=== PATIENT | female | born 1935 | race Caucasian/White ===

== ENCOUNTER 2018-08-28 11:11 | Inpatient (IN) | payer MEDICARE, OTHER | END 2018-09-02 18:50 | LOC: ER 11:11 → TELE-WESTW 11:12 | DX: I13.2 Hypertensive heart and chronic kidney disease with heart failure and with stage 5 chronic kidney disease, or end stage renal disease (principal); I50.23 Acute on chronic systolic (congestive) heart failure; N18.6 End stage renal disease; J96.00 Acute respiratory failure, unspecified whether with hypoxia or hypercapnia; E44.0 Moderate protein-calorie malnutrition; Z99.2 Dependence on renal dialysis; E11.22 Type 2 diabetes mellitus with diabetic chronic kidney disease; Z79.4 Long term (current) use of insulin; D63.8 Anemia in other chronic diseases classified elsewhere; I48.91 Unspecified atrial fibrillation; K21.9 Gastro-esophageal reflux disease without esophagitis; I48.2 Chronic atrial fibrillation; I27.20 Pulmonary hypertension, unspecified; E87.6 Hypokalemia ==

== ENCOUNTER 2018-12-04 14:37 | Inpatient (IN) | payer MEDICARE, OTHER ==
[~2018-12-04] VITALS: Ht 157.5 cm; Wt 71.3 kg
[~2018-12-04 14:37] MED LIST: ALB5IS NEB; ALBUAER3 IN; ALL300T PO; ASPI-404 PO; CALC667C PO; CIPR-187 PO; DOCU100C8 PO; FER325T PO; FURO1TAB33 PO; GABA300C10 PO; GLIP-204 PO; INSLANTI SC; LEVO112T4 PO; LEVO25TA6 PO; LIS10T PO; MET25T PO; METF-372 PO; NOR10T PO; PANT40TA2 PO; SIMV-13 PO; SITA50TA PO; TIOTCAP IN
[2018-12-04 15:23] LABS: Basophils # (auto) 0.1 uL; Basophils % (auto) 1.3 % (0.0-2.0); Eosinophils # (auto) 0.5 uL; Eosinophils % (auto) 6.5 % (0.0-7.0); Hematocrit 34.5 % (36.0-46.0); Hemoglobin 11.4 g/dL (12.2-16.2); Lymphocytes # (auto) 1.4 uL; Lymphocytes % (auto) 17.3 % (10.0-50.0); Monocytes # (auto) 0.5 uL; Neutrophils # (auto) 5.6 uL; Neutrophils % (auto) 68.9 % (37.0-80.0); Red Blood Cells 3.79 10^6/uL (4.0-5.20); White Blood Cell 8.2 10^3/uL (4.4-10.8)
[2018-12-04 15:24] LABS: Mean Corpuscular Hemoglobin 30.2 pg (28.0-32.0); Mean Corpuscular Hgb Conc. 33.1 g/dL (32.0-36.0); Mean Corpuscular Volume 91.2 fL (80.0-100.0); Platelet Count (auto) 214 10^3/uL (140-450); Red Cell Distribution Width 18.2 % (11.8-14.3)
[2018-12-04] MEDS ORDERED: PIPERACILLIN-TAZOB 3.375GM 100 ML IV ONE (15:30)
[2018-12-04 15:38] LABS: Albumin 3.4 g/dL (3.4-5.0); Calcium 8.8 mg/dL (8.5-10.1); Potassium 4.2 mmol/L (3.5-5.1)
[2018-12-04 15:41] LABS: BUN/Creatinine Ratio 12.6
[2018-12-04 15:44] LABS: Bilirubin, Total 0.4 mg/dL (0.2-1.0); Total Protein 7.1 g/dL (6.4-8.2)
[2018-12-04 18:17] LABS: Urine Bacteria FEW /hpf (None Seen); Urine Blood Negative /uL (Negative); Urine Hyaline Cast FEW /lpf (0 - 2); Urine WBC 1 /hpf (0 - 5)
[2018-12-04] MEDS ORDERED: DEXTROSE (50%) 50ML SYRG IV PRN (18:30)
[2018-12-04] MEDS ORDERED: MORPHINE SULF INJ 2 MG/ML SYRINGE 1ML IV PRN (18:30)
[2018-12-04] MEDS ORDERED: VANCOMYCIN PER PHARMACY 0 MG IV SCH (18:30)
[2018-12-04] MEDS ORDERED: NITROGLYCERIN 0.4 MG SL TAB SL PRN (18:30)
[2018-12-04] MEDS ORDERED: diphenhdrAMINE HCL 50 MG/1 ML VL IV PRN (18:30)
[2018-12-04] MEDS ORDERED: VANCOMYCIN 1GM/250ML 250 ML IV ONE (19:00)
--- NOTE | 2018-12-04 19:55 | NUR ---
PATIENT ARRIVED TO ROOM VIA STRETCHER. SHE IS ALERT AND ORIENTED X4. SHE IS NOT AMBULATORY BUT ABLE TO TURN FROM SIDE TO SIDE IN THE BED. SHE HAS EDEMA AT 3+ TO BOTH FEET. REDNESS AND PAIN TO BOTH LOWER EXTREMITIES WELL. SHE IS ON ROOM AIR. BED IS LOCKED IN THE LOWEST POSITION WITH SIDE RAILS UP X2. CALL LIGHT IS WITHIN REACH. WILL CONTINUE TO MONITOR.
[2018-12-04 20:31] VITALS: BP 128/65
[2018-12-04 22:00] VITALS: BP 128/65
[2018-12-04] MEDS ORDERED: INFLUENZA QUAD 2019-2020 0.5ml SYRG IM SCH (22:00)
[2018-12-04] MEDS: METOPROLOL TARTRATE 25 MG TAB PO SCH (22:00)
[2018-12-04] MEDS ORDERED: GABAPENTIN 300 MG CAP PO PRN (22:00)
[2018-12-04] MEDS: GABAPENTIN 300 MG CAP PO SCH (22:08)
[2018-12-04] MEDS: InsuLIN REG 1unit/0.01ml Soln (100units/ml) SC SCH (22:09)
[2018-12-04] MEDS: ACCU-CHEK COMFORT CURVE STRIP VI SCH (22:09)
[2018-12-05] VITALS (7 sets, daily range): BP systolic 123–150; BP diastolic 55–89
[2018-12-05 06:31] LABS: Basophils # (auto) 0.1 uL; Basophils % (auto) 0.8 % (0.0-2.0); Eosinophils # (auto) 0.5 uL; Eosinophils % (auto) 6.5 % (0.0-7.0); Hematocrit 32.3 % (36.0-46.0); Hemoglobin 10.6 g/dL (12.2-16.2); Lymphocytes % (auto) 13.2 % (10.0-50.0); Mean Corpuscular Hemoglobin 29.8 pg (28.0-32.0); Mean Corpuscular Hgb Conc. 32.8 g/dL (32.0-36.0); Mean Corpuscular Volume 90.8 fL (80.0-100.0); Monocytes # (auto) 0.5 uL; Monocytes % (auto) 6.8 % (0.0-12.0); Neutrophils # (auto) 5.6 uL; Neutrophils % (auto) 72.7 % (37.0-80.0); Platelet Count (auto) 189 10^3/uL (140-450); Red Blood Cells 3.56 10^6/uL (4.0-5.20); Red Cell Distribution Width 17.8 % (11.8-14.3); White Blood Cell 7.7 10^3/uL (4.4-10.8)
[2018-12-05 06:38] LABS: Calcium 8.9 mg/dL (8.5-10.1); Potassium 4.1 mmol/L (3.5-5.1)
[2018-12-05 06:42] LABS: Bilirubin, Total 0.5 mg/dL (0.2-1.0); Phosphorus 3.4 mg/dL (2.5-4.90); Total Protein 6.5 g/dL (6.4-8.2)
[2018-12-05] MEDS: ACCU-CHEK COMFORT CURVE STRIP VI SCH ×4 (07:00→22:09)
[2018-12-05] MEDS: InsuLIN REG 1unit/0.01ml Soln (100units/ml) SC SCH ×4 (07:00→22:14)
[2018-12-05] MEDS: PANTOPRAZOLE 40 MG TAB PO SCH (09:28)
[2018-12-05] MEDS: LISINOPRIL 10 MG TAB PO SCH (09:28)
[2018-12-05] MEDS: CALCIUM ACETATE 667 MG CAP PO SCH ×3 (09:28→17:23)
[2018-12-05] MEDS: GABAPENTIN 300 MG CAP PO SCH (09:29)
[2018-12-05] MEDS: METOPROLOL TARTRATE 25 MG TAB PO SCH ×2 (09:29→22:09)
[2018-12-05] MEDS ORDERED: LEVOTHYROXINE SODIUM 100 MCG/5 ML INJ IV ONE (09:30)
[2018-12-05] MEDS: cefTRIAXone 1GM/50ML D5W 50 ML IV SCH (09:30)
[2018-12-05] MEDS: FERROUS SULFATE 325 MG TAB PO SCH ×3 (09:30→17:22)
[2018-12-05] MEDS: ASPirin-EC 81 mg tab PO SCH (09:31)
--- NOTE | 2018-12-05 15:00 | NUR ---
Assessment Pt is an 83 yr old female alert and oriented. Pt lives alone but her grandson, Gilberto, comes over daily to assist with cooking cleaning, showering, toileting and any other needs. Grandcristian, Gilberto, is pt's emergency contact at [phone]. Pt uses a w/c, shower chair and commode in the home. Pt receives dialysis services through [facility] in [place]. Pt receives income and states that she does not have an advanced directive on file. Pt's grandson will transport home upon d/c. Pt plans to d/c home upon medical clearance. No needs or concerns at this time. Addendum: 12/05/18 at 1610 by CARYN ELLIS Amended: Links added.
--- NOTE | 2018-12-05 20:00 | NUR ---
RECEIVE IN BED WATCHING TV WITH BILATERAL LOWER EXTREMITIES 2+ EDEMA AND REDNESS NO VOICED COMPLAINTS IS FOR DIALYSIS TOMORROW
[2018-12-06] VITALS (7 sets, daily range): BP systolic 130–151; BP diastolic 49–79
--- NOTE | 2018-12-06 06:00 | NUR ---
ISOLATION FOR MRSA MAINTAINED RT CHEST DIALTSIS CATHETER REMAINS INTACT
[2018-12-06] MEDS: ACCU-CHEK COMFORT CURVE STRIP VI SCH ×4 (06:23→23:04)
[2018-12-06] MEDS: InsuLIN REG 1unit/0.01ml Soln (100units/ml) SC SCH ×4 (06:31→23:12)
[2018-12-06] MEDS: LEVOTHYROXINE SODIUM 100 MCG/5 ML INJ IV SCH (06:31)
[2018-12-06] MEDS: cefTRIAXone 1GM/50ML D5W 50 ML IV SCH (10:15)
[2018-12-06] MEDS: FERROUS SULFATE 325 MG TAB PO SCH ×3 (10:16→18:01)
[2018-12-06] MEDS: ASPirin-EC 81 mg tab PO SCH (10:16)
[2018-12-06] MEDS: PANTOPRAZOLE 40 MG TAB PO SCH (10:16)
[2018-12-06] MEDS: LISINOPRIL 10 MG TAB PO SCH (10:17)
[2018-12-06] MEDS: METOPROLOL TARTRATE 25 MG TAB PO SCH ×2 (10:18→23:03)
[2018-12-06] MEDS: ENOXAPARIN SOD 30 MG/0.3 ML SYRINGE SC SCH (10:19)
[2018-12-06] MEDS: GABAPENTIN 300 MG CAP PO SCH (10:19)
[2018-12-06] MEDS: CALCIUM ACETATE 667 MG CAP PO SCH ×3 (10:19→18:01)
[2018-12-06] MEDS: DOXYCYCLINE 100 MG TAB/CAP PO SCH (23:04)
[2018-12-07 05:00] VITALS: BP 147/62
[2018-12-07] MEDS: LEVOTHYROXINE SODIUM 100 MCG/5 ML INJ IV SCH (07:03)
[2018-12-07] MEDS: ACCU-CHEK COMFORT CURVE STRIP VI SCH ×4 (07:04→21:57)
[2018-12-07] MEDS: InsuLIN REG 1unit/0.01ml Soln (100units/ml) SC SCH ×4 (07:05→21:56)
--- NOTE | 2018-12-07 07:30 | NUR ---
Opening Note Assumed pt care from [facility] nurse. PT is a/ox4 with no s/s o0f distress or SOB. Pt is currently laying in bed with no complaints. Discussed POC with pt; the possibility of dialysis today; pt verbalized understanding. Safety measures maintained with call light within reach, bed in lowest position and side rails up. Will continue to monitor for changes q1hr and prn. MRSA contact precautions still in action.
[2018-12-07] MEDS: CALCIUM ACETATE 667 MG CAP PO SCH ×3 (07:59→18:09)
[2018-12-07] MEDS: FERROUS SULFATE 325 MG TAB PO SCH ×3 (08:00→18:09)
[2018-12-07] MEDS: DOXYCYCLINE 100 MG TAB/CAP PO SCH ×2 (08:38→21:45)
[2018-12-07] MEDS: PANTOPRAZOLE 40 MG TAB PO SCH (08:38)
[2018-12-07] MEDS: ASPirin-EC 81 mg tab PO SCH (08:38)
[2018-12-07] MEDS: ENOXAPARIN SOD 30 MG/0.3 ML SYRINGE SC SCH (08:38)
[2018-12-07] MEDS: GABAPENTIN 300 MG CAP PO SCH (08:38)
[2018-12-07 09:00] VITALS: BP 154/69
[2018-12-07] MEDS: LISINOPRIL 10 MG TAB PO SCH (09:56)
[2018-12-07] MEDS: METOPROLOL TARTRATE 25 MG TAB PO SCH ×2 (10:00→21:45)
--- NOTE | 2018-12-07 11:59 | NUR ---
DIALYSIS NURSE AT BEDSIDE
--- NOTE | 2018-12-07 14:46 | NUR ---
DIALYSIS COMPLETE DIALYSIS NURSE REPORTED THAT 1.5L WERE REMOVED DURING TREATMENT. PT TOLERATED TREATMENT WELL. WILL CONTINUE TO MONITOR. LAST BP POST TX IS 120/70.
--- NOTE | 2018-12-07 14:56 | NUR ---
Senior Talent Management Consultant Called to Inform of Procedure Tomorrow RN from labor supervisor called to inform that pt is on the schedule for peripheral angio tomorrow AM. Pt is able to eat light breakfast tomorrow morning given the procedure is later in the afternoon.
[2018-12-07 14:57] VITALS: BP 123/70
[2018-12-07 17:00] VITALS: BP 105/56
--- NOTE | 2018-12-07 19:35 | NUR ---
Opening Shift Note Assumed care of patient, awake and alert. No S/S of distress/SOB or pain. Bed locked in lowest position, side rails upx2, call light within reach, bed alarm on. Instructed on POC and to call for assist PRN, will continue to monitor for changes Q1hr and PRN.
[2018-12-07] MEDS: ATORVASTATIN 20 MG TAB PO SCH (21:45)
[2018-12-07 22:00] VITALS: BP 113/55
[2018-12-08 05:00] VITALS: BP 129/73
[2018-12-08] MEDS: LEVOTHYROXINE SODIUM 100 MCG/5 ML INJ IV SCH (06:58)
[2018-12-08] MEDS: InsuLIN REG 1unit/0.01ml Soln (100units/ml) SC SCH ×4 (06:59→21:48)
[2018-12-08] MEDS: ACCU-CHEK COMFORT CURVE STRIP VI SCH ×4 (06:59→21:48)
[2018-12-08 07:02] LABS: Basophils # (auto) 0.1 uL; Basophils % (auto) 1.2 % (0.0-2.0); Eosinophils # (auto) 0.3 uL; Hematocrit 33.3 % (36.0-46.0); Lymphocytes # (auto) 1.3 uL; Lymphocytes % (auto) 20.7 % (10.0-50.0); Mean Corpuscular Hgb Conc. 33.2 g/dL (32.0-36.0); Mean Corpuscular Volume 90.5 fL (80.0-100.0); Monocytes # (auto) 0.5 uL; Monocytes % (auto) 8.2 % (0.0-12.0); Neutrophils # (auto) 4.2 uL; Neutrophils % (auto) 64.9 % (37.0-80.0); Nucleated Red Blood Cells % 0.1 %; Platelet Count (auto) 181 10^3/uL (140-450); Red Blood Cells 3.68 10^6/uL (4.0-5.20); Red Cell Distribution Width 17.1 % (11.8-14.3); White Blood Cell 6.5 10^3/uL (4.4-10.8)
[2018-12-08 07:05] LABS: Partial Thromboplastin Time 24.2 sec (23.64-32.05)
[2018-12-08 07:15] LABS: BUN/Creatinine Ratio 15.2; Calcium 9.5 mg/dL (8.5-10.1); Potassium 4.9 mmol/L (3.5-5.1)
[2018-12-08] MEDS: FERROUS SULFATE 325 MG TAB PO SCH ×3 (08:00→18:12)
[2018-12-08] MEDS: CALCIUM ACETATE 667 MG CAP PO SCH ×3 (08:00→18:12)
[2018-12-08 09:00] VITALS: BP 132/57
[2018-12-08] MEDS: DOXYCYCLINE 100 MG TAB/CAP PO SCH ×2 (09:28→21:48)
[2018-12-08] MEDS: METOPROLOL TARTRATE 25 MG TAB PO SCH ×2 (09:29→21:47)
[2018-12-08] MEDS: LISINOPRIL 10 MG TAB PO SCH (09:30)
--- NOTE | 2018-12-08 09:30 | NUR ---
PASSED MORNING MEDICATIONS, PT TOLERATED WELL. REPORTS COMFORT AT MOMENT. EFFORTLESS BREATHING ON 2LNC. BED LOCKED AND IN LOWEST POSITION, CALL LIGHT WITHIN REACH. WILL CONTINUE TO MONITOR.
[2018-12-08] MEDS: ASPirin-EC 81 mg tab PO SCH (09:32)
[2018-12-08] MEDS: ENOXAPARIN SOD 30 MG/0.3 ML SYRINGE SC SCH (09:33)
[2018-12-08] MEDS: GABAPENTIN 300 MG CAP PO SCH (09:34)
[2018-12-08] MEDS: PANTOPRAZOLE 40 MG TAB PO SCH (09:35)
--- NOTE | 2018-12-08 12:22 | NUR ---
Nutrition Assessment Notes please see attached link for complete assessment Est. Needs BW [id number] kcal (30-33 kcal/kgBW), 82-96 gms pro (1.2-1.4 gms/kgBW r/t HD). Will continue to monitor pertinent labs and reassess nutrient need prn Addendum: 12/08/18 at [address] Amended: Links added.
[2018-12-08 13:00] VITALS: BP 141/68
--- NOTE | 2018-12-08 14:10 | NUR ---
PT TAKEN DOWN TO LINE CONTROLLER.
--- NOTE | 2018-12-08 15:00 | NUR ---
PT BACK TO UNIT, PROCEDURE WAS CANCELLED PER MD. PT BACK IN ROOM, COMFORTABLE ENVIRONMENT PROVIDED. BED LOCKED AND IN LOWEST POSITION, CALL LIGHT WITHIN REACH. WILL CONTINUE TO MONITOR.
--- NOTE | 2018-12-08 16:48 | NUR ---
Discharge planning per consult, patient has orders to resume home health. Placed a call to her grandson Gilberto [phone], advised of the resumption order, he was okay to resume services with [facility]. Referral [facility]ed to [facility], placed a follow up call, spoke with [facility] and was advised that they will resume home health with this patient and start of care will be within 24-48 hours upon dc. Nurse Berry was advised of dc plan for home health resumption. Addendum: 12/08/18 at 1653 by LAUREL ARCHULETA Amended: Links added.
[2018-12-08 17:00] VITALS: BP 155/79
--- NOTE | 2018-12-08 19:00 | NUR ---
OPENING NOTE Received report from day shift RN. Patient is A&O X's 4 with no s/s of distress. Educated patient on POC and to use call light when in need of assistance and when needing to use the bedside commode. Patient verbalized understanding. Bed is in lowest/locked position with side rails up X's 2 and call light is within reach of patient. Bed alarm is on. Will continue care and round hourly.
[2018-12-08] MEDS: ATORVASTATIN 20 MG TAB PO SCH (21:47)
[2018-12-08 22:00] VITALS: BP 109/55
[2018-12-09 05:00] VITALS: BP 137/72
[2018-12-09 05:55] LABS: Basophils # (auto) 0.1 uL; Basophils % (auto) 1.2 % (0.0-2.0); Eosinophils # (auto) 0.4 uL; Eosinophils % (auto) 5.4 % (0.0-7.0); Hematocrit 33.9 % (36.0-46.0); Hemoglobin 11.2 g/dL (12.2-16.2); Lymphocytes # (auto) 1.4 uL; Lymphocytes % (auto) 20.3 % (10.0-50.0); Mean Corpuscular Volume 90.9 fL (80.0-100.0); Monocytes # (auto) 0.5 uL; Monocytes % (auto) 7.2 % (0.0-12.0); Neutrophils # (auto) 4.5 uL; Neutrophils % (auto) 65.9 % (37.0-80.0); Platelet Count (auto) 199 10^3/uL (140-450); Red Blood Cells 3.72 10^6/uL (4.0-5.20); Red Cell Distribution Width 17.1 % (11.8-14.3); White Blood Cell 6.9 10^3/uL (4.4-10.8)
[2018-12-09 06:16] LABS: BUN/Creatinine Ratio 17.3; Calcium 9.6 mg/dL (8.5-10.1)
[2018-12-09] MEDS: LEVOTHYROXINE SODIUM 100 MCG/5 ML INJ IV SCH (06:30)
[2018-12-09] MEDS: ACCU-CHEK COMFORT CURVE STRIP VI SCH ×4 (06:30→21:45)
[2018-12-09] MEDS: InsuLIN REG 1unit/0.01ml Soln (100units/ml) SC SCH ×4 (06:30→21:46)
--- NOTE | 2018-12-09 07:39 | NUR ---
Opening Shift Note Assumed care of patient, awake and alert. No S/S of distress/SOB or pain. Instructed on POC and to call for assist PRN, will continue to monitor for changes Q1hr and PRN.
[2018-12-09] MEDS: CALCIUM ACETATE 667 MG CAP PO SCH ×3 (07:58→17:06)
[2018-12-09] MEDS: FERROUS SULFATE 325 MG TAB PO SCH ×3 (07:58→17:06)
[2018-12-09] MEDS: DOXYCYCLINE 100 MG TAB/CAP PO SCH ×2 (08:55→21:45)
[2018-12-09] MEDS: METOPROLOL TARTRATE 25 MG TAB PO SCH ×2 (08:55→21:44)
[2018-12-09] MEDS: PANTOPRAZOLE 40 MG TAB PO SCH (08:55)
[2018-12-09] MEDS: ASPirin-EC 81 mg tab PO SCH (08:55)
[2018-12-09] MEDS: LISINOPRIL 10 MG TAB PO SCH (08:55)
[2018-12-09] MEDS: ENOXAPARIN SOD 30 MG/0.3 ML SYRINGE SC SCH (08:56)
[2018-12-09] MEDS: GABAPENTIN 300 MG CAP PO SCH (08:56)
[2018-12-09 09:00] VITALS: BP 147/71
[2018-12-09] MEDS ORDERED: ATOR20TA50 PO (11:55)
[2018-12-09] MEDS ORDERED: INSULIN LANTUS (GLARGINE) 1 /0.01ml (100units/ml) SC ONE (12:00)
[2018-12-09 13:00] VITALS: BP 148/59
[2018-12-09 17:00] VITALS: BP 131/65
--- NOTE | 2018-12-09 19:20 | NUR ---
Opening Shift Note Assumed care of patient, awake and alert. No S/S of distress/SOB or pain. Bed locked in lowest position, side rails upx2, call light within reach, bed alarm on. Instructed on POC and to call for assist PRN, patient verbalizes understanding. Will continue to monitor for changes Q1hr and PRN.
[2018-12-09 21:30] VITALS: BP 101/48
[2018-12-09] MEDS: ATORVASTATIN 20 MG TAB PO SCH (21:44)
[2018-12-10 05:44] VITALS: BP 101/56
[2018-12-10 06:26] LABS: Basophils # (auto) 0.1 uL; Basophils % (auto) 0.9 % (0.0-2.0); Eosinophils # (auto) 0.4 uL; Eosinophils % (auto) 5.4 % (0.0-7.0); Hematocrit 33.8 % (36.0-46.0); Hemoglobin 11.2 g/dL (12.2-16.2); Lymphocytes # (auto) 1.4 uL; Lymphocytes % (auto) 21.4 % (10.0-50.0); Mean Corpuscular Hemoglobin 30.1 pg (28.0-32.0); Mean Corpuscular Volume 91.2 fL (80.0-100.0); Monocytes # (auto) 0.5 uL; Monocytes % (auto) 7.2 % (0.0-12.0); Neutrophils # (auto) 4.3 uL; Neutrophils % (auto) 65.1 % (37.0-80.0); Platelet Count (auto) 192 10^3/uL (140-450); Red Cell Distribution Width 17.2 % (11.8-14.3); White Blood Cell 6.6 10^3/uL (4.4-10.8)
[2018-12-10] MEDS: ACCU-CHEK COMFORT CURVE STRIP VI SCH ×4 (06:45→22:00)
[2018-12-10] MEDS: LEVOTHYROXINE SODIUM 100 MCG/5 ML INJ IV SCH (06:45)
[2018-12-10] MEDS: InsuLIN REG 1unit/0.01ml Soln (100units/ml) SC SCH ×4 (06:45→22:00)
[2018-12-10 06:48] LABS: Potassium 4.2 mmol/L (3.5-5.1)
[2018-12-10 07:00] LABS: BUN/Creatinine Ratio 12.9; Bilirubin, Total 0.5 mg/dL (0.2-1.0); Total Protein 6.6 g/dL (6.4-8.2)
[2018-12-10] MEDS: FERROUS SULFATE 325 MG TAB PO SCH (07:28)
[2018-12-10] MEDS: CALCIUM ACETATE 667 MG CAP PO SCH ×3 (07:29→17:06)
[2018-12-10 08:00] VITALS: BP 113/60
[2018-12-10 09:00] VITALS: BP 113/60
[2018-12-10] MEDS: LISINOPRIL 10 MG TAB PO SCH ×2 (09:35→11:15)
[2018-12-10] MEDS: METOPROLOL TARTRATE 25 MG TAB PO SCH ×2 (09:35→22:38)
[2018-12-10] MEDS: ASPirin-EC 81 mg tab PO SCH (09:39)
[2018-12-10] MEDS: GABAPENTIN 300 MG CAP PO SCH (09:39)
[2018-12-10] MEDS: PANTOPRAZOLE 40 MG TAB PO SCH (09:40)
[2018-12-10] MEDS: ENOXAPARIN SOD 30 MG/0.3 ML SYRINGE SC SCH (09:41)
[2018-12-10] MEDS: DOXYCYCLINE 100 MG TAB/CAP PO SCH ×2 (09:41→22:39)
[2018-12-10] MEDS: MUPIROCIN 2% OINT 15gm or 22gm EACHNOSTRI SCH ×2 (14:46→22:39)
[2018-12-10 17:00] VITALS: BP 121/63
[2018-12-10 20:00] VITALS: BP 120/64
[2018-12-10 22:00] VITALS: BP 120/64
--- NOTE | 2018-12-10 22:00 | NUR ---
PATIENT REFUSES 2200 ACCU CHECK. STATES "YOU ALL DON'T CARE IF I SLEEP OR NOT, I CANT GET ANY REST HERE" PATIENT EDUCATED ON REASONS FOR INTERVENTIONS AND RISKS OF REFUSING. PATIENT CONTINUES TO REFUSE.
[2018-12-10] MEDS: ATORVASTATIN 20 MG TAB PO SCH (22:37)
--- NOTE | 2018-12-11 00:56 | NUR ---
CARE ENDORSED TO FELIX TAVERAS
--- NOTE | 2018-12-11 00:57 | NUR ---
Received patient from NITIN Bailey. Patient in bed asleep with no signs of distress.
[2018-12-11 05:29] VITALS: BP 123/60
[2018-12-11 06:13] LABS: Basophils # (auto) 0.1 uL; Basophils % (auto) 0.9 % (0.0-2.0); Eosinophils # (auto) 0.4 uL; Eosinophils % (auto) 5.5 % (0.0-7.0); Hematocrit 32.3 % (36.0-46.0); Hemoglobin 10.9 g/dL (12.2-16.2); Lymphocytes # (auto) 1.4 uL; Lymphocytes % (auto) 21.1 % (10.0-50.0); Mean Corpuscular Hemoglobin 30.9 pg (28.0-32.0); Mean Corpuscular Hgb Conc. 33.9 g/dL (32.0-36.0); Mean Corpuscular Volume 91.2 fL (80.0-100.0); Monocytes # (auto) 0.5 uL; Monocytes % (auto) 6.9 % (0.0-12.0); Neutrophils # (auto) 4.5 uL; Neutrophils % (auto) 65.6 % (37.0-80.0); Nucleated Red Blood Cells % 0.1 %; Platelet Count (auto) 183 10^3/uL (140-450); Red Blood Cells 3.55 10^6/uL (4.0-5.20); Red Cell Distribution Width 16.6 % (11.8-14.3); White Blood Cell 6.8 10^3/uL (4.4-10.8)
[2018-12-11 06:29] LABS: Calcium 8.8 mg/dL (8.5-10.1); Potassium 4.8 mmol/L (3.5-5.1)
[2018-12-11 06:31] LABS: BUN/Creatinine Ratio 14.7
[2018-12-11] MEDS: LEVOTHYROXINE SODIUM 100 MCG/5 ML INJ IV SCH (06:57)
[2018-12-11] MEDS: InsuLIN REG 1unit/0.01ml Soln (100units/ml) SC SCH ×4 (06:57→21:59)
[2018-12-11] MEDS: ACCU-CHEK COMFORT CURVE STRIP VI SCH ×4 (06:57→22:00)
[2018-12-11] MEDS ORDERED: HEPARIN IN NS 1000Units/500mL 1,500 ML ONE (07:28)
[2018-12-11] MEDS ORDERED: IODIXANOL 320MG/ML 100ML BTL IV ONE ×2 (07:28→09:11)
[2018-12-11] MEDS ORDERED: LIDOCAINE 2%HCL (LOCAL ANESTH.) INJ 20ML MDV ONE (07:28)
--- NOTE | 2018-12-11 07:48 | NUR ---
Endorsed care to day shift RN.
[2018-12-11] MEDS: CALCIUM ACETATE 667 MG CAP PO SCH ×3 (08:00→17:27)
[2018-12-11] MEDS ORDERED: fentaNYL CITRATE 100 MCG/2 ML VL ONE (09:07)
[2018-12-11] MEDS ORDERED: ANGIOMAX 250 MG VIAL IV ONE (09:07)
[2018-12-11] MEDS ORDERED: SODIUM CHL 0.9% 50 ML ONE (09:07)
[2018-12-11] MEDS ORDERED: MIDAZOLAM HCL 1MG/1ML-2 ML VIAL ONE (09:07)
[2018-12-11] MEDS ORDERED: IOHEXOL 350 MG/ML 100ML IJ ONE ×2 (09:08→09:13)
[2018-12-11] MEDS: PANTOPRAZOLE 40 MG TAB PO SCH (09:24)
[2018-12-11] MEDS: GABAPENTIN 300 MG CAP PO SCH (09:24)
[2018-12-11] MEDS: ASPirin-EC 81 mg tab PO SCH (09:24)
[2018-12-11] MEDS: MUPIROCIN 2% OINT 15gm or 22gm EACHNOSTRI SCH ×2 (09:24→22:03)
[2018-12-11] MEDS: METOPROLOL TARTRATE 25 MG TAB PO SCH ×2 (09:24→21:59)
[2018-12-11] MEDS: DOXYCYCLINE 100 MG TAB/CAP PO SCH ×2 (09:25→21:59)
[2018-12-11] MEDS: ENOXAPARIN SOD 30 MG/0.3 ML SYRINGE SC SCH (09:25)
[2018-12-11] MEDS: LISINOPRIL 10 MG TAB PO SCH (09:25)
[2018-12-11] MEDS ORDERED: CLOPIDOGREL 300 MG TAB ONE (10:04)
--- NOTE | 2018-12-11 12:03 | NUR ---
Nutrition Follow-up Notes Wt.:69.7 kg Pt was sleeping with no family by bedside. per pt records pt to have angiogram today. pt with no distress noted to have HD ghulam. pt is currently NPO for procedure Est. Needs BW [id number] kcal (30-33 kcal/kgBW), 82-96 gms pro (1.2-1.4 gms/kgBW r/t HD). Will continue to monitor pertinent labs and reassess nutrient need prn Labs: BUN 39 H, CREAT 2.66 H, GLU 136 H Skin: Gonzalo scale 18 mod risk, skin intact per track subway repair supervisor. GI: Pt had 1 BM yesterday per track subway repair supervisor. PES: Altered nutrition related lab values r/t current/chronic medical condition aeb elev RFT hyperglycemia, mild hypoalb Will continue to monitor PO intake, skin status, pertinent labs and weight trend. F/u in 3 to 5 days. Rec.: 1.) Resume diet as medically feasible. 2) refer to CDE on DC. 30 continue current plan of care
[2018-12-11 13:00] VITALS: BP_SYST 116; BP_SYST 137; BP_DIAS 57; BP_DIAS 73
[2018-12-11 17:27] VITALS: BP 137/73
--- NOTE | 2018-12-11 19:30 | NUR ---
Opening Shift Note Assumed care of patient, awake and alert. No S/S of distress/SOB or pain. Bed locked and in lowest position; HOB side rails up. Call light is within pt's reach; bed alarm on. This RN instructed pt on POC and to call for assist PRN; patient VU. This RN will continue to monitor for changes Q1hr and PRN.
[2018-12-11 21:55] VITALS: BP 122/70
[2018-12-11] MEDS: ATORVASTATIN 20 MG TAB PO SCH (22:00)
--- NOTE | 2018-12-11 22:35 | NUR ---
Pt refused accucheck.
--- NOTE | 2018-12-12 00:19 | NUR ---
Linen changed by VEGETABLE LOADER MACHINE OPERATOR as pt sitting on BSC; pt incontinent of urine.
[2018-12-12 05:29] VITALS: BP 132/74
[2018-12-12] MEDS: ACCU-CHEK COMFORT CURVE STRIP VI SCH ×2 (06:43→11:30)
[2018-12-12] MEDS: LEVOTHYROXINE SODIUM 100 MCG/5 ML INJ IV SCH (06:44)
[2018-12-12] MEDS: InsuLIN REG 1unit/0.01ml Soln (100units/ml) SC SCH ×2 (06:44→11:30)
[2018-12-12] MEDS ORDERED: SODIUM CHL 0.9% 1000 ML BAG XX ONE (07:00)
[2018-12-12 08:00] VITALS: BP 149/74
[2018-12-12] MEDS: CALCIUM ACETATE 667 MG CAP PO SCH ×2 (08:00→12:00)
[2018-12-12 09:00] VITALS: BP 149/74
[2018-12-12] MEDS: ASPirin-EC 81 mg tab PO SCH (09:54)
[2018-12-12] MEDS: ENOXAPARIN SOD 30 MG/0.3 ML SYRINGE SC SCH (09:55)
[2018-12-12] MEDS: PANTOPRAZOLE 40 MG TAB PO SCH (09:55)
[2018-12-12] MEDS: GABAPENTIN 300 MG CAP PO SCH (09:55)
[2018-12-12] MEDS: MUPIROCIN 2% OINT 15gm or 22gm EACHNOSTRI SCH (09:56)
[2018-12-12] MEDS: METOPROLOL TARTRATE 25 MG TAB PO SCH (10:00)
[2018-12-12] MEDS: LISINOPRIL 10 MG TAB PO SCH (10:00)
[2018-12-12] MEDS ORDERED: CLOPIDOGREL BISULFATE 75 MG TAB PO SCH (10:00)
[2018-12-12] MEDS: DOXYCYCLINE 100 MG TAB/CAP PO SCH (10:00)
[2018-12-12] MEDS ORDERED: DOXY-216 PO (11:45)
[2018-12-12] MEDS ORDERED: METO25TA5 PO (11:45)
[2018-12-12] MEDS ORDERED: INSLANTI SC (11:45)
[2018-12-12] MEDS ORDERED: LEVO100T8 PO (11:45)
[2018-12-12] MEDS ORDERED: ATOR20TA50 PO (11:45)
[2018-12-12] MEDS ORDERED: CALC667C PO (11:45)
[2018-12-12] MEDS ORDERED: CLOP75TA28 PO (11:46)
[2018-12-12 12:50] VITALS: BP 122/70
[2018-12-12 13:00] VITALS: BP 113/79
--- NOTE | 2018-12-12 13:47 | NUR ---
Patient is discharging today. Placed a follow up call to [facility], spoke with Hannah and advised patient is discharging. She advised they will see patient within 24-48 hours.
--- NOTE | 2018-12-12 14:31 | NUR ---
PATIENT DISCHARGED HOME WITH [facility]. ALL IV ACCESS DISCONTINUED. TELEMETRY DISCONTINUED AND RETURNED TO TELEMETRY DEPARTMENT. ALL DISCHARGE INSTRUCTIONS GIVEN. ALL DISCHARGE PAPERWORK SIGNED.
[2019-01-01] MEDS ORDERED: INSREG3 SC (14:15)
[2019-01-01] MEDS ORDERED: FURO1TAB33 PO (14:15)
== END 2018-12-12 14:00 | disposition home health service (06) | DRG 270 ==
LOC: ER 14:45 → TELE 14:46 → TELE-WESTW 19:50
PROVIDERS: ADMIT Nurse Practitioner Acute Care; ATTEND Internal Medicine
PROC: 5A1D70Z Performance of Urinary Filtration, Intermittent, Less than 6 Hours Per Day (ICD-10-PCS; 2018-12-07)
PROC: 5A1D70Z Performance of Urinary Filtration, Intermittent, Less than 6 Hours Per Day (ICD-10-PCS; 2018-12-09)
PROC: 047L3ZZ Dilation of Left Femoral Artery, Percutaneous Approach (ICD-10-PCS; principal; 2018-12-12)
PROC: 04CL3ZZ Extirpation of Matter from Left Femoral Artery, Percutaneous Approach (ICD-10-PCS; 2018-12-12)
PROC: 047N3ZZ Dilation of Left Popliteal Artery, Percutaneous Approach (ICD-10-PCS; 2018-12-12)
PROC: 04CN3ZZ Extirpation of Matter from Left Popliteal Artery, Percutaneous Approach (ICD-10-PCS; 2018-12-12)
PROC: B41G1ZZ Fluoroscopy of Left Lower Extremity Arteries using Low Osmolar Contrast (ICD-10-PCS; 2018-12-12)
PROC: B41F1ZZ Fluoroscopy of Right Lower Extremity Arteries using Low Osmolar Contrast (ICD-10-PCS; 2018-12-12)
PROC: 5A1D70Z Performance of Urinary Filtration, Intermittent, Less than 6 Hours Per Day (ICD-10-PCS; 2018-12-12)
DX: E11.51 Type 2 diabetes mellitus with diabetic peripheral angiopathy without gangrene (principal); N18.6 End stage renal disease; L03.115 Cellulitis of right lower limb; I50.42 Chronic combined systolic (congestive) and diastolic (congestive) heart failure; I13.2 Hypertensive heart and chronic kidney disease with heart failure and with stage 5 chronic kidney disease, or end stage renal disease; E44.0 Moderate protein-calorie malnutrition; N39.0 Urinary tract infection, site not specified; L03.116 Cellulitis of left lower limb; I25.10 Atherosclerotic heart disease of native coronary artery without angina pectoris; E11.22 Type 2 diabetes mellitus with diabetic chronic kidney disease; D63.8 Anemia in other chronic diseases classified elsewhere; E03.9 Hypothyroidism, unspecified; I27.20 Pulmonary hypertension, unspecified; E11.21 Type 2 diabetes mellitus with diabetic nephropathy; I48.91 Unspecified atrial fibrillation; J44.9 Chronic obstructive pulmonary disease, unspecified; B95.62 Methicillin resistant Staphylococcus aureus infection as the cause of diseases classified elsewhere; E78.5 Hyperlipidemia, unspecified; M10.9 Gout, unspecified; I25.2 Old myocardial infarction; Z99.2 Dependence on renal dialysis; Z95.1 Presence of aortocoronary bypass graft; Z79.4 Long term (current) use of insulin; Z88.8 Allergy status to other drugs, medicaments and biological substances; Z87.11 Personal history of peptic ulcer disease; Z86.711 Personal history of pulmonary embolism; Z79.01 Long term (current) use of anticoagulants; Z90.710 Acquired absence of both cervix and uterus; Z90.49 Acquired absence of other specified parts of digestive tract; Z85.3 Personal history of malignant neoplasm of breast; Z79.899 Other long term (current) drug therapy; Z82.49 Family history of ischemic heart disease and other diseases of the circulatory system; Z80.41 Family history of malignant neoplasm of ovary; Z68.28 Body mass index [BMI] 28.0-28.9, adult
CPT/HCPCS: 36415; 37227; 71045; 75716; 80048; 80053; 80202; 81001; 82962; 83036; 83605; 83880; 84100; 84439; 84443; 85025; 85610; 85730; 87040; 87081; 87086; 87088; 90935; 93926; 93971; 96365; 96367; 96375; 99152; 99153; C1769; G0378; J0696; J1642; J1815; J2250; J2543; J3490; Q9967

== ENCOUNTER → 2019-01-01 | Outpatient (CLI) | payer MEDICARE, OTHER ==
[~2019-01-01] MED LIST changes: -ALL300T PO; +ATOR20TA50 PO; -CIPR-187 PO; +CLOP75TA28 PO; +DOXY-216 PO; -GLIP-204 PO; +INSREG3 SC; +LEVO100T8 PO; -LEVO25TA6 PO; -LIS10T PO; -MET25T PO; -METF-372 PO; +METO25TA5 PO; -NOR10T PO; -PANT40TA2 PO; -SIMV-13 PO; -SITA50TA PO
--- NOTE | 2019-01-01 11:20 | NUR ---
Pre-Op Discharge Summary: See e-MAR for any medications given for this visit. Pre-op orders received and carried out per MD of EKG, LABS and chest xrays script given to patient to have done at [facility] Patient given a copy of EKG with instructions to go to [facility] out patient for further follow up care.
[2019-01-01 12:31] VITALS: BP 135/60
[2019-01-01 12:49] VITALS: BP 124/61
[2019-01-01 16:02] LABS: Calcium 9.3 mg/dL (8.5-10.1)
[2019-01-01 16:05] LABS: BUN/Creatinine Ratio 21.3
[2019-01-01 16:06] LABS: Basophils # (auto) 0 uL; Basophils % (auto) 0.7 % (0.0-2.0); Eosinophils # (auto) 0.3 uL; Eosinophils % (auto) 4.4 % (0.0-7.0); Hematocrit 30.9 % (36.0-46.0); Hemoglobin 10.3 g/dL (12.2-16.2); Lymphocytes # (auto) 1.1 uL; Lymphocytes % (auto) 15.8 % (10.0-50.0); Mean Corpuscular Hemoglobin 30.4 pg (28.0-32.0); Mean Corpuscular Hgb Conc. 33.3 g/dL (32.0-36.0); Mean Corpuscular Volume 91.5 fL (80.0-100.0); Monocytes # (auto) 0.5 uL; Monocytes % (auto) 7.1 % (0.0-12.0); Neutrophils # (auto) 4.9 uL; Platelet Count (auto) 169 10^3/uL (140-450); Red Blood Cells 3.37 10^6/uL (4.0-5.20); Red Cell Distribution Width 15.3 % (11.8-14.3); White Blood Cell 6.8 10^3/uL (4.4-10.8)
[2019-01-01 16:22] LABS: INR 0.94 (0.9-1.15); Partial Thromboplastin Time 23.4 sec (23.64-32.05)
== END | disposition home or self-care (01) ==
LOC: Rad HDHVI 12:01
PROVIDERS: ATTEND Internal Medicine Cardiovascular Disease
DX: Z01.812 Encounter for preprocedural laboratory examination (principal); I73.9 Peripheral vascular disease, unspecified; I13.11 Hypertensive heart and chronic kidney disease without heart failure, with stage 5 chronic kidney disease, or end stage renal disease; N18.6 End stage renal disease; I25.10 Atherosclerotic heart disease of native coronary artery without angina pectoris; E78.5 Hyperlipidemia, unspecified; Z95.1 Presence of aortocoronary bypass graft; Z87.891 Personal history of nicotine dependence
CPT/HCPCS: 36415; 80048; 85025; 85610; 85730; 93005; 93926; G0463

== ENCOUNTER 2019-01-09 11:38 | Inpatient (IN) | payer MEDICARE, OTHER ==
[~2019-01-09] VITALS: Ht 157.5 cm; Wt 71.2 kg
[~2019-01-09 11:38] MED LIST changes: -DOCU100C8 PO; -DOXY-216 PO; -FER325T PO; -LEVO112T4 PO; -METO25TA5 PO
[2019-01-09] MEDS ORDERED: LIDOCAINE 2%HCL (LOCAL ANESTH.) INJ 20ML MDV ONE ×2 (13:18→14:18)
[2019-01-09] MEDS ORDERED: IOHEXOL 350 MG/ML 100ML IJ ONE (13:18)
[2019-01-09] MEDS ORDERED: ANGIOMAX 250 MG VIAL IV ONE (14:15)
[2019-01-09] MEDS ORDERED: fentaNYL CITRATE 100 MCG/2 ML VL ONE (14:16)
[2019-01-09] MEDS ORDERED: MIDAZOLAM HCL 1MG/1ML-2 ML VIAL ONE (14:16)
[2019-01-09] MEDS ORDERED: IODIXANOL 320MG/ML 100ML BTL IV ONE (14:16)
[2019-01-09] MEDS ORDERED: SODIUM CHL 0.9% 50 ML ONE (14:16)
[2019-01-09] MEDS ORDERED: ASPirin 81 mg TAB ONE (16:04)
[2019-01-09] MEDS ORDERED: CLOPIDOGREL BISULFATE 75 MG TAB ONE (16:04)
[2019-01-09] MEDS ORDERED: ONDANSETRON HCL 4 MG/2 ML VIAL IV PRN (16:30)
[2019-01-09] MEDS ORDERED: HYDROcodone-ACET 5/325MG TAB PO PRN (16:30)
[2019-01-09] MEDS ORDERED: ALBUTEROL SULFATE 90 MCG IN PRN (16:30)
[2019-01-09] MEDS ORDERED: ACETAMINOPHEN 500 MG TAB PO PRN (16:30)
[2019-01-09] MEDS ORDERED: MORPHINE SULF INJ 2 MG/ML SYRINGE 1ML IV PRN (16:30)
[2019-01-09] MEDS ORDERED: NITROGLYCERIN 0.4 MG SL TAB SL PRN (16:30)
[2019-01-09] MEDS ORDERED: DEXTROSE (50%) 50ML SYRG IV PRN (16:30)
[2019-01-09] MEDS ORDERED: ALBUTEROL SULF 2.5 MG/0.5ML(0.5%) NEB SOLN NEB PRN (16:30)
[2019-01-09 17:00] VITALS: BP 142/55
--- NOTE | 2019-01-09 17:00 | NUR ---
MS admit analyst microbiology lab BERNARDO SALCIDO admitted to MS after SBAR received. Patient oriented to Nadiya Lees primary RN, unit, room, bed, and unit policies regarding patient care and visiting hours. Patient weighed by bed scale and encouraged to call if they need something. Catheterization site assessed for any bleeding, redness or swelling. Angioseal device in place. Pedal pulses on affected leg assessed for positive tissue perfusion. Patient instructed on need to notify staff immediately if any pain, burning or wetness to site, and any lower back pain. All questions and concerns addressed, patient verbalized understanding of all education and instruction. Fall precautions in place with bed in lowest locked position with x2 side rails up, call light within reach. Bed alarm on for safety. Will continue to monitor q1hr & PRN.
[2019-01-09] MEDS: ACCU-CHEK COMFORT CURVE STRIP VI SCH ×2 (17:30→22:27)
--- NOTE | 2019-01-09 17:32 | NUR ---
Care endorsed to NITIN Alves. Dressing to the right groin is clean, dry and intact. No bleeding noted. Area is soft to palpitation.
--- NOTE | 2019-01-09 17:33 | NUR ---
ASSUMED CARE OF PT, RECEIVED REPORT FROM NITIN DICKSON.
[2019-01-09] MEDS: InsuLIN REG 1unit/0.01ml Soln (100units/ml) SC SCH (17:45)
[2019-01-09] MEDS: CALCIUM ACETATE 667 MG CAP PO SCH (17:54)
--- NOTE | 2019-01-09 18:30 | NUR ---
RE: MISSING BELONGINGS Patient's grandson, Gilberto, and the patient report that the patient's white tennis shoes were left in [employer]. The tennis shoes are Dr. Goode's. Attempted to contact [employer] to notify. No answer. Endorsed to shawnee Alves RN.
--- NOTE | 2019-01-09 18:51 | NUR ---
MRSA specimen collected & sent to lab per Protocol.
[2019-01-09 19:31] VITALS: BP 142/55
--- NOTE | 2019-01-09 19:46 | NUR ---
Opening Shift Note Received report and assumed care of patient. Patient is awake and alert. No signs or symptoms of distress noted. Patient currently denies pain. Instructed patient on plan of care and to call for assistance as needed. Will continue to monitor.
[2019-01-09 20:00] VITALS: BP 142/89
[2019-01-09] MEDS ORDERED: INFLUENZA QUAD 2019-2020 0.5ml SYRG IM ONE (20:00)
[2019-01-09] MEDS: GABAPENTIN 400 MG CAP PO SCH (21:51)
[2019-01-09] MEDS: FUROSEMIDE 20 MG TAB PO SCH (21:55)
[2019-01-09] MEDS: SODIUM CHLOR 0.9% PF (SALINE LOCK) 10ML VIAL/SYR IV SCH (21:58)
[2019-01-09 22:00] VITALS: BP 142/89
[2019-01-09] MEDS ORDERED: InsuLIN REG 1unit/0.01ml Soln (100units/ml) SC SCH (22:00)
[2019-01-09] MEDS: INSULIN LANTUS (GLARGINE) 1 /0.01ml (100units/ml) SC SCH (22:27)
--- NOTE | 2019-01-10 00:08 | NUR ---
Respiratory note: ASSESSED PT FOR PRN MED NEB AT THIS TIME, PT SLEEPING AT THIS TIME, NO RESP DISTRESS NOTED, NO TX INDICATED. PULSE OX 99% ON 2LNC, HR 76, RR 18, BILATERAL BS CLEAR. WILL CONTINUE TO MONITOR
[2019-01-10 05:00] VITALS: BP 142/65
[2019-01-10] MEDS: GABAPENTIN 400 MG CAP PO SCH ×2 (05:54→14:00)
[2019-01-10] MEDS: ACCU-CHEK COMFORT CURVE STRIP VI SCH ×3 (06:00→17:00)
[2019-01-10] MEDS: InsuLIN REG 1unit/0.01ml Soln (100units/ml) SC SCH ×3 (06:00→17:00)
[2019-01-10] MEDS: SODIUM CHLOR 0.9% PF (SALINE LOCK) 10ML VIAL/SYR IV SCH ×2 (06:01→14:00)
--- NOTE | 2019-01-10 07:11 | NUR ---
Opening Shift Note Assumed care of patient, awake and alert. No S/S of distress/SOB or pain. Instructed on POC and to call for assist PRN, will continue to monitor for changes Q1hr and PRN. Bed set in lowest locked position with side rails up x2 with call light within reach.
[2019-01-10] MEDS: CALCIUM ACETATE 667 MG CAP PO SCH ×2 (08:05→11:29)
[2019-01-10 08:07] VITALS: BP 151/54
[2019-01-10 09:00] VITALS: BP 151/54
[2019-01-10 09:05] LABS: Basophils # (auto) 0 uL; Basophils % (auto) 0.7 % (0.0-2.0); Eosinophils # (auto) 0.4 uL; Eosinophils % (auto) 5.4 % (0.0-7.0); Hematocrit 30.8 % (36.0-46.0); Hemoglobin 10.1 g/dL (12.2-16.2); Lymphocytes # (auto) 1.2 uL; Lymphocytes % (auto) 17.9 % (10.0-50.0); Mean Corpuscular Hemoglobin 30.2 pg (28.0-32.0); Mean Corpuscular Hgb Conc. 32.8 g/dL (32.0-36.0); Monocytes # (auto) 0.4 uL; Monocytes % (auto) 5.8 % (0.0-12.0); Neutrophils # (auto) 4.7 uL; Neutrophils % (auto) 70.2 % (37.0-80.0); Platelet Count (auto) 168 10^3/uL (140-450); Red Blood Cells 3.35 10^6/uL (4.0-5.20); Red Cell Distribution Width 15.3 % (11.8-14.3); White Blood Cell 6.7 10^3/uL (4.4-10.8)
[2019-01-10 09:22] LABS: BUN/Creatinine Ratio 20.1; Calcium 8.4 mg/dL (8.5-10.1)
[2019-01-10] MEDS: FUROSEMIDE 20 MG TAB PO SCH (09:52)
--- NOTE | 2019-01-10 09:54 | NUR ---
Respiratory note: AT BEDSIDE TO ASSESS PT FOR PRN TX. PT AWAKE, ALERT AND RESPONSIVE. BS ARE CLEAR THROUGHOUT. SPO2 97% ON 2LPM NC. HR 71. RR 18. NO TREATMENT INDICATED AT THIS TIME. MADE PT AWARE IF HE BECOMES SOB TO PUSH CALL BUTTON AND RT WILL BE PAGED. WILL CONTINUE TO MONITOR NEEDED.
[2019-01-10] MEDS: INSULIN LANTUS (GLARGINE) 1 /0.01ml (100units/ml) SC SCH (09:56)
[2019-01-10] MEDS ORDERED: ASPirin-EC 81 mg tab PO SCH (10:00)
[2019-01-10] MEDS ORDERED: CLOPIDOGREL BISULFATE 75 MG TAB PO SCH (10:00)
[2019-01-10] MEDS ORDERED: ATORVASTATIN 20 MG TAB PO SCH (10:00)
[2019-01-10] MEDS ORDERED: LEVOTHYROXINE SODIUM 100 MCG TAB PO SCH (10:00)
[2019-01-10 13:00] VITALS: BP 126/50
--- NOTE | 2019-01-10 13:40 | NUR ---
RUSSET REPAIRER at bedside Patient is currently receiving dialysis, no signs or symptoms of distress noted, will continue to monitor.
[2019-01-10 15:23] VITALS: BP 151/54
--- NOTE | 2019-01-10 16:44 | NUR ---
Discharge planning per SS consult, patient has orders for home health. Referral sent to [facility] as ordered by Dr. Valencia; placed a follow up call, spoke with Lyubov and was advised they will accept this patient. Nurse Estefani was advised of dc plan.
[2019-01-10 17:00] VITALS: BP 121/61
--- NOTE | 2019-01-10 17:35 | NUR ---
Discharge instructions given as ordered. Encourage to follow up with primary care provider as instructed. All questions and concerns addressed. Patient verbalized understanding IV removed with catheter intact, pressure dressing applied. Patient taken to vehicle via wheelchair with all personal belongings, accompanied by staff and family member. No distress noted at time of departure.
[2019-01-10] MEDS ORDERED: EPOETIN ALFA 4,000 UNIT/ML VL SC ONE (21:00)
== END 2019-01-10 17:35 | disposition home or self-care (01) | DRG 270 ==
LOC: CATH 11:38 → WEST WING 17:07
PROVIDERS: ADMIT Internal Medicine Cardiovascular Disease; ATTEND Internal Medicine Cardiovascular Disease
PROC: 04CS3ZZ Extirpation of Matter from Left Posterior Tibial Artery, Percutaneous Approach (ICD-10-PCS; principal; 2019-01-09)
PROC: 047S3ZZ Dilation of Left Posterior Tibial Artery, Percutaneous Approach (ICD-10-PCS; 2019-01-09)
PROC: 047U3ZZ Dilation of Left Peroneal Artery, Percutaneous Approach (ICD-10-PCS; 2019-01-09)
PROC: 04CU3ZZ Extirpation of Matter from Left Peroneal Artery, Percutaneous Approach (ICD-10-PCS; 2019-01-09)
PROC: B41G1ZZ Fluoroscopy of Left Lower Extremity Arteries using Low Osmolar Contrast (ICD-10-PCS; 2019-01-09)
PROC: B41F1ZZ Fluoroscopy of Right Lower Extremity Arteries using Low Osmolar Contrast (ICD-10-PCS; 2019-01-09)
PROC: 5A1D70Z Performance of Urinary Filtration, Intermittent, Less than 6 Hours Per Day (ICD-10-PCS; 2019-01-10)
DX: E11.51 Type 2 diabetes mellitus with diabetic peripheral angiopathy without gangrene (principal); N18.6 End stage renal disease; N25.81 Secondary hyperparathyroidism of renal origin; I13.2 Hypertensive heart and chronic kidney disease with heart failure and with stage 5 chronic kidney disease, or end stage renal disease; I50.22 Chronic systolic (congestive) heart failure; E11.22 Type 2 diabetes mellitus with diabetic chronic kidney disease; E03.9 Hypothyroidism, unspecified; E78.5 Hyperlipidemia, unspecified; I25.10 Atherosclerotic heart disease of native coronary artery without angina pectoris; Z79.4 Long term (current) use of insulin; Z79.899 Other long term (current) drug therapy; Z95.1 Presence of aortocoronary bypass graft; Z23 Encounter for immunization; J44.9 Chronic obstructive pulmonary disease, unspecified; I25.2 Old myocardial infarction
CPT/HCPCS: 36415; 37228; 75710; 80048; 82962; 85025; 87081; 90935; G0378; J1642; J1815; J2250; Q9967

== ENCOUNTER → 2019-02-26 | Outpatient (CLI) | payer MEDICARE, OTHER ==
[2019-02-26 11:03] VITALS: BP 130/52
[2019-02-26 11:20] VITALS: BP 133/45
--- NOTE | 2019-02-26 11:20 | NUR ---
Pre-Op Discharge Summary: See e-MAR for any medications given for this visit. Pre-op orders received and carried out per MD of EKG, LABS and chest xrays. Patient given a copy of EKG with instructions to go to [facility] out patient for further follow up care.
[2019-02-26 12:48] LABS: Basophils # (auto) 0 uL; Basophils % (auto) 0.6 % (0.0-2.0); Eosinophils # (auto) 0.2 uL; Eosinophils % (auto) 3.2 % (0.0-7.0); Hemoglobin 10.3 g/dL (12.2-16.2); Lymphocytes # (auto) 1.3 uL; Lymphocytes % (auto) 18.3 % (10.0-50.0); Mean Corpuscular Hemoglobin 30.6 pg (28.0-32.0); Mean Corpuscular Hgb Conc. 33.2 g/dL (32.0-36.0); Monocytes # (auto) 0.4 uL; Monocytes % (auto) 6.4 % (0.0-12.0); Neutrophils # (auto) 4.9 uL; Neutrophils % (auto) 71.5 % (37.0-80.0); Platelet Count (auto) 209 10^3/uL (140-450); Red Blood Cells 3.37 10^6/uL (4.0-5.20); White Blood Cell 6.9 10^3/uL (4.4-10.8)
[2019-02-26 13:05] LABS: INR 1.06 (0.9-1.15); Partial Thromboplastin Time 24.8 sec (23.64-32.05)
[2019-02-26 13:55] LABS: BUN/Creatinine Ratio 23.1
== END | disposition home or self-care (01) ==
LOC: Rad HDHVI 10:48
PROVIDERS: ATTEND Internal Medicine Cardiovascular Disease
DX: Z01.812 Encounter for preprocedural laboratory examination (principal); D65 Disseminated intravascular coagulation [defibrination syndrome]; M85.80 Other specified disorders of bone density and structure, unspecified site
CPT/HCPCS: 36415; 80048; 85025; 85610; 85730; 93005; G0463; 71046

== ENCOUNTER 2019-03-01 08:39 | Inpatient (IN) | payer MEDICARE, OTHER ==
[~2019-03-01] VITALS: Ht 157.5 cm; Wt 76.2 kg
[2019-03-01] MEDS ORDERED: fentaNYL CITRATE 100 MCG/2 ML VL ONE (11:49)
[2019-03-01] MEDS ORDERED: SODIUM CHL 0.9% 50 ML ONE (11:49)
[2019-03-01] MEDS ORDERED: ANGIOMAX 250 MG VIAL IV ONE (11:49)
[2019-03-01] MEDS ORDERED: MIDAZOLAM HCL 1MG/1ML-2 ML VIAL ONE (11:49)
[2019-03-01] MEDS ORDERED: LIDOCAINE 2%HCL (LOCAL ANESTH.) INJ 20ML MDV ONE (11:50)
[2019-03-01] MEDS ORDERED: IODIXANOL 320MG/ML 100ML BTL IV ONE (11:54)
[2019-03-01] MEDS ORDERED: NITROGLYCERIN 0.4 MG SL TAB SL PRN (12:45)
[2019-03-01] MEDS ORDERED: MORPHINE SULF INJ 2 MG/ML SYRINGE 1ML IV PRN (12:45)
[2019-03-01] MEDS ORDERED: DEXTROSE (50%) 50ML SYRG IV PRN (13:45)
[2019-03-01] MEDS ORDERED: ALBUTEROL SULF 2.5 MG/0.5ML(0.5%) NEB SOLN NEB PRN (13:45)
[2019-03-01] MEDS ORDERED: PATIENTS OWN MEDICATION (Albuterol Sulfate (Ventolin Mdi) 90 MCG) IN PRN (13:45)
--- NOTE | 2019-03-01 14:40 | NUR ---
Report received from . BERNARDO SALCIDO brought to bed 293B. Patient transferred to unit bed, connected to research scientist #[id number] and 2L/NC oxygen. Left groin site assessed for any bleeding, redness or swelling. Patient instructed on need to notify staff immediately if any pain, burning or wetness to site, and any lower back pain. Bed set to lowest position/locked, bedside rails up x2, bed alarm on, call light within reach. Instructed patient to call for assistance. Patient verbalized understanding. Will continue to monitor q1hr for changes.
[2019-03-01 16:46] VITALS: BP 133/76
[2019-03-01] MEDS: InsuLIN REG 1unit/0.01ml Soln (100units/ml) SC SCH (17:21)
[2019-03-01] MEDS: ACCU-CHEK COMFORT CURVE STRIP VI SCH ×2 (17:21→22:25)
[2019-03-01] MEDS: FUROSEMIDE 20 MG TAB PO SCH (17:42)
[2019-03-01] MEDS: CALCIUM ACETATE 667 MG CAP PO SCH (17:42)
--- NOTE | 2019-03-01 18:07 | NUR ---
Respiratory note: ASSESSED PT FOR PRN TX , PT WAS AWAKE AND ALERT NO RESP DISTRESS NOTED. HR 77, RR 16, SPO2 99% ON 2L N/C. BS ARE CLEAR, NO INDICATION FOR TX AT THIS TIME. PATIENT KNOWS TO HAVE RT PAGED IF TX IS NEEDED.
--- NOTE | 2019-03-01 19:20 | NUR ---
Opening Shift Note Assumed care of patient, awake and alert. No S/S of distress/SOB or pain. Instructed on POC and to call for assist PRN. Bed in lowest locked position, call light within reach, side rails up x2, fall precautions in place. Will continue to monitor for changes Q1hr and PRN.
[2019-03-01] MEDS ORDERED: InsuLIN REG 1unit/0.01ml Soln (100units/ml) SC SCH (22:00)
[2019-03-01 22:25] VITALS: BP 135/48
[2019-03-01] MEDS: GABAPENTIN 400 MG CAP PO SCH (22:25)
[2019-03-01] MEDS: INSULIN LANTUS (GLARGINE) 1 /0.01ml (100units/ml) SC SCH (22:26)
[2019-03-01] MEDS: IPRATROPIUM BROM 0.5 MG/2.5ML INH SOL NEB SCH (22:36)
[2019-03-01 22:39] VITALS: BP 133/76
[2019-03-02 05:50] VITALS: BP 137/49
[2019-03-02] MEDS: IPRATROPIUM BROM 0.5 MG/2.5ML INH SOL NEB SCH ×2 (06:16→13:49)
--- NOTE | 2019-03-02 06:25 | NUR ---
Glucose BS at 68. Juice, jello, and crackers provided. Will continue to monitor.
[2019-03-02] MEDS: FUROSEMIDE 20 MG TAB PO SCH (06:41)
[2019-03-02] MEDS: InsuLIN REG 1unit/0.01ml Soln (100units/ml) SC SCH ×2 (06:42→11:30)
[2019-03-02] MEDS: ACCU-CHEK COMFORT CURVE STRIP VI SCH ×2 (06:42→11:36)
[2019-03-02 06:48] LABS: Basophils # (auto) 0 uL; Basophils % (auto) 0.4 % (0.0-2.0); Eosinophils # (auto) 0.2 uL; Eosinophils % (auto) 2.6 % (0.0-7.0); Hematocrit 29.4 % (36.0-46.0); Hemoglobin 9.8 g/dL (12.2-16.2); Lymphocytes % (auto) 13.6 % (10.0-50.0); Mean Corpuscular Hemoglobin 30.3 pg (28.0-32.0); Mean Corpuscular Hgb Conc. 33.3 g/dL (32.0-36.0); Mean Corpuscular Volume 90.9 fL (80.0-100.0); Monocytes # (auto) 0.5 uL; Monocytes % (auto) 7.2 % (0.0-12.0); Neutrophils # (auto) 5.8 uL; Neutrophils % (auto) 76.2 % (37.0-80.0); Platelet Count (auto) 183 10^3/uL (140-450); Red Blood Cells 3.23 10^6/uL (4.0-5.20); Red Cell Distribution Width 15.2 % (11.8-14.3); White Blood Cell 7.7 10^3/uL (4.4-10.8)
[2019-03-02] MEDS ORDERED: LEVOTHYROXINE SODIUM 100 MCG TAB PO SCH (07:00)
[2019-03-02] MEDS ORDERED: SODIUM CHL 0.9% 1000 ML BAG XX ONE (07:00)
[2019-03-02 07:07] LABS: Anion Gap 6 (5-15); Blood Urea Nitrogen 45 mg/dL (7-18); Calcium 8.4 mg/dL (8.5-10.1); Carbon Dioxide 29 mmol/L (21-32); Chloride 107 mmol/L (98-107); Glucose 69 mg/dL (74-106); Potassium 4.2 mmol/L (3.5-5.1); Sodium 142 mmol/L (136-145)
[2019-03-02 07:12] LABS: % Iron Saturation 13.5 % (15-50)
[2019-03-02 07:14] LABS: BUN/Creatinine Ratio 19.1; GFR African American 25 mL/min; GFR Non-African American 21 mL/min
--- NOTE | 2019-03-02 07:40 | NUR ---
OPENING SHIFT NOTE Care of patient endorsed. Patient is in bed AOx4 with no signs of distress noted, no complaints of SOB, or pain noted. Safety precautions in place, bed set to lowest position/ locked, bedside rails up x2, bed alarm on, call light within reach. Instructed patient to call for assistance. Updated on POC. Patient verbalized understanding. Will continue to monitor Q1 hr and PRN.
[2019-03-02] MEDS: CALCIUM ACETATE 667 MG CAP PO SCH ×2 (08:15→12:28)
[2019-03-02 08:21] VITALS: BP 147/33
[2019-03-02] MEDS: GABAPENTIN 400 MG CAP PO SCH (09:24)
[2019-03-02] MEDS: INSULIN LANTUS (GLARGINE) 1 /0.01ml (100units/ml) SC SCH (09:54)
[2019-03-02] MEDS ORDERED: ASPirin-EC 81 mg tab PO SCH (10:00)
[2019-03-02] MEDS ORDERED: CLOPIDOGREL BISULFATE 75 MG TAB PO SCH (10:00)
[2019-03-02] MEDS ORDERED: ATORVASTATIN 20 MG TAB PO SCH (10:00)
[2019-03-02] MEDS ORDERED: TIOTROPIUM BROMIDE MONOHYDRATE IN SCH (10:00)
[2019-03-02 13:23] VITALS: BP 132/59
[2019-03-02 13:37] LABS: Hepatitis A Ab IgM Negative; Hepatitis B Core IgM Negative; Hepatitis B Surface Antigen Negative (Negative); Hepatitis C Antibody Negative (Negative)
[2019-03-02 15:26] VITALS: BP 132/59
--- NOTE | 2019-03-02 16:11 | NUR ---
DISCHARGE Discharge instructions given as ordered. Encourage to follow up with PMD as instructed. All questions and concerns addressed with patient and grandson. Patient verbalized understanding. IV removed with catheter intact, pressure dressing applied.
--- NOTE | 2019-03-02 17:20 | NUR ---
Telemetry unit returned to ICU. Patient taken to vehicle via wheelchair with all personal belongings, accompanied by staff and family member. No distress noted at time of departure.
--- NOTE | 2019-03-02 17:21 | NUR ---
TELE MONITOR TELE BOX #[id number] RETURNED TO ICU. MARKETING AND OUTREACH COORDINATOR SABAS MADE AWARE.
[2019-03-02] MEDS ORDERED: EPOETIN ALFA 10,000 UNIT/1 ML VIAL SC ONE (21:00)
== END 2019-03-02 17:20 | disposition home or self-care (01) | DRG 252 ==
LOC: CATH 08:39 → TELE-WESTW 14:45
PROVIDERS: ADMIT Internal Medicine Cardiovascular Disease; ATTEND Internal Medicine Cardiovascular Disease
PROC: 047K3Z1 Dilation of Right Femoral Artery using Drug-Coated Balloon, Percutaneous Approach (ICD-10-PCS; principal; 2019-03-02)
PROC: 047M3Z1 Dilation of Right Popliteal Artery using Drug-Coated Balloon, Percutaneous Approach (ICD-10-PCS; 2019-03-02)
PROC: 047T3Z1 Dilation of Right Peroneal Artery using Drug-Coated Balloon, Percutaneous Approach (ICD-10-PCS; 2019-03-02)
PROC: B41G1ZZ Fluoroscopy of Left Lower Extremity Arteries using Low Osmolar Contrast (ICD-10-PCS; 2019-03-02)
PROC: B41F1ZZ Fluoroscopy of Right Lower Extremity Arteries using Low Osmolar Contrast (ICD-10-PCS; 2019-03-02)
PROC: 5A1D70Z Performance of Urinary Filtration, Intermittent, Less than 6 Hours Per Day (ICD-10-PCS; 2019-03-02)
DX: E11.51 Type 2 diabetes mellitus with diabetic peripheral angiopathy without gangrene (principal); N18.6 End stage renal disease; D68.59 Other primary thrombophilia; I12.0 Hypertensive chronic kidney disease with stage 5 chronic kidney disease or end stage renal disease; D63.1 Anemia in chronic kidney disease; J44.9 Chronic obstructive pulmonary disease, unspecified; E11.22 Type 2 diabetes mellitus with diabetic chronic kidney disease; E78.5 Hyperlipidemia, unspecified; E11.40 Type 2 diabetes mellitus with diabetic neuropathy, unspecified; H54.8 Legal blindness, as defined in USA; I25.10 Atherosclerotic heart disease of native coronary artery without angina pectoris; I48.91 Unspecified atrial fibrillation; Z79.01 Long term (current) use of anticoagulants; Z99.2 Dependence on renal dialysis; Z99.3 Dependence on wheelchair; Z99.81 Dependence on supplemental oxygen; Z80.41 Family history of malignant neoplasm of ovary; Z82.49 Family history of ischemic heart disease and other diseases of the circulatory system; Z87.891 Personal history of nicotine dependence
CPT/HCPCS: 36415; 80048; 80074; 82728; 82962; 83540; 83550; 84484; 85025; 94640; 99152; 99153; C1769; G0378; J0885; J1642; J1815; J2250; Q9967

== ENCOUNTER → 2019-03-21 | Outpatient (CLI) | payer MEDICARE, OTHER | END | disposition home or self-care (01) | LOC: Rad HDHVI 08:10 | PROVIDERS: ATTEND Internal Medicine Cardiovascular Disease | DX: I70.203 Unspecified atherosclerosis of native arteries of extremities, bilateral legs (principal) | CPT/HCPCS: 93926 ==

== ENCOUNTER → 2019-04-04 | Outpatient (CLI) | payer MEDICARE, OTHER ==
[2019-04-04 14:55] VITALS: BP 122/74
[2019-04-04 15:15] VITALS: BP 127/52
--- NOTE | 2019-04-04 15:15 | NUR ---
Discharge Instructions See e-MAR for any mediations given with this visit. Patient education given on disease process. Patient verbalized understanding. Previous labs reviewed. Patient discharged in stable condition with after care instructions and follow up appointment. WOUND CARE PROVIDED BY FLAVIO GREEN TO PATIENT PER MD VALENZUELA, ORDERS TO APPLY LEFT LOWER EXTREMITY UNNA BOOT . PT HAD PITTING +3 EDEMA . UNNA BOOT APPLIED WITH LOOSE WRAP AND NETTING
== END | disposition home or self-care (01) ==
LOC: CHF HDHVI 14:51
PROVIDERS: ATTEND Internal Medicine Cardiovascular Disease
DX: I25.10 Atherosclerotic heart disease of native coronary artery without angina pectoris (principal); I73.9 Peripheral vascular disease, unspecified; N18.6 End stage renal disease
CPT/HCPCS: G0463

== ENCOUNTER 2019-04-09 09:41 | Inpatient (IN) | payer MEDICARE, OTHER ==
[~2019-04-09] VITALS: Ht 157.5 cm; Wt 69.9 kg
[2019-04-09 10:34] LABS: Basophils # (auto) 0.1 uL; Basophils % (auto) 0.7 % (0.0-2.0); Eosinophils # (auto) 0.2 uL; Eosinophils % (auto) 2.5 % (0.0-7.0); Hematocrit 30.7 % (36.0-46.0); Lymphocytes # (auto) 0.9 uL; Mean Corpuscular Hgb Conc. 32.4 g/dL (32.0-36.0); Mean Corpuscular Volume 89.6 fL (80.0-100.0); Monocytes # (auto) 0.3 uL; Monocytes % (auto) 4.4 % (0.0-12.0); Neutrophils % (auto) 80.4 % (37.0-80.0); Platelet Count (auto) 202 10^3/uL (140-450); Red Blood Cells 3.43 10^6/uL (4.0-5.20); White Blood Cell 7.5 10^3/uL (4.4-10.8)
[2019-04-09 10:44] LABS: INR 1.07 (0.9-1.15); Partial Thromboplastin Time 24.7 sec (23.64-32.05)
[2019-04-09 10:47] LABS: Albumin 3.4 g/dL (3.4-5.0); Calcium 8.5 mg/dL (8.5-10.1); Potassium 5.2 mmol/L (3.5-5.1)
[2019-04-09 10:50] LABS: Bilirubin, Total 0.8 mg/dL (0.2-1.0); Total Protein 7.1 g/dL (6.4-8.2)
[2019-04-09] MEDS ORDERED: ALBUTEROL SULF 2.5 MG/0.5ML(0.5%) NEB SOLN NEB ONE (12:00)
[2019-04-09] MEDS ORDERED: SODIUM BICARBONATE 8.4% INJ 50ML SYRINGE IV ONE (12:00)
[2019-04-09] MEDS ORDERED: SODIUM ZIRCONIUM CYCL 10 GM PAK PO ONE (12:00)
[2019-04-09] MEDS ORDERED: CALCIUM GLUC 4.65meq/50ml D5AE 50 ML IV ONE (12:00)
[2019-04-09] MEDS ORDERED: DEXTROSE (50%) 50ML SYRG IV PRN (17:00)
[2019-04-09] MEDS ORDERED: MORPHINE SULF INJ 2 MG/ML SYRINGE 1ML IV PRN ×2 (17:00)
[2019-04-09] MEDS ORDERED: NITROGLYCERIN 0.4 MG SL TAB SL PRN (17:00)
[2019-04-09] MEDS ORDERED: ACETAMINOPHEN 500 MG TAB PO PRN (17:00)
[2019-04-09] MEDS ORDERED: ONDANSETRON HCL 4 MG/2 ML VIAL IV PRN (17:00)
[2019-04-09] MEDS ORDERED: hydrALAZINE HCL 20 MG/ML VL IV PRN (17:00)
[2019-04-09] MEDS: ACCU-CHEK COMFORT CURVE STRIP VI SCH ×2 (18:27→23:30)
[2019-04-09] MEDS: InsuLIN REG 1unit/0.01ml Soln (100units/ml) SC SCH ×2 (18:32→22:00)
[2019-04-09 19:50] LABS: Urine Bacteria FEW /hpf (None Seen); Urine Blood Negative /uL (Negative); Urine Specific Gravity 1.015 (1.001-1.035); Urine WBC 43 /hpf (0 - 5)
--- NOTE | 2019-04-09 19:50 | NUR ---
Telemetry admit from ER BERNARDO SALCIDO admitted to Telemetry unit after SBAR received. Patient oriented to primary RN, unit, room, bed, and unit policies regarding patient care and visiting hours. Patient now on continuous telemetry monitoring, tele box #[id number]. Patient placed on bedside oxygen at 2lpm, weighed by bed scale and encouraged to call if they need something. All questions and concerns addressed, patient verbalized understanding. Bed locked in lowest position and bed rails up x2. Call light within reach.
--- NOTE | 2019-04-09 21:37 | NUR ---
PATIENT STATES [facility] WILL PROVIDE LIST OF HOME MEDICATIONS IN THE MORNING
[2019-04-09 22:00] VITALS: BP 123/55
--- NOTE | 2019-04-09 22:00 | NUR ---
Insulin held d/t NPO status
[2019-04-10 05:02] VITALS: BP 133/52
[2019-04-10] MEDS: ACCU-CHEK COMFORT CURVE STRIP VI SCH ×4 (06:26→23:44)
[2019-04-10] MEDS: InsuLIN REG 1unit/0.01ml Soln (100units/ml) SC SCH ×4 (06:26→23:45)
[2019-04-10 07:00] LABS: Basophils # (auto) 0 uL; Basophils % (auto) 0.8 % (0.0-2.0); Eosinophils # (auto) 0.2 uL; Eosinophils % (auto) 3.2 % (0.0-7.0); Hemoglobin 9.3 g/dL (12.2-16.2); Lymphocytes % (auto) 16.8 % (10.0-50.0); Mean Corpuscular Hemoglobin 29.7 pg (28.0-32.0); Mean Corpuscular Hgb Conc. 33.2 g/dL (32.0-36.0); Mean Corpuscular Volume 89.5 fL (80.0-100.0); Monocytes # (auto) 0.5 uL; Monocytes % (auto) 7.5 % (0.0-12.0); Neutrophils # (auto) 4.4 uL; Neutrophils % (auto) 71.7 % (37.0-80.0); Platelet Count (auto) 182 10^3/uL (140-450); Red Blood Cells 3.13 10^6/uL (4.0-5.20); Red Cell Distribution Width 16.4 % (11.8-14.3); White Blood Cell 6.1 10^3/uL (4.4-10.8)
[2019-04-10 07:07] LABS: BUN/Creatinine Ratio 22.4; Calcium 8.3 mg/dL (8.5-10.1); Potassium 4.4 mmol/L (3.5-5.1)
[2019-04-10 08:00] VITALS: BP 130/52
[2019-04-10 09:00] VITALS: BP 130/52
[2019-04-10] MEDS ORDERED: cefTRIAXone 1GM/50ML D5W 50 ML IV ONE (09:30)
[2019-04-10] MEDS: ASPirin-EC 81 mg tab PO SCH ×2 (10:00→10:11)
[2019-04-10] MEDS ORDERED: LEVOTHYROXINE SODIUM 100 MCG TAB PO SCH (10:00)
[2019-04-10] MEDS: ATORVASTATIN 20 MG TAB PO SCH (10:12)
[2019-04-10] MEDS: FAMOTIDINE 20 MG TAB PO SCH (10:12)
--- NOTE | 2019-04-10 10:40 | NUR ---
DR MEDEL BEDSIDE WITH PATIENT AND PATIENTS GRANDSON DISCUSSING PLAN OF CARE
[2019-04-10] MEDS: cefTRIAXone 1GM/50ML D5W 50 ML IV SCH (10:44)
--- NOTE | 2019-04-10 11:30 | NUR ---
WOUND CARE NOTE: IN TO SEE PATIENT AT THIS TIME PER WOUND CONSULT REQUEST. PATIENT ADMITTED TO [facility] WITH DIAGNOSIS OF ACUTE/CHRONIC SYSTOLIC HEART FAILURE. CURRENT ANDREA SCORE IS 17. PATIENT NOTED TO HAVE WOUNDS UPON ADMIT. ALL WOUNDS PHOTOGRAPHED AT THAT TIME BY BEDSIDE NURSE FOR REFERENCE. PATIENT STATES THAT SHE OBTAINED WOUNDS TO BLE WHEN AN OXYGEN TANK FELL ON HER. SHE IS NOTED TO HAVE 2 SKIN TEARS TO RIGHT LATERAL KNEE AND RIGHT LATERAL CALF. APPLIED THERAHONEY, OPTIFOAM GENTLE DRESSINGS TO WOUNDS. ENTIRE RIGHT LEG AND LEFT BEVERLY IS ECCHYMOTIC FROM THE TRAUMA. NO OTHER SKIN INTEGRITY ISSUES NOTED AT THIS TIME. SKIN/WOUND CARE PLAN IMPLEMENTED. PATIENT WOULD BENEFIT FROM Q 3 DAY/PRN DRESSING CHANGES TO SKIN TEARS RLE, DIETARY CONSULT, CONTINUED MONITORING BY WOUND CARE TEAM. Addendum: 04/10/19 at 1805 by Shabnam Graf RN Amended: Links added.
[2019-04-10 13:00] VITALS: BP 124/57
--- NOTE | 2019-04-10 15:23 | NUR ---
Assessment and ss consult Pt is a 83 yr old alert and oriented female. SS consult given for "Living situation." Prior to admit, pt lived alone and stated that her Grandson, Gilberto, who is her emergency contact at [phone], is also her [facility] caregiver and assists with everything in the home. Pt used walker, 02, and shower chair, is currently ambulatory with walker and needs assist with ADL's. Pt has HH for PT and clinical nursing coordinator and will needs a resumption order. Pt's Primary is Dr. Vega, Has no AD, and gets income and food stamps. Pt desires to d/c home and feels that her needs are adequately met. Pt's grandson will transport her home. Pt will d/c home upon medical clearance. Pt is understanding and agreeable to plan. Addendum: 04/10/19 at 1529 by CARYN ELLIS Amended: Links added.
[2019-04-10 17:00] VITALS: BP 123/62
[2019-04-10] MEDS: HYDROcodone-ACET 5/325MG TAB PO PRN (17:23)
[2019-04-10] MEDS: GABAPENTIN 300 MG CAP PO SCH (17:44)
--- NOTE | 2019-04-10 19:30 | NUR ---
Opening Shift Note Assumed care of patient. Patient is awake and alert. No S/S of distress/SOB or pain. Instructed on POC and to call for assist PRN, will continue to monitor for changes Q1hr and PRN. Bedside commode in place. Bed locked in lowest position and bed rails up x2. Call light within reach.
[2019-04-10 22:00] VITALS: BP 127/48
[2019-04-11 05:00] VITALS: BP 124/65
[2019-04-11] MEDS: LEVOTHYROXINE SODIUM 25 MCG TAB PO SCH (06:16)
[2019-04-11] MEDS: ACCU-CHEK COMFORT CURVE STRIP VI SCH ×4 (06:17→21:57)
[2019-04-11] MEDS: LEVOTHYROXINE SODIUM 112 MCG TAB PO SCH (06:17)
[2019-04-11] MEDS: InsuLIN REG 1unit/0.01ml Soln (100units/ml) SC SCH ×4 (06:17→21:57)
[2019-04-11 08:15] VITALS: BP 129/56
[2019-04-11] MEDS ORDERED: SODIUM CHL 0.9% 1000 ML BAG XX ONE (09:45)
[2019-04-11] MEDS: ASPirin-EC 81 mg tab PO SCH (10:00)
[2019-04-11] MEDS: ATORVASTATIN 20 MG TAB PO SCH ×3 (10:00→21:48)
[2019-04-11] MEDS: GABAPENTIN 300 MG CAP PO SCH ×3 (10:00→21:48)
--- NOTE | 2019-04-11 10:00 | NUR ---
DIALYSIS IN PROGRESS
[2019-04-11] MEDS: cefTRIAXone 1GM/50ML D5W 50 ML IV SCH (10:09)
[2019-04-11 13:00] VITALS: BP 146/51
--- NOTE | 2019-04-11 14:05 | NUR ---
NUTRITION ASSESSMENT NOTES Please refer to link notes of nutrition screen form filed under the intervention section of the plan of care for further details. Est. Energy Needs: [id number] kcal (23-25 kcal/kgBW), Est. Protein Needs: 57-62 gms/day (1.1-1.2 gms/kg AdjBW). Will continue to monitor pertinent labs and reassess nutrient need prn Addendum: 04/11/19 at [address] Amended: Links added.
--- NOTE | 2019-04-11 14:56 | NUR ---
PT REFUSED TO GET A NEW IV STARTED. EXPLAINED TO PT THAT HER PREVIOUS IV IS NOW RED AND TENDER BUT PT WAS VERY UPSET AND GETTING AGITATED. PT CALLED HER SON AND I SPOKE TO HIM ABOUT THIS. HE SAID HE'S ON HIS WAY AND TO WAIT FOR HIM.
[2019-04-11 15:04] VITALS: BP 127/59
[2019-04-11] MEDS: HYDROcodone-ACET 5/325MG TAB PO PRN (15:20)
--- NOTE | 2019-04-11 16:30 | NUR ---
IV insertion IV access obtained, via clean sterile technique by inserting 20 gauge catheter at RIGHT FOREARMafter attempt(s). IV secured properly. No trauma to site. Patient tolerated well. NOTE: GRANDSON AT BEDSIDE. PREVIOUS IV ON LEFT HAND remOVED IV DC'd with clean sterile technique, catheter fully intact. Pressure dressing applied to site. Patient tolerated well. NOTE:
[2019-04-11 16:50] VITALS: BP 145/55
--- NOTE | 2019-04-11 19:30 | NUR ---
CLOSING Patient awake and alert. No S/S of distress/SOB or pain. REPORT GIVEN TO SUELLEN RN.
--- NOTE | 2019-04-11 19:45 | NUR ---
DRESSING CHANGED ON RIGHT LOWER LATERAL LEG.
[2019-04-11] MEDS ORDERED: EPOETIN ALFA 10,000 UNIT/1 ML VIAL SC ONE (21:00)
[2019-04-11 22:00] VITALS: BP 135/61
[2019-04-12 05:00] VITALS: BP 126/56
[2019-04-12] MEDS: LEVOTHYROXINE SODIUM 112 MCG TAB PO SCH (06:42)
[2019-04-12] MEDS: LEVOTHYROXINE SODIUM 25 MCG TAB PO SCH (06:42)
[2019-04-12] MEDS: ACCU-CHEK COMFORT CURVE STRIP VI SCH ×4 (06:42→22:05)
[2019-04-12] MEDS: InsuLIN REG 1unit/0.01ml Soln (100units/ml) SC SCH ×4 (06:43→22:00)
--- NOTE | 2019-04-12 07:25 | NUR ---
Opening Shift Note Assumed care of patient. Patient is awake and alert. No S/S of distress/SOB, no pain noted or reported. Instructed on POC and to call for assist PRN, patient verbalized understanding. Bed locked in lowest position, side rails up x2, call light within reach, bed alarm on. Will continue to monitor for changes Q1hr and PRN.
[2019-04-12 08:30] VITALS: BP 111/63
[2019-04-12] MEDS: ASPirin-EC 81 mg tab PO SCH (09:17)
[2019-04-12] MEDS: cefTRIAXone 1GM/50ML D5W 50 ML IV SCH (09:17)
[2019-04-12] MEDS: FAMOTIDINE 20 MG TAB PO SCH (09:18)
[2019-04-12 13:38] VITALS: BP 110/63
[2019-04-12 17:04] VITALS: BP 120/61
[2019-04-12] MEDS: ATORVASTATIN 20 MG TAB PO SCH (22:05)
[2019-04-12] MEDS: GABAPENTIN 300 MG CAP PO SCH (22:05)
[2019-04-13 05:30] VITALS: BP 126/57
[2019-04-13] MEDS: InsuLIN REG 1unit/0.01ml Soln (100units/ml) SC SCH ×4 (06:24→22:00)
[2019-04-13] MEDS: ACCU-CHEK COMFORT CURVE STRIP VI SCH ×4 (06:24→22:47)
[2019-04-13] MEDS: LEVOTHYROXINE SODIUM 25 MCG TAB PO SCH (06:24)
[2019-04-13] MEDS: LEVOTHYROXINE SODIUM 112 MCG TAB PO SCH (06:24)
[2019-04-13] MEDS ORDERED: SODIUM CHL 0.9% 1000 ML BAG XX ONE (07:00)
--- NOTE | 2019-04-13 07:30 | NUR ---
Opening Shift Note Assumed care of patient, awake and alert. No S/S of distress/SOB or pain. Instructed on POC and to call for assist PRN, will continue to monitor for changes Q1hr and PRN. ENCOURAGED PT TO GET OUT OF BED AND SIT ON A CHAIR MORE. PT VERBALIZED UNDERSTANDING BUT REFUSED TO DO IT AT THIS TIME.
[2019-04-13 09:00] VITALS: BP 123/64
[2019-04-13] MEDS: ASPirin-EC 81 mg tab PO SCH (10:00)
[2019-04-13] MEDS: cefTRIAXone 1GM/50ML D5W 50 ML IV SCH (10:22)
[2019-04-13 11:44] LABS: Basophils # (auto) 0.1 uL; Basophils % (auto) 0.8 % (0.0-2.0); Eosinophils # (auto) 0.2 uL; Eosinophils % (auto) 2.3 % (0.0-7.0); Hematocrit 29.5 % (36.0-46.0); Hemoglobin 9.6 g/dL (12.2-16.2); Lymphocytes # (auto) 0.9 uL; Lymphocytes % (auto) 12.9 % (10.0-50.0); Mean Corpuscular Hemoglobin 29.2 pg (28.0-32.0); Mean Corpuscular Hgb Conc. 32.5 g/dL (32.0-36.0); Mean Corpuscular Volume 90.1 fL (80.0-100.0); Monocytes # (auto) 0.5 uL; Monocytes % (auto) 6.8 % (0.0-12.0); Neutrophils # (auto) 5.2 uL; Neutrophils % (auto) 77.2 % (37.0-80.0); Nucleated Red Blood Cells % 0.1 %; Platelet Count (auto) 181 10^3/uL (140-450); Red Blood Cells 3.27 10^6/uL (4.0-5.20); Red Cell Distribution Width 16.2 % (11.8-14.3); White Blood Cell 6.7 10^3/uL (4.4-10.8)
[2019-04-13 12:00] LABS: INR 1.07 (0.9-1.15)
[2019-04-13] MEDS ORDERED: LEVO100T8 PO (12:05)
[2019-04-13 13:00] VITALS: BP 121/60
--- NOTE | 2019-04-13 13:07 | NUR ---
Framing Mill Supervisor consult regarding resuming Home Health. Pt was previously on service with [facility] and will be resuming with this service upon discharge. [facility] contacted and and information faxed to [facility]. Information received and services to resume upon discharge. Will notify covering nurse and KIESHA II of the above.
--- NOTE | 2019-04-13 13:30 | NUR ---
PT'S GRANDSON CALLED TO SAY THAT THEY WANT TO STAY WITH [facility] AND NOT [facility]. SOCIAL SERVICE MADE AWARE.
--- NOTE | 2019-04-13 13:30 | NUR ---
THORACENTESIS DONE BY DR LIZAMA AT BEDSIDE. VSS 121/51-72-16-95%. 800 ML OF FLUID REMOVED AND SENT TO LAB. DRESSING PLACED OVER SITE. POST CXR DONE. PT TOLERATED PROCEDURE WELL.
[2019-04-13 16:55] VITALS: BP 121/66
--- NOTE | 2019-04-13 16:59 | NUR ---
Behavioral Intervention Specialist Consult regarding resuming Home Health. Pt was previously on service with [facility] and will be resuming with this service upon discharge. [facility] contacted and faxed to [facility]. information received and services to resume upon discharge. Will notify covering nurse and KIESHA II of the above.
--- NOTE | 2019-04-13 17:00 | NUR ---
DIALYSIS IN PROGRESS
--- NOTE | 2019-04-13 19:30 | NUR ---
CLOSING NOTES Patient awake and alert. No S/S of distress/SOB or pain. DIALYSIS STILL IN PROGRESS. WOUND CARE PERFORMED ON PT'S RIGHT LEG SKIN TEAR X 2. PT TOLERATED WELL. CARE ENDORSED TO NITIN BUSTOS.
[2019-04-13] MEDS ORDERED: EPOETIN ALFA 10,000 UNIT/1 ML VIAL SC ONE (21:00)
[2019-04-13] MEDS: ATORVASTATIN 20 MG TAB PO SCH (22:46)
[2019-04-13] MEDS: GABAPENTIN 300 MG CAP PO SCH (22:46)
[2019-04-13 23:11] VITALS: BP 135/82
[2019-04-14 05:54] VITALS: BP 111/53
[2019-04-14] MEDS: ACCU-CHEK COMFORT CURVE STRIP VI SCH ×3 (06:30→17:00)
[2019-04-14] MEDS: InsuLIN REG 1unit/0.01ml Soln (100units/ml) SC SCH ×3 (06:30→17:00)
[2019-04-14] MEDS: LEVOTHYROXINE SODIUM 25 MCG TAB PO SCH (06:34)
[2019-04-14] MEDS: LEVOTHYROXINE SODIUM 112 MCG TAB PO SCH (06:34)
[2019-04-14 08:00] VITALS: BP 114/62
[2019-04-14] MEDS: cefTRIAXone 1GM/50ML D5W 50 ML IV SCH (10:04)
[2019-04-14] MEDS: ASPirin-EC 81 mg tab PO SCH (10:04)
[2019-04-14] MEDS: FAMOTIDINE 20 MG TAB PO SCH (10:04)
[2019-04-14 12:09] VITALS: BP 104/45
--- NOTE | 2019-04-14 13:45 | NUR ---
Hospitalist at bedside MD Maxwell at bedside, aware of patient's status. Patient will be discharge home today as ordered. MD Maxwell d/w dr Valencia and patient can follow up as outpatient. Patient verbalized understanding and states she will see Doctor Erik on Tuesday. Will dc as ordered. Patient refusing to have dc wound photos taken as she states "they're fine they changed the dressings already". No distress or sob noted.
[2019-04-14 15:00] VITALS: BP 104/45
[2019-04-14 16:40] VITALS: BP 107/49
--- NOTE | 2019-04-14 16:40 | NUR ---
Discharge instructions given as ordered to patient, and after patient's consent, grandson at bedside. Encourage to follow up with PMD and Sports Clerk Dr Valencia as instructed. All questions and concerns addressed. Patient verbalized understanding. Medication reconciliation form completed and copy given to patient. IV removed with catheter intact, pressure dressing applied. Telemetry unit returned to ICU and [employer] tech notified. Patient taken to vehicle via wheelchair with all personal belongings, accompanied by staff and family member. No distress noted at time of departure.
== END 2019-04-14 16:40 | disposition home health service (06) | DRG 291 ==
LOC: ER 09:41 → TELE 09:42 → TELE-WESTW 19:18
PROVIDERS: ADMIT Nurse Practitioner Acute Care; ATTEND Internal Medicine
PROC: 0W993ZZ Drainage of Right Pleural Cavity, Percutaneous Approach (ICD-10-PCS; principal; 2019-04-10)
PROC: 5A1D70Z Performance of Urinary Filtration, Intermittent, Less than 6 Hours Per Day (ICD-10-PCS; 2019-04-11)
PROC: 5A1D70Z Performance of Urinary Filtration, Intermittent, Less than 6 Hours Per Day (ICD-10-PCS; 2019-04-13)
DX: I13.2 Hypertensive heart and chronic kidney disease with heart failure and with stage 5 chronic kidney disease, or end stage renal disease (principal); N18.6 End stage renal disease; I50.43 Acute on chronic combined systolic (congestive) and diastolic (congestive) heart failure; L03.115 Cellulitis of right lower limb; J91.8 Pleural effusion in other conditions classified elsewhere; E87.5 Hyperkalemia; E11.65 Type 2 diabetes mellitus with hyperglycemia; D63.1 Anemia in chronic kidney disease; E03.9 Hypothyroidism, unspecified; E11.22 Type 2 diabetes mellitus with diabetic chronic kidney disease; E11.51 Type 2 diabetes mellitus with diabetic peripheral angiopathy without gangrene; I25.10 Atherosclerotic heart disease of native coronary artery without angina pectoris; I48.91 Unspecified atrial fibrillation; M10.9 Gout, unspecified; T14.8XXA Other injury of unspecified body region, initial encounter; X58.XXXA Exposure to other specified factors, initial encounter; J44.9 Chronic obstructive pulmonary disease, unspecified; Z79.02 Long term (current) use of antithrombotics/antiplatelets; Z79.4 Long term (current) use of insulin; Z79.899 Other long term (current) drug therapy; Z99.2 Dependence on renal dialysis; Z80.41 Family history of malignant neoplasm of ovary; Z95.1 Presence of aortocoronary bypass graft; Z82.49 Family history of ischemic heart disease and other diseases of the circulatory system; Z90.49 Acquired absence of other specified parts of digestive tract; Z87.11 Personal history of peptic ulcer disease; Y93.89 Activity, other specified; Y92.89 Other specified places as the place of occurrence of the external cause; Y99.8 Other external cause status
CPT/HCPCS: 10022; 32555; 36415; 71045; 73590; 76604; 76942; 80048; 80053; 81001; 82962; 83036; 83880; 83986; 84439; 84443; 85025; 85610; 85730; 87070; 87081; 87086; 87205; 89051; 90935; 93306; 94644; G0378; J0610; J0696; J0885; J1642; J1815

== ENCOUNTER → 2019-04-17 | Outpatient (CLI) | payer MEDICARE, OTHER | END | disposition home or self-care (01) | LOC: Rad HDHVI 11:03 | PROVIDERS: ATTEND Internal Medicine Cardiovascular Disease | DX: S80.812A Abrasion, left lower leg, initial encounter (principal); X58.XXXA Exposure to other specified factors, initial encounter; Y93.89 Activity, other specified; Y92.89 Other specified places as the place of occurrence of the external cause; Y99.8 Other external cause status | CPT/HCPCS: 93971 ==

== ENCOUNTER → 2019-05-01 | Outpatient (CLI) | payer MEDICARE, OTHER ==
[~2019-05-01] MED LIST changes: +FERR45TA7 PO; +GABA100C9 PO
[2019-05-01 08:34] VITALS: BP 130/52
--- NOTE | 2019-05-01 08:34 | NUR ---
CHF PT ARRIVED TO THE CHF CLINIC FOR PRE OP LABS, CXR, AND EKG. A/O X4 VSS
[2019-05-01 08:55] VITALS: BP 134/59
--- NOTE | 2019-05-01 08:55 | NUR ---
Pre-Op Discharge Summary: See e-MAR for any medications given for this visit. Pre-op orders received and carried out per MD of EKG, LABS and chest xrays. Patient given a copy of EKG with instructions to go to [facility] out patient for further follow up care. NOTE EKG DONE BY FLAVIO GREEN REVIEWED BY ASHLEY TAVERAS
[2019-05-01 11:57] LABS: Basophils # (auto) 0.1 10 ^3/uL (0-0.2); Basophils % (auto) 0.7 % (0.0-2.0); Eosinophils # (auto) 0.2 10 ^3/uL (0-0.8); Eosinophils % (auto) 2.7 % (0.0-7.0); Hematocrit 31.7 % (36.0-46.0); Hemoglobin 10.4 g/dL (12.2-16.2); Lymphocytes # (auto) 0.9 10 ^3/uL (0.4-5.4); Lymphocytes % (auto) 10.3 % (10.0-50.0); Mean Corpuscular Hemoglobin 29.8 pg (28.0-32.0); Mean Corpuscular Hgb Conc. 32.9 g/dL (32.0-36.0); Mean Corpuscular Volume 90.7 fL (80.0-100.0); Monocytes # (auto) 0.5 10 ^3/uL (0-1.3); Monocytes % (auto) 5.5 % (0.0-12.0); Neutrophils # (auto) 6.7 10 ^3/uL (1.6-8.6); Neutrophils % (auto) 80.8 % (37.0-80.0); Platelet Count (auto) 217 10^3/uL (140-450); Red Blood Cells 3.49 10^6/uL (4.0-5.20); Red Cell Distribution Width 16.9 % (11.8-14.3); White Blood Cell 8.3 10^3/uL (4.4-10.8)
[2019-05-01 12:04] LABS: Potassium 4.4 mmol/L (3.5-5.1)
[2019-05-01 12:08] LABS: BUN/Creatinine Ratio 14.1; Calcium 8.9 mg/dL (8.5-10.1)
[2019-05-01 12:10] LABS: INR 1.03 (0.9-1.15)
== END | disposition home or self-care (01) ==
LOC: Rad HDHVI 08:10
PROVIDERS: ATTEND Internal Medicine Cardiovascular Disease
DX: Z01.812 Encounter for preprocedural laboratory examination (principal); J90 Pleural effusion, not elsewhere classified; I51.7 Cardiomegaly
CPT/HCPCS: 36415; 71046; 80048; 85025; 85610; 85730; 93005; G0463

== ENCOUNTER 2019-05-03 06:52 | Day surgery (SDC) | payer MEDICARE, OTHER ==
[~2019-05-03] VITALS: Ht 157.5 cm; Wt 70.3 kg
[~2019-05-03 06:52] MED LIST changes: -GABA300C10 PO
[2019-05-03] MEDS ORDERED: LIDOCAINE 2%HCL (LOCAL ANESTH.) INJ 20ML MDV ONE (09:01)
[2019-05-03] MEDS ORDERED: IODIXANOL 320MG/ML 100ML BTL IV ONE (09:01)
[2019-05-03] MEDS ORDERED: IOHEXOL 350 MG/ML 100ML IJ ONE (09:09)
[2019-05-03] MEDS ORDERED: MIDAZOLAM HCL 1MG/1ML-2 ML VIAL ONE (09:11)
[2019-05-03] MEDS ORDERED: fentaNYL CITRATE 100 MCG/2 ML VL ONE (09:11)
[2019-05-03] MEDS ORDERED: ANGIOMAX 250 MG VIAL IV ONE (09:11)
[2019-05-03] MEDS ORDERED: SODIUM CHL 0.9% 0 ML ONE (09:11)
[2019-05-03] MEDS ORDERED: ACETAMINOPHEN 500 MG TAB PO PRN (11:00)
[2019-05-03] MEDS ORDERED: HYDROcodone-ACET 5/325MG TAB PO PRN (11:00)
[2019-05-03] MEDS ORDERED: SODIUM CHLORIDE 0.9% 500 ML IV ONE (12:00)
== END 2019-05-03 12:32 | disposition home or self-care (01) ==
LOC: CATH 06:52
PROVIDERS: ATTEND Internal Medicine Cardiovascular Disease
DX: I25.10 Atherosclerotic heart disease of native coronary artery without angina pectoris (principal); I27.20 Pulmonary hypertension, unspecified; E11.42 Type 2 diabetes mellitus with diabetic polyneuropathy; E11.22 Type 2 diabetes mellitus with diabetic chronic kidney disease; I13.2 Hypertensive heart and chronic kidney disease with heart failure and with stage 5 chronic kidney disease, or end stage renal disease; N18.6 End stage renal disease; I50.9 Heart failure, unspecified; Z99.2 Dependence on renal dialysis; Z87.891 Personal history of nicotine dependence; Z79.4 Long term (current) use of insulin; Z91.09 Other allergy status, other than to drugs and biological substances; J44.9 Chronic obstructive pulmonary disease, unspecified; Z90.710 Acquired absence of both cervix and uterus; Z95.1 Presence of aortocoronary bypass graft; Z86.718 Personal history of other venous thrombosis and embolism; Z79.899 Other long term (current) drug therapy
CPT/HCPCS: 93459; C1751; C1760; C1894; J1644; J2250; J3010; Q9967; 99152; 99153

== ENCOUNTER → 2019-06-18 | Outpatient (CLI) | payer MEDICARE, OTHER ==
[~2019-06-18] VITALS: Ht 30.5 cm; Wt 0.5 kg
[~2019-06-18] MED LIST changes: +CYANOCOBALAMIN (B-12) 1000 MCG/1 ML VIAL IM ONE; +CYANOCOBALAMIN (B-12) 1000 MCG/1 ML VIAL ONE
--- NOTE | 2019-06-18 09:15 | NUR ---
PT. TO PAH CLINIC WITH GRANDSON FOR EVAL. AND TX. PT. HAS BEEN ON SILDENIFIL 20 MG TID X 2 WEEKS NOW AND TOLERATING MEDS WELL. PT. JUST RECEIVED HER SAMPLE OF OPSUMIT 10MG TABS AND BROUGHT THEM IN FOR FIRST DOSE AND ADDITIONAL PT. EDUCATION. SEE NSG ASSESS. ORDERS RECEIVED AND CARRIED OUT.
[2019-06-18 09:20] VITALS: BP 123/85
--- NOTE | 2019-06-18 09:30 | NUR ---
PT. TOOK HER HOME DOSE OF OPSUMIT 10MG PO . INITIAL DOSE AT THIS TIME.
--- NOTE | 2019-06-18 09:50 | NUR ---
EKG DONE SHOWING A-FIB WITH CONTROLLED VENT. RESPONSE. PER MAGDALENA, PT. IS ON PLAVIX AFTER ANGIOPLASTY OF BILAT. LOWER EXT. BY DR. VALENZUELA BUT STATES NO STENTS.DR. VALENZUELA MADE AWARE OF EKG WITH NEW ORDERS TO STOP PLAVIX AND START XARELTO 20MG PO Q DAY STARTING TOMORROW, SINCE PT. TOOK PLAVIX THIS AM.
--- NOTE | 2019-06-18 10:24 | NUR ---
LABS DRAWN AND SENT PER MD ORDER.
--- NOTE | 2019-06-18 11:05 | NUR ---
MEDS: PT. MEDICATED WITH VIT. B12 1000MCG IM RT DELT. PER MD ORDER.
[2019-06-18 11:15] VITALS: BP 122/47
--- NOTE | 2019-06-18 11:15 | NUR ---
Discharge Instructions See e-MAR for any mediations given with this visit. Patient education given on disease process. Patient verbalized understanding. Previous labs reviewed. Patient discharged in stable condition with after care instructions and follow up appointment. RX FOR PROTONIX 20MG PO DAILY AND XARELTO 20 MG PO DAILY TO BE CALLED TO [facility] [place] PT. TO HAVE FOLLOW UP CALL WITH THIS RN IN ONE WEEK ON MEDS. PT. AND FAMILY GIVEN THIS RN'S PHONE NUMBER FOR CONTACT.
[2019-06-18 12:22] LABS: Basophils # (auto) 0 10 ^3/uL (0-0.2); Basophils % (auto) 0.6 % (0.0-2.0); Eosinophils # (auto) 0.1 10 ^3/uL (0-0.8); Hematocrit 33.4 % (36.0-46.0); Hemoglobin 10.8 g/dL (12.2-16.2); Lymphocytes # (auto) 0.8 10 ^3/uL (0.4-5.4); Lymphocytes % (auto) 11.5 % (10.0-50.0); Mean Corpuscular Hemoglobin 28.4 pg (28.0-32.0); Mean Corpuscular Hgb Conc. 32.4 g/dL (32.0-36.0); Mean Corpuscular Volume 87.7 fL (80.0-100.0); Monocytes # (auto) 0.4 10 ^3/uL (0-1.3); Monocytes % (auto) 5.5 % (0.0-12.0); Neutrophils # (auto) 5.8 10 ^3/uL (1.6-8.6); Neutrophils % (auto) 80.4 % (37.0-80.0); Nucleated Red Blood Cells % 0.1 %; Platelet Count (auto) 189 10^3/uL (140-450); Red Blood Cells 3.81 10^6/uL (4.0-5.20); Red Cell Distribution Width 16.6 % (11.8-14.3); White Blood Cell 7.2 10^3/uL (4.4-10.8)
[2019-06-18 12:31] LABS: Potassium 4.6 mmol/L (3.5-5.1)
[2019-06-18 12:39] LABS: Albumin 3.4 g/dL (3.4-5.0); BUN/Creatinine Ratio 16.4; Bilirubin, Total 0.5 mg/dL (0.2-1.0); Calcium 9.4 mg/dL (8.5-10.1); Magnesium 2.4 mg/dL (1.6-2.6); Total Protein 7.8 g/dL (6.4-8.2)
[2019-06-18 12:47] LABS: Free T4 (Free Thyroxine) 1.23 ng/dL (0.89-1.76)
== END | disposition home or self-care (01) ==
LOC: CHF HDHVI 08:58
PROVIDERS: ATTEND Internal Medicine Cardiovascular Disease
DX: I27.21 Secondary pulmonary arterial hypertension (principal); I13.2 Hypertensive heart and chronic kidney disease with heart failure and with stage 5 chronic kidney disease, or end stage renal disease; E11.22 Type 2 diabetes mellitus with diabetic chronic kidney disease; N18.6 End stage renal disease; I50.9 Heart failure, unspecified; I48.91 Unspecified atrial fibrillation; I25.10 Atherosclerotic heart disease of native coronary artery without angina pectoris; I73.9 Peripheral vascular disease, unspecified; K90.9 Intestinal malabsorption, unspecified; D64.9 Anemia, unspecified; J90 Pleural effusion, not elsewhere classified; J43.9 Emphysema, unspecified; E11.42 Type 2 diabetes mellitus with diabetic polyneuropathy; Z99.2 Dependence on renal dialysis; Z79.4 Long term (current) use of insulin; Z87.891 Personal history of nicotine dependence; Z90.710 Acquired absence of both cervix and uterus; Z79.899 Other long term (current) drug therapy
CPT/HCPCS: 36415; 80053; 82306; 82607; 83735; 83880; 84439; 84443; 85025; 93005; 96372; G0463; J3420

== ENCOUNTER → 2019-06-22 | Outpatient (CLI) | payer MEDICARE, OTHER ==
[~2019-06-22] MED LIST changes: -CYANOCOBALAMIN (B-12) 1000 MCG/1 ML VIAL IM ONE; -CYANOCOBALAMIN (B-12) 1000 MCG/1 ML VIAL ONE
[2019-06-22 10:15] VITALS: BP 114/58
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
[2019-06-22 11:00] VITALS: BP 108/54
--- NOTE | 2019-06-22 11:00 | NUR ---
Discharge Instructions See e-MAR for any mediations given with this visit. Patient education given on disease process. Patient verbalized understanding. Previous labs reviewed. Patient discharged in stable condition with after care instructions and follow up appointment.PT. TO RTC 06/24 FOR FOLLOW UP AND DOPPLER AND CXR, AND MD FOLLOW UP. PT. INSTRUCTED TO HOLD OPSUMIT UNTIL FURTHER ORDERS PER DR. VALENZUELA AT APPT. ON TUESDAY. PT. TOLERATING SILDENIFIL WELL.
== END | disposition home or self-care (01) ==
LOC: CHF HDHVI 09:52
PROVIDERS: ATTEND Internal Medicine Cardiovascular Disease
DX: I50.9 Heart failure, unspecified (principal); E11.9 Type 2 diabetes mellitus without complications; I27.21 Secondary pulmonary arterial hypertension
CPT/HCPCS: G0463

== ENCOUNTER → 2019-06-25 | Outpatient (CLI) | payer MEDICARE, OTHER ==
[~2019-06-25] MED LIST changes: -ASPI-404 PO; +ASPI-543 PO; +FER325T PO; +GABA400C11 PO; +MACI1TAB2 PO; +PANT20TA59 PO; +PANT40T PO; +PANT40TA2 PO; +RIVA2.5T PO; +RIVA20TA PO; +SILD20TA PO
--- NOTE | 2019-06-25 09:30 | NUR ---
PT. TO PAH/CHF CLINIC VIA WC WITH MAGDALENA. FRACISCO HICKS. PT. ON CONTINUOUS O2 AT 2-5L/NC PER GRANDGIDEON WHO IS PRIMARY CAREGIVER AND WHO HAS BEEN IN DAILY PHONE CONTACT WITH THIS RN SINCE LAST TUESDAY REGARDING PT'S SOB. PT. GETS HD ON TUE//TUE. AND ACCORDING TO GIDEON, PT. WAS HAVING FREQUENT NOSEBLEEDS, THEREFORE MD ORDERED PT. TO HOLD XARELTO UNTIL FURTHER ORDERS, WHICH HE HAS DONE ON TUESDAY. PT. HAS ALSO BEEN OFF OPSUMIT SINCE TUESDAY PER MD ORDER WITH NEW ORDERS FOR DOPPLER OF RLE AT 10:00 TODAY. VSS. SEE NSG ASSESS. ORDERS RECEIVED AND CARRIED OUT.
--- NOTE | 2019-06-25 09:50 | NUR ---
PT. TO AND FROM XRAY VIA WC. NOTED MODERATE SIZE RT PLEURAL EFFUSION RESULTS TO DR. VALENZUELA. PT. TOLERATED PROCEDURE WELL.
--- NOTE | 2019-06-25 10:30 | NUR ---
PT. TO US VIA WC WITH TECH.
--- NOTE | 2019-06-25 10:40 | NUR ---
ELIZ. NICOLAS IN US ROOM AFTER EVALUATING CXR ADVISING PT. OF NEED FOR THORACENTESIS TOMORROW. CASE DISCUSSED WITH MAGDALENA.
--- NOTE | 2019-06-25 11:15 | NUR ---
PT. BACK TO CLINIC VIA W.C FROM US. TOLERATED PROCEDURE WELL.
--- NOTE | 2019-06-25 12:30 | NUR ---
PREOP LABS DRAWN AND SENT PER MD ORDER. CALL TO [facility] SIEBEL ARCHITECT FOR SCHEDULING OF THORACENTESIS TOMORROW AT 1300 DONE. SIEBEL ARCHITECT WILL CALL PT. FOR FOLLOW UP HX. AND SCHEDULING.
[2019-06-25 13:00] VITALS: BP 135/50
--- NOTE | 2019-06-25 13:00 | NUR ---
Discharge Instructions See e-MAR for any mediations given with this visit. Patient education given on disease process. Patient verbalized understanding. Previous labs reviewed. Patient discharged in stable condition with after care instructions and follow up appointment.
[2019-06-25 14:01] LABS: Basophils # (auto) 0 10 ^3/uL (0-0.2); Basophils % (auto) 0.6 % (0.0-2.0); Eosinophils # (auto) 0.2 10 ^3/uL (0-0.8); Eosinophils % (auto) 2.1 % (0.0-7.0); Hematocrit 32.1 % (36.0-46.0); Hemoglobin 10.3 g/dL (12.2-16.2); Lymphocytes # (auto) 1.1 10 ^3/uL (0.4-5.4); Lymphocytes % (auto) 13.1 % (10.0-50.0); Mean Corpuscular Hemoglobin 28.2 pg (28.0-32.0); Monocytes # (auto) 0.5 10 ^3/uL (0-1.3); Monocytes % (auto) 6.3 % (0.0-12.0); Neutrophils # (auto) 6.3 10 ^3/uL (1.6-8.6); Neutrophils % (auto) 77.9 % (37.0-80.0); Nucleated Red Blood Cells % 0.1 %; Platelet Count (auto) 220 10^3/uL (140-450); Red Blood Cells 3.65 10^6/uL (4.0-5.20); Red Cell Distribution Width 17.2 % (11.8-14.3)
[2019-06-25 14:14] LABS: INR 1.07 (0.9-1.15); Partial Thromboplastin Time 24.8 sec (23.64-32.05)
[2019-06-25 14:18] LABS: BUN/Creatinine Ratio 19.3; Calcium 9.1 mg/dL (8.5-10.1); Potassium 4.3 mmol/L (3.5-5.1)
== END | disposition home or self-care (01) ==
LOC: Rad HDHVI 09:58
PROVIDERS: ATTEND Internal Medicine Cardiovascular Disease
DX: J90 Pleural effusion, not elsewhere classified (principal); I51.7 Cardiomegaly; I70.0 Atherosclerosis of aorta; I50.9 Heart failure, unspecified; M47.814 Spondylosis without myelopathy or radiculopathy, thoracic region; Z79.899 Other long term (current) drug therapy
CPT/HCPCS: 36415; 71046; 80048; 83880; 85025; 85610; 85730; G0463; 93971

== ENCOUNTER 2019-06-26 13:14 | Day surgery (SDC) | payer MEDICARE, OTHER ==
[~2019-06-26 13:14] MED LIST changes: +ASPI-404 PO; -ASPI-543 PO; -FER325T PO; -GABA400C11 PO; -MACI1TAB2 PO; -PANT20TA59 PO; -PANT40T PO; -PANT40TA2 PO; -RIVA2.5T PO; -RIVA20TA PO; -SILD20TA PO
[2019-06-26] MEDS ORDERED: ACETAMINOPHEN 325 MG TAB PO ONE (15:15)
[2019-07-04] MEDS ORDERED: SILD20TA PO (15:15)
[2019-07-04] MEDS ORDERED: MACI1TAB2 PO (15:15)
[2019-07-04] MEDS ORDERED: RIVA2.5T PO (15:15)
== END 2019-06-26 16:00 | disposition home or self-care (01) ==
LOC: CARD 13:14 → CATH 16:00
PROVIDERS: ATTEND Internal Medicine Cardiovascular Disease
DX: J90 Pleural effusion, not elsewhere classified (principal); R06.02 Shortness of breath; J43.9 Emphysema, unspecified; I25.118 Atherosclerotic heart disease of native coronary artery with other forms of angina pectoris; Z86.718 Personal history of other venous thrombosis and embolism; Z85.3 Personal history of malignant neoplasm of breast; Z98.890 Other specified postprocedural states; Z90.710 Acquired absence of both cervix and uterus
CPT/HCPCS: 32555; 76942; 99152

== ENCOUNTER → 2019-06-29 | Outpatient (CLI) | payer MEDICARE, OTHER ==
[~2019-06-29] MED LIST changes: +CYANOCOBALAMIN (B-12) 1000 MCG/1 ML VIAL IM ONE; +CYANOCOBALAMIN (B-12) 1000 MCG/1 ML VIAL ONE
[2019-06-29 10:30] VITALS: BP 113/45
--- NOTE | 2019-06-29 10:30 | NUR ---
PATIENT ARRIVED TO CLINIC S/P THORACENTESIS, PATIENT IN WHEELCHAIR, ON 2 LPM N/C, GRANDSON WITH HER.
--- NOTE | 2019-06-29 10:50 | NUR ---
SPOKE WITH MD, SAMPLES OF XARELTO 2.5MG GIVEN TO PATIENT, PT DIRECTED TO RESUME OPSUMIT AND CHANGE XARELTO DOSE TO 2.5MG, PT AND GRANDSON VERBALIZED UNDERSTANDING. PT ALSO GIVEN IRON BOOST AND DIRECTIONS FOR USE.
[2019-06-29 11:10] VITALS: BP 123/44
--- NOTE | 2019-06-29 11:10 | NUR ---
CHF CLINIC Discharge Instructions See e-MAR for any mediations given with this visit. Patient education given on disease process. Patient verbalized understanding. Previous labs reviewed. Patient discharged in stable condition with after care instructions and follow up appointment. NOTE B12 IM R DELTOID ADMIN BY ASHLEY TAVERAS. F/U NEXT TUESDAY.
[2019-06-29 12:01] LABS: Basophils # (auto) 0 10 ^3/uL (0-0.2); Basophils % (auto) 0.6 % (0.0-2.0); Eosinophils # (auto) 0.3 10 ^3/uL (0-0.8); Eosinophils % (auto) 3.8 % (0.0-7.0); Hematocrit 31.1 % (36.0-46.0); Hemoglobin 9.9 g/dL (12.2-16.2); Lymphocytes # (auto) 1.2 10 ^3/uL (0.4-5.4); Lymphocytes % (auto) 14.5 % (10.0-50.0); Mean Corpuscular Hemoglobin 28.4 pg (28.0-32.0); Mean Corpuscular Hgb Conc. 31.9 g/dL (32.0-36.0); Monocytes # (auto) 0.6 10 ^3/uL (0-1.3); Monocytes % (auto) 7.1 % (0.0-12.0); Neutrophils # (auto) 6.1 10 ^3/uL (1.6-8.6); Nucleated Red Blood Cells % 0.1 %; Platelet Count (auto) 223 10^3/uL (140-450); Red Cell Distribution Width 17.4 % (11.8-14.3); White Blood Cell 8.3 10^3/uL (4.4-10.8)
[2019-06-29 12:09] LABS: Potassium 4.2 mmol/L (3.5-5.1)
== END | disposition home or self-care (01) ==
LOC: CHF HDHVI 09:39
PROVIDERS: ATTEND Internal Medicine Cardiovascular Disease
DX: I27.21 Secondary pulmonary arterial hypertension (principal); I13.2 Hypertensive heart and chronic kidney disease with heart failure and with stage 5 chronic kidney disease, or end stage renal disease; E11.22 Type 2 diabetes mellitus with diabetic chronic kidney disease; N18.6 End stage renal disease; I50.9 Heart failure, unspecified; R53.83 Other fatigue; I48.91 Unspecified atrial fibrillation; I25.10 Atherosclerotic heart disease of native coronary artery without angina pectoris; I73.9 Peripheral vascular disease, unspecified; J43.9 Emphysema, unspecified; J90 Pleural effusion, not elsewhere classified; Z87.891 Personal history of nicotine dependence; Z95.1 Presence of aortocoronary bypass graft; Z90.710 Acquired absence of both cervix and uterus; Z79.899 Other long term (current) drug therapy; Z99.2 Dependence on renal dialysis; Z79.4 Long term (current) use of insulin
CPT/HCPCS: 36415; 82565; 83880; 84132; 84520; 85025; 96372; G0463; J3420

== ENCOUNTER 2019-07-04 16:46 | Inpatient (IN) | payer MEDICARE, OTHER ==
[~2019-07-04] VITALS: Ht 157.5 cm; Wt 69.9 kg
[~2019-07-04 16:46] MED LIST changes: -GABA400C11 PO; -PANT20TA59 PO; -PANT40TA2 PO; -RIVA20TA PO
[2019-07-04] MEDS ORDERED: DEXTROSE (50%) 50ML SYRG IV PRN ×2 (18:00→20:45)
[2019-07-04] MEDS ORDERED: NITROGLYCERIN 0.4 MG SL TAB SL PRN (18:00)
[2019-07-04] MEDS ORDERED: ACCU-CHEK COMFORT CURVE STRIP VI SCH (18:00)
[2019-07-04] MEDS ORDERED: MORPHINE SULF INJ 2 MG/ML SYRINGE 1ML IV PRN (18:00)
[2019-07-04] MEDS ORDERED: PANT40TA2 PO (18:42)
[2019-07-04] MEDS ORDERED: INSLANTI SC ×2 (18:42)
[2019-07-04] MEDS ORDERED: LEVOTHYROXINE SODIUM 100 MCG TAB PO ONE (20:00)
[2019-07-04] MEDS: FUROSEMIDE 40 MG/4 ML VIAL IV SCH (20:48)
[2019-07-04] MEDS: SILDENAFIL CITRATE 20 MG TAB PO SCH (20:48)
[2019-07-04] MEDS ORDERED: InsuLIN REG 1unit/0.01ml Soln (100units/ml) SC SCH ×2 (22:00)
[2019-07-04 22:21] VITALS: BP 129/54
[2019-07-04] MEDS: GABAPENTIN 400 MG CAP PO SCH (22:21)
[2019-07-04] MEDS: ACCU-CHEK COMFORT CURVE STRIP VI SCH (22:21)
[2019-07-04] MEDS: ATORVASTATIN 20 MG TAB PO SCH (22:21)
[2019-07-04] MEDS ORDERED: LEVALBUTEROL HCL 1.25 MG/3 ML NEB NEB PRN (22:45)
[2019-07-04] MEDS: LEVALBUTEROL HCL 1.25 MG/3 ML NEB NEB SCH (23:30)
[2019-07-05] MEDS: LEVALBUTEROL HCL 1.25 MG/3 ML NEB NEB SCH ×4 (00:01→22:46)
[2019-07-05 05:30] VITALS: BP 122/51
[2019-07-05] MEDS: FUROSEMIDE 40 MG/4 ML VIAL IV SCH ×3 (06:28→17:44)
[2019-07-05] MEDS: ACCU-CHEK COMFORT CURVE STRIP VI SCH ×4 (06:28→22:13)
[2019-07-05] MEDS: InsuLIN REG 1unit/0.01ml Soln (100units/ml) SC SCH ×4 (06:28→22:17)
[2019-07-05 08:37] VITALS: BP 125/51
[2019-07-05 09:33] VITALS: BP 107/50
[2019-07-05] MEDS: SILDENAFIL CITRATE 20 MG TAB PO SCH ×3 (09:39→20:25)
[2019-07-05] MEDS: CALCIUM ACETATE 667 MG CAP PO SCH ×3 (09:39→17:45)
[2019-07-05] MEDS: GABAPENTIN 400 MG CAP PO SCH (09:39)
[2019-07-05] MEDS: PANTOPRAZOLE 40 MG TAB PO SCH (09:39)
[2019-07-05 10:39] LABS: Basophils # (auto) 0.1 10 ^3/uL (0-0.2); Basophils % (auto) 0.7 % (0.0-2.0); Eosinophils # (auto) 0.2 10 ^3/uL (0-0.8); Eosinophils % (auto) 2.1 % (0.0-7.0); Hematocrit 29.6 % (36.0-46.0); Hemoglobin 9.6 g/dL (12.2-16.2); Lymphocytes # (auto) 0.6 10 ^3/uL (0.4-5.4); Lymphocytes % (auto) 7.5 % (10.0-50.0); Mean Corpuscular Hemoglobin 28.6 pg (28.0-32.0); Mean Corpuscular Hgb Conc. 32.5 g/dL (32.0-36.0); Mean Corpuscular Volume 88.1 fL (80.0-100.0); Monocytes # (auto) 0.4 10 ^3/uL (0-1.3); Neutrophils # (auto) 6.5 10 ^3/uL (1.6-8.6); Neutrophils % (auto) 84.7 % (37.0-80.0); Platelet Count (auto) 235 10^3/uL (140-450); Red Blood Cells 3.36 10^6/uL (4.0-5.20); Red Cell Distribution Width 16.8 % (11.8-14.3); White Blood Cell 7.7 10^3/uL (4.4-10.8)
[2019-07-05 11:02] LABS: Albumin 3.1 g/dL (3.4-5.0); Calcium 8.4 mg/dL (8.5-10.1)
[2019-07-05 11:05] LABS: BUN/Creatinine Ratio 19.5; Bilirubin, Total 0.6 mg/dL (0.2-1.0); Phosphorus 3.8 mg/dL (2.5-4.90); Uric Acid 3.4 mg/dL (2.6-6.0)
[2019-07-05] MEDS ORDERED: PANT20TA59 PO (12:56)
[2019-07-05] MEDS ORDERED: RIVA20TA PO (12:56)
[2019-07-05 12:57] VITALS: BP 111/51
[2019-07-05] MEDS ORDERED: GABA400C11 PO (12:58)
[2019-07-05 13:18] LABS: INR 1.03 (0.9-1.15); Partial Thromboplastin Time 26.9 sec (23.64-32.05)
[2019-07-05] MEDS ORDERED: DEXTROSE (50%) 50ML SYRG IV PRN (16:00)
[2019-07-05 16:25] VITALS: BP 114/48
[2019-07-05] MEDS: GABAPENTIN 300 MG CAP PO SCH (22:03)
[2019-07-05] MEDS: ATORVASTATIN 20 MG TAB PO SCH (22:03)
[2019-07-06 05:30] VITALS: BP 101/48
[2019-07-06] MEDS: FUROSEMIDE 40 MG/4 ML VIAL IV SCH ×2 (06:00→17:10)
[2019-07-06] MEDS: LEVALBUTEROL HCL 1.25 MG/3 ML NEB NEB SCH ×3 (06:11→22:14)
[2019-07-06] MEDS: ACCU-CHEK COMFORT CURVE STRIP VI SCH ×4 (06:30→22:00)
[2019-07-06] MEDS: InsuLIN REG 1unit/0.01ml Soln (100units/ml) SC SCH ×4 (06:30→23:18)
[2019-07-06] MEDS: ACETAMINOPHEN 325 MG TAB PO PRN ×4 (06:33→22:57)
[2019-07-06] MEDS ORDERED: SODIUM CHL 0.9% 1000 ML BAG XX ONE (07:00)
[2019-07-06] MEDS: SILDENAFIL CITRATE 20 MG TAB PO SCH ×3 (08:24→20:02)
[2019-07-06] MEDS: CALCIUM ACETATE 667 MG CAP PO SCH ×3 (08:24→17:10)
[2019-07-06 08:37] VITALS: BP 106/52
[2019-07-06] MEDS: GABAPENTIN 300 MG CAP PO SCH ×2 (12:53→22:01)
[2019-07-06] MEDS: PANTOPRAZOLE 40 MG TAB PO SCH (12:53)
[2019-07-06 13:00] VITALS: BP 109/50
[2019-07-06 17:06] VITALS: BP 92/50
[2019-07-06] MEDS ORDERED: EPOETIN ALFA 10,000 UNIT/1 ML VIAL SC ONE (21:00)
[2019-07-06 22:00] VITALS: BP 88/31
[2019-07-06] MEDS: ATORVASTATIN 20 MG TAB PO SCH (22:02)
[2019-07-06 23:27] VITALS: BP 91/47
[2019-07-07 05:00] VITALS: BP 114/61
[2019-07-07] MEDS: FUROSEMIDE 40 MG/4 ML VIAL IV SCH ×2 (05:46→17:35)
[2019-07-07] MEDS: ACCU-CHEK COMFORT CURVE STRIP VI SCH ×4 (06:22→22:33)
[2019-07-07] MEDS: InsuLIN REG 1unit/0.01ml Soln (100units/ml) SC SCH ×4 (06:26→22:00)
[2019-07-07] MEDS: LEVALBUTEROL HCL 1.25 MG/3 ML NEB NEB SCH ×3 (06:40→22:18)
[2019-07-07] MEDS: CALCIUM ACETATE 667 MG CAP PO SCH ×3 (08:23→17:35)
[2019-07-07] MEDS: SILDENAFIL CITRATE 20 MG TAB PO SCH ×3 (08:23→22:31)
[2019-07-07 09:00] VITALS: BP 103/48
[2019-07-07] MEDS: PANTOPRAZOLE 40 MG TAB PO SCH (10:11)
[2019-07-07] MEDS: GABAPENTIN 300 MG CAP PO SCH ×2 (10:11→22:32)
[2019-07-07 13:00] VITALS: BP 103/47
[2019-07-07] MEDS: ACETAMINOPHEN 325 MG TAB PO PRN ×2 (13:28→22:00)
[2019-07-07 14:22] LABS: Urine Bacteria FEW /hpf (None Seen); Urine Blood Negative /uL (Negative); Urine Specific Gravity 1.012 (1.001-1.035); Urine WBC 2 /hpf (0 - 5)
[2019-07-07 16:53] VITALS: BP 101/48
[2019-07-07 21:57] VITALS: BP 103/67
[2019-07-07] MEDS: ATORVASTATIN 20 MG TAB PO SCH (22:32)
[2019-07-08 05:01] VITALS: BP 105/47
[2019-07-08] MEDS: FUROSEMIDE 40 MG/4 ML VIAL IV SCH ×2 (06:00→18:41)
[2019-07-08] MEDS: InsuLIN REG 1unit/0.01ml Soln (100units/ml) SC SCH ×4 (06:03→22:58)
[2019-07-08] MEDS: ACCU-CHEK COMFORT CURVE STRIP VI SCH ×4 (06:04→22:57)
[2019-07-08] MEDS: LEVALBUTEROL HCL 1.25 MG/3 ML NEB NEB SCH ×3 (06:59→22:35)
[2019-07-08] MEDS: SILDENAFIL CITRATE 20 MG TAB PO SCH ×3 (08:04→21:34)
[2019-07-08] MEDS: CALCIUM ACETATE 667 MG CAP PO SCH ×3 (08:04→18:40)
[2019-07-08 09:00] VITALS: BP 109/44
[2019-07-08 09:50] VITALS: BP 109/44
[2019-07-08] MEDS: PANTOPRAZOLE 40 MG TAB PO SCH (09:56)
[2019-07-08] MEDS: GABAPENTIN 300 MG CAP PO SCH ×2 (09:56→22:56)
[2019-07-08] MEDS ORDERED: FUROSEMIDE 100 MG/10ML VIAL IV ONE (12:30)
[2019-07-08 13:21] VITALS: BP 113/48
[2019-07-08 16:58] VITALS: BP 113/53
[2019-07-08] MEDS: ACETAMINOPHEN 325 MG TAB PO PRN (21:34)
[2019-07-08] MEDS: ATORVASTATIN 20 MG TAB PO SCH (21:34)
[2019-07-08 21:48] VITALS: BP 102/51
[2019-07-09 04:50] VITALS: BP 104/50
[2019-07-09] MEDS: FUROSEMIDE 40 MG/4 ML VIAL IV SCH (06:00)
[2019-07-09] MEDS: InsuLIN REG 1unit/0.01ml Soln (100units/ml) SC SCH ×2 (06:08→11:30)
[2019-07-09] MEDS: ACCU-CHEK COMFORT CURVE STRIP VI SCH ×2 (06:09→11:30)
[2019-07-09] MEDS: LEVALBUTEROL HCL 1.25 MG/3 ML NEB NEB SCH (06:45)
[2019-07-09] MEDS ORDERED: SODIUM CHL 0.9% 1000 ML BAG XX ONE (07:00)
[2019-07-09] MEDS: CALCIUM ACETATE 667 MG CAP PO SCH ×2 (08:00→12:00)
[2019-07-09] MEDS: SILDENAFIL CITRATE 20 MG TAB PO SCH (08:00)
[2019-07-09 09:25] VITALS: BP 106/42
[2019-07-09] MEDS: PANTOPRAZOLE 40 MG TAB PO SCH (10:00)
[2019-07-09] MEDS: GABAPENTIN 300 MG CAP PO SCH (10:00)
[2019-07-09 11:45] VITALS: BP 106/42
[2019-07-09] MEDS ORDERED: EPOETIN ALFA 10,000 UNIT/1 ML VIAL SC ONE (21:00)
== END 2019-07-09 14:00 | disposition home or self-care (01) | DRG 291 ==
LOC: WEST WING 17:28 → TELE-WESTW 20:16
PROVIDERS: ADMIT Internal Medicine Cardiovascular Disease; ATTEND Internal Medicine Cardiovascular Disease
PROC: 0W993ZX Drainage of Right Pleural Cavity, Percutaneous Approach, Diagnostic (ICD-10-PCS; principal; 2019-07-05)
PROC: 5A1D70Z Performance of Urinary Filtration, Intermittent, Less than 6 Hours Per Day (ICD-10-PCS; 2019-07-06)
PROC: 5A1D70Z Performance of Urinary Filtration, Intermittent, Less than 6 Hours Per Day (ICD-10-PCS; 2019-07-09)
DX: I13.2 Hypertensive heart and chronic kidney disease with heart failure and with stage 5 chronic kidney disease, or end stage renal disease (principal); J96.00 Acute respiratory failure, unspecified whether with hypoxia or hypercapnia; N18.6 End stage renal disease; I50.33 Acute on chronic diastolic (congestive) heart failure; I48.20 Chronic atrial fibrillation, unspecified; J90 Pleural effusion, not elsewhere classified; I27.20 Pulmonary hypertension, unspecified; E11.22 Type 2 diabetes mellitus with diabetic chronic kidney disease; D63.1 Anemia in chronic kidney disease; I25.10 Atherosclerotic heart disease of native coronary artery without angina pectoris; Z95.1 Presence of aortocoronary bypass graft; Z99.2 Dependence on renal dialysis; Z79.899 Other long term (current) drug therapy; Z79.51 Long term (current) use of inhaled steroids; Z91.048 Other nonmedicinal substance allergy status; Z79.82 Long term (current) use of aspirin; Z79.4 Long term (current) use of insulin; Z82.49 Family history of ischemic heart disease and other diseases of the circulatory system; Z80.41 Family history of malignant neoplasm of ovary; E11.40 Type 2 diabetes mellitus with diabetic neuropathy, unspecified
CPT/HCPCS: 10022; 32555; 36415; 71045; 71046; 76942; 80053; 81001; 82306; 82962; 83036; 83735; 83880; 83970; 84100; 84550; 85025; 85610; 85730; 86850; 86900; 86901; 87081; 90935; 94640; G0378; G0463; J0885; J1815

== ENCOUNTER → 2019-07-04 | Outpatient (CLI) | payer MEDICARE, OTHER ==
[~2019-07-04] MED LIST changes: -CYANOCOBALAMIN (B-12) 1000 MCG/1 ML VIAL IM ONE; -CYANOCOBALAMIN (B-12) 1000 MCG/1 ML VIAL ONE; +GABA400C11 PO; +MACI1TAB2 PO; +PANT20TA59 PO; +PANT40TA2 PO; +RIVA2.5T PO; +RIVA20TA PO; +SILD20TA PO
[2019-07-04 14:15] VITALS: BP 122/52
--- NOTE | 2019-07-04 14:15 | NUR ---
PATIENT SENT FROM MD OFFICE WITH DIRECT ADMIT ORDERS.
[2019-07-04 16:08] LABS: Basophils # (auto) 0 10 ^3/uL (0-0.2); Basophils % (auto) 0.6 % (0.0-2.0); Eosinophils # (auto) 0.2 10 ^3/uL (0-0.8); Eosinophils % (auto) 3.3 % (0.0-7.0); Hematocrit 30.7 % (36.0-46.0); Hemoglobin 9.8 g/dL (12.2-16.2); Lymphocytes % (auto) 13.1 % (10.0-50.0); Mean Corpuscular Hemoglobin 28.2 pg (28.0-32.0); Mean Corpuscular Hgb Conc. 31.8 g/dL (32.0-36.0); Mean Corpuscular Volume 88.7 fL (80.0-100.0); Monocytes # (auto) 0.4 10 ^3/uL (0-1.3); Monocytes % (auto) 5.7 % (0.0-12.0); Neutrophils # (auto) 5.6 10 ^3/uL (1.6-8.6); Neutrophils % (auto) 77.3 % (37.0-80.0); Nucleated Red Blood Cells % 0.1 %; Platelet Count (auto) 253 10^3/uL (140-450); Red Blood Cells 3.47 10^6/uL (4.0-5.20); Red Cell Distribution Width 17.1 % (11.8-14.3); White Blood Cell 7.3 10^3/uL (4.4-10.8)
[2019-07-04 16:24] LABS: INR 1.04 (0.9-1.15); Partial Thromboplastin Time 27.4 sec (23.64-32.05)
[2019-07-04 16:28] LABS: Albumin 3.1 g/dL (3.4-5.0); Magnesium 2.2 mg/dL (1.6-2.6); Potassium 4.4 mmol/L (3.5-5.1)
[2019-07-04 16:32] LABS: BUN/Creatinine Ratio 14.6; Bilirubin, Total 0.5 mg/dL (0.2-1.0); Total Protein 7.3 g/dL (6.4-8.2)
[2019-07-04 17:00] VITALS: BP 123/47
--- NOTE | 2019-07-04 17:00 | NUR ---
CHF CLINIC Discharge Instructions See e-MAR for any mediations given with this visit. Patient education given on disease process. Patient verbalized understanding. Previous labs reviewed. Patient discharged in stable condition with after care instructions and follow up appointment. NOTE PATIENT SENT TO HOSPITAL WITH IV S/L LOCKED AND WRITTEN ORDERS.
--- NOTE | 2019-07-04 17:22 | NUR ---
CALLED IN REPORT TO JOSE DE JESUS TAVERAS.
== END | disposition home or self-care (01) ==
LOC: Rad HDHVI 14:26
PROVIDERS: ATTEND Internal Medicine Cardiovascular Disease
DX: Z01.812 Encounter for preprocedural laboratory examination (principal); I70.0 Atherosclerosis of aorta; J90 Pleural effusion, not elsewhere classified; I50.9 Heart failure, unspecified; R06.02 Shortness of breath; Z79.899 Other long term (current) drug therapy
CPT/HCPCS: 36415; 71046; 80053; 83735; 83880; 85025; 85610; 85730; G0463

== ENCOUNTER 2019-07-18 16:44 | Inpatient (IN) | payer MEDICARE, OTHER ==
[~2019-07-18] VITALS: Ht 157.5 cm; Wt 74.6 kg
[~2019-07-18 16:44] MED LIST changes: -ASPI-404 PO; +ASPI-543 PO; -FER325T PO; -PANT40T PO; -RIVA2.5T PO
[2019-07-18] MEDS ORDERED: MORPHINE SULF INJ 2 MG/ML SYRINGE 1ML IV PRN (18:15)
[2019-07-18] MEDS ORDERED: DEXTROSE (50%) 50ML SYRG IV PRN (18:15)
[2019-07-18] MEDS ORDERED: NITROGLYCERIN 0.4 MG SL TAB SL PRN (18:15)
[2019-07-18 18:50] LABS: Basophils # (auto) 0 10 ^3/uL (0-0.2); Basophils % (auto) 0.4 % (0.0-2.0); Eosinophils # (auto) 0.2 10 ^3/uL (0-0.8); Eosinophils % (auto) 2.8 % (0.0-7.0); Hematocrit 29.4 % (36.0-46.0); Hemoglobin 9.5 g/dL (12.2-16.2); Lymphocytes # (auto) 0.6 10 ^3/uL (0.4-5.4); Lymphocytes % (auto) 9.6 % (10.0-50.0); Mean Corpuscular Hemoglobin 28.3 pg (28.0-32.0); Mean Corpuscular Hgb Conc. 32.1 g/dL (32.0-36.0); Mean Corpuscular Volume 88.2 fL (80.0-100.0); Monocytes # (auto) 0.3 10 ^3/uL (0-1.3); Monocytes % (auto) 5.2 % (0.0-12.0); Neutrophils # (auto) 5.3 10 ^3/uL (1.6-8.6); Platelet Count (auto) 203 10^3/uL (140-450); Red Blood Cells 3.34 10^6/uL (4.0-5.20); Red Cell Distribution Width 16.9 % (11.8-14.3); White Blood Cell 6.4 10^3/uL (4.4-10.8)
--- NOTE | 2019-07-18 19:00 | NUR ---
Opening Note Assumed care of patient, awake and alert. Sitting at the side of the bed. No S/S of distress/SOB or pain. Instructed on POC and to call for assist as needed. Call light with in reach, side rails up x2, bed on lowest position. Patient was on the phone with grandson, and he is aware of POC.
[2019-07-18 19:07] LABS: BUN/Creatinine Ratio 11.9; Calcium 7.9 mg/dL (8.5-10.1); INR 1.05 (0.9-1.15); Partial Thromboplastin Time 26.6 sec (23.64-32.05); Potassium 3.9 mmol/L (3.5-5.1)
[2019-07-18] MEDS: ATORVASTATIN 20 MG TAB PO SCH (21:35)
[2019-07-18] MEDS: GABAPENTIN 400 MG CAP PO SCH (21:35)
[2019-07-18] MEDS: ACCU-CHEK COMFORT CURVE STRIP VI SCH (21:36)
[2019-07-18] MEDS: INSULIN LANTUS (GLARGINE) 1 /0.01ml (100units/ml) SC SCH (21:36)
[2019-07-18] MEDS: InsuLIN REG 1unit/0.01ml Soln (100units/ml) SC SCH (21:37)
[2019-07-18 22:00] VITALS: BP 136/59
--- NOTE | 2019-07-18 22:00 | NUR ---
Patient in bed, comfortable, was complained of cramping of her middle finger on her left hand. Patient said this is chronic and she massages and performed ROM and she was ok after.
--- NOTE | 2019-07-19 01:40 | NUR ---
Patient woke up in pain she explained she has Gout and she takes Tylenol at home for it.
[2019-07-19 05:00] VITALS: BP 132/52
[2019-07-19] MEDS: GABAPENTIN 400 MG CAP PO SCH ×2 (05:25→14:23)
[2019-07-19] MEDS: LEVOTHYROXINE SODIUM 100 MCG TAB PO SCH (05:26)
[2019-07-19] MEDS: INSULIN LANTUS (GLARGINE) 1 /0.01ml (100units/ml) SC SCH ×2 (05:26→22:14)
[2019-07-19] MEDS: ACCU-CHEK COMFORT CURVE STRIP VI SCH ×4 (05:27→21:35)
[2019-07-19] MEDS: InsuLIN REG 1unit/0.01ml Soln (100units/ml) SC SCH ×4 (05:27→22:16)
--- NOTE | 2019-07-19 05:27 | NUR ---
Blood Glucose Patient's blood sugar was 81, no coverage needed per sliding scale, also held Lantus 10 units. Patient is asymptomatic, orange juice given. Will cont to monitor.
--- NOTE | 2019-07-19 06:52 | NUR ---
Rounds Patient awake and alert. No S/S of distress/SOB or pain. Will continue to monitor.
--- NOTE | 2019-07-19 07:30 | NUR ---
Opening Note Assumed patient care from SUELLEN RN.
[2019-07-19 09:00] VITALS: BP 142/74
--- NOTE | 2019-07-19 09:30 | NUR ---
at bedside Dr. Olvera at bedside discussing plan of care with patient.
--- NOTE | 2019-07-19 09:48 | NUR ---
MD Called Spoke with Dr. Perez, possible: patient to get dialysis tomorrow.
--- NOTE | 2019-07-19 11:00 | NUR ---
Pleurex MD and radiology nurse at bedside for pleurex placement. Patient shows no signs of distress at this time.
--- NOTE | 2019-07-19 12:00 | NUR ---
Patient Rounds Patient shows no signs of distress at this time. Patient dressing is clean, dry, and intact, minimal drainage noted and circled. Pleurex catheter palpable under dressing. Respirations even and unlabored, SpO2 98% at this time.
[2019-07-19 13:00] VITALS: BP 140/69
--- NOTE | 2019-07-19 13:12 | NUR ---
at station Dr. Valencia at station. to put order for social service consult for home health.
[2019-07-19] MEDS: ACETAMINOPHEN 325 MG TAB PO PRN (14:23)
[2019-07-19] MEDS ORDERED: GABA400C11 PO ×2 (14:24→14:25)
[2019-07-19] MEDS ORDERED: PANT40T PO (14:26)
[2019-07-19] MEDS ORDERED: RIVA2.5T PO (14:29)
[2019-07-19] MEDS ORDERED: FER325T PO (14:33)
[2019-07-19] MEDS ORDERED: ALBUAER3 IN (14:34)
--- NOTE | 2019-07-19 15:00 | NUR ---
Paged Left message with Dr. Olvera regarding x ray. Patient stable, vitals are as follows BP 140/69, RR16, HR80, SpO2 98%. Patient shows no signs of distress, states she has tolerable pain. Will continue to monitor.
--- NOTE | 2019-07-19 16:12 | NUR ---
Called MD Left message for Dr. Olvera regarding x ray. Patient shows no signs of distress at this time vitals are as follows SpO2 98%, HR 71, RR 16-20 BP 125/58. Respirations even and unlabored. Will continue to monitor.
--- NOTE | 2019-07-19 16:15 | NUR ---
Called MD Left message with Dr. Valencia regarding chest x ray. Patient currently stable, no signs of distress at this time. Respirations even and unlabored, will continue to monitor.
--- NOTE | 2019-07-19 16:43 | NUR ---
MD Spoke with Dr. Valencia regarding patient's status. Notified of patient chest xray and current vital signs. Patient is stable and shows no signs of distress at this time. Per MD, continue to monitor the patient, no interventions required at this time. Will notify Dr. Olvera.
[2019-07-19 16:48] VITALS: BP 125/58
--- NOTE | 2019-07-19 17:00 | NUR ---
MD Called Spoke with Dr. Olvera. MD updated on patient's status and chest x ray, per MD, no intervention required at this time, will resolve when fluid is drained tomorrow, possible discharge tomorrow. Will continue to monitor.
--- NOTE | 2019-07-19 19:19 | NUR ---
Closing Note Report given to SUELLEN TAVERAS.
--- NOTE | 2019-07-19 19:20 | NUR ---
Opening note. Assumed care of patient. Patient alert and orientated x4. No SOB or distress noted at this time. POC reviewed. Patient has no questions at this time. Bed locked in lowest position. Side rails up x2. Call light within reach. Will continue to monitor.
[2019-07-19] MEDS: KETOROLAC TROMETH 30 MG/ML 1ML VIAL IV PRN (20:51)
[2019-07-19] MEDS: ATORVASTATIN 20 MG TAB PO SCH (21:35)
[2019-07-19 22:04] VITALS: BP 143/77
--- NOTE | 2019-07-20 03:15 | NUR ---
Rounding Checked on Patient. Patient asleep. Chest evenly rising. No distress noted at this time. Will continue to monitor patient.
[2019-07-20 05:40] VITALS: BP 108/48
[2019-07-20] MEDS: ACCU-CHEK COMFORT CURVE STRIP VI SCH ×4 (06:20→21:45)
[2019-07-20] MEDS: LEVOTHYROXINE SODIUM 100 MCG TAB PO SCH (06:20)
[2019-07-20] MEDS: InsuLIN REG 1unit/0.01ml Soln (100units/ml) SC SCH ×4 (06:20→22:30)
[2019-07-20] MEDS: INSULIN LANTUS (GLARGINE) 1 /0.01ml (100units/ml) SC SCH ×2 (06:32→22:48)
--- NOTE | 2019-07-20 07:04 | NUR ---
Closing Note Report given to DAY shift RN
--- NOTE | 2019-07-20 07:30 | NUR ---
Opening Note Assumed patient care from NOC Rn. Patient currently sitting up in bed. Respirations even and unlabored, no signs of distress at this time. Patient sat up in bed, feet dangling for breakfast. Will continue to monitor.
[2019-07-20] MEDS: ACETAMINOPHEN 325 MG TAB PO PRN (08:20)
[2019-07-20 09:00] VITALS: BP 134/54
[2019-07-20] MEDS ORDERED: LIDOCAINE 1% HCL (LOCAL ANESTH.) INJ 20ML MDV ID ONE (11:15)
--- NOTE | 2019-07-20 12:00 | NUR ---
Dialysis defensive secondary coach at bedside.
[2019-07-20 13:00] VITALS: BP 118/57
--- NOTE | 2019-07-20 14:30 | NUR ---
Dialysis Per metal fabricating inspector, 1.7L drained. BP is 124/48 HR 63. Patient shows no signs of distress at this time. Respirations are even and unlabored. Safety precautions in place, will continue to monitor.
--- NOTE | 2019-07-20 16:15 | NUR ---
Pleurex 650mL of dark jefferson fluid drained, stopped due to patient complaint of severe pain. Vitals are as follows: HR 72, BP 115/53, RR 20, SpO2 100% on 3L nasal cannula, temperature is 97.7. Site cleaned and dressing changed. Assisted by NITIN Tatum. Patient currently showing no signs of distress. Safety precautions in place, patient repositioned for comfort. Will continue to monitor.
[2019-07-20 17:00] VITALS: BP 114/45
[2019-07-20] MEDS: KETOROLAC TROMETH 30 MG/ML 1ML VIAL IV PRN (17:33)
--- NOTE | 2019-07-20 19:20 | NUR ---
Closing Note Report given to Anayeli KEN RN.
--- NOTE | 2019-07-20 19:22 | NUR ---
Opening note Assumed care of patient. Patient alert and orientated x4. No SOB or distress noted. Right pleurx dressing dry and intact. Bed locked and in lowest position. Side rails up x2. Call light within reach. will continue to monitor.
[2019-07-20] MEDS: ATORVASTATIN 20 MG TAB PO SCH (21:45)
[2019-07-20] MEDS: GABAPENTIN 300 MG CAP PO SCH (21:45)
[2019-07-20 22:00] VITALS: BP 124/42
[2019-07-21 05:00] VITALS: BP 100/41
[2019-07-21] MEDS: InsuLIN REG 1unit/0.01ml Soln (100units/ml) SC SCH ×4 (06:15→21:41)
[2019-07-21] MEDS: LEVOTHYROXINE SODIUM 100 MCG TAB PO SCH (06:15)
[2019-07-21] MEDS: ACCU-CHEK COMFORT CURVE STRIP VI SCH ×4 (06:15→21:42)
[2019-07-21] MEDS: INSULIN LANTUS (GLARGINE) 1 /0.01ml (100units/ml) SC SCH ×2 (06:24→21:43)
--- NOTE | 2019-07-21 07:31 | NUR ---
closing note endorsed care to day shift RN. No signs of distress noted on patine.
--- NOTE | 2019-07-21 07:32 | NUR ---
Opening Shift Note: Assumed care of patient, awake and alert. No S/S of distress/SOB or pain. Bed in lowest locked position, side rails up x 2, call light within reach. Patient instructed on POC and to call for assist PRN, will continue to monitor for changes Q1hr and PRN.
[2019-07-21 09:00] VITALS: BP 128/54
[2019-07-21] MEDS: KETOROLAC TROMETH 30 MG/ML 1ML VIAL IV PRN (10:33)
[2019-07-21 13:00] VITALS: BP 110/42
[2019-07-21 14:07] LABS: Basophils # (auto) 0 10 ^3/uL (0-0.2); Basophils % (auto) 0.5 % (0.0-2.0); Eosinophils # (auto) 0.3 10 ^3/uL (0-0.8); Eosinophils % (auto) 5.5 % (0.0-7.0); Hematocrit 28.5 % (36.0-46.0); Hemoglobin 9.4 g/dL (12.2-16.2); Lymphocytes # (auto) 0.8 10 ^3/uL (0.4-5.4); Lymphocytes % (auto) 13.7 % (10.0-50.0); Mean Corpuscular Hemoglobin 28.7 pg (28.0-32.0); Mean Corpuscular Hgb Conc. 32.9 g/dL (32.0-36.0); Mean Corpuscular Volume 87.3 fL (80.0-100.0); Monocytes # (auto) 0.4 10 ^3/uL (0-1.3); Monocytes % (auto) 6.5 % (0.0-12.0); Neutrophils # (auto) 4.4 10 ^3/uL (1.6-8.6); Neutrophils % (auto) 73.8 % (37.0-80.0); Platelet Count (auto) 189 10^3/uL (140-450); Red Blood Cells 3.26 10^6/uL (4.0-5.20); Red Cell Distribution Width 16.7 % (11.8-14.3); White Blood Cell 5.9 10^3/uL (4.4-10.8)
[2019-07-21 14:21] LABS: Calcium 7.8 mg/dL (8.5-10.1)
[2019-07-21 14:24] LABS: BUN/Creatinine Ratio 16.4
[2019-07-21 17:00] VITALS: BP 117/54
--- NOTE | 2019-07-21 18:52 | NUR ---
CLOSING NOTE: Patient resting in bed. No S/S of pain, distress or SOB at this time. Care endorsed to NOC RN
[2019-07-21] MEDS: GABAPENTIN 300 MG CAP PO SCH (21:41)
[2019-07-21] MEDS: ATORVASTATIN 20 MG TAB PO SCH (21:41)
[2019-07-21 22:09] VITALS: BP 117/50
[2019-07-22 05:00] VITALS: BP 118/53
[2019-07-22] MEDS: ACCU-CHEK COMFORT CURVE STRIP VI SCH ×4 (06:22→22:08)
[2019-07-22] MEDS: LEVOTHYROXINE SODIUM 100 MCG TAB PO SCH (06:22)
[2019-07-22] MEDS: InsuLIN REG 1unit/0.01ml Soln (100units/ml) SC SCH ×4 (06:22→22:13)
[2019-07-22] MEDS: INSULIN LANTUS (GLARGINE) 1 /0.01ml (100units/ml) SC SCH ×2 (06:23→22:16)
--- NOTE | 2019-07-22 07:19 | NUR ---
Opening Shift Note: Assumed care of patient, awake and alert. No S/S of distress/SOB or pain. Bed in lowest locked position, side rails up x 2, call light within reach. Bed alarm activated for patient safety. Patient instructed on POC and to call for assist PRN, will continue to monitor for changes Q1hr and PRN.
--- NOTE | 2019-07-22 08:30 | NUR ---
Patient requested breathing treatment. No treatments available. Called Dr. Valencia, new orders received. Read back and verified.
[2019-07-22] MEDS ORDERED: LEVALBUTEROL HCL 1.25 MG/3 ML NEB NEB SCH (08:45)
[2019-07-22 09:00] VITALS: BP 141/76
--- NOTE | 2019-07-22 11:47 | NUR ---
Pleurex 750 mL of dark jefferson fluid drained. Patient complaints of severe pain. Vitals are- BP 122/58, HR 62, RR 18, O2 sats 97%. Site cleaned and dressed, with assistance of Gabby TAVERAS.
--- NOTE | 2019-07-22 12:10 | NUR ---
Est energy needs 4036-6144 kcal (20-25 kcal/kg BW 74.7kg) Est protein needs 75-90g (1-1.2g/kg BW 74.7kg r/t HD) Will reassess prn. Addendum: 07/22/19 at [address] Amended: Links added.
[2019-07-22] MEDS: KETOROLAC TROMETH 30 MG/ML 1ML VIAL IV PRN (12:15)
[2019-07-22] MEDS: LEVALBUTEROL HCL 1.25 MG/3 ML NEB NEB SCH ×2 (13:39→18:47)
[2019-07-22 14:41] VITALS: BP 122/58
[2019-07-22 16:35] VITALS: BP 124/45
[2019-07-22] MEDS ORDERED: FAMOTIDINE 20 MG TAB PO ONE (17:30)
--- NOTE | 2019-07-22 18:50 | NUR ---
Respiratory note: AT BEDSIDE FOR MED JAMEL HERNANDEZ.
--- NOTE | 2019-07-22 18:53 | NUR ---
CLOSING NOTE: Patient laying in bed. No S/S of distress at this time. Care endorsed.
[2019-07-22 22:00] VITALS: BP 122/43
[2019-07-22] MEDS: ATORVASTATIN 20 MG TAB PO SCH (22:12)
[2019-07-22] MEDS: GABAPENTIN 300 MG CAP PO SCH (22:12)
[2019-07-23] MEDS: LEVALBUTEROL HCL 1.25 MG/3 ML NEB NEB SCH ×4 (00:46→19:02)
--- NOTE | 2019-07-23 03:07 | NUR ---
CONTINUATION OF CARE: Patient resting in bed. No S/S of pain, distress or SOB. Bed in lowest locked position, side rails up x 2, call light within reach. Bed alarm activated for patient safety. Will continue to educated patient of POC.
[2019-07-23 05:00] VITALS: BP 113/80
[2019-07-23] MEDS: InsuLIN REG 1unit/0.01ml Soln (100units/ml) SC SCH ×4 (06:18→22:00)
[2019-07-23] MEDS: LEVOTHYROXINE SODIUM 100 MCG TAB PO SCH (06:22)
[2019-07-23] MEDS: ACCU-CHEK COMFORT CURVE STRIP VI SCH ×4 (06:22→22:10)
[2019-07-23] MEDS: INSULIN LANTUS (GLARGINE) 1 /0.01ml (100units/ml) SC SCH ×2 (06:23→22:09)
[2019-07-23] MEDS ORDERED: SODIUM CHL 0.9% 1000 ML BAG XX ONE (08:30)
[2019-07-23 08:47] VITALS: BP 124/44
[2019-07-23] MEDS: FAMOTIDINE 20 MG TAB PO SCH (12:57)
[2019-07-23 13:00] VITALS: BP 112/41
[2019-07-23 17:00] VITALS: BP 125/64
--- NOTE | 2019-07-23 18:49 | NUR ---
CLOSING NOTE: Patient laying in bed. No S/S of distress or SOB. Care endorsed.
[2019-07-23] MEDS ORDERED: EPOETIN ALFA 10,000 UNIT/1 ML VIAL SC ONE (21:00)
[2019-07-23 22:00] VITALS: BP_SYST 110; BP_SYST 177; BP_DIAS 44; BP_DIAS 74
[2019-07-23] MEDS: GABAPENTIN 300 MG CAP PO SCH (22:10)
[2019-07-23] MEDS: ATORVASTATIN 20 MG TAB PO SCH (22:10)
[2019-07-23] MEDS: KETOROLAC TROMETH 30 MG/ML 1ML VIAL IV PRN (22:22)
[2019-07-24] MEDS: LEVALBUTEROL HCL 1.25 MG/3 ML NEB NEB SCH ×5 (00:34→23:07)
[2019-07-24] MEDS: ACETAMINOPHEN 325 MG TAB PO PRN ×2 (00:53→21:33)
[2019-07-24 05:00] VITALS: BP_SYST 103; BP_SYST 123; BP_DIAS 30; BP_DIAS 61
[2019-07-24] MEDS: LEVOTHYROXINE SODIUM 100 MCG TAB PO SCH (06:40)
[2019-07-24] MEDS: ACCU-CHEK COMFORT CURVE STRIP VI SCH ×4 (06:42→21:34)
[2019-07-24] MEDS: InsuLIN REG 1unit/0.01ml Soln (100units/ml) SC SCH ×4 (06:44→21:30)
[2019-07-24] MEDS: INSULIN LANTUS (GLARGINE) 1 /0.01ml (100units/ml) SC SCH ×2 (06:44→21:32)
--- NOTE | 2019-07-24 07:03 | NUR ---
Opening Shift Note: Assumed care of patient, awake and alert. No S/S of distress/SOB or pain. Bed in lowest locked position, side rails up x 2, call light within reach. bed alarm activated for patient safety. Patient instructed on POC and to call for assist PRN, will continue to monitor for changes Q1hr and PRN.
[2019-07-24 09:00] VITALS: BP 114/62
[2019-07-24] MEDS: FAMOTIDINE 20 MG TAB PO SCH (09:19)
[2019-07-24 12:27] VITALS: BP 119/65
--- NOTE | 2019-07-24 15:19 | NUR ---
Per Drs orders, Plurex drained. Vital signs stable. 750 mL drained, stopped due to patient experiencing pain.
[2019-07-24 17:02] VITALS: BP 116/76
--- NOTE | 2019-07-24 17:32 | NUR ---
Contacted Dr. Valencia regarding Plurex output.
--- NOTE | 2019-07-24 17:45 | NUR ---
Per Dr. Valencia "It can be drained BID as tolerated."
--- NOTE | 2019-07-24 19:26 | NUR ---
CLOSING NOTE: Patient resting in bed. No S/S of pain, or distress at this time. Care endorsed to NOC RN
[2019-07-24] MEDS: GABAPENTIN 300 MG CAP PO SCH (21:32)
[2019-07-24] MEDS: ATORVASTATIN 20 MG TAB PO SCH (21:32)
[2019-07-24 22:00] VITALS: BP 106/51
[2019-07-25 05:00] VITALS: BP 102/36
[2019-07-25] MEDS ORDERED: SODIUM CHL 0.9% 1000 ML BAG IV ONE (06:45)
[2019-07-25] MEDS: INSULIN LANTUS (GLARGINE) 1 /0.01ml (100units/ml) SC SCH ×2 (07:00→22:29)
[2019-07-25] MEDS: InsuLIN REG 1unit/0.01ml Soln (100units/ml) SC SCH ×4 (07:00→22:29)
--- NOTE | 2019-07-25 07:00 | NUR ---
Low blood sugar Pt's BS 56 this AM. Held regular insulin and lantus. Pt asymptomatic. Juice given per protocol. Gave report to day shift RN to recheck BS and notify MD regarding plan for lantus today.
[2019-07-25] MEDS: ACETAMINOPHEN 325 MG TAB PO PRN ×2 (07:07→22:47)
[2019-07-25] MEDS: LEVOTHYROXINE SODIUM 100 MCG TAB PO SCH (07:08)
[2019-07-25] MEDS: ACCU-CHEK COMFORT CURVE STRIP VI SCH ×4 (07:08→22:24)
[2019-07-25] MEDS: LEVALBUTEROL HCL 1.25 MG/3 ML NEB NEB SCH ×3 (07:17→18:29)
[2019-07-25 09:13] VITALS: BP 121/49
--- NOTE | 2019-07-25 09:56 | NUR ---
hemodialysis done, total output 2L, BP 122/55, HR 69, will continue to monitor.
[2019-07-25] MEDS: FAMOTIDINE 20 MG TAB PO SCH (10:15)
--- NOTE | 2019-07-25 10:20 | NUR ---
PT SEEN BY DR. SUN, HE SAID TO DRAIN THE PLEURX DRAIN ON TUESDAY.
[2019-07-25 12:46] VITALS: BP 119/62
--- NOTE | 2019-07-25 14:23 | NUR ---
Nutrition Followup Note Wt: 73.9 KG Pt was sleeping with HD going on with HD RN by bedside. per records pt s/p AICD. pt is currently on 2 gm na diet with inadeuqte PO of 50% x 3 per RN doc Est energy needs 74 [id number] kcal (25-27 kcal/kg) Est protein needs 88-96 g (1.2-1.3 r/t HD) Will reassess prn. Labs: NO new albs today POC GLU 56 L Skin: BS 19 low risk BM: Pt had 1 BM today RN doc PES: Altered nutrition related lab values r/t current chronic medical condition aeb elev RFT Rec: 1) consider CCHO 60 gm renal std. 2) refer to CDE on DC. 3) consider nephro carb steady 1 carton bid. 4) Continue current plan of care. F/u high 3-5days
[2019-07-25 15:08] LABS: Basophils # (auto) 0 10 ^3/uL (0-0.2); Basophils % (auto) 0.7 % (0.0-2.0); Eosinophils # (auto) 0.3 10 ^3/uL (0-0.8); Eosinophils % (auto) 5.2 % (0.0-7.0); Hematocrit 27.6 % (36.0-46.0); Hemoglobin 9.1 g/dL (12.2-16.2); Lymphocytes # (auto) 0.6 10 ^3/uL (0.4-5.4); Lymphocytes % (auto) 11.4 % (10.0-50.0); Mean Corpuscular Hemoglobin 28.4 pg (28.0-32.0); Mean Corpuscular Hgb Conc. 32.9 g/dL (32.0-36.0); Mean Corpuscular Volume 86.3 fL (80.0-100.0); Monocytes # (auto) 0.3 10 ^3/uL (0-1.3); Monocytes % (auto) 6.9 % (0.0-12.0); Neutrophils # (auto) 3.8 10 ^3/uL (1.6-8.6); Neutrophils % (auto) 75.8 % (37.0-80.0); Platelet Count (auto) 183 10^3/uL (140-450); Red Blood Cells 3.19 10^6/uL (4.0-5.20); Red Cell Distribution Width 16.1 % (11.8-14.3)
[2019-07-25 15:20] LABS: Calcium 7.5 mg/dL (8.5-10.1); Potassium 5.2 mmol/L (3.5-5.1)
[2019-07-25 15:27] LABS: Albumin 2.5 g/dL (3.4-5.0); Bilirubin, Total 0.4 mg/dL (0.2-1.0); Total Protein 6.2 g/dL (6.4-8.2)
--- NOTE | 2019-07-25 16:25 | NUR ---
Dr. Valencia notified for pt's lab results. K, Na, BUN, and creatinine. Addendum: 07/25/19 at 1750 by Joselyn Virk RN no further order received.
[2019-07-25 17:01] VITALS: BP 120/71
[2019-07-25 17:06] VITALS: BP 103/48
[2019-07-25] MEDS: ATORVASTATIN 20 MG TAB PO SCH (22:24)
[2019-07-25] MEDS: GABAPENTIN 300 MG CAP PO SCH (22:24)
[2019-07-25 23:58] VITALS: BP 102/55
[2019-07-26] MEDS: LEVALBUTEROL HCL 1.25 MG/3 ML NEB NEB SCH ×5 (00:13→22:11)
[2019-07-26 05:28] VITALS: BP 100/56
[2019-07-26] MEDS: LEVOTHYROXINE SODIUM 100 MCG TAB PO SCH (06:37)
[2019-07-26] MEDS: ACCU-CHEK COMFORT CURVE STRIP VI SCH ×4 (06:37→22:00)
[2019-07-26] MEDS: InsuLIN REG 1unit/0.01ml Soln (100units/ml) SC SCH ×4 (06:37→22:36)
[2019-07-26] MEDS: INSULIN LANTUS (GLARGINE) 1 /0.01ml (100units/ml) SC SCH ×2 (06:42→22:36)
[2019-07-26 08:04] VITALS: BP 100/56
[2019-07-26 09:00] VITALS: BP 118/44
[2019-07-26] MEDS: FAMOTIDINE 20 MG TAB PO SCH (09:47)
--- NOTE | 2019-07-26 09:48 | NUR ---
PleurX drained/BID per Dr. Valencia Drained 775 mL of brown, tea colored fluid. Stopped when pt. c/o pain. No order to send to lab. Dr. Valencia was here to see the patient and said to drain it twice a day. Charged output in I+Os.
[2019-07-26 13:00] VITALS: BP 120/48
--- NOTE | 2019-07-26 13:58 | NUR ---
assessment Pt is a 83 year old female who is alert and oriented. Prior to admission patient lived alone and stated that her Grandson Gilberto is her emergency contact at [phone] and her [facility] caregiver. Gilberto comes in daily. patient has a fww, 02, and shower chair for home use. Patient has HH with [facility] and will needs a resumption order on discharge. Pt's Primary is Dr. breaux. I informed patient she has a right to speak to a social sciences department chair regarding all care. I informed patient she has a right to participate in any and all discharge planning. Patient does not have a POA and advanced directive. I have offered patient information on POA and advanced directives. I informed the patient the advantages and benefits of having an Advanced Directive. Patient verbalized understanding and agreed to discharge plan. Addendum: 07/26/19 at 1402 by Emma ABDUL Amended: Links added.
[2019-07-26 17:00] VITALS: BP 119/47
[2019-07-26] MEDS: RIVAROXABAN 10 MG TAB PO SCH (17:53)
--- NOTE | 2019-07-26 19:00 | NUR ---
Opening Shift Note Assumed care of patient after receiving report from annette Ahuja RN. Patient awake and alert resting in bed with no S/S of distress or pain, no SOB noted with breaths even and regular. Call light within reach, bed in lowest position x2 side rails, HOB high fowlers. Instructed on POC and to call for assist PRN, will continue to monitor for changes Q1hr and PRN.
[2019-07-26] MEDS: SILDENAFIL CITRATE 20 MG TAB PO SCH (20:29)
[2019-07-26] MEDS: ACETAMINOPHEN 325 MG TAB PO PRN (20:32)
[2019-07-26 22:00] VITALS: BP 102/48
--- NOTE | 2019-07-26 22:00 | NUR ---
Patient refused drain at this time Patient refused to have PleurX drained at this time, stating she wanted to sleep. Patient educated regarding necessity of draining, and continued to refuse. Will try again at a later time.
[2019-07-26] MEDS: GABAPENTIN 300 MG CAP PO SCH (22:29)
[2019-07-26] MEDS: ATORVASTATIN 20 MG TAB PO SCH (22:29)
[2019-07-27 05:28] VITALS: BP_SYST 115; BP_SYST 119; BP_DIAS 55; BP_DIAS 72
--- NOTE | 2019-07-27 06:09 | NUR ---
PleurX drained Drained PleurX with 450 ml of dark yellow fluid. Stopped when patient complained of pain. Patient tolerated intervention well. Will continue to monitor.
[2019-07-27 06:57] LABS: Basophils # (auto) 0.1 10 ^3/uL (0-0.2); Basophils % (auto) 0.9 % (0.0-2.0); Eosinophils # (auto) 0.3 10 ^3/uL (0-0.8); Eosinophils % (auto) 5.7 % (0.0-7.0); Hemoglobin 9.3 g/dL (12.2-16.2); Lymphocytes # (auto) 0.9 10 ^3/uL (0.4-5.4); Mean Corpuscular Hemoglobin 28.7 pg (28.0-32.0); Mean Corpuscular Hgb Conc. 33.1 g/dL (32.0-36.0); Mean Corpuscular Volume 86.5 fL (80.0-100.0); Monocytes # (auto) 0.4 10 ^3/uL (0-1.3); Monocytes % (auto) 7.1 % (0.0-12.0); Neutrophils # (auto) 4.2 10 ^3/uL (1.6-8.6); Neutrophils % (auto) 71.3 % (37.0-80.0); Platelet Count (auto) 192 10^3/uL (140-450); Red Blood Cells 3.23 10^6/uL (4.0-5.20); Red Cell Distribution Width 16.1 % (11.8-14.3); White Blood Cell 5.9 10^3/uL (4.4-10.8)
[2019-07-27] MEDS: InsuLIN REG 1unit/0.01ml Soln (100units/ml) SC SCH ×4 (07:00→22:16)
[2019-07-27] MEDS ORDERED: SODIUM CHL 0.9% 1000 ML BAG XX ONE (07:00)
[2019-07-27] MEDS: INSULIN LANTUS (GLARGINE) 1 /0.01ml (100units/ml) SC SCH ×2 (07:00→22:29)
[2019-07-27] MEDS: LEVOTHYROXINE SODIUM 100 MCG TAB PO SCH (07:00)
[2019-07-27] MEDS: ACCU-CHEK COMFORT CURVE STRIP VI SCH ×4 (07:04→22:14)
[2019-07-27] MEDS: LEVALBUTEROL HCL 1.25 MG/3 ML NEB NEB SCH ×3 (07:08→18:46)
[2019-07-27 09:00] VITALS: BP 102/50
[2019-07-27] MEDS: SILDENAFIL CITRATE 20 MG TAB PO SCH ×3 (09:07→20:23)
[2019-07-27] MEDS: FAMOTIDINE 20 MG TAB PO SCH (09:07)
[2019-07-27] MEDS: ACETAMINOPHEN 325 MG TAB PO PRN (09:55)
--- NOTE | 2019-07-27 11:30 | NUR ---
PleurX drained 250 mL of straw colored clear fluid.
[2019-07-27 13:00] VITALS: BP 109/53
[2019-07-27 17:00] VITALS: BP 100/44
[2019-07-27] MEDS: RIVAROXABAN 10 MG TAB PO SCH (18:11)
--- NOTE | 2019-07-27 19:20 | NUR ---
Opening Shift Note Assumed care of patient after receiving report from NITIN Ahuja. Patient awake and alert with no S/S of distress/SOB or pain. Call light within reach, bed in lowest position x2 side rails, HOB low fowlers. Instructed on POC and to call for assist PRN, will continue to monitor for changes Q1hr and PRN.
[2019-07-27] MEDS ORDERED: EPOETIN ALFA 10,000 UNIT/1 ML VIAL SC ONE (21:00)
[2019-07-27 22:00] VITALS: BP 118/55
[2019-07-27] MEDS: GABAPENTIN 300 MG CAP PO SCH (22:13)
[2019-07-27] MEDS: ATORVASTATIN 20 MG TAB PO SCH (22:13)
[2019-07-28] MEDS: LEVALBUTEROL HCL 1.25 MG/3 ML NEB NEB SCH ×4 (00:21→19:32)
[2019-07-28 05:00] VITALS: BP 107/59
--- NOTE | 2019-07-28 05:34 | NUR ---
PleurX 350 ml of yellow fluid drained. Patient tolerated well.
[2019-07-28] MEDS: InsuLIN REG 1unit/0.01ml Soln (100units/ml) SC SCH ×4 (06:55→22:19)
[2019-07-28] MEDS: ACCU-CHEK COMFORT CURVE STRIP VI SCH ×4 (06:55→22:17)
[2019-07-28] MEDS: LEVOTHYROXINE SODIUM 100 MCG TAB PO SCH (06:55)
[2019-07-28] MEDS: INSULIN LANTUS (GLARGINE) 1 /0.01ml (100units/ml) SC SCH ×2 (06:57→22:19)
--- NOTE | 2019-07-28 07:30 | NUR ---
Opening Shift Note Assumed care of patient, awake and alert. No S/S of distress/SOB or pain. Bed in lowest and locked position with side rails up x2 and call light in reach. Instructed on POC and to call for assist PRN, will continue to monitor for changes Q1hr and PRN.
[2019-07-28 09:00] VITALS: BP 119/48
[2019-07-28] MEDS: FAMOTIDINE 20 MG TAB PO SCH (09:04)
[2019-07-28] MEDS: SILDENAFIL CITRATE 20 MG TAB PO SCH ×3 (09:04→21:03)
[2019-07-28 13:00] VITALS: BP 109/38
[2019-07-28 17:00] VITALS: BP 108/38
--- NOTE | 2019-07-28 18:00 | NUR ---
PleurX drained 350 mL of straw colored clear fluid.
[2019-07-28] MEDS: RIVAROXABAN 10 MG TAB PO SCH (18:10)
--- NOTE | 2019-07-28 19:30 | NUR ---
Opening Shift Note Assumed care of patient after receiving report from NITIN Casper. Patient awake and alert, resting in bed comfortably with no S/S of distress/SOB or pain. Call light within reach, bed in lowest position x2 side rails, HOB low fowlers. Instructed on POC and to call for assist PRN, will continue to monitor for changes Q1hr and PRN.
[2019-07-28] MEDS: ACETAMINOPHEN 325 MG TAB PO PRN (21:04)
[2019-07-28 22:00] VITALS: BP 100/52
[2019-07-28] MEDS: ATORVASTATIN 20 MG TAB PO SCH (22:17)
[2019-07-28] MEDS: GABAPENTIN 300 MG CAP PO SCH (22:17)
--- NOTE | 2019-07-29 04:48 | NUR ---
PleurX drained 250ml of straw, yellow fluid drained from PleurX catheter. Patient tolerated intervention well.
[2019-07-29 05:00] VITALS: BP 111/52
[2019-07-29] MEDS: LEVALBUTEROL HCL 1.25 MG/3 ML NEB NEB SCH ×4 (06:29→17:50)
[2019-07-29] MEDS: LEVOTHYROXINE SODIUM 100 MCG TAB PO SCH (06:53)
[2019-07-29] MEDS: InsuLIN REG 1unit/0.01ml Soln (100units/ml) SC SCH ×2 (06:57→12:07)
[2019-07-29] MEDS: INSULIN LANTUS (GLARGINE) 1 /0.01ml (100units/ml) SC SCH ×2 (06:58→22:10)
[2019-07-29] MEDS: ACCU-CHEK COMFORT CURVE STRIP VI SCH ×3 (06:59→22:10)
--- NOTE | 2019-07-29 06:59 | NUR ---
Low Blood Sugar At 06:11, blood sugar was checked with a reading of 29, immediately rechecked on different finger, different hand with a reading of 34. Patient was resting in bed comfortably and coherent. Patient was given two apple juices. Checked again at 06:31 with a reading of 50. Patient was given milk and reassessed at 06:55 with a reading of 91. Endorsed to day shift RNPennie Dr. Siva to be notified.
--- NOTE | 2019-07-29 08:30 | NUR ---
PAGED DR. VALENZUELA AWAITING CALL BACK.
[2019-07-29 09:00] VITALS: BP 120/51
[2019-07-29] MEDS: SILDENAFIL CITRATE 20 MG TAB PO SCH ×3 (09:57→21:59)
[2019-07-29] MEDS: FAMOTIDINE 20 MG TAB PO SCH (09:58)
[2019-07-29 13:00] VITALS: BP 100/47
--- NOTE | 2019-07-29 13:00 | NUR ---
SPOKE TO DR. VALENZUELA. RN UPDATED DR. VALENZUELA ON THE PATIENTS GLUCOSE LEVELS AND INSULIN REGIMEN. DR. VALENZUELA AWARE AND NEW ORDERS RECEIVED, READ BACK AND VERIFIED. SEE EMR FOR ORDERS.
--- NOTE | 2019-07-29 16:38 | NUR ---
Nutrition Followup Note Wt: 73.0 KG Pt was sleeping with O2 support via nasal cannula. Pt is currently on 2 gm Na diet with improved appetite aeb ave 63% x4 PO intake per RN doc. Pt in no noted distress per RN doc. Will continue to closely monitor pertinent labs, PO intake and skin status prn. Will followup in 3-5 days Est energy needs 74 [id number] kcal (25-27 kcal/kg) Est protein needs 88-96 g (1.2-1.3 r/t HD) Will reassess prn. Labs: 07/24: Alb 2.5 L, BUN 24 H, Cr 2.18 H, GFR 23 L Skin: BS 16 mod risk Please refer to wound assessment report for full details. BM: Pt had 1 BM on 07/26 per RN doc PES: Altered nutrition related lab values r/t current chronic medical condition aeb elev RFT Rec: 1) consider CCHO 60 gm renal std. 2) refer to CDE on DC. 3) consider nephro carb steady 1 carton bid. 4) Continue current plan of care. F/u high 3-5days
[2019-07-29 17:10] VITALS: BP 118/60
[2019-07-29] MEDS: RIVAROXABAN 10 MG TAB PO SCH (17:29)
--- NOTE | 2019-07-29 18:00 | NUR ---
PleurX drained 450 mL of straw colored clear fluid.
--- NOTE | 2019-07-29 19:40 | NUR ---
Opening Shift Note Assumed care of patient, awake and alert. No S/S of distress/SOB or pain. Instructed on POC and to call for assist PRN, patient verbalized understanding. Safety precaution in place, bed alarm on, call light within reach, will continue to monitor for changes Q1hr and PRN.
[2019-07-29] MEDS: ATORVASTATIN 20 MG TAB PO SCH (21:59)
[2019-07-29] MEDS: GABAPENTIN 300 MG CAP PO SCH (21:59)
[2019-07-29 22:00] VITALS: BP_SYST 114; BP_SYST 140; BP_DIAS 55; BP_DIAS 65
[2019-07-30] MEDS: LEVALBUTEROL HCL 1.25 MG/3 ML NEB NEB SCH ×4 (00:25→18:06)
--- NOTE | 2019-07-30 00:31 | NUR ---
RT NOTE PT WAS SEEN BY RT FOR HHN TX. PT TOLERATES WELL VIA MASK. NO ADVERSE REACTION NOTED. CONT ORDERED Addendum: 07/30/19 at 0032 by Seda Hou RT Amended: Links added.
[2019-07-30 05:00] VITALS: BP 107/53
--- NOTE | 2019-07-30 05:00 | NUR ---
PleurX drained 260ml of yellow fluid drained from PleurX catheter. Patient tolerated intervention well.
[2019-07-30] MEDS: ACCU-CHEK COMFORT CURVE STRIP VI SCH ×4 (06:35→21:27)
[2019-07-30] MEDS: LEVOTHYROXINE SODIUM 100 MCG TAB PO SCH (06:35)
[2019-07-30 06:46] LABS: Hematocrit 28.7 % (36.0-46.0); Hemoglobin 9.5 g/dL (12.2-16.2)
[2019-07-30] MEDS ORDERED: SODIUM CHL 0.9% 1000 ML BAG XX ONE (07:00)
[2019-07-30] MEDS: INSULIN LANTUS (GLARGINE) 1 /0.01ml (100units/ml) SC SCH ×2 (07:00→21:39)
--- NOTE | 2019-07-30 07:30 | NUR ---
OPENING NOTE RECEIVED REPORT FROM [facility] NITIN PATEL. PATIENT RESTING IN BED WITHOUT S/S/ OF SOB, CP, PAIN AND OR DISTRESS. POC DIALYSIS TUESDAY,. TUESDAY, TUESDAY; DIALYSIS SCHEDULE FOR TODAY. DRAIN PLEURX CATHETER DRAIN, DR VALENZUELA OF FINDINGS. ACHS. HOB 30*, 2 SIDES BED RAILS ARE UP. CALL LIGHT WITHIN PATIENT'S REACH. WILL CONTINUE TO MONITOR.
[2019-07-30] MEDS: ACETAMINOPHEN 325 MG TAB PO PRN ×2 (07:45→21:38)
[2019-07-30] MEDS: SILDENAFIL CITRATE 20 MG TAB PO SCH ×3 (08:36→21:21)
[2019-07-30 09:00] VITALS: BP 121/45
[2019-07-30] MEDS: FAMOTIDINE 20 MG TAB PO SCH (10:11)
[2019-07-30 12:02] LABS: Basophils # (auto) 0.1 10 ^3/uL (0-0.2); Basophils % (auto) 1.3 % (0.0-2.0); Eosinophils # (auto) 0.2 10 ^3/uL (0-0.8); Eosinophils % (auto) 4.3 % (0.0-7.0); Hematocrit 28.5 % (36.0-46.0); Hemoglobin 9.5 g/dL (12.2-16.2); Lymphocytes # (auto) 0.8 10 ^3/uL (0.4-5.4); Lymphocytes % (auto) 14.3 % (10.0-50.0); Mean Corpuscular Hemoglobin 28.9 pg (28.0-32.0); Mean Corpuscular Hgb Conc. 33.4 g/dL (32.0-36.0); Mean Corpuscular Volume 86.7 fL (80.0-100.0); Monocytes # (auto) 0.3 10 ^3/uL (0-1.3); Monocytes % (auto) 5.4 % (0.0-12.0); Neutrophils # (auto) 4.1 10 ^3/uL (1.6-8.6); Neutrophils % (auto) 74.7 % (37.0-80.0); Nucleated Red Blood Cells % 0.1 %; Platelet Count (auto) 214 10^3/uL (140-450); Red Blood Cells 3.29 10^6/uL (4.0-5.20); Red Cell Distribution Width 16.6 % (11.8-14.3); White Blood Cell 5.5 10^3/uL (4.4-10.8)
[2019-07-30 12:20] LABS: Albumin 2.5 g/dL (3.4-5.0); Calcium 7.5 mg/dL (8.5-10.1); Potassium 3.3 mmol/L (3.5-5.1)
[2019-07-30 12:24] LABS: BUN/Creatinine Ratio 12.7; Bilirubin, Total 0.4 mg/dL (0.2-1.0); Total Protein 6.2 g/dL (6.4-8.2)
[2019-07-30 13:00] VITALS: BP 98/53
--- NOTE | 2019-07-30 14:30 | NUR ---
HELD MEDICATION HELD AT 1430, REVATIO/SILDENAFIL CITRATE 20MG R/T DECREASE IN BLOOD PRESSURE OF 98/43MMHG, HR 84.
--- NOTE | 2019-07-30 15:00 | NUR ---
LATE NOTE DIALYSIS REMOVED 1.8L OF FLUID. BP 104/47. SBP RAN IN 80-90'S THROUGHOUT PROCEDURE.
--- NOTE | 2019-07-30 16:45 | NUR ---
PLEURX CATHETER DRAINAGE RIGHT LUNG, 1OOML OF DRAINAGE, COLOR; MARCELINO, CLEAR, NO ODOR. ASEPTIC TECHNIQUE UTILIZED. PATIENT TOLERATED PROCEDURE WELL, MINOR C/O PAIN/DISCOMFORT WHEN DRAINAGE DECREASED. WILL FORWARD FINDINGS TO DR. VALENZUELA Addendum: 07/30/19 at 1649 by LINDY APONTE RN RN Amended: Links added.
--- NOTE | 2019-07-30 16:57 | NUR ---
COMMUNICATION DR. VALENZUELA, NOTED PLEURX DRAINAGE FINDINGS; 100ML OF FLUID FROM RIGHT LUNG. DRAINAGE FROM 0500 07/30/[address] VALENZUELA REQUEST PROCEDURE BY DR. VALE TO BE PLACED ON HOLD. FOLLOW UP WITH DR. SUN. ORDER CXR FOR 07/31/2019
[2019-07-30 17:00] VITALS: BP 113/49
[2019-07-30] MEDS: RIVAROXABAN 10 MG TAB PO SCH (17:36)
--- NOTE | 2019-07-30 17:36 | NUR ---
POC BLOOD GLUCOSE 139MG/DL
[2019-07-30] MEDS ORDERED: EPOETIN ALFA 10,000 UNIT/1 ML VIAL SC ONE (21:00)
[2019-07-30] MEDS: ATORVASTATIN 20 MG TAB PO SCH (21:20)
[2019-07-30] MEDS: GABAPENTIN 300 MG CAP PO SCH (21:21)
[2019-07-30 22:00] VITALS: BP 121/56
--- NOTE | 2019-07-30 22:05 | NUR ---
Instructed patient to transfer IV at this time but patient refused and said "I'll be going home tomorrow. I don't want you to stick me again." IV site soft and flushes good, will continue to monitor
[2019-07-31] MEDS: LEVALBUTEROL HCL 1.25 MG/3 ML NEB NEB SCH ×4 (00:01→19:31)
--- NOTE | 2019-07-31 00:07 | NUR ---
Respiratory note: AT BEDSIDE FOR MED JAMEL HERNANDEZ.
[2019-07-31 05:00] VITALS: BP 98/45
--- NOTE | 2019-07-31 05:00 | NUR ---
PleurX drained 160ml of light jefferson fluid drained from PleurX catheter. Patient tolerated intervention well.
[2019-07-31] MEDS: ACETAMINOPHEN 325 MG TAB PO PRN ×2 (05:53→13:34)
[2019-07-31] MEDS: LEVOTHYROXINE SODIUM 100 MCG TAB PO SCH (06:34)
[2019-07-31] MEDS: ACCU-CHEK COMFORT CURVE STRIP VI SCH ×4 (06:34→21:26)
[2019-07-31] MEDS: INSULIN LANTUS (GLARGINE) 1 /0.01ml (100units/ml) SC SCH ×2 (06:35→21:26)
[2019-07-31 08:50] VITALS: BP 99/52
[2019-07-31] MEDS: SILDENAFIL CITRATE 20 MG TAB PO SCH ×3 (09:03→21:24)
[2019-07-31] MEDS: FAMOTIDINE 20 MG TAB PO SCH (10:15)
[2019-07-31 13:00] VITALS: BP 107/59
--- NOTE | 2019-07-31 14:41 | NUR ---
PleurX was drained Only 150 mL of straw colored fluid drained.
[2019-07-31 17:15] VITALS: BP 110/59
[2019-07-31] MEDS: RIVAROXABAN 10 MG TAB PO SCH (17:50)
--- NOTE | 2019-07-31 19:30 | NUR ---
Respiratory note: AT BEDSIDE FOR MED JAMEL TX. ON RA PT POX AT 86-88% PLACED PT BACK ON 1LPM VIA NC. COMMUNICATED WITH NITIN CARCAMO OF O2 CHANGE.
--- NOTE | 2019-07-31 19:30 | NUR ---
Opening Shift Note Assumed care of patient, awake and alert. No S/S pain. Instructed on POC and to call for assist PRN, will continue to monitor for changes Q1hr and PRN. Bed low. Call light within pt's reach.
--- NOTE | 2019-07-31 19:50 | NUR ---
Report from RT Fina, that pt prev. on RA but now saturating 87%; therefore, O2 placed via n/c by RT at 1lpm. Pt's O2 sat increased to 94%.
[2019-07-31] MEDS: ATORVASTATIN 20 MG TAB PO SCH (21:24)
[2019-07-31] MEDS: GABAPENTIN 300 MG CAP PO SCH (21:24)
[2019-07-31 22:00] VITALS: BP 110/57
[2019-08-01] MEDS: LEVALBUTEROL HCL 1.25 MG/3 ML NEB NEB SCH ×4 (01:06→19:34)
--- NOTE | 2019-08-01 02:06 | NUR ---
Pt called for bedpan; voided strong dark yellow urine smelling of coffee. Linens straightened and pt repositioned.
[2019-08-01 05:00] VITALS: BP 106/41
[2019-08-01] MEDS: LEVOTHYROXINE SODIUM 100 MCG TAB PO SCH (05:55)
[2019-08-01] MEDS: INSULIN LANTUS (GLARGINE) 1 /0.01ml (100units/ml) SC SCH ×2 (05:57→22:00)
[2019-08-01] MEDS: ACCU-CHEK COMFORT CURVE STRIP VI SCH ×4 (06:00→22:00)
--- NOTE | 2019-08-01 06:32 | NUR ---
Pt has been awakened due to positional PIV site when he flexes his arm. He demanded that the IV machine be removed from the room and only drip tubing be used. Explained that he must have IV meds to help his leg heal. He repeated his demand saying. " I want it to go AMA." This RN clarified if he wanted to go AMA. He again stated, "I want it [IV pumpm] to be removed AMA."
[2019-08-01 06:46] LABS: Basophils # (auto) 0.1 10 ^3/uL (0-0.2); Basophils % (auto) 0.8 % (0.0-2.0); Eosinophils # (auto) 0.3 10 ^3/uL (0-0.8); Hematocrit 28.5 % (36.0-46.0); Hemoglobin 9.5 g/dL (12.2-16.2); Lymphocytes % (auto) 14.4 % (10.0-50.0); Mean Corpuscular Hemoglobin 28.8 pg (28.0-32.0); Mean Corpuscular Hgb Conc. 33.2 g/dL (32.0-36.0); Mean Corpuscular Volume 86.9 fL (80.0-100.0); Monocytes # (auto) 0.4 10 ^3/uL (0-1.3); Monocytes % (auto) 5.7 % (0.0-12.0); Neutrophils % (auto) 74.1 % (37.0-80.0); Platelet Count (auto) 216 10^3/uL (140-450); Red Blood Cells 3.28 10^6/uL (4.0-5.20); Red Cell Distribution Width 16.6 % (11.8-14.3); White Blood Cell 6.7 10^3/uL (4.4-10.8)
[2019-08-01 06:48] LABS: Calcium 8.8 mg/dL (8.5-10.1); Potassium 5.2 mmol/L (3.5-5.1)
[2019-08-01] MEDS ORDERED: SODIUM CHL 0.9% 1000 ML BAG XX ONE (07:00)
--- NOTE | 2019-08-01 07:00 | NUR ---
Pleur-evac drained 250ml honey colored clear fluid. Pt tolerated well. Talkative and asking for coffee. Pt wanted nurse to stop earlier; "I want to go home. I can't drain anything if I'm going home." Sterile technique used to connect drainage bottle to pt's pigtail tube. Wound area cleansed and foam/gauze pads applied below and above coiled tubing. Pt voided incontinently within 30 min after tx as unable to get her on bed time in time. Will endorse to Noc shift.
[2019-08-01 07:33] LABS: % Iron Saturation 24.1 % (15-50)
[2019-08-01] MEDS: SILDENAFIL CITRATE 20 MG TAB PO SCH ×3 (08:50→22:36)
[2019-08-01 09:00] VITALS: BP_SYST 94; BP_SYST 98; BP_DIAS 51
--- NOTE | 2019-08-01 09:00 | NUR ---
HD DIALYSIS NURSE HERE, STARTED HD.
[2019-08-01 09:55] VITALS: BP 106/41
[2019-08-01] MEDS: FAMOTIDINE 20 MG TAB PO SCH (10:00)
[2019-08-01 13:00] VITALS: BP 96/46
--- NOTE | 2019-08-01 16:00 | NUR ---
PleurX drained 75 mL clear yellow fluid drained.
--- NOTE | 2019-08-01 16:14 | NUR ---
Nutrition Followup Note Wt: 72.2 KG Pt on HD when rounded this am. Pt is currently on 2 gm Na diet with a good appetite aeb ave 96% x6 PO intake per RN doc. Pt with no distress. Please refer to dietary recommendations below. Will continue to closely monitor pertinent labs, PO intake and skin status prn. Will followup in 3-5 days Est energy needs 74 [id number] kcal (25-27 kcal/kg) Est protein needs 88-96 g (1.2-1.3 r/t HD) Will reassess prn. Labs: Alb 2.5 L, BUN 48 H, Cr 3.21 H, GFR 15 L POC [id number] H Skin: BS 18 mod risk Please refer to wound assessment report for full details. BM: Pt had 1 BM on 07/31 per RN doc PES: Altered nutrition related lab values r/t current chronic medical condition aeb elev RFT Rec: 1) consider CCHO 60 gm renal std. 2) refer to CDE on DC. 3) consider nephro carb steady 1 carton bid. 4) Continue current plan of care. F/u high 3-5days
[2019-08-01 17:00] VITALS: BP 99/46
[2019-08-01] MEDS: RIVAROXABAN 10 MG TAB PO SCH (17:39)
[2019-08-01] MEDS: ACETAMINOPHEN 325 MG TAB PO PRN (18:58)
--- NOTE | 2019-08-01 19:36 | NUR ---
RT NOTE PT WAS SEEN BY RT FOR HHN TX. PT TOLERATES WELL VIA MASK. NO ADVERSE REACTION NOTED. CONT ORDERED Addendum: 08/01/19 at 1937 by Seda Hou RT Amended: Links added.
[2019-08-01 22:07] VITALS: BP_SYST 101; BP_SYST 98; BP_DIAS 42; BP_DIAS 55
[2019-08-01] MEDS: GABAPENTIN 300 MG CAP PO SCH (22:37)
[2019-08-01] MEDS: ATORVASTATIN 20 MG TAB PO SCH (22:37)
[2019-08-02 05:00] VITALS: BP_SYST 116; BP_DIAS 45; BP_DIAS 72
[2019-08-02 05:24] LABS: Urine Amorphous Crystal MOD /hpf (None Seen); Urine Bacteria MANY /hpf (None Seen); Urine Blood Negative /uL (Negative); Urine Hyaline Cast FEW /lpf (0 - 2); Urine Specific Gravity 1.015 (1.001-1.035); Urine WBC 7 /hpf (0 - 5)
--- NOTE | 2019-08-02 06:00 | NUR ---
Pleur-ex drained of 75ml light honey colored clear fluid using aseptic technique. Pt april well; foam and gauze dressing applied below and on top of coiled clamped drain. Pt resumed sleep. Pt c/o pain in leg from gout, but only pain med rx'd is Tylenol; and pt is NPO for fluoroscopy and poss biopsy. This was explained to pt.
[2019-08-02] MEDS: INSULIN LANTUS (GLARGINE) 1 /0.01ml (100units/ml) SC SCH ×2 (06:20→22:18)
[2019-08-02] MEDS: LEVOTHYROXINE SODIUM 100 MCG TAB PO SCH (06:20)
[2019-08-02] MEDS: ACCU-CHEK COMFORT CURVE STRIP VI SCH ×4 (06:21→21:42)
[2019-08-02] MEDS: LEVALBUTEROL HCL 1.25 MG/3 ML NEB NEB SCH ×5 (06:48→18:43)
[2019-08-02] MEDS ORDERED: SUCCINYLCHOLINE CHLORIDE 20 MG/ML 10ML VIAL IV ONE (07:02)
[2019-08-02] MEDS ORDERED: LIDOCAINE 1% HCL (LOCAL ANESTH.) INJ 20ML MDV ONE (07:02)
[2019-08-02] MEDS ORDERED: POVIDONE IODINE 10 % TOPICAL OINT 30GM TOP ONE (07:32)
--- NOTE | 2019-08-02 07:45 | NUR ---
RECEIVED REPORT AND ASSUMED CARE OF PT. A/OX4. DENIED S/S ACUTE DISTRESS. UPDATE PT WITH POC. BED AT LOWEST POSITION. CALL LIGHT AND BELONGINGS WITHIN REACH. WILL CONT TO MONITOR.
[2019-08-02] MEDS ORDERED: LIDOCAINE W/ EPINEPHRINE 1% 20ML VIAL ONE (08:00)
[2019-08-02] MEDS ORDERED: fentaNYL CITRATE 100 MCG/2 ML VL ONE (08:03)
[2019-08-02] MEDS ORDERED: PROPOFOL 10 MG/ML 20 ML IV ONE (08:03)
[2019-08-02] MEDS ORDERED: KETAMINE HCL 10 ML ONE (08:03)
[2019-08-02] MEDS ORDERED: MIDAZOLAM HCL 1MG/1ML-2 ML VIAL ONE (08:03)
[2019-08-02] MEDS ORDERED: ONDANSETRON HCL 4 MG/2 ML VIAL ONE (08:03)
[2019-08-02] MEDS ORDERED: ceFAZolin 1GM/50ML 50 ML IV ONE (08:19)
--- NOTE | 2019-08-02 08:50 | NUR ---
PT OFF UNIT TO OR
[2019-08-02 09:00] VITALS: BP 109/51
[2019-08-02] MEDS: FAMOTIDINE 20 MG TAB PO SCH (10:00)
--- NOTE | 2019-08-02 10:30 | NUR ---
PT BACK FROM OR. A/OX4. DENIED S/S ACUTE DISTRESS. CHEST TUBE INCISION SITE ON RIGHT CHEST C/D/I INTACT. NO S/S BLEEDING NOTED. CHEST TUBE CONNECTED TO CONTINUOUS SUCTION AT 20MMGH. WILL CONT TO MONITOR.
[2019-08-02] MEDS: SILDENAFIL CITRATE 20 MG TAB PO SCH ×3 (10:35→21:41)
--- NOTE | 2019-08-02 11:58 | NUR ---
CHEST TUBE INCISION SITE DRAINAGE NOTED. DR SUN AT BEDSIDE AND AWARE. PER DR SUN, IF INCISION SITE CONTINUE TO DRAIN, DRESSING SHOULD BE CHANGED AND INCISION SITE COVER WITH XEROFORM , 4X4 GAUZE AND PRESSURE TAPE. WILL CONT TO MONITOR.
[2019-08-02] MEDS: ACETAMINOPHEN 325 MG TAB PO PRN ×2 (12:33→17:47)
[2019-08-02 12:40] VITALS: BP 100/53
[2019-08-02 17:00] VITALS: BP 120/56
[2019-08-02] MEDS: RIVAROXABAN 10 MG TAB PO SCH (17:46)
--- NOTE | 2019-08-02 18:48 | NUR ---
DRAINAGE FROM CHEST TUBE 150ML
--- NOTE | 2019-08-02 19:35 | NUR ---
Opening Shift Note Assumed care of patient, eyes closed, respirations even and unlabored, appears asleep. No S/S of distress/SOB or pain. Bed in lowest locked position, side rails up x2, call light within reach. Instructed on POC and to callfor assist PRN, will continue to monitor for changes Q1hr and PRN. Addendum: 08/04/19 at 0137 by REBEKA TREJO RN RN ADDITION: Chest tube site, clean, dry, and intact at time of original note.
--- NOTE | 2019-08-02 20:44 | NUR ---
Lexis reporting 10/10 pain to chest tube incision site. Dr. Valencia paged, awaiting call back at this time.
--- NOTE | 2019-08-02 21:04 | NUR ---
Dr. Valencia returned page. New order recieved for Tordol 30 mg IV every six hours PRN. Order read back and verified, will implement as ordered and continue to monitor. Addendum: 08/03/19 at 0445 by REBEKA TREJO RN RN AMMENRich: Patient made aware of new order, requesting Tordol at time of original note. Will administer (see emar) and continue to monitor.
[2019-08-02] MEDS: ATORVASTATIN 20 MG TAB PO SCH (21:42)
[2019-08-02] MEDS: GABAPENTIN 300 MG CAP PO SCH (21:42)
[2019-08-02] MEDS: KETOROLAC TROMETH 30 MG/ML 1ML VIAL IV PRN (21:43)
[2019-08-02 22:00] VITALS: BP 102/62
--- NOTE | 2019-08-02 23:00 | NUR ---
Patient incontinent of urine, unable to collect sample for urinalysis at this time. Patient cleaned and repositioned for comfort. Will continue to monitor.
[2019-08-03] MEDS: KETOROLAC TROMETH 30 MG/ML 1ML VIAL IV PRN (04:44)
[2019-08-03 05:00] VITALS: BP 113/46
[2019-08-03] MEDS: ACCU-CHEK COMFORT CURVE STRIP VI SCH ×4 (06:13→22:00)
[2019-08-03] MEDS: LEVOTHYROXINE SODIUM 100 MCG TAB PO SCH (06:14)
[2019-08-03] MEDS: INSULIN LANTUS (GLARGINE) 1 /0.01ml (100units/ml) SC SCH ×2 (06:51→23:03)
[2019-08-03] MEDS: LEVALBUTEROL HCL 1.25 MG/3 ML NEB NEB SCH ×4 (07:16→22:25)
--- NOTE | 2019-08-03 07:31 | NUR ---
Closing Note Patient lying in bed, awake and alert. Bed in lowest locked position, side rails up x2, call light within reach. No s/s of distress. Care endorsed to daysmodesto TAVERAS. Addendum: 08/03/19 at 0828 by REBEKA TREJO RN RN ADDITION: 100 ML output from chest tube. Addendum: 08/03/19 at 0842 by REBEKA TREJO RN RN CORRECTION: 75 ML, not 100 ML.
[2019-08-03] MEDS: SILDENAFIL CITRATE 20 MG TAB PO SCH ×3 (08:00→20:00)
[2019-08-03 08:52] VITALS: BP 107/45
[2019-08-03] MEDS ORDERED: SODIUM CHL 0.9% 1000 ML BAG XX ONE (09:00)
[2019-08-03] MEDS: FAMOTIDINE 20 MG TAB PO SCH (10:00)
[2019-08-03 10:08] LABS: Hematocrit 31.3 % (36.0-46.0); Hemoglobin 10.3 g/dL (12.2-16.2)
[2019-08-03 10:14] LABS: Calcium 7.9 mg/dL (8.5-10.1)
[2019-08-03] MEDS: ACETAMINOPHEN 325 MG TAB PO PRN (10:40)
--- NOTE | 2019-08-03 10:40 | NUR ---
Patient requesting pain medicine c/o pain to chest tube site. Unable to medicate with toradol at this time, patient requesting tylenol " for now" MD Valencia paged for orders for pain meds for severe pain. NO acute distress or sob noted at this time. Dialysis nurse at bedside
--- NOTE | 2019-08-03 10:58 | NUR ---
New orders received for pain meds for severe pain from Dr. Valencia for Dilaudid 0.5mg IV q8hr prn severe pain. Will medicate as ordered as soon as med verified by pharmacy
--- NOTE | 2019-08-03 11:15 | NUR ---
Dialysis ended per international accountant removed 1760 ml and dressing to be removed at 1400. Patient laying comfortably in bed BP 127/53 HR 92
[2019-08-03] MEDS: HYDROmorphone HCL 2 MG/ML VL IV PRN ×2 (11:31→19:58)
[2019-08-03 13:00] VITALS: BP 100/46
--- NOTE | 2019-08-03 14:15 | NUR ---
Fistula dressing removed at this time s/p dialysis. No bleeding noted. Cont care
[2019-08-03 16:21] VITALS: BP 100/44
--- NOTE | 2019-08-03 17:46 | NUR ---
Spoke to surgeon regarding Chest tube per MD Valencia ask for chest tube removal from Surgeon. Dr Castillo states he will dc chest tube once pleurodesis is done by Nursing Program Chair. MD Quinn paged at this time as he's "taking over for the next few days" per Dr. Rodriguez note. Awaiting call back
[2019-08-03] MEDS: RIVAROXABAN 10 MG TAB PO SCH (18:19)
--- NOTE | 2019-08-03 19:00 | NUR ---
Chest tube drainage is 200ml. Patient breathing non labored at this time no s/s of distress noted. Pt denies pain at this time. Fall precs in place and aspiration precs in place per protocol. Awaiting Electrifier Operator Dr Quinn for pleurodesis, Doctor paged again at this time and currently doing bedside procedure in a different unit in [place]. Will endorse care to Margarette warner
--- NOTE | 2019-08-03 19:10 | NUR ---
Patient care endorsed to Margarette warner. Awaiting call back from Dr Quinn for pleurodesis?. Patient laying comfortably in bed, no acute distress or sobnoted. Call light within reach.
--- NOTE | 2019-08-03 19:13 | NUR ---
Opening Shift Note Assumed care of patient, awake and alert. No S/S of distress/SOB. Patient reporting 8/10 pain to chest tube insertion site, patient requesting Dilaudid. Patient made aware Dilaudid not due at this time, but that this RN will medicate for pain when medication due. Patient verbalized understanding. Chest tube to right side clean, dry, and intact at this time. Bed in lowest locked position, side rails up x2, call light within reach. Instructed on POC and to call for assist PRN, will continue to monitor for changes Q1hr and PRN.
--- NOTE | 2019-08-03 19:22 | NUR ---
Received return call from Dr. Vasques at this time, per MD "we don't do chemical pleurodesis here" and that "it is too late [today]. I'll have to take a look at it tomorrow." Will continue to monitor patient.
[2019-08-03] MEDS ORDERED: EPOETIN ALFA 10,000 UNIT/1 ML VIAL SC ONE (21:00)
[2019-08-03 22:00] VITALS: BP 99/39
[2019-08-03] MEDS: GABAPENTIN 300 MG CAP PO SCH (22:43)
[2019-08-03] MEDS: ATORVASTATIN 20 MG TAB PO SCH (22:43)
[2019-08-04] VITALS (8 sets, daily range): BP systolic 87–113; BP diastolic 41–61
[2019-08-04] MEDS: ACETAMINOPHEN 325 MG TAB PO PRN ×2 (00:43→18:15)
[2019-08-04] MEDS: KETOROLAC TROMETH 30 MG/ML 1ML VIAL IV PRN ×3 (02:22→19:02)
[2019-08-04] MEDS: ACCU-CHEK COMFORT CURVE STRIP VI SCH ×4 (06:24→22:00)
[2019-08-04] MEDS: LEVOTHYROXINE SODIUM 100 MCG TAB PO SCH (06:25)
[2019-08-04] MEDS: INSULIN LANTUS (GLARGINE) 1 /0.01ml (100units/ml) SC SCH ×2 (06:50→23:40)
[2019-08-04] MEDS: LEVALBUTEROL HCL 1.25 MG/3 ML NEB NEB SCH ×3 (06:53→19:52)
--- NOTE | 2019-08-04 07:35 | NUR ---
Closing Note Patient lying in bed, awake and alert. Bed in lowest locked position, side rails up x2, call light within reach. 100 ml of drainage from chest tube. No s/s of distress. Care endorsed to dayshift RN.
--- NOTE | 2019-08-04 08:00 | NUR ---
Chest tube drain at 400 ml.
[2019-08-04] MEDS: SILDENAFIL CITRATE 20 MG TAB PO SCH ×3 (08:59→20:00)
[2019-08-04] MEDS: FAMOTIDINE 20 MG TAB PO SCH (10:00)
--- NOTE | 2019-08-04 10:00 | NUR ---
Pepcid PO not available. Pharmacy is aware.
--- NOTE | 2019-08-04 13:39 | NUR ---
Patient stated her pain level on the right side of her chest at 6/10 at this time. Toradol Inj given for pain as ordered.
--- NOTE | 2019-08-04 14:03 | NUR ---
Nutrition Followup Note Wt: 66.9 kg Pt is currently on 2 gm Na diet with a good appetite with adequte PO of 75% x 4 per RN doc. pt had HD 08/02 Est energy needs 74 [id number] kcal (25-27 kcal/kg) Est protein needs 88-96 g (1.2-1.3 r/t HD) Will reassess prn. Labs: BUN 25 H, CREAT 1.92 H, CA 7.9 L, GLU 203 H, CO2 33 H Skin: BS 17 mod risk Please refer to wound assessment report for full details. BM: Pt had 1 BM on 07/31 per RN doc PES: Altered nutrition related lab values r/t current chronic medical condition aeb elev RFT Rec: 1) consider CCHO 60 gm renal std. 2) refer to CDE on DC. 3) consider nephro carb steady 1 carton bid if PO is low. 4) Continue current plan of care. F/u high 3-5days
[2019-08-04] MEDS: RIVAROXABAN 10 MG TAB PO SCH (17:44)
--- NOTE | 2019-08-04 18:54 | NUR ---
Respiratory note: BREATHING TX GIVEN, TOLERATED WELL. PT STATES SHE DOES NOT WANT A TX AT 0000, WILL TAKE HER NEXT ONE IN THE AM. PT AWARE TO CALL IF SHE BECOMES SOB.
[2019-08-04] MEDS: GABAPENTIN 300 MG CAP PO SCH (23:22)
[2019-08-04] MEDS: ATORVASTATIN 20 MG TAB PO SCH (23:22)
[2019-08-04] MEDS: HYDROmorphone HCL 2 MG/ML VL IV PRN (23:41)
[2019-08-05 05:00] VITALS: BP 87/48
[2019-08-05 05:30] VITALS: BP 106/58
[2019-08-05] MEDS: LEVALBUTEROL HCL 1.25 MG/3 ML NEB NEB SCH ×4 (06:00→18:29)
[2019-08-05] MEDS: ACCU-CHEK COMFORT CURVE STRIP VI SCH ×4 (07:09→21:02)
[2019-08-05] MEDS: LEVOTHYROXINE SODIUM 100 MCG TAB PO SCH (07:09)
[2019-08-05] MEDS: INSULIN LANTUS (GLARGINE) 1 /0.01ml (100units/ml) SC SCH ×2 (07:10→21:06)
--- NOTE | 2019-08-05 07:35 | NUR ---
Closing Note Patient lying in bed, awake and alert. Bed in lowest locked position, side rails up x2, call light within reach. 100 ml of drainage from chest tube. No s/s of distress. Patient denies pain at this time. Care endorsed to dayshift RN.
[2019-08-05 08:00] VITALS: BP 88/47
--- NOTE | 2019-08-05 08:00 | NUR ---
PT CHEST TUBE DRAINAGE MARKED AT 530 MLS. DRAINAGE BRIGHT RED IN TUBING. PT HAD LARGE BM, MEDIUM BROW, PARTLY FORMED, PARTLY LIQUID. PT CLEANED AND CHUCKS CHANGED. WILL CONTINUE TO MONITOR. Addendum: 08/05/19 at 1342 by ALFRED LINDSAY RN NO BUBBLES NOTED IN CHAMBER. RECEIVED IN REPORT, DRESSING ON CHEST TUBE INSERTION SITE CHANGED YESTERDAY. MODERATE BLOODY DRAINAGE NOTED ON GAUZE. DRAINAGE MARKED WITH CESAR.
[2019-08-05] MEDS: FAMOTIDINE 20 MG TAB PO SCH (09:16)
[2019-08-05] MEDS: SILDENAFIL CITRATE 20 MG TAB PO SCH ×3 (09:16→21:01)
--- NOTE | 2019-08-05 09:55 | NUR ---
Pt declined PT treatment and requested to have therapy this afternoon. Will attempt again.
--- NOTE | 2019-08-05 10:41 | NUR ---
PT CHEST TUBE NOT HOOKED UP TO SUCTION. CALLED AND LEFT MESSAGE FOR DR MACIAS. ASKED MD TO CLARIFY IF PATIENT IS TO BE ON SUCTION FOR CHEST TUBE STATED IN NOTE. AWAITING CALL BACK. Addendum: 08/05/19 at 1121 by ALFRED LINDSAY RN NOTIFIED CHARGE
--- NOTE | 2019-08-05 11:15 | NUR ---
CHARGE NURSE JOSSELYN REPORTS DR MACIAS IN [place]. CALLED [place], RADIO ASSEMBLER REPORTS HE IS PUTTING IN A CHEST TUBE. ASKED RADIO ASSEMBLER TO PLEASE NOTIFY MD TO CALL BACK.
--- NOTE | 2019-08-05 11:19 | NUR ---
SAW DR MANZANARES NOTE, CALLED DR APONTE TO NOTIFY PT MAY NEED PLEURODESIS. NO ANSWER, LEFT MESSAGE, AWAITING CALL BACK.
--- NOTE | 2019-08-05 11:44 | NUR ---
BLOOD SUGAR PT BLOOD SUGAR 2O1 AND NO SLIDING SCALE. LEFT MESSAGE FOR DR VALENZUELA, NOTIFYING MD OR BLOOD SUGAR LEVEL.
--- NOTE | 2019-08-05 12:02 | NUR ---
WALKED TO [facility] TO SEE DR GILBERTO MD LEFT, DRESSING ROOM PORTER REPORTS SHE TOLD MD TO CALL BACK.
--- NOTE | 2019-08-05 12:05 | NUR ---
DR VALENZUELA CALLED BACK, AWARE OF BLOOD SUGAR, NO NEW ORDERS.
--- NOTE | 2019-08-05 12:24 | NUR ---
KARATE TEACHER REPORTS PT BP IS 85/42, HR 112. NOTIFIED DR NICOLAS MD AWARE, NEW ORDERS FOR 500 ML BOLUS.
[2019-08-05] MEDS ORDERED: SODIUM CHLORIDE 0.9% 500 ML IV ONE (12:30)
--- NOTE | 2019-08-05 12:59 | NUR ---
PLACED PT BACK ON SUCTION, IN DR RAI ORDER FOR CHEST TUBE, CHARGE AWARE. Addendum: 08/05/19 at 1340 by ALFRED LINDSAY RN PT PLACED ON 20 CM LOW CONTINUOUS SUCTION. APPROX 640 MLS NOTED IN CHEST TUBE CONTAINER. CALLED TO CHARGE TO ASSESS. NO BUBBLES NOTED.
[2019-08-05 13:00] VITALS: BP 87/41
--- NOTE | 2019-08-05 13:10 | NUR ---
2nd attempt made for PT treatment but pt refused. Pt was educated on importance of getting up to chair. Will attempt again tomorrow.
[2019-08-05] MEDS: KETOROLAC TROMETH 30 MG/ML 1ML VIAL IV PRN ×2 (13:25→22:43)
--- NOTE | 2019-08-05 13:26 | NUR ---
IV RFA INFILTRATED WHILE GIVING BOLUS. LARGE LUMP AT IV SITE, NO ERYTHEMA NOTED. IV DISCONTINUED AND PRESSURE DRESSING APPLIED. NEW IV INSERTED USING STERILE TECHNIQUE, R WRIST 22, FLUSHED WITH 10 MLS 0.9 NS. PT TOLERATED PROCEDURE WELL.
--- NOTE | 2019-08-05 13:42 | NUR ---
DR VALE CALLED BACK, NOTIFIED MD OF DR VALENZUELA'S NOTE. DR ZAPIEN REPORTS HE WILL SPEAK WITH DR MACIAS TOMORROW.
--- NOTE | 2019-08-05 13:53 | NUR ---
CHARGE NURSE JOSSELYN ASSESSED CHEST TUBE AND SUCTION, EVERYTHING IN PLACE.
--- NOTE | 2019-08-05 15:06 | NUR ---
REASSESSED PT BP, BP NOW 94/38, HR 105 BPM, NOTIFIED DR NICOLAS MD AWARE, NO NEW ORDERS. Addendum: 08/05/19 at 1520 by ALFRED LINDSAY RN PT SLEEPING IN BED. WOKE PATIENT AND ASSESSED MENTAL STATUS, PT A AND 0 X 4.
--- NOTE | 2019-08-05 16:40 | NUR ---
PRODUCT CRAFTSMAN REPORTS HE SENT URINE SAMPLE TO LAB.
[2019-08-05 17:00] LABS: Urine Bacteria FEW /hpf (None Seen); Urine Blood 2+ /uL (Negative); Urine Specific Gravity 1.018 (1.001-1.035); Urine WBC 2 /hpf (0 - 5)
[2019-08-05] MEDS: RIVAROXABAN 10 MG TAB PO SCH (17:02)
--- NOTE | 2019-08-05 17:03 | NUR ---
PT BLOOD SUGAR 196. CHEST TUBE DRAINAGE APPROX 140 MLS FOR THE SHIFT. PT VOIDED ONCE, PT HAD 2 BM'S.
[2019-08-05 17:08] VITALS: BP 94/38
--- NOTE | 2019-08-05 17:52 | NUR ---
CALLED AND LEFT MESSAGE FOR DR VALENZUELA, NOTIFIED OF URINALYSIS RESULTS.
--- NOTE | 2019-08-05 18:29 | NUR ---
PHARMACY CALLED, THEY REPORT TO GIVE LEVAQUIN DOSE TONIGHT AND THEY WILL CHECK GFR TOMORROW.
[2019-08-05] MEDS ORDERED: levoFLOXacin 500MG 100 ML IV ONE (18:45)
[2019-08-05] MEDS: ATORVASTATIN 20 MG TAB PO SCH (21:01)
[2019-08-05] MEDS: GABAPENTIN 300 MG CAP PO SCH (21:01)
[2019-08-05 21:27] VITALS: BP 97/39
[2019-08-06] MEDS: LEVALBUTEROL HCL 1.25 MG/3 ML NEB NEB SCH ×4 (00:02→19:27)
[2019-08-06] MEDS: KETOROLAC TROMETH 30 MG/ML 1ML VIAL IV PRN ×3 (04:46→21:14)
[2019-08-06 05:09] VITALS: BP 92/60
[2019-08-06] MEDS: LEVOTHYROXINE SODIUM 100 MCG TAB PO SCH (05:49)
[2019-08-06] MEDS: ACCU-CHEK COMFORT CURVE STRIP VI SCH ×4 (05:49→21:16)
[2019-08-06] MEDS ORDERED: SODIUM CHL 0.9% 1000 ML BAG XX ONE (06:45)
--- NOTE | 2019-08-06 06:46 | NUR ---
Dialysis nurse at bedside for dialysis today.
--- NOTE | 2019-08-06 06:47 | NUR ---
Chest tube output 90ml/12 hrs. sanguinous.
[2019-08-06] MEDS: INSULIN LANTUS (GLARGINE) 1 /0.01ml (100units/ml) SC SCH ×2 (06:57→21:20)
--- NOTE | 2019-08-06 07:30 | NUR ---
Opening Shift Note Report received and assumed care of patient, Hemodialysis treatment in progress,automobile detailer at beside,awake and alert. No S/S of distress/SOB,c/o pain.chest tube to right posterior,on water seal (off suction). Instructed on POC,disease process,nursing routines and turning q 2 hour,call light within reach patient reminded,instructed to call for assistance,patient verbalized understanding. will continue to monitor for changes Q1hr and PRN.
[2019-08-06] MEDS: SILDENAFIL CITRATE 20 MG TAB PO SCH ×3 (08:00→20:00)
--- NOTE | 2019-08-06 08:50 | NUR ---
HEMODIALYSIS TREATMENT ENDED REMOVED 1 LITER PER RESIDENT SERVICES SUPERVISOR,TOLERATED WELL
[2019-08-06 08:51] VITALS: BP 97/54
[2019-08-06 08:52] VITALS: BP 97/54
--- NOTE | 2019-08-06 09:45 | NUR ---
Pt states she is too tired from dialysis this morning for PT session. Will attempt again later.
[2019-08-06] MEDS: levoFLOXacin 250MG 50 ML IV SCH (09:49)
[2019-08-06] MEDS: FAMOTIDINE 20 MG TAB PO SCH (09:50)
--- NOTE | 2019-08-06 12:05 | NUR ---
MD VISIT DR. SUN HERE TO SEE AND EXAMINED PATIENT RECEIVED VERBAL ORDER FOR PORTABLE X RAY AND TO CHANGE DRESSING NEEDED,ABOVE ORDERS WRITTEN
--- NOTE | 2019-08-06 13:00 | NUR ---
PRESSURE DRESSING TO LEFT AV FISTULA REMOVED INSTRUCTED BY SUPERVISOR BOATBUILDERS WOOD,NO BLEEDING NOTED
--- NOTE | 2019-08-06 14:20 | NUR ---
Pt initially agreeable to PT treatment but then refused.
[2019-08-06] MEDS: ACETAMINOPHEN 325 MG TAB PO PRN (15:38)
[2019-08-06 16:50] VITALS: BP 108/56
[2019-08-06] MEDS: RIVAROXABAN 10 MG TAB PO SCH (17:59)
--- NOTE | 2019-08-06 19:23 | NUR ---
STATUS UNCHANGED,NO DISTRESS NO DISCOMFORT REPORT GIVEN TO INCOMING NOC SHIFT RN
--- NOTE | 2019-08-06 20:12 | NUR ---
Dressing changed to right chest tube site as ordered.
[2019-08-06] MEDS ORDERED: EPOETIN ALFA 10,000 UNIT/1 ML VIAL SC ONE (21:00)
[2019-08-06] MEDS: GABAPENTIN 300 MG CAP PO SCH (21:14)
[2019-08-06] MEDS: ATORVASTATIN 20 MG TAB PO SCH (21:14)
[2019-08-06 22:00] VITALS: BP 95/45
[2019-08-07] MEDS: LEVALBUTEROL HCL 1.25 MG/3 ML NEB NEB SCH ×5 (00:01→18:20)
--- NOTE | 2019-08-07 00:03 | NUR ---
RT NOTE: PT REFUSED SCHEDULED MED NEB TX, STATED SHE WOULD LIKE TO WAIT UNTIL MORNING SO SHE CAN GET SOME REST. NO DISTRESS NOTED.
[2019-08-07] MEDS: KETOROLAC TROMETH 30 MG/ML 1ML VIAL IV PRN (02:37)
[2019-08-07 03:18] VITALS: BP 95/45
[2019-08-07 05:00] VITALS: BP 103/50
[2019-08-07] MEDS: ACCU-CHEK COMFORT CURVE STRIP VI SCH ×4 (05:18→21:24)
[2019-08-07] MEDS: LEVOTHYROXINE SODIUM 100 MCG TAB PO SCH (05:18)
[2019-08-07 05:54] LABS: Basophils # (auto) 0 10 ^3/uL (0-0.2); Basophils % (auto) 0.4 % (0.0-2.0); Eosinophils # (auto) 0.3 10 ^3/uL (0-0.8); Hematocrit 25.6 % (36.0-46.0); Lymphocytes # (auto) 0.8 10 ^3/uL (0.4-5.4); Monocytes # (auto) 0.6 10 ^3/uL (0-1.3); Red Cell Distribution Width 17.8 % (11.8-14.3)
[2019-08-07] MEDS: INSULIN LANTUS (GLARGINE) 1 /0.01ml (100units/ml) SC SCH ×2 (05:56→21:45)
[2019-08-07 06:00] LABS: Eosinophils % (auto) 4.1 % (0.0-7.0); Hemoglobin 8.5 g/dL (12.2-16.2); Lymphocytes % (auto) 10.4 % (10.0-50.0); Mean Corpuscular Hemoglobin 29.2 pg (28.0-32.0); Mean Corpuscular Hgb Conc. 33.1 g/dL (32.0-36.0); Mean Corpuscular Volume 88.4 fL (80.0-100.0); Monocytes % (auto) 7.2 % (0.0-12.0); Neutrophils % (auto) 77.9 % (37.0-80.0); Nucleated Red Blood Cells % 0.1 %; Platelet Count (auto) 190 10^3/uL (140-450); Red Blood Cells 2.89 10^6/uL (4.0-5.20); White Blood Cell 7.7 10^3/uL (4.4-10.8)
[2019-08-07 06:14] LABS: BUN/Creatinine Ratio 17.5; Calcium 8.4 mg/dL (8.5-10.1); Potassium 5.4 mmol/L (3.5-5.1)
--- NOTE | 2019-08-07 08:32 | NUR ---
OPENING SHIFT NOTE Assumed care of patient, PT is awake and alert. No S/S of distress/SOB, or pain. Chest tube to right posterior, on water seal. Instructed on POC. Call light within reach patient. Instructed PT to call for assistance, patient verbalized understanding. Will continue to monitor for changes Q1hr and PRN.
[2019-08-07 09:03] VITALS: BP 87/41
[2019-08-07] MEDS: FAMOTIDINE 20 MG TAB PO SCH (10:00)
[2019-08-07] MEDS: levoFLOXacin 250MG 50 ML IV SCH (10:22)
[2019-08-07] MEDS: SILDENAFIL CITRATE 20 MG TAB PO SCH ×3 (10:23→21:23)
[2019-08-07] MEDS ORDERED: SODIUM ZIRCONIUM CYCL 10 GM PAK PO ONE (10:45)
[2019-08-07 13:00] VITALS: BP 94/41
[2019-08-07] MEDS: ACETAMINOPHEN 325 MG TAB PO PRN (13:30)
[2019-08-07 16:56] VITALS: BP 93/51
[2019-08-07] MEDS: RIVAROXABAN 10 MG TAB PO SCH (18:29)
[2019-08-07] MEDS: GABAPENTIN 300 MG CAP PO SCH (21:23)
[2019-08-07] MEDS: ATORVASTATIN 20 MG TAB PO SCH (21:23)
[2019-08-07 22:00] VITALS: BP 101/54
[2019-08-08] MEDS: LEVALBUTEROL HCL 1.25 MG/3 ML NEB NEB SCH ×5 (00:29→23:50)
--- NOTE | 2019-08-08 00:29 | NUR ---
Respiratory note: PT REQUESTED NOT TO WOKEN UP IF SHE WAS SLEEPING DURING THE TIME OF HER SCHEDULED MED NEB TX AT 0000. ENTERED THE PT'S ROOM AT 0029 AND PT WAS SLEEPING, MEDICATION HELD.
[2019-08-08 05:00] VITALS: BP 98/49
[2019-08-08] MEDS: LEVOTHYROXINE SODIUM 100 MCG TAB PO SCH (05:30)
[2019-08-08] MEDS: ACCU-CHEK COMFORT CURVE STRIP VI SCH ×4 (05:31→22:14)
[2019-08-08] MEDS: INSULIN LANTUS (GLARGINE) 1 /0.01ml (100units/ml) SC SCH ×2 (06:07→22:14)
[2019-08-08] MEDS: ACETAMINOPHEN 325 MG TAB PO PRN ×2 (06:50→18:00)
[2019-08-08] MEDS ORDERED: SODIUM CHL 0.9% 1000 ML BAG XX ONE (07:00)
--- NOTE | 2019-08-08 08:03 | NUR ---
OPENING SHIFT NOTE Resumed care of patient. PT is awake and alert. No S/S of distress/SOB, or pain. Chest tube to right posterior, on water seal. Instructed on POC. PT is awaiting scheduled Hemodialysis for today. Call light within reach patient. Instructed PT to call for assistance, patient verbalized understanding. Will continue to monitor for changes Q1hr and PRN.
--- NOTE | 2019-08-08 08:45 | NUR ---
CHEST TUBE IN PLACE. NO NEW OUTPUT IN LAST 24 HOURS.
[2019-08-08 09:00] VITALS: BP 103/60
[2019-08-08] MEDS: SILDENAFIL CITRATE 20 MG TAB PO SCH ×3 (09:30→20:30)
[2019-08-08] MEDS: FAMOTIDINE 20 MG TAB PO SCH (10:00)
[2019-08-08] MEDS: levoFLOXacin 250MG 50 ML IV SCH (10:25)
--- NOTE | 2019-08-08 12:14 | NUR ---
RT NOTE: PT. RECEIVING DIALYSIS AT THIS TIME. PT. REFUSED BREATHING TX. AT THIS TIME. PT. DENIES ANY SOB. PT. HR 84, RR 16, POX 98% 2L N/C. NO SIGNS OF RESPIRATORY DISTRESS NOTED.
--- NOTE | 2019-08-08 12:58 | NUR ---
Nutrition Followup Note Wt: 69.8 kg Pt was awake when rounded this morning. Pt is currently on 2 gm Na diet with a good appetite with adequte PO of 75% x 5 per RN doc. Pt had HD on 08/05. Pt with no distress or complaints. Will continue to closely monitor pertinent labs, PO intake and skin status prn. Will followup in 3-5 days Est energy needs 74 [id number] kcal (25-27 kcal/kg) Est protein needs 88-96 g (1.2-1.3 r/t HD) Will reassess prn. Labs: BUN 61 H, CREAT 3.48 H, GFR 13 L, POC GLU 120 H Skin: BS 15 mod risk Please refer to wound assessment report for full details. BM: Pt had 1 BM on 08/06 per RN doc PES: Altered nutrition related lab values r/t current chronic medical condition aeb elev RFT Rec: 1) consider CCHO 60 gm renal std. 2) refer to CDE on DC. 3) consider nephro carb steady 1 carton bid if PO is low. 4) Continue current plan of care. F/u high 3-5days
[2019-08-08 13:00] VITALS: BP 98/45
--- NOTE | 2019-08-08 13:42 | NUR ---
NO NEW OUTPUT FROM CHEST TUBE IN LAST [address] SUN IS AWARE. ORDERED CHEST XRAY. UPDATED HIM WITH CXR RESULTS.
--- NOTE | 2019-08-08 14:50 | NUR ---
PATIENT GETTING DIALYSIS TODAY. WILL ATTEMPT PT AGAIN TOMORROW. Addendum: 08/08/19 at 1451 by DINORA ALBERTO PTT Amended: Links added.
[2019-08-08 16:52] VITALS: BP 95/45
[2019-08-08] MEDS: RIVAROXABAN 10 MG TAB PO SCH (18:37)
[2019-08-08] MEDS ORDERED: EPOETIN ALFA 10,000 UNIT/1 ML VIAL SC ONE (21:00)
[2019-08-08 22:00] VITALS: BP 103/49
[2019-08-08] MEDS: GABAPENTIN 300 MG CAP PO SCH (22:14)
[2019-08-08] MEDS: ATORVASTATIN 20 MG TAB PO SCH (22:14)
[2019-08-08] MEDS: COLCHICINE 0.6 MG CAP PO SCH (22:14)
[2019-08-09 05:00] VITALS: BP 92/44
[2019-08-09] MEDS: LEVALBUTEROL HCL 1.25 MG/3 ML NEB NEB SCH ×3 (06:03→19:00)
[2019-08-09 06:29] LABS: Potassium 3.9 mmol/L (3.5-5.1)
[2019-08-09] MEDS: INSULIN LANTUS (GLARGINE) 1 /0.01ml (100units/ml) SC SCH ×2 (06:40→22:01)
[2019-08-09] MEDS: LEVOTHYROXINE SODIUM 100 MCG TAB PO SCH (06:41)
[2019-08-09] MEDS: ACCU-CHEK COMFORT CURVE STRIP VI SCH ×4 (06:41→22:00)
--- NOTE | 2019-08-09 06:50 | NUR ---
Chest Tube No new output noted throughout the night. Continue care.
[2019-08-09 06:55] LABS: Albumin 1.9 g/dL (3.4-5.0); Bilirubin, Total 0.4 mg/dL (0.2-1.0); Calcium 8.1 mg/dL (8.5-10.1); Total Protein 6.1 g/dL (6.4-8.2)
--- NOTE | 2019-08-09 07:59 | NUR ---
Opening Shift Note Assumed care of patient, awake and alert sitting up in bed eating breakfast. No S/S of distress/SOB or pain. Chest tube in situ to right side on continuous suction. Instructed on POC and to call for assist PRN, will continue to monitor for changes Q1hr and PRN.
[2019-08-09 09:00] VITALS: BP_SYST 127; BP_SYST 95; BP_DIAS 64; BP_DIAS 69
[2019-08-09] MEDS: levoFLOXacin 250MG 50 ML IV SCH (09:10)
[2019-08-09] MEDS: SILDENAFIL CITRATE 20 MG TAB PO SCH ×3 (09:10→20:35)
[2019-08-09] MEDS: FAMOTIDINE 20 MG TAB PO SCH (10:00)
[2019-08-09] MEDS: ACETAMINOPHEN 325 MG TAB PO PRN (10:02)
--- NOTE | 2019-08-09 10:48 | NUR ---
PATIENT REFUSED PT. NITIN COLLINS WAS NOTIFIED. Addendum: 08/09/19 at 1048 by DINORA ALBERTO PTT Amended: Links added.
[2019-08-09 13:00] VITALS: BP 94/72
[2019-08-09 13:15] LABS: INR 1.07 (0.9-1.15); Partial Thromboplastin Time 28.4 sec (23.64-32.05)
--- NOTE | 2019-08-09 16:45 | NUR ---
New IV IV insertion IV access obtained by Lucius Newton RN, via clean sterile technique by inserting 22 gauge catheter at right hand after 1 attempt(s). IV secured properly. No trauma to site. Patient tolerated well.
[2019-08-09 17:06] VITALS: BP 96/49
[2019-08-09] MEDS: RIVAROXABAN 10 MG TAB PO SCH (17:30)
--- NOTE | 2019-08-09 18:50 | NUR ---
Chest Tube No new drainage seen in chest tube.
--- NOTE | 2019-08-09 19:20 | NUR ---
Opening Shift Note Assumed care of patient, awake and alert. No S/S of distress/SOB or pain. POC discussed and questions answered. Bed is locked in lowest position with side rails up x2 for safety. Chest tube is intact. Call light is within reach and patient encouraged to call for assistance PRN, will continue to monitor for changes Q1hr and PRN.
[2019-08-09 21:18] VITALS: BP 94/69
[2019-08-09] MEDS: LINEZOLID 600MG/300ML 300 ML IV SCH (21:44)
[2019-08-09] MEDS: ATORVASTATIN 20 MG TAB PO SCH (21:51)
[2019-08-09] MEDS: GABAPENTIN 300 MG CAP PO SCH (21:51)
[2019-08-09 22:00] VITALS: BP 89/47
[2019-08-10] VITALS (9 sets, daily range): BP systolic 83–105; BP diastolic 41–50
[2019-08-10] MEDS: HYDROmorphone HCL 2 MG/ML VL IV PRN (00:06)
[2019-08-10 05:24] LABS: Basophils # (auto) 0 10 ^3/uL (0-0.2); Basophils % (auto) 0.6 % (0.0-2.0); Eosinophils # (auto) 0.3 10 ^3/uL (0-0.8); Eosinophils % (auto) 4.7 % (0.0-7.0); Hematocrit 23.4 % (36.0-46.0); Hemoglobin 7.8 g/dL (12.2-16.2); Lymphocytes # (auto) 0.8 10 ^3/uL (0.4-5.4); Lymphocytes % (auto) 14.2 % (10.0-50.0); Mean Corpuscular Hemoglobin 28.8 pg (28.0-32.0); Mean Corpuscular Hgb Conc. 33.2 g/dL (32.0-36.0); Mean Corpuscular Volume 86.6 fL (80.0-100.0); Monocytes # (auto) 0.5 10 ^3/uL (0-1.3); Monocytes % (auto) 8.9 % (0.0-12.0); Neutrophils # (auto) 4.1 10 ^3/uL (1.6-8.6); Neutrophils % (auto) 71.6 % (37.0-80.0); Platelet Count (auto) 221 10^3/uL (140-450); Red Cell Distribution Width 17.1 % (11.8-14.3); White Blood Cell 5.8 10^3/uL (4.4-10.8)
[2019-08-10 05:34] LABS: BUN/Creatinine Ratio 15.5; Calcium 8.1 mg/dL (8.5-10.1); Potassium 4.7 mmol/L (3.5-5.1)
[2019-08-10] MEDS: LEVOTHYROXINE SODIUM 100 MCG TAB PO SCH (06:18)
[2019-08-10] MEDS: INSULIN LANTUS (GLARGINE) 1 /0.01ml (100units/ml) SC SCH ×2 (06:29→22:00)
[2019-08-10] MEDS: ACCU-CHEK COMFORT CURVE STRIP VI SCH ×4 (06:29→22:00)
[2019-08-10] MEDS: LEVALBUTEROL HCL 1.25 MG/3 ML NEB NEB SCH ×4 (06:51→18:58)
[2019-08-10] MEDS ORDERED: SODIUM CHL 0.9% 1000 ML BAG XX ONE (07:00)
--- NOTE | 2019-08-10 07:04 | NUR ---
CHEST TUBE NO OUTPUT FROM CHEST TUBE
[2019-08-10] MEDS: SILDENAFIL CITRATE 20 MG TAB PO SCH ×3 (09:20→22:47)
[2019-08-10] MEDS: FAMOTIDINE 20 MG TAB PO SCH (09:20)
[2019-08-10] MEDS: LINEZOLID 600MG/300ML 300 ML IV SCH ×2 (09:20→22:50)
[2019-08-10] MEDS: ACETAMINOPHEN 325 MG TAB PO PRN ×2 (09:35→21:07)
--- NOTE | 2019-08-10 10:30 | NUR ---
field crop i farmworker at bedside
--- NOTE | 2019-08-10 11:15 | NUR ---
Special Request for Dialysis on TuesdayAugust 12. miter grinder operator was informed that patient is scheduled for surgery on Tuesday and she should be first on the list for same day.
--- NOTE | 2019-08-10 12:57 | NUR ---
1 unit of packed cell transfused with internet marketing director
--- NOTE | 2019-08-10 14:13 | NUR ---
PATIENT GETTING DIALYSIS TODAY AND DID NOT WANT TO DO PT AFTER SHE GOT DONE. WILL ATTEMPT AGAIN TOMORROW. Addendum: 08/10/19 at 1414 by DINORA ALBERTO PTT Amended: Links added.
--- NOTE | 2019-08-10 14:30 | NUR ---
Dialysis completed 2.4 L off. Vitals recorded.
--- NOTE | 2019-08-10 17:00 | NUR ---
COVID19 Specimen collected and sent to the lab.
--- NOTE | 2019-08-10 17:22 | NUR ---
Chest Tube No output from chest tube this shift.
[2019-08-10] MEDS: RIVAROXABAN 10 MG TAB PO SCH (18:18)
[2019-08-10] MEDS: HYDROcodone-ACET 5/325MG TAB PO PRN (18:57)
[2019-08-10] MEDS ORDERED: EPOETIN ALFA 10,000 UNIT/1 ML VIAL SC ONE (21:00)
[2019-08-10] MEDS: ATORVASTATIN 20 MG TAB PO SCH (22:00)
[2019-08-10] MEDS: GABAPENTIN 300 MG CAP PO SCH (22:47)
[2019-08-11] MEDS: LEVALBUTEROL HCL 1.25 MG/3 ML NEB NEB SCH ×4 (00:16→19:25)
[2019-08-11 05:07] VITALS: BP 102/70
[2019-08-11] MEDS: ACCU-CHEK COMFORT CURVE STRIP VI SCH ×4 (06:06→21:30)
[2019-08-11] MEDS: INSULIN LANTUS (GLARGINE) 1 /0.01ml (100units/ml) SC SCH ×2 (06:06→21:39)
[2019-08-11] MEDS: LEVOTHYROXINE SODIUM 100 MCG TAB PO SCH (06:27)
[2019-08-11] MEDS: SILDENAFIL CITRATE 20 MG TAB PO SCH ×3 (08:34→20:06)
[2019-08-11 09:00] VITALS: BP 97/53
--- NOTE | 2019-08-11 09:18 | NUR ---
Pt declined PT treatment today. Will attempt again tomorrow.
--- NOTE | 2019-08-11 10:00 | NUR ---
Per Dr Castillo NPO AFTER MIDNIGHT ON Tuesday
[2019-08-11] MEDS: LINEZOLID 600MG/300ML 300 ML IV SCH ×2 (10:07→21:40)
[2019-08-11] MEDS: FAMOTIDINE 20 MG TAB PO SCH (10:07)
--- NOTE | 2019-08-11 10:30 | NUR ---
patient up to chair with PARAMEDIC assist. Addendum: 08/12/19 at 1524 by Roxy Tony RN wrong patient.
--- NOTE | 2019-08-11 11:08 | NUR ---
Nutrition Followup Note Wt: 71.4 kg Pt was awake when rounded this morning. Pt is currently on 2 gm Na diet with a good appetite per pt. Pt intake is inadequte aeb PO of 55% x 2 days per RN doc. Pt had HD on 08/09. Pt with no distress or complaints. Will continue to closely monitor pertinent labs, PO intake and skin status prn. Will followup in 3-5 days Est energy needs 74 [id number] kcal (25-27 kcal/kg) Est protein needs 88-96 g (1.2-1.3 r/t HD) Will reassess prn. Labs: BUN 51H, Creat 3.29H, Gluc 111H, Ca 8.1L, Alb 1.9L Skin: BS 17 mod risk Please refer to wound assessment report for full details. BM: Pt had 1 BM on 08/07 per RN doc PES: Altered nutrition related lab values r/t current chronic medical condition aeb elev RFT Rec: 1) consider CCHO 60 gm renal std. 2) refer to CDE on DC. 3) consider nephro carb steady 1 carton bid if PO is low. 4) Continue current plan of care. F/u high 3-5days
--- NOTE | 2019-08-11 14:57 | NUR ---
per greenhouse or nursery transplanter, no one is on for midlines this weekend.
[2019-08-11 17:00] VITALS: BP 101/53
[2019-08-11] MEDS: RIVAROXABAN 10 MG TAB PO SCH (17:34)
--- NOTE | 2019-08-11 17:41 | NUR ---
PAGED NICOLAS TO ENSURE PATIENT IS OK TO RECEIVE XARELTO THAT IS ORDERED.
--- NOTE | 2019-08-11 18:00 | NUR ---
Patient Xarelto held until Erik calls back with further instruction. notes state they want plavix held for 4-5 days prior to sx however I don't see a record of plavix being taken by the patient, uncertain if the DrOrlin's meant the xarelto patient is on. Awaiting Sivas call back for clarification.
[2019-08-11] MEDS: HYDROcodone-ACET 5/325MG TAB PO PRN (18:44)
--- NOTE | 2019-08-11 19:27 | NUR ---
Respiratory note: MED NEB TX GIVEN AT THIS TIME. PT ASKED TO NOT WAKE HER UP FOR 0000 SCHEDULED TX. WILL CONTINUE TO MONITOR.
--- NOTE | 2019-08-11 19:30 | NUR ---
Opening Shift Note Received report from Roxy TAVERAS. Assumed care of patient, awake and alert. No S/S of distress/SOB or pain. Chest tube output on collection chamber: at 194 level on the right and at 890 level on the middle. Instructed on POC and to call for assist PRN. Fall precaution measures in place, will continue to monitor for changes Q1hr and PRN.
--- NOTE | 2019-08-11 19:45 | NUR ---
Received a call from Dr. Valencia with order to stop Ambar. Order carried out.
[2019-08-11] MEDS: ACETAMINOPHEN 325 MG TAB PO PRN (20:10)
--- NOTE | 2019-08-11 20:10 | NUR ---
Patient complains of headache at 4/10, Tylenol PO given. Continue care.
[2019-08-11] MEDS: ATORVASTATIN 20 MG TAB PO SCH (21:40)
[2019-08-11] MEDS: COLCHICINE 0.6 MG CAP PO SCH (21:40)
[2019-08-11] MEDS: GABAPENTIN 300 MG CAP PO SCH (21:40)
--- NOTE | 2019-08-11 21:47 | NUR ---
Headache was resolved per patient, continue care.
[2019-08-11 22:00] VITALS: BP 92/45
[2019-08-11] MEDS ORDERED: LEVALBUTEROL HCL 1.25 MG/3 ML NEB ONE (22:37)
[2019-08-12] MEDS: LEVALBUTEROL HCL 1.25 MG/3 ML NEB NEB SCH ×4 (00:39→18:35)
[2019-08-12] MEDS: HYDROcodone-ACET 5/325MG TAB PO PRN (03:27)
--- NOTE | 2019-08-12 03:27 | NUR ---
Patient complains of 5/10gout pain at 5/10, Mcfarlan PO given.
--- NOTE | 2019-08-12 05:00 | NUR ---
Pain level at this time is 0/10, continue care.
[2019-08-12] MEDS ORDERED: LEVALBUTEROL HCL 1.25 MG/3 ML NEB ONE (05:35)
[2019-08-12 06:00] VITALS: BP 94/32
[2019-08-12] MEDS: LEVOTHYROXINE SODIUM 100 MCG TAB PO SCH (06:44)
[2019-08-12] MEDS: INSULIN LANTUS (GLARGINE) 1 /0.01ml (100units/ml) SC SCH ×2 (06:45→21:51)
[2019-08-12] MEDS: ACCU-CHEK COMFORT CURVE STRIP VI SCH ×4 (06:56→21:52)
--- NOTE | 2019-08-12 07:00 | NUR ---
Output level on the collection chamber of chest tube does not changed, no additional output noted.
[2019-08-12 09:00] VITALS: BP 107/46
[2019-08-12] MEDS: LINEZOLID 600MG/300ML 300 ML IV SCH ×2 (09:38→21:52)
[2019-08-12] MEDS: SILDENAFIL CITRATE 20 MG TAB PO SCH ×3 (09:38→19:51)
[2019-08-12] MEDS: FAMOTIDINE 20 MG TAB PO SCH (09:39)
--- NOTE | 2019-08-12 10:33 | NUR ---
Entered pt's room for PT treatment today. Before I was able to introduce myself, pt stated "You think I am going to rehab today, citlaly." Pt has already been educated on importance of OOB activities but continues to refuse to participate.
[2019-08-12 13:00] VITALS: BP 103/53
--- NOTE | 2019-08-12 15:22 | NUR ---
Patient alert and orientedx4, sometimes forgetful. When I asked patient if she knew what procedure was possibly going to be done on tuesday she stated, "No, I don't know, I just want them to take out the tube". Unable to have patient sign consent at this time.
[2019-08-12 17:00] VITALS: BP 113/41
--- NOTE | 2019-08-12 19:20 | NUR ---
Opening Shift Note Received report from Roxy TAVERAS. Assumed care of patient, awake and alert. No S/S of distress/SOB or pain. Instructed on POC and to call for assist PRN. Fall precaution measures in place, will continue to monitor for changes Q1hr and PRN.
[2019-08-12] MEDS: HYDROmorphone HCL 2 MG/ML VL IV PRN (19:58)
--- NOTE | 2019-08-12 20:30 | NUR ---
Midline Placement: Patient educated on need for midline placement. All risks and benefits explained and all questions and concerns addresses prior to procedure. 18g/10cm midline inserted via RIGHT CEPHALIC vein using Ultrasound. Sterile technique utilized. Blood return obtained from SINGLE lumen and flushed easily with NS using proper technique. Midline secured with saline lock; biodisc and occlusive dressing applied. Primary RN notified. Midline lot # [id number].
[2019-08-12] MEDS: GABAPENTIN 300 MG CAP PO SCH (21:52)
[2019-08-12] MEDS: ATORVASTATIN 20 MG TAB PO SCH (21:52)
[2019-08-12 22:00] VITALS: BP 103/64
--- NOTE | 2019-08-12 23:55 | NUR ---
Advised patient NPO after midnight for procedure tomorrow, patient verbalized understanding.
--- NOTE | 2019-08-13 00:14 | NUR ---
Respiratory note: AT BEDSIDE FOR MED NEB TX. PT DID NOT WANT TO BE WOKEN UP FOR TX. PT COMFORTABLY SLEEPING AT THIS TIME. WILL CONTINUE TO MONITOR.
[2019-08-13 05:33] LABS: Basophils # (auto) 0 10 ^3/uL (0-0.2); Basophils % (auto) 0.7 % (0.0-2.0); Eosinophils # (auto) 0.4 10 ^3/uL (0-0.8); Eosinophils % (auto) 5.7 % (0.0-7.0); Hematocrit 25.5 % (36.0-46.0); Hemoglobin 8.5 g/dL (12.2-16.2); Lymphocytes # (auto) 0.8 10 ^3/uL (0.4-5.4); Mean Corpuscular Hemoglobin 28.6 pg (28.0-32.0); Mean Corpuscular Hgb Conc. 33.4 g/dL (32.0-36.0); Mean Corpuscular Volume 85.7 fL (80.0-100.0); Monocytes # (auto) 0.4 10 ^3/uL (0-1.3); Monocytes % (auto) 6.7 % (0.0-12.0); Neutrophils # (auto) 4.8 10 ^3/uL (1.6-8.6); Neutrophils % (auto) 73.9 % (37.0-80.0); Platelet Count (auto) 263 10^3/uL (140-450); Red Blood Cells 2.98 10^6/uL (4.0-5.20); Red Cell Distribution Width 16.6 % (11.8-14.3); White Blood Cell 6.5 10^3/uL (4.4-10.8)
[2019-08-13 05:53] LABS: Calcium 7.9 mg/dL (8.5-10.1); Potassium 4.6 mmol/L (3.5-5.1)
[2019-08-13 05:58] LABS: BUN/Creatinine Ratio 13.4; Bilirubin, Total 0.5 mg/dL (0.2-1.0); Total Protein 5.9 g/dL (6.4-8.2)
[2019-08-13 06:00] VITALS: BP 97/48
[2019-08-13 06:10] LABS: INR 1.06 (0.9-1.15); Partial Thromboplastin Time 29.3 sec (23.64-32.05)
[2019-08-13] MEDS: LEVALBUTEROL HCL 1.25 MG/3 ML NEB NEB SCH ×4 (06:16→19:40)
[2019-08-13] MEDS: ACCU-CHEK COMFORT CURVE STRIP VI SCH ×3 (06:48→22:00)
[2019-08-13] MEDS: LEVOTHYROXINE SODIUM 100 MCG TAB PO SCH (06:49)
[2019-08-13] MEDS: INSULIN LANTUS (GLARGINE) 1 /0.01ml (100units/ml) SC SCH ×2 (06:49→22:00)
--- NOTE | 2019-08-13 06:55 | NUR ---
No output from chest tube.
[2019-08-13] MEDS ORDERED: POVIDONE IODINE 10 % TOPICAL OINT 30GM TOP ONE (07:26)
[2019-08-13] MEDS: SILDENAFIL CITRATE 20 MG TAB PO SCH ×3 (08:00→20:09)
--- NOTE | 2019-08-13 08:15 | NUR ---
PT TAKEN TO PRE-OP. TRANSPORTED VIA BED, NO S/S OF DISTRESS.
[2019-08-13] MEDS ORDERED: ceFAZolin 1GM/50ML 50 ML IV ONE (08:24)
[2019-08-13] MEDS ORDERED: LIDOCAINE 1% HCL (LOCAL ANESTH.) INJ 20ML MDV ONE (08:36)
[2019-08-13] MEDS ORDERED: SUCCINYLCHOLINE CHLORIDE 20 MG/ML 10ML VIAL IV ONE (08:36)
[2019-08-13] MEDS ORDERED: MIDAZOLAM HCL 1MG/1ML-2 ML VIAL ONE (08:38)
[2019-08-13] MEDS ORDERED: ETOMIDATE (2MG/ML) 20ML VIAL IV ONE (08:39)
[2019-08-13] MEDS ORDERED: ROCURONIUM 10MG/ML 10ML VIAL IV ONE (08:39)
[2019-08-13] MEDS ORDERED: METOCLOPRAMIDE HCL 5MG/ml INJ 2ml VIAL ONE (08:52)
[2019-08-13] MEDS ORDERED: fentaNYL CITRATE 100 MCG/2 ML VL ONE (09:20)
--- NOTE | 2019-08-13 09:30 | NUR ---
Attempted PT treatment, pt is off unit for procedure.
[2019-08-13] MEDS ORDERED: BUPIVACAINE W/ EPINEPH 0.25% INJ 50ML MDV ONE (09:37)
[2019-08-13] MEDS: LINEZOLID 600MG/300ML 300 ML IV SCH ×2 (10:00→22:56)
[2019-08-13] MEDS: FAMOTIDINE 20 MG TAB PO SCH (10:00)
[2019-08-13] MEDS ORDERED: NEOSTIGMINE 1 MG/ML INJ (10mg/10ML VIAL) ONE (10:07)
[2019-08-13] MEDS ORDERED: GLYCOPYRROLATE 0.2 MG/ML 1ML VIAL ONE (10:07)
[2019-08-13] MEDS ORDERED: ONDANSETRON HCL 4 MG/2 ML VIAL IV PRN (10:30)
[2019-08-13] MEDS ORDERED: ACCU-CHEK COMFORT CURVE STRIP VI ONE (10:30)
[2019-08-13] MEDS ORDERED: NALOXONE HCL 0.4 MG/ML VIAL IV PRN (10:30)
[2019-08-13] MEDS: HYDROmorphone HCL 2 MG/ML VL IV PRN ×5 (10:40→20:09)
[2019-08-13] MEDS: ACETAMINOPHEN IV 1000 MG/100ML (10MG/ML) IV ONE ×2 (11:30→11:32)
[2019-08-13] MEDS ORDERED: ACETAMINOPHEN IV 100 ML IV ONE (11:31)
--- NOTE | 2019-08-13 11:42 | NUR ---
IN PT ROOM FOR 1200 SCHEDULED HHN TX. MED NEB NOT ADMINISTERED PT AT PROCEDURE. WILL RETURN MEDICATION TO [facility].
--- NOTE | 2019-08-13 12:05 | NUR ---
REPORT GIVEN TO NITIN TIMMONS. ALL QUESTIONS AND CONCERNS ADDRESSED.
[2019-08-13 12:10] VITALS: BP 117/36
--- NOTE | 2019-08-13 12:10 | NUR ---
Received report from BACKHAUL DRIVER, Kalee and bedside RNBerry. Patient received via bed to 266 s/p right thoracotomy and right pleurodesis with Dr Castillo. Patient was previously in room 276A prior to surgery. Patient connected to bedside monitor with alarms in place. Patient is alert but drowsy, no s/s of distress noted. Patient on 2L NC with O2 sats >95%. Patient with arterial line to right wrist, line zeroed and BP 117/36. Patient with Right lateral chest tube to -20cm suction. Dressing C/D/I. Canister marked at 100ml, draining serosanguineous fluid. Patient with PIV to right hand #22 and right upper arm midline. Bed in lowest position, rails x3 up and call light within reach. Updated on plan of care. Will continue to monitor.
--- NOTE | 2019-08-13 13:15 | NUR ---
hydrogenation operatorLudin at bedside. Per RN, patient refused to have dialysis treatment.
[2019-08-13] MEDS: HYDROcodone-ACET 5/325MG TAB PO PRN (15:38)
[2019-08-13 16:00] VITALS: BP 107/43
--- NOTE | 2019-08-13 19:40 | NUR ---
OPENING NOTE RECEIVED REPORT FROM EBONIE RN AND ASSUMED CARE OF PT. PT IS RESTING IN BED, USING BEDPAN AT THIS TIME. VITAL SIGNS STABLE WITH NO S/S OF DISTRESS. CHEST TUBE IN PLACE TO RIGHT SIDE- DRAINING SANGUINOUS, SUCTION IS APPROPRIATE AND FUNCTIONING. DRESSING IS CLEAN, DRY, AND INTACT. NO CREPITUS HEARD OR FELT AROUND SITE. ARTERIAL LINE IN PLACE TO RIGHT RADIAL ARTERY- ZEROED AND WAVEFORM CORRECT ON MONITOR. EDUCATED PT ON USE OF CALL LIGHT AND FALL PRECAUTIONS. PT VERBALIZED UNDERSTANDING. WILL CONTINUE TO MONITOR AND ASSESS PT.
[2019-08-13 20:00] VITALS: BP 134/48
--- NOTE | 2019-08-13 20:05 | NUR ---
PAIN ASSESSMENT PT COMPLAINS OF PAIN 8/10 IN HER BACK. SAYS IT IS CHRONIC, PT GRIMACING AND THRASHING IN BED. WILL MEDICATE PER MD ORDERS.
[2019-08-13] MEDS: GABAPENTIN 300 MG CAP PO SCH (22:55)
[2019-08-13] MEDS: ATORVASTATIN 20 MG TAB PO SCH (22:56)
[2019-08-14] VITALS (14 sets, daily range): BP systolic 74–150; BP diastolic 29–138
--- NOTE | 2019-08-14 00:05 | NUR ---
PAIN REASSESSMENT PT SAYS SHE CURRENTLY HAS NO PAIN AND IS RESTING PEACEFULLY IN BED. WILL CONTINUE TO REASSESS.
--- NOTE | 2019-08-14 00:48 | NUR ---
Respiratory note: PT REQUESTED NOT TO BE WOKEN UP IF SLEEPING FOR THE TIME OF HER NEXT MED NEB TX AT 0000. TX HELD AT THIS TIME DUE TO PT SLEEPING WHEN ENTERING THE ROOM. NO DISTRESS NOTED. HR 73 RR 16 SP02 100% ON 2L NASAL CANNULA.
[2019-08-14 03:38] LABS: Basophils # (auto) 0.1 10 ^3/uL (0-0.2); Basophils % (auto) 0.9 % (0.0-2.0); Eosinophils # (auto) 0.1 10 ^3/uL (0-0.8); Eosinophils % (auto) 0.9 % (0.0-7.0); Hematocrit 28.4 % (36.0-46.0); Hemoglobin 9.4 g/dL (12.2-16.2); Lymphocytes # (auto) 0.5 10 ^3/uL (0.4-5.4); Lymphocytes % (auto) 3.8 % (10.0-50.0); Mean Corpuscular Hemoglobin 28.3 pg (28.0-32.0); Mean Corpuscular Hgb Conc. 32.9 g/dL (32.0-36.0); Mean Corpuscular Volume 85.8 fL (80.0-100.0); Monocytes # (auto) 0.6 10 ^3/uL (0-1.3); Neutrophils % (auto) 90.4 % (37.0-80.0); Platelet Count (auto) 315 10^3/uL (140-450); Red Blood Cells 3.31 10^6/uL (4.0-5.20); Red Cell Distribution Width 16.7 % (11.8-14.3); White Blood Cell 14.3 10^3/uL (4.4-10.8)
--- NOTE | 2019-08-14 03:53 | NUR ---
PT CARE GAVE PT BED BATH. PARTIAL SYED CHANGE DONE. NEW OPTIFOAM APPLIED. PT TURNED AND ALL EXTREMITIES OFFLOADED WITH PILLOW.
[2019-08-14 04:01] LABS: Albumin 2.1 g/dL (3.4-5.0); Calcium 8.1 mg/dL (8.5-10.1); Potassium 5.2 mmol/L (3.5-5.1)
[2019-08-14 04:03] LABS: BUN/Creatinine Ratio 13.6
[2019-08-14 04:08] LABS: Bilirubin, Total 0.5 mg/dL (0.2-1.0); Total Protein 6.5 g/dL (6.4-8.2)
--- NOTE | 2019-08-14 06:06 | NUR ---
DYNAMICS AX CONSULTANT, DONNA, AT BEDSIDE. COORDINATED CARE- SHE MADE MD CA AWARE THAT PT REFUSED DIALYSIS YESTERDAY AND ALTERED CMP RESULTS FROM THIS MORNING. DONNA TO INITIATE DIALYSIS.
[2019-08-14] MEDS: LEVALBUTEROL HCL 1.25 MG/3 ML NEB NEB SCH ×4 (06:18→19:03)
[2019-08-14] MEDS: ACCU-CHEK COMFORT CURVE STRIP VI SCH ×4 (06:26→21:24)
[2019-08-14] MEDS: INSULIN LANTUS (GLARGINE) 1 /0.01ml (100units/ml) SC SCH ×2 (06:26→21:37)
[2019-08-14] MEDS: LEVOTHYROXINE SODIUM 100 MCG TAB PO SCH (06:26)
[2019-08-14] MEDS ORDERED: SODIUM CHL 0.9% 1000 ML BAG XX ONE (07:45)
--- NOTE | 2019-08-14 08:00 | NUR ---
OPENING Report received from Lanny KEN RN. Care initiated and initial assessment complete.
--- NOTE | 2019-08-14 09:00 | NUR ---
BEDSIDE: Chris Perez bedside. No new orders received. aware of patients morning chemistry labs, patient is currently receiving dialysis. No further labs to be completed today post dialysis.
--- NOTE | 2019-08-14 10:16 | NUR ---
DIALYSIS COMPLETE 2.5L removed.
--- NOTE | 2019-08-14 11:00 | NUR ---
CHEST TUBE DRESSING CHANGED Clean technique utilized. New Vaseline dressing, 4x4s, and pressure tape applied. Timed, dated, and initialed. Patient premedicated and tolerated well.
[2019-08-14] MEDS: FAMOTIDINE 20 MG TAB PO SCH (11:15)
[2019-08-14] MEDS: LINEZOLID 600MG/300ML 300 ML IV SCH ×2 (11:15→21:23)
[2019-08-14] MEDS: SILDENAFIL CITRATE 20 MG TAB PO SCH ×3 (11:15→19:46)
[2019-08-14] MEDS ORDERED: NOREPINEPHRINE 8 MG/250ML KIT 250 ML IV ONE (11:26)
--- NOTE | 2019-08-14 11:26 | NUR ---
REPEATED LOW PRESSURES Paged Dr. Valencia for orders. Levophed started.
--- NOTE | 2019-08-14 11:30 | NUR ---
IV DC'd IV DC'd with sterile technique, catheter fully intact. Pressure dressing applied to site. Patient tolerated procedure well. Addendum: 08/14/19 at 1353 by Lisbeth Draper RN RN right hand
[2019-08-14] MEDS: HYDROmorphone HCL 2 MG/ML VL IV PRN (11:35)
[2019-08-14] MEDS ORDERED: ALBUMIN 5% 250 ML IV ONE ×2 (13:45→15:45)
--- NOTE | 2019-08-14 14:43 | NUR ---
Nutrition Followup Note Wt: 74.4 kg Pt was sleeping with no family by bedside. per records pt s/p chest tube. pt is currently on CLD with fair PO of avg 65% x 4 per RN doc. pt to have HD today Est energy needs 74 [id number] kcal (25-27 kcal/kg), Est protein needs 88-96 g (1.2-1.3 r/t HD). Will reassess prn. Labs: BUN 48 H, CREAT 3.52 H, ALB 2.1 L, GLU 127 H Skin: BS 17 mod risk Please refer to wound assessment report for full details. BM: Pt had 1 BM on 08/07 per RN doc PES: Altered nutrition related lab values r/t current chronic medical condition aeb elev RFT Rec: 1) [facility]. 2) refer to CDE on DC. 3) Continue current plan of care. F/u high 2-3 days
--- NOTE | 2019-08-14 15:02 | NUR ---
CONFUSED Patient asking where she is. Patients voice slightly trembling. Patient reoriented to place and time.
--- NOTE | 2019-08-14 16:25 | NUR ---
BEDSIDE: Erik Per Dr. Valencia, he wants to take the chest tube out tomorrow morning 08/14. Patient to remain in [facility] overnight and be discharged once the chest tube is removed.
--- NOTE | 2019-08-14 19:20 | NUR ---
OPENING NOTE REPORT RECEIVED FROM EBONIE TAVERAS PATIENT IS A/OX4, RESTING IN BED, CONNECTED TO CONTINUOUS MONITORS. RIGHT RADIAL A-LINE NOTED.PATIENT IS ON 2L NASAL CANNULA, SPO2 AT 100%, NO SOB OR DISTRESS NOTED. PATIENT HAS A RIGHT LATERAL CHEST TUBE TO 20CM SUCTION WITH SEROSANGUINEOUS OUTPUT NOTED IN TUBING. MIDLINE TO RIGHT UPPER ARM NOTED, INTACT AND PATENT. LEFT UPPER ARM AV FISTULA. PATIENT HAD DIALYSIS EARLIER TODAY, 2.5L OUT. OPTIFOAM TO SACRUM PREVENTATIVE, HEELS OFFLOADED WITH PILLOW. PHYSICAL ASSESSMENT DONE-SEE INTERVENTIONS. FALL PRECAUTIONS IN PLACE, CALL LIGHT WITHIN REACH.
[2019-08-14] MEDS ORDERED: EPOETIN ALFA 10,000 UNIT/1 ML VIAL SC ONE (21:00)
[2019-08-14] MEDS: GABAPENTIN 300 MG CAP PO SCH (21:23)
[2019-08-14] MEDS: COLCHICINE 0.6 MG CAP PO SCH (21:23)
[2019-08-14] MEDS: ATORVASTATIN 20 MG TAB PO SCH (21:23)
[2019-08-15] VITALS: BP 101/30
--- NOTE | 2019-08-15 | NUR ---
Respiratory note: PT REQUESTED NOT TO BE WOKEN UP IF SLEEPING FOR THE TIME OF HER NEXT MED NEB TX AT 0000. TX HELD AT THIS TIME DUE TO PT SLEEPING WHEN ENTERING THE ROOM. NO DISTRESS NOTED. HR 75 RR 16 SP02 100% ON 2L NASAL CANNULA
--- NOTE | 2019-08-15 | NUR ---
DECREASED BLOOD PRESSURE BP measured and it 85/49, HR 80. Patient is asymptomatic. Received dialysis 08/13/09 with removal of 2.5L. paged to report findings. Addendum: 08/16/19 at 0538 by SHARA KIM RN RN wrong date: correct date/time is 08/16/19 @0000 Addendum: 08/16/19 at 0539 by SHARA KIM RN RN incorrect date/time. Correct date/time is 08/15/19 @2200
[2019-08-15 04:00] VITALS: BP 118/44
--- NOTE | 2019-08-15 06:03 | NUR ---
AM CARES PATIENT GIVEN COMPLETE BED BATH USING CHG WIPES. COMPLETE LINEN AND GOWN CHANGE PROVIDED. SKIN REASSESSMENT DONE-NO CHANGES. NEW OPTIFOAM APPLIED TO SACRUM PREVENTATIVE, BLANCHABLE REDNESS NOTED. HEELS OFFLOADED WITH PILLOW.
[2019-08-15] MEDS: LEVALBUTEROL HCL 1.25 MG/3 ML NEB NEB SCH ×5 (06:42→23:41)
[2019-08-15] MEDS: LEVOTHYROXINE SODIUM 100 MCG TAB PO SCH (06:55)
[2019-08-15] MEDS: INSULIN LANTUS (GLARGINE) 1 /0.01ml (100units/ml) SC SCH ×2 (06:55→22:05)
[2019-08-15] MEDS: ACCU-CHEK COMFORT CURVE STRIP VI SCH ×4 (06:55→22:04)
--- NOTE | 2019-08-15 07:34 | NUR ---
CLOSING PATIENT RESTING COMFORTABLY IN BED WITH EYES CLOSED, CONNECTED TO CONTINUOUS MONITORS. PATIENT 100% ON 2L NASAL CANNULA. NO DISTRESS OR EVENTS DURING SHIFT. TOTAL OUTPUT FROM CHEST TUBE 40ML OF SEROSANGUINEOUS DRAINAGE. CARE ENDORSED TO NITIN BARTON
[2019-08-15 08:00] VITALS: BP 121/50
[2019-08-15] MEDS: SILDENAFIL CITRATE 20 MG TAB PO SCH ×3 (08:25→19:51)
[2019-08-15] MEDS: HYDROcodone-ACET 5/325MG TAB PO PRN ×2 (08:26→19:59)
[2019-08-15] MEDS: LINEZOLID 600MG/300ML 300 ML IV SCH ×2 (08:27→21:56)
[2019-08-15] MEDS: FAMOTIDINE 20 MG TAB PO SCH (08:27)
--- NOTE | 2019-08-15 08:52 | NUR ---
Train Caller at bedside.
[2019-08-15 09:04] LABS: BUN/Creatinine Ratio 10.4; Calcium 8.3 mg/dL (8.5-10.1)
--- NOTE | 2019-08-15 09:23 | NUR ---
AT BEDSIDE at bedside. MD removed right lateral chest, chest tube. Petroleum gauze and 4x4 gauze applied and secured with foam tape. CXR ordered. MD ordered for telemetry downgrade and regular diet as well. Orders placed.
--- NOTE | 2019-08-15 10:27 | NUR ---
Report given to Emilia Mena. Updated on plan of care. Patient to be transferred to [facility].
--- NOTE | 2019-08-15 10:45 | NUR ---
Arterial line removal IV DC'd with sterile technique, catheter fully intact. Pressure dressing applied to site. Patient tolerated procedure well.
--- NOTE | 2019-08-15 11:00 | NUR ---
Skin Sacrum noted pink and blanchable. Coccyx noted to have a linear andrea. Left knee abrasion that is dry noted. Pictures taken
--- NOTE | 2019-08-15 11:13 | NUR ---
Transfer Patient transferred to [facility] via bed on portable 02 and tele monitor. All belongings transferred with patient including wheelchair. No distress noted during transfer.
--- NOTE | 2019-08-15 11:22 | NUR ---
Patient is comfortably resting in bed, no s/s of distress, no c/o pain. NC at 2L. Respirations are even and unlabored. Bed at lowest locked position and call light within reach.
[2019-08-15 13:00] VITALS: BP 101/47
--- NOTE | 2019-08-15 17:16 | NUR ---
WOUND CARE NOTE: Wound care in to see patient per wound care request regarding skin integrity issue that are noted by bedside nurse upon assessment. Bedside nurse took photograph of patient's skin issue upon discovery for reference. Patient is 81 years old female with admitting diagnosis of Pleural Effusion, Renal Failure. Patient is resting in bed in Rm. 277B. She's awake, alert and able to verbalize needs. Patient need assistance in turning and repositioning. Her Gonzalo score is 15. Skin/wound assessment done with the assistance of patient's nurse, NITIN Nieto. Patient's L knee noted with 1.5x1.5cm , dry scabbed skin tear with pink surrounding skin, area is clean and dry,left open to air. Patient's medial sacrum noted with blanchable redness, to upper medial intragluteal fold noted linear 0.5x0.2cm dark brown pigmented skin, appears to be an old abrasion or a mole. Annetta care given applied Z Guard cream and covered sacrum with protective Opti foam sacral dressing. Patient tolerated, repositioned patient for comfort facing her Rt. side, redistributed pressure points with pillows. RECOMMENDATION: Nursing to continue with BID/PRN cleaning and application of Z Guard cream sacral, buttocks per MD order, frequent turning and repositioning schedule as condition permits, redistribute pressure points with pillows,elevate heels on pillows, continue monitoring by wound care while patient's Gonzalo score is < 18. Addendum: 08/15/19 at 1916 by Renetta Magana RN Amended: Links added.
[2019-08-15] MEDS: HYDROmorphone HCL 2 MG/ML VL IV PRN (17:51)
--- NOTE | 2019-08-15 17:55 | NUR ---
Pain patient c/o right back pain, rates it 10/31. Will medicate per MD orders. Addendum: 08/15/19 at 1842 by Starr Tan RN *[id number] No c/o pain
--- NOTE | 2019-08-15 18:20 | NUR ---
Respiratory note: SCHEDULED MED NEB TX NOT GIVEN. PT WAS SLEEPING, NO RESP DISTRESS NOTED. PT STATED SHE DID NOT FEEL WELL AND DID NOT WANT ANY MED NEB TX'S TONIGHT. PT IS ON 2L N/C.
--- NOTE | 2019-08-15 19:25 | NUR ---
OPENING SHIFT NOTE Assumed care of patient who is A&O x4. Currently on 2L NC with no s/s of distress. Reports 6/10 pain "all over". Pain management options discussed. Dressing to right lateral chest is CDI. Midline in right upper arm noted; CDI, flushed with 10ml NS. AV fistula present in left upper arm. Thrill and bruit present. Patient uses a wheelchair at baseline. Personal chair is present at the bedside. Bed is in low locked position with side rails up x2. Call light is within reach and patient encouraged to call for assistance when needed. Will continue to monitor for changes PRN.
[2019-08-15 20:30] VITALS: BP 101/47
[2019-08-15 21:52] VITALS: BP 85/49
[2019-08-15] MEDS: ATORVASTATIN 20 MG TAB PO SCH (21:57)
[2019-08-15] MEDS: GABAPENTIN 300 MG CAP PO SCH (21:57)
[2019-08-15] MEDS ORDERED: ALBUMIN 5% 250 ML IV ONE (22:45)
--- NOTE | 2019-08-16 | NUR ---
returned call Dr. Valencia returned call, updated on patient status and reason for call, orders received. Continue care.
[2019-08-16] MEDS: HYDROcodone-ACET 5/325MG TAB PO PRN (02:58)
[2019-08-16 05:05] VITALS: BP 102/48
[2019-08-16 05:53] LABS: Eosinophils # (auto) 0.3 10 ^3/uL (0-0.8); Lymphocytes # (auto) 0.8 10 ^3/uL (0.4-5.4)
[2019-08-16 05:56] LABS: Basophils # (auto) 0.1 10 ^3/uL (0-0.2); Basophils % (auto) 0.7 % (0.0-2.0); Eosinophils % (auto) 3.8 % (0.0-7.0); Hematocrit 22.5 % (36.0-46.0); Hemoglobin 7.3 g/dL (12.2-16.2); Lymphocytes % (auto) 10.3 % (10.0-50.0); Mean Corpuscular Hemoglobin 28.2 pg (28.0-32.0); Mean Corpuscular Hgb Conc. 32.7 g/dL (32.0-36.0); Mean Corpuscular Volume 86.4 fL (80.0-100.0); Monocytes # (auto) 0.4 10 ^3/uL (0-1.3); Monocytes % (auto) 5.7 % (0.0-12.0); Neutrophils # (auto) 6.2 10 ^3/uL (1.6-8.6); Neutrophils % (auto) 79.5 % (37.0-80.0); Platelet Count (auto) 225 10^3/uL (140-450); Red Cell Distribution Width 16.9 % (11.8-14.3); White Blood Cell 7.8 10^3/uL (4.4-10.8)
[2019-08-16 06:09] LABS: Potassium 3.8 mmol/L (3.5-5.1)
[2019-08-16 06:16] LABS: BUN/Creatinine Ratio 11.5; Calcium 8.1 mg/dL (8.5-10.1)
[2019-08-16] MEDS: ACCU-CHEK COMFORT CURVE STRIP VI SCH ×4 (06:24→22:00)
[2019-08-16] MEDS: LEVOTHYROXINE SODIUM 100 MCG TAB PO SCH (06:24)
[2019-08-16] MEDS: LEVALBUTEROL HCL 1.25 MG/3 ML NEB NEB SCH ×3 (06:24→18:05)
[2019-08-16] MEDS: INSULIN LANTUS (GLARGINE) 1 /0.01ml (100units/ml) SC SCH ×2 (06:28→22:54)
--- NOTE | 2019-08-16 07:40 | NUR ---
Opening shift note Assumed care of patient from NOC RN. Patient is Aox4, no signs and symptoms of distress noted. Bed is in lowest locked position, side rails up x3, and call light within reach. Updated patient on plan of care and patient verbalized understanding. Will continue to monitor q1hr and PRN.
[2019-08-16 09:01] VITALS: BP 113/57
[2019-08-16] MEDS: FAMOTIDINE 20 MG TAB PO SCH (09:28)
[2019-08-16] MEDS: SILDENAFIL CITRATE 20 MG TAB PO SCH ×3 (09:28→20:00)
[2019-08-16] MEDS: LINEZOLID 600MG/300ML 300 ML IV SCH ×2 (09:28→21:37)
--- NOTE | 2019-08-16 11:20 | NUR ---
Attempted PT re-evaluation. Pt is currently hypotensive, will attempt again later.
--- NOTE | 2019-08-16 11:25 | NUR ---
Vital sign assessment B/P 70/44 HR 89 bpm. Patient is alert and oriented x4, no signs and symptoms of distress noted. Will notify MD of change in blood pressure.
--- NOTE | 2019-08-16 11:27 | NUR ---
Called Left message to Dr. Valencia regarding patients blood pressure. Awaiting call back.
--- NOTE | 2019-08-16 11:30 | NUR ---
Blood pressure reassessment Blood pressure is 69/41, heart rate is 68bpm and oxygen is 94% on 2L. Patient is AOX4 no signs and symptoms of distress noted.
--- NOTE | 2019-08-16 11:35 | NUR ---
Blood pressure reassessment Patient is AOx4 no signs and symptoms of distress noted. Oxygen was increased to 3 liters, head of bed is in semi-fowlers and feet elevated. Blood pressure is now 113/77, heart rate is 72bpm, and oxygenation is 94% on 3L via nasal cannula.
[2019-08-16 12:05] VITALS: BP 110/39
--- NOTE | 2019-08-16 12:05 | NUR ---
Blood pressure reassessment Patient is in bed AOx4, head of bed elevated to semi-fowlers. No signs and symptoms of distress noted. Blood pressure is now 110/39, heart rate is 84bpm and oxygenation is 94% on 2L via nasal cannula. Will continue to monitor, will continue care.
--- NOTE | 2019-08-16 13:00 | NUR ---
Received call back from New orders received from Dr. Valencia, will follow through. Will continue care.
[2019-08-16] MEDS ORDERED: ALBUMIN 5% 500 ML IV ONE (13:30)
[2019-08-16 14:00] VITALS: BP 74/48
[2019-08-16] MEDS ORDERED: SODIUM CHL 0.9% 1000 ML BAG XX ONE (14:30)
[2019-08-16] MEDS ORDERED: LIDOCAINE 1% HCL (LOCAL ANESTH.) INJ 20ML MDV ID ONE (14:45)
--- NOTE | 2019-08-16 15:24 | NUR ---
Nutrition Followup Note Wt: 72.8 kg Pt was sleeping with no family by bedside. Per records pt s/p chest tube. Pt is with a Cardiac diet, appetite is good aeb avg 83% x 3 PO intake per RN doc. Pt with no noted distress per RN doc. Will continue to monitor PO status, skin status, pertinent labs and weight trends. Will f/u in 3-5 days. Est energy needs 74 [id number] kcal (25-27 kcal/kg), Est protein needs 88-96 g (1.2-1.3 r/t HD). Will reassess prn. Labs: BUN 31 H, CREAT 2.69 H, GFR 18 L, ALB 2.1 L, GLU 122 H Skin: BS 17 mod risk Please refer to wound assessment report for full details. BM: Pt had 1 BM on 08/14 per RN doc PES: Altered nutrition related lab values r/t current chronic medical condition aeb elev RFT Rec: 1) Advance diet as medically feasible to [facility] 60 gm renal std. (RESOLVED) 2) Refer to CDE on DC. 3) Continue current plan of care. F/u high 2-3 days
[2019-08-16] MEDS ORDERED: LIDOCAINE 1% (LOCAL ANESTH.) PF 5ml SDV ID ONE (16:15)
--- NOTE | 2019-08-16 17:00 | NUR ---
Dialysis unable to be done Per dialysis nurse at bedside, patients graft is clotted and patient cannot have dialysis done at this time. Will inform elham LOBATO and will continue care.
--- NOTE | 2019-08-16 17:15 | NUR ---
Called MD Notified MD Valencia regarding patient not being able to have dialysis completed. MD aware and no new orders received. Will continue care.
[2019-08-16 18:00] VITALS: BP 125/68
--- NOTE | 2019-08-16 19:15 | NUR ---
End of shift note Endorsed care to NOC NITIN rodrigues. No s/s of distress noted.
--- NOTE | 2019-08-16 19:26 | NUR ---
Opening Shift Note Assumed care of patient, awake, and alert. No S/S of distress/SOB or pain. Patient on 2L NC and tolerating well. Instructed on POC and to call for assistance PRN, will continue to monitor for changes Q1hr and PRN. Safety precautions maintained bed is in lowest position and locked, bed rails 2x.
[2019-08-16] MEDS ORDERED: EPOETIN ALFA 10,000 UNIT/1 ML VIAL SC ONE (21:00)
[2019-08-16] MEDS: GABAPENTIN 300 MG CAP PO SCH (21:37)
[2019-08-16] MEDS: ATORVASTATIN 20 MG TAB PO SCH (21:37)
[2019-08-16 22:00] VITALS: BP 98/52
[2019-08-17] MEDS: LEVALBUTEROL HCL 1.25 MG/3 ML NEB NEB SCH ×4 (00:10→18:46)
--- NOTE | 2019-08-17 00:10 | NUR ---
Respiratory note: SCHEDULED MED NEB TX NOT GIVEN. PT WAS ASLEEP, NO RESP DISTRESS NOTED.HR 101, RR 19, SPO2 94. PT STATED SHE DID NOT WANT OR NEED TX AT THIS TIME.
[2019-08-17 01:43] VITALS: BP 107/48
[2019-08-17 04:57] VITALS: BP 111/73
[2019-08-17] MEDS: LEVOTHYROXINE SODIUM 100 MCG TAB PO SCH (06:21)
[2019-08-17] MEDS: INSULIN LANTUS (GLARGINE) 1 /0.01ml (100units/ml) SC SCH ×2 (06:26→22:51)
[2019-08-17] MEDS: ACCU-CHEK COMFORT CURVE STRIP VI SCH ×4 (06:27→22:47)
--- NOTE | 2019-08-17 07:15 | NUR ---
End of Shift Note Endorsed care to dayshift RN. At this time patient has no s/s of distress or SOB, no complaints. Patient responsive to name and touch.
--- NOTE | 2019-08-17 07:45 | NUR ---
Opening shift note Assumed care of patient from NOC NITIN Guerrier. Patient is Aox4, no signs and symptoms of distress noted. Bed is in lowest locked position, side rails up x2, and call light is within reach. Updated patient on plan of care and patient verbalized understanding. Will continue to monitor q1hr and PRN.
[2019-08-17] MEDS: FAMOTIDINE 20 MG TAB PO SCH (08:42)
[2019-08-17] MEDS: HYDROcodone-ACET 5/325MG TAB PO PRN (08:42)
[2019-08-17] MEDS: SILDENAFIL CITRATE 20 MG TAB PO SCH ×3 (08:42→20:56)
[2019-08-17] MEDS: LINEZOLID 600MG/300ML 300 ML IV SCH ×2 (08:43→22:47)
[2019-08-17 09:00] VITALS: BP 122/66
--- NOTE | 2019-08-17 09:38 | NUR ---
Received call from hospital laboratory technician Informed by hospital laboratory technician nurse that patient is scheduled for a procedure and that patient is to be NPO. Informed hospital laboratory technician nurse that patient has not been NPO and has eaten and drank water. bottle label inspector nurse verbalized understanding. Will continue care.
[2019-08-17 10:01] LABS: Eosinophils # (auto) 0.3 10 ^3/uL (0-0.8); Hemoglobin 7.4 g/dL (12.2-16.2); Lymphocytes # (auto) 0.5 10 ^3/uL (0.4-5.4); Lymphocytes % (auto) 5.8 % (10.0-50.0); Monocytes # (auto) 0.4 10 ^3/uL (0-1.3)
[2019-08-17 10:03] LABS: Basophils # (auto) 0.1 10 ^3/uL (0-0.2); Basophils % (auto) 0.8 % (0.0-2.0); Eosinophils % (auto) 3.7 % (0.0-7.0); Hematocrit 22.4 % (36.0-46.0); Mean Corpuscular Hemoglobin 28.7 pg (28.0-32.0); Mean Corpuscular Hgb Conc. 33.2 g/dL (32.0-36.0); Mean Corpuscular Volume 86.4 fL (80.0-100.0); Monocytes % (auto) 5.1 % (0.0-12.0); Neutrophils # (auto) 7.1 10 ^3/uL (1.6-8.6); Neutrophils % (auto) 84.6 % (37.0-80.0); Platelet Count (auto) 217 10^3/uL (140-450); Red Blood Cells 2.59 10^6/uL (4.0-5.20); Red Cell Distribution Width 16.5 % (11.8-14.3); White Blood Cell 8.4 10^3/uL (4.4-10.8)
[2019-08-17 10:13] LABS: Calcium 8.2 mg/dL (8.5-10.1); Potassium 4.1 mmol/L (3.5-5.1)
[2019-08-17 10:15] LABS: BUN/Creatinine Ratio 11.9
--- NOTE | 2019-08-17 11:00 | NUR ---
patient off unit patient taken to blood bank laboratory professional for procedure.
[2019-08-17] MEDS ORDERED: LIDOCAINE 2%HCL (LOCAL ANESTH.) INJ 20ML MDV ONE (11:30)
[2019-08-17] MEDS ORDERED: IOHEXOL 350 MG/ML 100ML IJ ONE (11:30)
--- NOTE | 2019-08-17 11:39 | NUR ---
1200 MED NEB TX NOT ADMINISTERED. PT OFF UNIT. MEDICATION WILL BE RETURNED TO [facility].
[2019-08-17] MEDS ORDERED: MIDAZOLAM HCL 1MG/1ML-2 ML VIAL ONE (11:45)
[2019-08-17] MEDS ORDERED: ATROPINE SULF 1 MG/10ml SYR ONE (11:45)
[2019-08-17] MEDS ORDERED: fentaNYL CITRATE 100 MCG/2 ML VL ONE (11:45)
[2019-08-17] MEDS ORDERED: IODIXANOL 320MG/ML 100ML BTL IV ONE ×2 (11:46→11:51)
--- NOTE | 2019-08-17 11:55 | NUR ---
Attempted physical therapy. Pt is off unit for procedure. Will attempt again later.
[2019-08-17] MEDS ORDERED: diphenhdrAMINE HCL 50 MG/1 ML VL ONE (12:24)
[2019-08-17] MEDS ORDERED: CATHFLO ACTIVASE (ALTEPLASE) 2 MG VIAL IV ONE (12:24)
[2019-08-17] MEDS ORDERED: HEPARIN SODIUM (PORCINE) 5000 UNITS/ML 1ML VIAL ONE (12:51)
--- NOTE | 2019-08-17 14:00 | NUR ---
REPORT Received report from calibration laboratory technician nurse
--- NOTE | 2019-08-17 14:25 | NUR ---
Back on unit Patient back on unit. Patient stated "I'm sleepy, can you let me nap?" Patient is Aox4, no s/s of distress noted. Procedural site is clean dry and intact. Patients vitals are 97.5, 109/55, 70bpm, 98% on 3L via nasal cannula, and respirations ar 16/min even and unlabored. Will continue to monitor q1hr and PRN.
--- NOTE | 2019-08-17 15:25 | NUR ---
Attempted PT re-evaluation, pt states she has too much pain in her feet due to gout. Pt then closed her eyes and did not respond to any further questions. RN notified. Will attempt again tomorrow.
--- NOTE | 2019-08-17 16:50 | NUR ---
Patient assessment Patient is drowsy and easily aroused, they are AOX3 able, supine in bed and on 3L via nasal cannula, skin is cold to touch. Patient's vitals are 97.7, 130/90, 81bpm, 93% o2 saturation, respirations 20 even and unlabored. Will continue to monitor.
[2019-08-17 17:00] VITALS: BP 119/49
--- NOTE | 2019-08-17 17:00 | NUR ---
Patient reassessment Patient is still drowsy and easily aroused, they are AOX3 able to state name, date and location, supine in bed and on 3L via nasal cannula, skin is cold to touch.Patient placed in Trendelenburg portions. Patient's vitals are 87/44, 91bpm, 93% and respirations 18 even and unlabored. Will continue to monitor.
--- NOTE | 2019-08-17 17:05 | NUR ---
Physician called Left message for Dr. Valencia regarding patient status. Awaiting call back.
--- NOTE | 2019-08-17 17:10 | NUR ---
Received call back Received call back from Dr. Valencia. Updated MD on patient status and new orders received. Will follow through, will continue care.
[2019-08-17] MEDS ORDERED: ALBUMIN 5% 250 ML IV ONE (17:15)
--- NOTE | 2019-08-17 17:19 | NUR ---
Blood pressure reassessment Blood pressure is no 91/40,patient is still drowsy and easily aroused, they are AOX3 able to state name, date and location, supine in bed and on 5L via nasal cannula, skin still cold to touch. Patient is currently in Trendelenburg portions. Will continue to monitor.
--- NOTE | 2019-08-17 17:30 | NUR ---
Call from pharmacy Received call from pharmacy regarding a new ordered medication from Dr. Valencia. Will notify MD regarding the medication.
--- NOTE | 2019-08-17 17:35 | NUR ---
Received call back Updated Dr. Valencia regarding medication order. New orders received. Will follow thorough.
--- NOTE | 2019-08-17 17:37 | NUR ---
Patient assessment Blood pressure is no 114/49, hr 95bpm , o2 96%. Patient placed in high fowlers, AOX3 able to state name, date and location, supine in bed. Will continue to monitor q1hr and PRN.
--- NOTE | 2019-08-17 17:45 | NUR ---
Vitals reassessment Patient is awake easily aroused, they are AOX3 able to state name, date and location, supine in bed and on 4L via nasal cannula, skin remains cold to touch. Patient placed in high fowlers position, patient stated "i want to eat my dinner". Patient's vitals are 97.7, 119/49, 96bpm, 95% and respirations 20 even and unlabored. Will continue to monitor.
--- NOTE | 2019-08-17 17:50 | NUR ---
Blood sugar assessment Blood sugar is 78. On reassessment it is 65. Will provide patient with orange juice and dinner. Will continue to monitor q1hr and PRN.
[2019-08-17 18:37] LABS: BUN/Creatinine Ratio 12.5; Calcium 8.3 mg/dL (8.5-10.1); Potassium 5.1 mmol/L (3.5-5.1)
--- NOTE | 2019-08-17 18:48 | NUR ---
Blood sugar reassessment After 125ml of orange juice and the patient eating mashed potatoes, blood sugar is now 148. Patient is in high fowlers, awake. Will continue to monitor q1hr and PRN.
--- NOTE | 2019-08-17 19:00 | NUR ---
End of shift note Endorsed care of patient to NOC RN Augustine. No signs and symptoms of distress noted.
[2019-08-17 22:00] VITALS: BP 134/95
[2019-08-17] MEDS: ATORVASTATIN 20 MG TAB PO SCH (22:47)
[2019-08-17] MEDS: COLCHICINE 0.6 MG CAP PO SCH (22:47)
[2019-08-17] MEDS: GABAPENTIN 300 MG CAP PO SCH (22:47)
[2019-08-18] VITALS (9 sets, daily range): BP systolic 92–135; BP diastolic 42–80
[2019-08-18] MEDS: LEVALBUTEROL HCL 1.25 MG/3 ML NEB NEB SCH ×4 (00:24→19:27)
[2019-08-18] MEDS: HYDROcodone-ACET 5/325MG TAB PO PRN (01:38)
[2019-08-18] MEDS: LEVOTHYROXINE SODIUM 100 MCG TAB PO SCH (06:36)
[2019-08-18] MEDS: ACCU-CHEK COMFORT CURVE STRIP VI SCH ×4 (06:36→22:00)
[2019-08-18] MEDS ORDERED: SODIUM CHL 0.9% 1000 ML BAG XX ONE (07:00)
[2019-08-18] MEDS: SILDENAFIL CITRATE 20 MG TAB PO SCH ×3 (08:00→23:24)
--- NOTE | 2019-08-18 10:25 | NUR ---
Dr Valencia at bedside, aware of patient's status including patient refusal for physical therapy. New orders received for 1 unit pRBC for hgb 7.4, per Dr Valencia transfuse as ordered. Per Dr Valencia poss dc tomorrow. Cont care. Patient's grandson/respiratory care faculty notified and updated on POC and status as requested per patient.
[2019-08-18] MEDS: FAMOTIDINE 20 MG TAB PO SCH ×2 (10:58→23:24)
--- NOTE | 2019-08-18 11:00 | NUR ---
Attempted PT but pt refused stating she is too tired. Will attempt again later.
--- NOTE | 2019-08-18 11:24 | NUR ---
Regarding Zyvox patient currently having dialysis at this time so unable to give Zyvox at this time. Spoke to [facility] pharmacist and he states okay to give after dialysis and not reschedule it. Per [facility] pharmacist okay to give late just for today but cannot reschedule otherwise will delay it. Will medicate as soon as patient is done with dialysis
--- NOTE | 2019-08-18 13:02 | NUR ---
2nd attempt made for physical therapy. Pt is now receiving dialysis.
--- NOTE | 2019-08-18 13:14 | NUR ---
RT NOTE: UNABLE TO GIVE TX AT THIS TIME. DIALYSIS EQUIPMENT IS IN THE WAY OF FLOW METERS. NO DISTRESS NOTED AT THIS TIME. PT IS AWARE RESPIRATORY WILL RETURN FOR NEXT SCHEDULED TX. WILL CONTINUE TO MONITOR.
[2019-08-18] MEDS: LINEZOLID 600MG/300ML 300 ML IV SCH ×2 (13:46→23:25)
[2019-08-18] MEDS: RIVAROXABAN 10 MG TAB PO SCH (13:49)
[2019-08-18 13:58] LABS: Albumin 2.3 g/dL (3.4-5.0); Calcium 7.6 mg/dL (8.5-10.1); Potassium 3.4 mmol/L (3.5-5.1)
[2019-08-18 14:01] LABS: Bilirubin, Total 0.6 mg/dL (0.2-1.0); Total Protein 6.1 g/dL (6.4-8.2)
--- NOTE | 2019-08-18 17:17 | NUR ---
PRBC unit started as ordered at this time VSS, pt tolerating well. Will cont to monitor in room
--- NOTE | 2019-08-18 19:10 | NUR ---
Patient care endorsed endorsed care to [place] rn. Patient resting comfortably in bed after she ate about 75% of her meal. No s/s of distress or sob noted. Patient currently infusing pRBC and less than an hour left of transfusion rn aware and will f/u on pt. Call light within reach.
--- NOTE | 2019-08-18 19:27 | NUR ---
RT NOTE PT WAS SEEN BY RT FOR HHN TX. PT REFUSED TX AND STATES SHE DOES NOT WANT TO TAKE THEM UNTIL MORNING. HR 63, RR 16, BS CLEAR/DIM, POX 97% ON 5L NASAL CANNULA. NO SOB OR DISTRESS NOTED. PT AWAKE TO HAVE RT PAGED IF SHE CHANGES HER MIND AT ANY TIME. NITIN DE JESUS NOTIFIED OF PT REFUSAL. CONT ORDERED Addendum: 08/18/19 at 2114 by Seda Hou RT Amended: Links added.
[2019-08-18] MEDS ORDERED: EPOETIN ALFA 10,000 UNIT/1 ML VIAL SC ONE (21:00)
[2019-08-18] MEDS: GABAPENTIN 300 MG CAP PO SCH (23:25)
--- NOTE | 2019-08-19 00:30 | NUR ---
RT NOTE PT WAS SEEN BY RT FOR HHN TX. PT REFUSED HHN TX AT THIS TIME. NO SOB OR DISTRESS NOTED. HR 87, RR 16, BS CLEAR/DIM, POX 97% ON 3L NASAL CANNULA. NITIN DE JESUS AWARE OF PT REFUSAL. PT AWARE TO CALL IF TX NEEDED. Addendum: 08/19/19 at 0100 by Seda Hou RT Amended: Links added.
[2019-08-19] MEDS: LEVALBUTEROL HCL 1.25 MG/3 ML NEB NEB SCH ×4 (06:07→18:00)
[2019-08-19] MEDS: ACCU-CHEK COMFORT CURVE STRIP VI SCH ×3 (07:00→17:00)
[2019-08-19 07:30] VITALS: BP 100/49
[2019-08-19] MEDS: SILDENAFIL CITRATE 20 MG TAB PO SCH ×2 (08:00→14:00)
--- NOTE | 2019-08-19 09:45 | NUR ---
Pt refused physical therapy again. Pt has refused several times and will be discharged for non-compliance. Please reorder PT if pt is agreeable to treatment.
[2019-08-19] MEDS: LINEZOLID 600MG/300ML 300 ML IV SCH (10:45)
[2019-08-19] MEDS: FAMOTIDINE 20 MG TAB PO SCH (10:47)
--- NOTE | 2019-08-19 12:07 | NUR ---
Bryonro at bedside MD Vazquez at bedside, states patient is cleared for dc home. MD Valencia paged to notify. Patient also "accidentally" pulled out midline and refusing IV start at this time.
[2019-08-19 12:30] VITALS: BP 98/44
[2019-08-19] MEDS ORDERED: PANTOPRAZOLE 40 MG TAB PO ONE (12:30)
--- NOTE | 2019-08-19 12:39 | NUR ---
Nutrition Followup Note Wt: 74.6 kg Pt was sleeping with no family by bedside. Per records pt s/p chest tube. Pt is with a Cardiac diet, with inadequte PO of < 75% x 2 days per RN doc Est energy needs 74 [id number] kcal (25-27 kcal/kg), , Est protein needs 88-96 g (1.2-1.3 r/t HD).Will reassess prn. Labs: BUN 21 H, CREAT 1.15 H, CA 7.6 L, ALB 2.3 L. Skin: BS 12 high risk Please refer to wound assessment report for full details. BM: Pt had 3 BM today per RN doc PES: Altered nutrition related lab values r/t current chronic medical condition aeb elev RFT Rec: 1) Refer to CDE on DC. ,. 2) consider CCHO 60 gm renal std along with current diet. 3) Continue current plan of care. F/u high 2-3 days
--- NOTE | 2019-08-19 13:00 | NUR ---
Dr. Valencia aware of patient's status. MD states patient will go home today. Awaiting Estefani Garner for rounds. set up with [facility]. Will dc as ordered
[2019-08-19] MEDS: RIVAROXABAN 10 MG TAB PO SCH (13:11)
--- NOTE | 2019-08-19 13:52 | NUR ---
Spoke to field case manager at [facility] and required paper work faxed to [phone] Hoda vasquez patient will resume HH. Will dc as ordered
[2019-08-19 16:53] VITALS: BP 127/60
--- NOTE | 2019-08-19 17:44 | NUR ---
Discharge instructions given to caregiver Gilberto. He states patient has scheduled dialysis tomorrow at 1030 am. Encouraged to call to make own appt with Dr Valencia tomorrow. All questions and concerns addressed.
--- NOTE | 2019-08-19 18:14 | NUR ---
Respiratory note: SCHEDULED MED NEB TX NOT GIVEN. PT IS BEING DISCHARGED AND WAITING TO BE PICKED UP. RN AT BEDSIDE.
--- NOTE | 2019-08-19 18:45 | NUR ---
Discharge instructions given as ordered to patient and caregiver Gilberto over the phone. Encourage to follow up with PMD as instructed. All questions and concerns addressed. Patient verbalized understanding. Wound photos taken and MRSA swab sent as ordered. Medication reconciliation form completed and copy given to patient. IV removed with catheter intact this morning. Telemetry unit returned to ICU. Patient taken to vehicle via wheelchair with all personal belongings including personal wheelchair, accompanied by staff and Gilberto picking up at the main lobby states he brought pt's personal oxygen tank. No distress noted at time of departure, sob or pain.
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
[2019-08-20] MEDS ORDERED: PANTOPRAZOLE 40 MG TAB PO SCH (10:00)
== END 2019-08-19 18:45 | disposition home health service (06) | DRG 163 ==
LOC: WEST WING 17:22 → TELE-WESTW 08-02 08:37 → WEST WING 08-02 10:35 → DOU IN ICU 08-13 13:54 → TELE-WESTW 08-15 11:06
PROVIDERS: ADMIT Internal Medicine Cardiovascular Disease; ATTEND Internal Medicine Cardiovascular Disease
PROC: 0W9930Z Drainage of Right Pleural Cavity with Drainage Device, Percutaneous Approach (ICD-10-PCS; principal; 2019-07-19)
PROC: 5A1D70Z Performance of Urinary Filtration, Intermittent, Less than 6 Hours Per Day (ICD-10-PCS; 2019-07-20)
PROC: 5A1D70Z Performance of Urinary Filtration, Intermittent, Less than 6 Hours Per Day (ICD-10-PCS; 2019-07-23)
PROC: 5A1D70Z Performance of Urinary Filtration, Intermittent, Less than 6 Hours Per Day (ICD-10-PCS; 2019-07-25)
PROC: 5A1D70Z Performance of Urinary Filtration, Intermittent, Less than 6 Hours Per Day (ICD-10-PCS; 2019-07-27)
PROC: 5A1D70Z Performance of Urinary Filtration, Intermittent, Less than 6 Hours Per Day (ICD-10-PCS; 2019-07-30)
PROC: 5A1D70Z Performance of Urinary Filtration, Intermittent, Less than 6 Hours Per Day (ICD-10-PCS; 2019-08-01)
PROC: 0WP933Z Removal of Infusion Device from Right Pleural Cavity, Percutaneous Approach (ICD-10-PCS; 2019-08-02)
PROC: 0W9930Z Drainage of Right Pleural Cavity with Drainage Device, Percutaneous Approach (ICD-10-PCS; 2019-08-02)
PROC: 5A1D70Z Performance of Urinary Filtration, Intermittent, Less than 6 Hours Per Day (ICD-10-PCS; 2019-08-06)
PROC: 5A1D70Z Performance of Urinary Filtration, Intermittent, Less than 6 Hours Per Day (ICD-10-PCS; 2019-08-08)
PROC: 30230N1 Transfusion of Nonautologous Red Blood Cells into Peripheral Vein, Open Approach (ICD-10-PCS; 2019-08-10)
PROC: 5A1D70Z Performance of Urinary Filtration, Intermittent, Less than 6 Hours Per Day (ICD-10-PCS; 2019-08-10)
PROC: 5A1D70Z Performance of Urinary Filtration, Intermittent, Less than 6 Hours Per Day (ICD-10-PCS; 2019-08-13)
PROC: 0B5N0ZZ Destruction of Right Pleura, Open Approach (ICD-10-PCS; 2019-08-13)
PROC: 5A1D70Z Performance of Urinary Filtration, Intermittent, Less than 6 Hours Per Day (ICD-10-PCS; 2019-08-14)
PROC: 5A1D70Z Performance of Urinary Filtration, Intermittent, Less than 6 Hours Per Day (ICD-10-PCS; 2019-08-18)
DX: J96.01 Acute respiratory failure with hypoxia (principal); I50.43 Acute on chronic combined systolic (congestive) and diastolic (congestive) heart failure; N18.6 End stage renal disease; J93.9 Pneumothorax, unspecified; J90 Pleural effusion, not elsewhere classified; I13.2 Hypertensive heart and chronic kidney disease with heart failure and with stage 5 chronic kidney disease, or end stage renal disease; E87.1 Hypo-osmolality and hyponatremia; E44.0 Moderate protein-calorie malnutrition; E87.3 Alkalosis; I25.5 Ischemic cardiomyopathy; Z99.2 Dependence on renal dialysis; J44.9 Chronic obstructive pulmonary disease, unspecified; D64.9 Anemia, unspecified; I25.10 Atherosclerotic heart disease of native coronary artery without angina pectoris; E86.9 Volume depletion, unspecified; I73.9 Peripheral vascular disease, unspecified; E87.5 Hyperkalemia; I95.3 Hypotension of hemodialysis; I07.1 Rheumatic tricuspid insufficiency; E11.22 Type 2 diabetes mellitus with diabetic chronic kidney disease; Z79.4 Long term (current) use of insulin; Z82.49 Family history of ischemic heart disease and other diseases of the circulatory system; Z80.0 Family history of malignant neoplasm of digestive organs; Z95.810 Presence of automatic (implantable) cardiac defibrillator; Z95.5 Presence of coronary angioplasty implant and graft; Z20.828 Contact with and (suspected) exposure to other viral communicable diseases
CPT/HCPCS: 36415; 36600; 71045; 71046; 76937; 80048; 80053; 81001; 82306; 82728; 82805; 82962; 83036; 83540; 83550; 83880; 83970; 84100; 84550; 85014; 85018; 85025; 85610; 85730; 86850; 86900; 86901; 86920; 87070; 87075; 87077; 87081; 87086; 87088; 87186; 87205; 90935; 93306; 94640; 97110; 97530; 99152; 99153; G0378; G0463; J0131; J0330; J0690; J0885; J1642; J1815; J1885; J1956; J2001; J2250; J2405; J2704; Q9967

== ENCOUNTER → 2019-07-18 | Outpatient (CLI) | payer MEDICARE, OTHER ==
[~2019-07-18] MED LIST changes: -CLOP75TA28 PO; +FER325T PO; -GABA100C9 PO; +GABA400C11 PO; +PANT20TA59 PO; +PANT40T PO; +RIVA20TA PO
== END | disposition home or self-care (01) ==
LOC: Rad HDHVI 15:47
PROVIDERS: ATTEND Internal Medicine Cardiovascular Disease
DX: J90 Pleural effusion, not elsewhere classified (principal); I27.0 Primary pulmonary hypertension; I51.7 Cardiomegaly
CPT/HCPCS: 71046; G0463

== ENCOUNTER 2019-08-19 18:55 | Inpatient (IN) | payer MEDICARE, OTHER ==
[~2019-08-19] VITALS: Ht 157.5 cm; Wt 73.1 kg
[~2019-08-19 18:55] MED LIST changes: +ASPI-404 PO; -ASPI-543 PO; +FER325T PO; -FERR45TA7 PO; -PANT20TA59 PO; +PANT40T PO; +RIVA2.5T PO; -RIVA20TA PO; -TIOTCAP IN
[2019-08-19 19:41] LABS: Basophils # (auto) 0.1 10 ^3/uL (0-0.2); Basophils % (auto) 0.5 % (0.0-2.0); Eosinophils # (auto) 0.2 10 ^3/uL (0-0.8); Hematocrit 30.5 % (36.0-46.0); Hemoglobin 9.5 g/dL (12.2-16.2); Lymphocytes # (auto) 0.8 10 ^3/uL (0.4-5.4); Mean Corpuscular Hemoglobin 27.8 pg (28.0-32.0); Mean Corpuscular Hgb Conc. 31.2 g/dL (32.0-36.0); Mean Corpuscular Volume 89.1 fL (80.0-100.0); Monocytes # (auto) 0.5 10 ^3/uL (0-1.3); Monocytes % (auto) 5.2 % (0.0-12.0); Neutrophils # (auto) 8.5 10 ^3/uL (1.6-8.6); Neutrophils % (auto) 84.3 % (37.0-80.0); Platelet Count (auto) 261 10^3/uL (140-450); Red Blood Cells 3.42 10^6/uL (4.0-5.20); Red Cell Distribution Width 16.4 % (11.8-14.3); White Blood Cell 10.2 10^3/uL (4.4-10.8)
[2019-08-19 20:30] LABS: Albumin 2.3 g/dL (3.4-5.0); Anion Gap 9 (5-15); Blood Urea Nitrogen 38 mg/dL (7-18); Calcium 8.5 mg/dL (8.5-10.1); Carbon Dioxide 23 mmol/L (21-32); Chloride 99 mmol/L (98-107); Glucose 103 mg/dL (74-106); Potassium 4.7 mmol/L (3.5-5.1); Sodium 131 mmol/L (136-145)
[2019-08-19 20:35] LABS: Alanine Aminotransferase 19 U/L (13-56); Alkaline Phosphatase 70 U/L (45-117); Aspartate Aminotransferase 29 U/L (15-37); BUN/Creatinine Ratio 13.9; Bilirubin, Total 0.8 mg/dL (0.2-1.0); GFR African American 21 mL/min; GFR Non-African American 18 mL/min; Total Protein 6.3 g/dL (6.4-8.2)
[2019-08-19 23:21] LABS: Urine Bacteria FEW /hpf (None Seen); Urine Blood Negative /uL (Negative); Urine Hyaline Cast FEW /lpf (0 - 2); Urine Specific Gravity 1.016 (1.001-1.035); Urine WBC <1 /hpf (0 - 5)
[2019-08-20] MEDS ORDERED: HYDROcodone-ACET 5/325MG TAB PO ONE (00:15)
[2019-08-20] MEDS ORDERED: MORPHINE SULF INJ 2 MG/ML SYRINGE 1ML IV ONE (04:45)
[2019-08-20] MEDS ORDERED: ONDANSETRON HCL 4 MG/2 ML VIAL IV ONE (04:45)
[2019-08-20] MEDS ORDERED: ATORVASTATIN 20 MG TAB PO ONE (12:30)
[2019-08-20] MEDS ORDERED: METOPROLOL TARTRATE 25 MG TAB PO ONE (12:30)
[2019-08-20] MEDS ORDERED: NITROGLYCERIN 0.4 MG SL TAB SL PRN ×2 (12:30→13:00)
[2019-08-20] MEDS ORDERED: MORPHINE SULF INJ 2 MG/ML SYRINGE 1ML IV PRN ×2 (12:30→16:30)
[2019-08-20] MEDS ORDERED: CLOPIDOGREL BISULFATE 75 MG TAB PO ONE (12:30)
[2019-08-20] MEDS ORDERED: FUROSEMIDE 40 MG/4 ML VIAL IV ONE (12:30)
[2019-08-20] MEDS ORDERED: ENOXAPARIN SOD 80 MG/0.8ML SYRINGE SC ONE (12:30)
[2019-08-20] MEDS ORDERED: ASPirin 81 mg TAB PO ONE (12:30)
[2019-08-20] MEDS ORDERED: FUROSEMIDE INJECTION 100 MG in SODIUM CHL 0.9% 100 ML IV ONE (12:45)
[2019-08-20] MEDS ORDERED: DOBUTamine 1000MCG/ML 250 ML IV ONE (12:45)
[2019-08-20] MEDS ORDERED: SODIUM CHLORIDE 0.9% 1,000 ML IV SCH (12:51)
[2019-08-20] MEDS ORDERED: LORazepam 0.5 MG TAB PO PRN (13:00)
[2019-08-20] MEDS ORDERED: ALUM & MAG HYDROX-SIMETH LIQ(MAALOX) 30 ML PO ONE (13:00)
[2019-08-20] MEDS ORDERED: MORPHINE SULFATE 4 MG/ML SYR/VIAL IV PRN (13:00)
[2019-08-20] MEDS ORDERED: LEVOTHYROXINE SODIUM 100 MCG TAB PO ONE (13:15)
[2019-08-20] MEDS ORDERED: DEXTROSE (50%) 50ML SYRG IV PRN (13:15)
[2019-08-20] MEDS ORDERED: METOPROLOL TARTRATE 1MG/1ML-5ML VIAL IV PRN (14:45)
[2019-08-20] MEDS: IPRATROPIUM BROM 0.5 MG/2.5ML INH SOL NEB SCH ×3 (15:19→22:23)
[2019-08-20] MEDS: InsuLIN REG 1unit/0.01ml Soln (100units/ml) SC SCH ×2 (17:00→22:00)
[2019-08-20] MEDS: ACCU-CHEK COMFORT CURVE STRIP VI SCH ×2 (18:18→22:24)
[2019-08-20 18:39] VITALS: BP 110/50
[2019-08-20 22:00] VITALS: BP 109/40
[2019-08-20] MEDS ORDERED: CARVEDILOL 3.125 MG TAB PO SCH (22:00)
[2019-08-20] MEDS: ATORVASTATIN 20 MG TAB PO SCH (22:21)
[2019-08-20] MEDS: PIPERACILLIN-TAZOB 2.25GM 50 ML IV SCH (22:23)
[2019-08-21] VITALS (7 sets, daily range): BP systolic 90–110; BP diastolic 36–81
[2019-08-21] MEDS ORDERED: ENOXAPARIN SOD 100 MG/1 ML SYRINGE SC ONE (00:45)
[2019-08-21] MEDS: IPRATROPIUM BROM 0.5 MG/2.5ML INH SOL NEB SCH ×6 (02:00→22:18)
[2019-08-21 06:22] LABS: Basophils # (auto) 0.1 10 ^3/uL (0-0.2); Basophils % (auto) 1.1 % (0.0-2.0); Eosinophils # (auto) 0.3 10 ^3/uL (0-0.8); Eosinophils % (auto) 4.3 % (0.0-7.0); Hematocrit 22.5 % (36.0-46.0); Hemoglobin 7.4 g/dL (12.2-16.2); Lymphocytes # (auto) 0.7 10 ^3/uL (0.4-5.4); Lymphocytes % (auto) 9.5 % (10.0-50.0); Mean Corpuscular Hemoglobin 28.4 pg (28.0-32.0); Mean Corpuscular Hgb Conc. 32.7 g/dL (32.0-36.0); Monocytes # (auto) 0.5 10 ^3/uL (0-1.3); Monocytes % (auto) 6.9 % (0.0-12.0); Neutrophils # (auto) 5.4 10 ^3/uL (1.6-8.6); Neutrophils % (auto) 78.2 % (37.0-80.0); Nucleated Red Blood Cells % 0.1 %; Platelet Count (auto) 195 10^3/uL (140-450); Red Blood Cells 2.59 10^6/uL (4.0-5.20); Red Cell Distribution Width 15.9 % (11.8-14.3); White Blood Cell 6.9 10^3/uL (4.4-10.8)
[2019-08-21] MEDS: InsuLIN REG 1unit/0.01ml Soln (100units/ml) SC SCH ×4 (06:24→22:22)
[2019-08-21] MEDS: ACCU-CHEK COMFORT CURVE STRIP VI SCH ×4 (06:24→22:19)
[2019-08-21] MEDS: LEVOTHYROXINE SODIUM 100 MCG TAB PO SCH (06:34)
[2019-08-21] MEDS: HYDROcodone-ACET 5/325MG TAB PO PRN (06:35)
[2019-08-21 06:42] LABS: INR 1.18 (0.9-1.15); Partial Thromboplastin Time 31.8 sec (23.64-32.05)
[2019-08-21 06:43] LABS: Potassium 4.8 mmol/L (3.5-5.1)
[2019-08-21 06:58] LABS: Albumin 2.1 g/dL (3.4-5.0); BUN/Creatinine Ratio 15.3; Bilirubin, Total 0.8 mg/dL (0.2-1.0); Calcium 8.3 mg/dL (8.5-10.1); Magnesium 2.7 mg/dL (1.6-2.6); Phosphorus 4.3 mg/dL (2.5-4.90); Total Protein 5.5 g/dL (6.4-8.2)
[2019-08-21] MEDS ORDERED: SODIUM CHL 0.9% 1000 ML BAG XX ONE (07:00)
[2019-08-21] MEDS: CALCIUM ACETATE 667 MG CAP PO SCH ×3 (08:00→17:56)
[2019-08-21] MEDS ORDERED: CLOPIDOGREL BISULFATE 75 MG TAB PO SCH (10:00)
[2019-08-21] MEDS ORDERED: LISINOPRIL 5 MG TAB PO SCH (10:00)
[2019-08-21] MEDS: CARVEDILOL 3.125 MG TAB PO SCH ×2 (10:00→22:58)
[2019-08-21] MEDS: PIPERACILLIN-TAZOB 2.25GM 50 ML IV SCH ×2 (11:49→22:19)
[2019-08-21] MEDS: DOCUSATE SOD 100 MG CAP PO SCH (11:49)
[2019-08-21] MEDS: ASPirin 81 mg TAB PO SCH (11:49)
[2019-08-21] MEDS ORDERED: EPOETIN ALFA 10,000 UNIT/1 ML VIAL SC ONE (21:00)
[2019-08-21] MEDS: ATORVASTATIN 20 MG TAB PO SCH (22:58)
[2019-08-22] VITALS (10 sets, daily range): BP systolic 103–132; BP diastolic 42–59
[2019-08-22] MEDS: IPRATROPIUM BROM 0.5 MG/2.5ML INH SOL NEB SCH ×6 (02:00→22:23)
[2019-08-22] MEDS: ACCU-CHEK COMFORT CURVE STRIP VI SCH ×4 (06:26→22:00)
[2019-08-22] MEDS: HYDROcodone-ACET 5/325MG TAB PO PRN (06:26)
[2019-08-22] MEDS: LEVOTHYROXINE SODIUM 100 MCG TAB PO SCH (06:26)
[2019-08-22] MEDS: InsuLIN REG 1unit/0.01ml Soln (100units/ml) SC SCH ×4 (06:35→22:00)
[2019-08-22] MEDS: CALCIUM ACETATE 667 MG CAP PO SCH ×3 (08:05→18:00)
[2019-08-22 09:38] LABS: Basophils # (auto) 0.1 10 ^3/uL (0-0.2); Basophils % (auto) 1.5 % (0.0-2.0); Eosinophils # (auto) 0.2 10 ^3/uL (0-0.8); Eosinophils % (auto) 2.2 % (0.0-7.0); Hematocrit 31.2 % (36.0-46.0); Hemoglobin 10.4 g/dL (12.2-16.2); Lymphocytes # (auto) 1.1 10 ^3/uL (0.4-5.4); Lymphocytes % (auto) 13.6 % (10.0-50.0); Mean Corpuscular Hemoglobin 28.3 pg (28.0-32.0); Mean Corpuscular Hgb Conc. 33.2 g/dL (32.0-36.0); Mean Corpuscular Volume 85.3 fL (80.0-100.0); Monocytes # (auto) 0.9 10 ^3/uL (0-1.3); Monocytes % (auto) 11.1 % (0.0-12.0); Neutrophils # (auto) 5.5 10 ^3/uL (1.6-8.6); Neutrophils % (auto) 71.6 % (37.0-80.0); Nucleated Red Blood Cells % 0.1 %; Platelet Count (auto) 200 10^3/uL (140-450); Red Blood Cells 3.66 10^6/uL (4.0-5.20); Red Cell Distribution Width 15.3 % (11.8-14.3); White Blood Cell 7.7 10^3/uL (4.4-10.8)
[2019-08-22] MEDS: CARVEDILOL 3.125 MG TAB PO SCH ×2 (10:00→23:26)
[2019-08-22] MEDS: DOCUSATE SOD 100 MG CAP PO SCH (10:14)
[2019-08-22] MEDS: ASPirin 81 mg TAB PO SCH (10:14)
[2019-08-22] MEDS: PIPERACILLIN-TAZOB 2.25GM 50 ML IV SCH ×2 (10:14→22:00)
[2019-08-22] MEDS: ATORVASTATIN 20 MG TAB PO SCH (22:00)
[2019-08-23] VITALS (7 sets, daily range): BP systolic 96–130; BP diastolic 42–69
[2019-08-23] MEDS: IPRATROPIUM BROM 0.5 MG/2.5ML INH SOL NEB SCH ×6 (02:26→22:23)
[2019-08-23] MEDS: ACCU-CHEK COMFORT CURVE STRIP VI SCH ×4 (05:38→21:50)
[2019-08-23] MEDS: InsuLIN REG 1unit/0.01ml Soln (100units/ml) SC SCH ×4 (05:47→22:04)
[2019-08-23] MEDS: LEVOTHYROXINE SODIUM 100 MCG TAB PO SCH (06:16)
[2019-08-23] MEDS ORDERED: SODIUM CHL 0.9% 1000 ML BAG XX ONE (07:00)
[2019-08-23] MEDS: CALCIUM ACETATE 667 MG CAP PO SCH ×3 (08:00→17:21)
[2019-08-23] MEDS: PIPERACILLIN-TAZOB 2.25GM 50 ML IV SCH ×2 (10:00→21:50)
[2019-08-23] MEDS: CARVEDILOL 3.125 MG TAB PO SCH ×2 (10:00→21:49)
[2019-08-23] MEDS: ASPirin 81 mg TAB PO SCH (10:00)
[2019-08-23] MEDS: DOCUSATE SOD 100 MG CAP PO SCH (10:00)
[2019-08-23] MEDS ORDERED: EPOETIN ALFA 4,000 UNIT/ML VL SC ONE (21:00)
[2019-08-23] MEDS: ATORVASTATIN 20 MG TAB PO SCH (21:47)
[2019-08-23] MEDS: HYDROcodone-ACET 5/325MG TAB PO PRN (22:44)
[2019-08-24] MEDS: IPRATROPIUM BROM 0.5 MG/2.5ML INH SOL NEB SCH ×6 (02:29→22:15)
[2019-08-24 05:30] VITALS: BP 91/32
[2019-08-24] MEDS: ACCU-CHEK COMFORT CURVE STRIP VI SCH ×4 (06:48→22:24)
[2019-08-24] MEDS: InsuLIN REG 1unit/0.01ml Soln (100units/ml) SC SCH ×4 (06:50→22:25)
[2019-08-24] MEDS: CALCIUM ACETATE 667 MG CAP PO SCH ×3 (08:03→17:41)
[2019-08-24] MEDS: LEVOTHYROXINE SODIUM 100 MCG TAB PO SCH (08:03)
[2019-08-24 09:00] VITALS: BP 133/43
[2019-08-24] MEDS: ASPirin 81 mg TAB PO SCH (10:29)
[2019-08-24] MEDS: PIPERACILLIN-TAZOB 2.25GM 50 ML IV SCH ×2 (10:29→22:24)
[2019-08-24] MEDS: CARVEDILOL 3.125 MG TAB PO SCH ×2 (10:30→22:23)
[2019-08-24] MEDS: DOCUSATE SOD 100 MG CAP PO SCH (10:30)
[2019-08-24 13:00] VITALS: BP 104/32
[2019-08-24 17:00] VITALS: BP 126/40
[2019-08-24 22:00] VITALS: BP 134/55
[2019-08-24] MEDS: ATORVASTATIN 20 MG TAB PO SCH (22:23)
[2019-08-25] VITALS (7 sets, daily range): BP systolic 99–140; BP diastolic 54–66
[2019-08-25] MEDS: ONDANSETRON HCL 4 MG/2 ML VIAL IV PRN (00:43)
[2019-08-25] MEDS: IPRATROPIUM BROM 0.5 MG/2.5ML INH SOL NEB SCH ×6 (02:53→22:00)
[2019-08-25] MEDS: LEVOTHYROXINE SODIUM 100 MCG TAB PO SCH (06:17)
[2019-08-25] MEDS: ACCU-CHEK COMFORT CURVE STRIP VI SCH ×4 (06:18→22:26)
[2019-08-25] MEDS: InsuLIN REG 1unit/0.01ml Soln (100units/ml) SC SCH ×4 (06:20→22:00)
[2019-08-25] MEDS: CALCIUM ACETATE 667 MG CAP PO SCH ×3 (07:44→17:16)
[2019-08-25] MEDS: ASPirin 81 mg TAB PO SCH (09:59)
[2019-08-25] MEDS: PIPERACILLIN-TAZOB 2.25GM 50 ML IV SCH ×2 (09:59→22:25)
[2019-08-25] MEDS: DOCUSATE SOD 100 MG CAP PO SCH (09:59)
[2019-08-25] MEDS: CARVEDILOL 3.125 MG TAB PO SCH ×2 (10:00→22:26)
[2019-08-25] MEDS ORDERED: SODIUM CHL 0.9% 1000 ML BAG XX ONE (11:30)
[2019-08-25 12:13] LABS: Basophils # (auto) 0.1 10 ^3/uL (0-0.2); Basophils % (auto) 1.4 % (0.0-2.0); Eosinophils # (auto) 0.2 10 ^3/uL (0-0.8); Eosinophils % (auto) 1.6 % (0.0-7.0); Hematocrit 32.2 % (36.0-46.0); Hemoglobin 10.5 g/dL (12.2-16.2); Lymphocytes % (auto) 10.4 % (10.0-50.0); Mean Corpuscular Hemoglobin 28.6 pg (28.0-32.0); Mean Corpuscular Hgb Conc. 32.5 g/dL (32.0-36.0); Mean Corpuscular Volume 87.9 fL (80.0-100.0); Monocytes # (auto) 0.8 10 ^3/uL (0-1.3); Monocytes % (auto) 7.9 % (0.0-12.0); Neutrophils # (auto) 7.7 10 ^3/uL (1.6-8.6); Neutrophils % (auto) 78.7 % (37.0-80.0); Platelet Count (auto) 239 10^3/uL (140-450); Red Blood Cells 3.66 10^6/uL (4.0-5.20); Red Cell Distribution Width 15.9 % (11.8-14.3); White Blood Cell 9.8 10^3/uL (4.4-10.8)
[2019-08-25 12:28] LABS: Albumin 2.3 g/dL (3.4-5.0); Calcium 8.5 mg/dL (8.5-10.1); Potassium 4.2 mmol/L (3.5-5.1)
[2019-08-25 12:31] LABS: BUN/Creatinine Ratio 11.6; Bilirubin, Total 0.7 mg/dL (0.2-1.0); Total Protein 6.2 g/dL (6.4-8.2)
[2019-08-25] MEDS ORDERED: EPOETIN ALFA 10,000 UNIT/1 ML VIAL SC ONE (21:00)
[2019-08-25] MEDS: ATORVASTATIN 20 MG TAB PO SCH ×2 (22:26→22:39)
[2019-08-26] MEDS: IPRATROPIUM BROM 0.5 MG/2.5ML INH SOL NEB SCH ×6 (00:30→22:00)
[2019-08-26 06:06] VITALS: BP 146/72
[2019-08-26] MEDS: LEVOTHYROXINE SODIUM 100 MCG TAB PO SCH (06:12)
[2019-08-26] MEDS: InsuLIN REG 1unit/0.01ml Soln (100units/ml) SC SCH ×4 (06:52→22:00)
[2019-08-26] MEDS: ACCU-CHEK COMFORT CURVE STRIP VI SCH ×4 (06:54→22:00)
[2019-08-26 08:00] VITALS: BP 151/63
[2019-08-26] MEDS: CALCIUM ACETATE 667 MG CAP PO SCH ×3 (08:57→18:00)
[2019-08-26 09:00] VITALS: BP 133/71
[2019-08-26] MEDS: DOCUSATE SOD 100 MG CAP PO SCH (10:00)
[2019-08-26] MEDS: CARVEDILOL 3.125 MG TAB PO SCH ×3 (10:00→22:00)
[2019-08-26] MEDS: ASPirin 81 mg TAB PO SCH (10:35)
[2019-08-26] MEDS: PIPERACILLIN-TAZOB 2.25GM 50 ML IV SCH ×2 (10:35→21:57)
[2019-08-26 13:00] VITALS: BP 158/62
[2019-08-26] MEDS ORDERED: PANTOPRAZOLE 40 MG TAB PO ONE (14:30)
[2019-08-26 17:00] VITALS: BP 138/52
[2019-08-26] MEDS: HYDROcodone-ACET 5/325MG TAB PO PRN ×2 (17:25→22:20)
[2019-08-26] MEDS: ONDANSETRON HCL 4 MG/2 ML VIAL IV PRN (17:26)
[2019-08-26] MEDS: PANTOPRAZOLE 40 MG TAB PO SCH (21:58)
[2019-08-26] MEDS: ATORVASTATIN 20 MG TAB PO SCH (21:58)
[2019-08-27 00:44] VITALS: BP 149/56
[2019-08-27] MEDS: IPRATROPIUM BROM 0.5 MG/2.5ML INH SOL NEB SCH ×6 (02:07→22:48)
[2019-08-27 05:58] VITALS: BP 145/95
[2019-08-27] MEDS: ACCU-CHEK COMFORT CURVE STRIP VI SCH ×4 (06:07→22:00)
[2019-08-27] MEDS: LEVOTHYROXINE SODIUM 100 MCG TAB PO SCH (06:08)
[2019-08-27] MEDS: InsuLIN REG 1unit/0.01ml Soln (100units/ml) SC SCH ×4 (06:08→22:00)
[2019-08-27] MEDS: CALCIUM ACETATE 667 MG CAP PO SCH ×3 (08:00→17:32)
[2019-08-27] MEDS: DOCUSATE SOD 100 MG CAP PO SCH (10:00)
[2019-08-27] MEDS: PANTOPRAZOLE 40 MG TAB PO SCH ×2 (10:00→22:33)
[2019-08-27] MEDS: ASPirin 81 mg TAB PO SCH (10:00)
[2019-08-27] MEDS: PIPERACILLIN-TAZOB 2.25GM 50 ML IV SCH ×2 (10:00→22:35)
[2019-08-27] MEDS: ONDANSETRON HCL 4 MG/2 ML VIAL IV PRN (11:29)
[2019-08-27 13:00] VITALS: BP 114/64
[2019-08-27] MEDS: HYDROcodone-ACET 5/325MG TAB PO PRN (16:09)
[2019-08-27 17:00] VITALS: BP 132/69
[2019-08-27 22:00] VITALS: BP 119/65
[2019-08-27] MEDS: ATORVASTATIN 20 MG TAB PO SCH (22:33)
[2019-08-27] MEDS: CARVEDILOL 3.125 MG TAB PO SCH (22:33)
[2019-08-28] MEDS: IPRATROPIUM BROM 0.5 MG/2.5ML INH SOL NEB SCH ×7 (02:00→22:00)
[2019-08-28 05:00] VITALS: BP 106/41
[2019-08-28] MEDS: LEVOTHYROXINE SODIUM 100 MCG TAB PO SCH (06:45)
[2019-08-28] MEDS: InsuLIN REG 1unit/0.01ml Soln (100units/ml) SC SCH ×4 (06:48→22:00)
[2019-08-28] MEDS: ACCU-CHEK COMFORT CURVE STRIP VI SCH ×4 (06:49→22:00)
[2019-08-28] MEDS: CALCIUM ACETATE 667 MG CAP PO SCH ×3 (08:00→18:12)
[2019-08-28 09:00] VITALS: BP 103/39
[2019-08-28] MEDS ORDERED: SODIUM CHL 0.9% 1000 ML BAG XX ONE (09:45)
[2019-08-28] MEDS: PIPERACILLIN-TAZOB 2.25GM 50 ML IV SCH ×2 (10:32→22:07)
[2019-08-28] MEDS: DOCUSATE SOD 100 MG CAP PO SCH (10:33)
[2019-08-28] MEDS: ASPirin 81 mg TAB PO SCH (10:33)
[2019-08-28] MEDS: CARVEDILOL 3.125 MG TAB PO SCH ×2 (10:35→22:06)
[2019-08-28] MEDS: PANTOPRAZOLE 40 MG TAB PO SCH ×2 (10:35→22:00)
[2019-08-28 12:31] VITALS: BP 109/35
[2019-08-28 15:55] LABS: Basophils # (auto) 0.1 10 ^3/uL (0-0.2); Basophils % (auto) 0.8 % (0.0-2.0); Eosinophils # (auto) 0.4 10 ^3/uL (0-0.8); Hematocrit 31.8 % (36.0-46.0); Hemoglobin 10.4 g/dL (12.2-16.2); Lymphocytes # (auto) 0.7 10 ^3/uL (0.4-5.4); Mean Corpuscular Hemoglobin 28.8 pg (28.0-32.0); Mean Corpuscular Hgb Conc. 32.8 g/dL (32.0-36.0); Mean Corpuscular Volume 87.8 fL (80.0-100.0); Monocytes # (auto) 0.5 10 ^3/uL (0-1.3); Neutrophils # (auto) 6.1 10 ^3/uL (1.6-8.6); Neutrophils % (auto) 79.2 % (37.0-80.0); Nucleated Red Blood Cells % 0.1 %; Platelet Count (auto) 232 10^3/uL (140-450); Red Blood Cells 3.62 10^6/uL (4.0-5.20); Red Cell Distribution Width 16.5 % (11.8-14.3); White Blood Cell 7.7 10^3/uL (4.4-10.8)
[2019-08-28 16:18] LABS: Albumin 2.4 g/dL (3.4-5.0); Calcium 7.7 mg/dL (8.5-10.1); Potassium 3.6 mmol/L (3.5-5.1)
[2019-08-28 16:22] LABS: BUN/Creatinine Ratio 10.7; Bilirubin, Total 0.8 mg/dL (0.2-1.0); Total Protein 6.4 g/dL (6.4-8.2)
[2019-08-28 17:00] VITALS: BP 143/49
[2019-08-28 22:00] VITALS: BP 146/54
[2019-08-28] MEDS: ATORVASTATIN 20 MG TAB PO SCH (22:00)
[2019-08-29 01:15] VITALS: BP 146/59
[2019-08-29] MEDS: IPRATROPIUM BROM 0.5 MG/2.5ML INH SOL NEB SCH ×6 (01:40→23:25)
[2019-08-29 05:00] VITALS: BP 116/60
[2019-08-29] MEDS: LEVOTHYROXINE SODIUM 100 MCG TAB PO SCH (06:52)
[2019-08-29] MEDS: ACCU-CHEK COMFORT CURVE STRIP VI SCH ×4 (06:52→22:00)
[2019-08-29] MEDS: InsuLIN REG 1unit/0.01ml Soln (100units/ml) SC SCH ×4 (06:52→22:00)
[2019-08-29] MEDS: PIPERACILLIN-TAZOB 2.25GM 50 ML IV SCH ×2 (08:48→22:00)
[2019-08-29] MEDS: CALCIUM ACETATE 667 MG CAP PO SCH ×3 (08:48→17:26)
[2019-08-29] MEDS: DOCUSATE SOD 100 MG CAP PO SCH (08:49)
[2019-08-29] MEDS: PANTOPRAZOLE 40 MG TAB PO SCH ×2 (08:49→22:00)
[2019-08-29] MEDS: ASPirin 81 mg TAB PO SCH (08:49)
[2019-08-29] MEDS: CARVEDILOL 3.125 MG TAB PO SCH ×2 (08:50→22:00)
[2019-08-29 09:00] VITALS: BP 116/41
[2019-08-29 13:00] VITALS: BP 121/56
[2019-08-29 16:55] VITALS: BP 108/52
[2019-08-29 22:00] VITALS: BP 130/60
[2019-08-29] MEDS: ATORVASTATIN 20 MG TAB PO SCH (22:00)
[2019-08-30] MEDS: IPRATROPIUM BROM 0.5 MG/2.5ML INH SOL NEB SCH ×6 (02:00→22:30)
[2019-08-30 05:00] VITALS: BP 131/63
[2019-08-30] MEDS: LEVOTHYROXINE SODIUM 100 MCG TAB PO SCH (06:41)
[2019-08-30] MEDS: ACCU-CHEK COMFORT CURVE STRIP VI SCH ×4 (06:42→22:00)
[2019-08-30] MEDS: InsuLIN REG 1unit/0.01ml Soln (100units/ml) SC SCH ×4 (06:42→22:00)
[2019-08-30] MEDS: CALCIUM ACETATE 667 MG CAP PO SCH ×3 (08:37→17:40)
[2019-08-30] MEDS: DOCUSATE SOD 100 MG CAP PO SCH (08:37)
[2019-08-30] MEDS: PANTOPRAZOLE 40 MG TAB PO SCH ×2 (08:37→23:05)
[2019-08-30] MEDS: CARVEDILOL 3.125 MG TAB PO SCH ×2 (08:37→23:06)
[2019-08-30] MEDS: PIPERACILLIN-TAZOB 2.25GM 50 ML IV SCH ×2 (08:37→23:08)
[2019-08-30] MEDS: ASPirin 81 mg TAB PO SCH (08:37)
[2019-08-30 09:00] VITALS: BP 144/62
[2019-08-30] MEDS ORDERED: SODIUM CHL 0.9% 1000 ML BAG XX ONE (10:30)
[2019-08-30 10:59] LABS: Basophils # (auto) 0 10 ^3/uL (0-0.2); Basophils % (auto) 0.5 % (0.0-2.0); Eosinophils # (auto) 0.2 10 ^3/uL (0-0.8); Eosinophils % (auto) 2.2 % (0.0-7.0); Hematocrit 27.8 % (36.0-46.0); Hemoglobin 9.1 g/dL (12.2-16.2); Lymphocytes # (auto) 0.8 10 ^3/uL (0.4-5.4); Lymphocytes % (auto) 10.5 % (10.0-50.0); Mean Corpuscular Hgb Conc. 32.7 g/dL (32.0-36.0); Mean Corpuscular Volume 88.9 fL (80.0-100.0); Monocytes # (auto) 0.6 10 ^3/uL (0-1.3); Monocytes % (auto) 7.7 % (0.0-12.0); Neutrophils # (auto) 6.4 10 ^3/uL (1.6-8.6); Neutrophils % (auto) 79.1 % (37.0-80.0); Platelet Count (auto) 199 10^3/uL (140-450); Red Blood Cells 3.12 10^6/uL (4.0-5.20); Red Cell Distribution Width 16.5 % (11.8-14.3)
[2019-08-30] MEDS ORDERED: LIDOCAINE 1% HCL (LOCAL ANESTH.) INJ 20ML MDV ID ONE (12:00)
[2019-08-30 12:52] LABS: Hepatitis A Ab IgM Negative; Hepatitis B Core IgM Negative; Hepatitis B Surface Antigen Negative (Negative); Hepatitis C Antibody Negative (Negative)
[2019-08-30 13:00] VITALS: BP 157/69
[2019-08-30 17:00] VITALS: BP 143/64
[2019-08-30] MEDS ORDERED: EPOETIN ALFA 10,000 UNIT/1 ML VIAL SC ONE ×2 (21:00→21:30)
[2019-08-30 22:00] VITALS: BP 132/59
[2019-08-30] MEDS: ATORVASTATIN 20 MG TAB PO SCH (23:05)
[2019-08-31] MEDS: IPRATROPIUM BROM 0.5 MG/2.5ML INH SOL NEB SCH ×6 (02:00→22:00)
[2019-08-31 05:00] VITALS: BP 123/71
[2019-08-31] MEDS: ACCU-CHEK COMFORT CURVE STRIP VI SCH ×4 (06:23→22:00)
[2019-08-31] MEDS: InsuLIN REG 1unit/0.01ml Soln (100units/ml) SC SCH ×4 (06:23→22:00)
[2019-08-31] MEDS: LEVOTHYROXINE SODIUM 100 MCG TAB PO SCH (06:26)
[2019-08-31] MEDS: CALCIUM ACETATE 667 MG CAP PO SCH ×3 (08:04→17:27)
[2019-08-31 09:00] VITALS: BP 137/62
[2019-08-31] MEDS: DOCUSATE SOD 100 MG CAP PO SCH (10:00)
[2019-08-31] MEDS: PIPERACILLIN-TAZOB 2.25GM 50 ML IV SCH ×2 (10:23→22:45)
[2019-08-31] MEDS: CARVEDILOL 3.125 MG TAB PO SCH ×2 (10:24→22:43)
[2019-08-31] MEDS: ASPirin 81 mg TAB PO SCH (10:24)
[2019-08-31] MEDS: PANTOPRAZOLE 40 MG TAB PO SCH ×2 (10:24→22:42)
[2019-08-31 13:00] VITALS: BP 142/84
[2019-08-31 17:24] VITALS: BP 140/56
[2019-08-31 17:57] VITALS: BP 137/62
[2019-08-31] MEDS: ATORVASTATIN 20 MG TAB PO SCH (22:42)
[2019-09-01] MEDS: IPRATROPIUM BROM 0.5 MG/2.5ML INH SOL NEB SCH ×4 (02:00→18:46)
[2019-09-01] MEDS: LEVOTHYROXINE SODIUM 100 MCG TAB PO SCH (06:41)
[2019-09-01] MEDS: ACCU-CHEK COMFORT CURVE STRIP VI SCH ×4 (06:41→21:51)
[2019-09-01] MEDS: InsuLIN REG 1unit/0.01ml Soln (100units/ml) SC SCH ×4 (06:42→21:51)
[2019-09-01] MEDS ORDERED: SODIUM CHL 0.9% 1000 ML BAG XX ONE (07:15)
[2019-09-01] MEDS: CALCIUM ACETATE 667 MG CAP PO SCH ×3 (08:30→18:03)
[2019-09-01 09:00] VITALS: BP 119/56
[2019-09-01] MEDS: DOCUSATE SOD 100 MG CAP PO SCH (10:00)
[2019-09-01] MEDS: CARVEDILOL 3.125 MG TAB PO SCH ×2 (10:03→21:41)
[2019-09-01] MEDS: ASPirin 81 mg TAB PO SCH (10:03)
[2019-09-01] MEDS: PANTOPRAZOLE 40 MG TAB PO SCH ×2 (10:03→21:41)
[2019-09-01] MEDS: PIPERACILLIN-TAZOB 2.25GM 50 ML IV SCH ×2 (10:03→21:42)
[2019-09-01 11:37] LABS: Basophils # (auto) 0.1 10 ^3/uL (0-0.2); Basophils % (auto) 0.9 % (0.0-2.0); Eosinophils # (auto) 0.2 10 ^3/uL (0-0.8); Eosinophils % (auto) 3.3 % (0.0-7.0); Hematocrit 26.8 % (36.0-46.0); Hemoglobin 8.7 g/dL (12.2-16.2); Lymphocytes # (auto) 0.8 10 ^3/uL (0.4-5.4); Lymphocytes % (auto) 11.4 % (10.0-50.0); Mean Corpuscular Hemoglobin 28.3 pg (28.0-32.0); Mean Corpuscular Hgb Conc. 32.6 g/dL (32.0-36.0); Mean Corpuscular Volume 86.7 fL (80.0-100.0); Monocytes # (auto) 0.3 10 ^3/uL (0-1.3); Monocytes % (auto) 4.6 % (0.0-12.0); Neutrophils # (auto) 5.7 10 ^3/uL (1.6-8.6); Neutrophils % (auto) 79.8 % (37.0-80.0); Nucleated Red Blood Cells % 0.1 %; Platelet Count (auto) 211 10^3/uL (140-450); Red Blood Cells 3.09 10^6/uL (4.0-5.20); Red Cell Distribution Width 16.9 % (11.8-14.3); White Blood Cell 7.1 10^3/uL (4.4-10.8)
[2019-09-01 11:48] LABS: BUN/Creatinine Ratio 7.3; Calcium 7.6 mg/dL (8.5-10.1)
[2019-09-01 13:00] VITALS: BP 130/54
[2019-09-01 17:01] VITALS: BP 129/69
[2019-09-01] MEDS ORDERED: EPOETIN ALFA 10,000 UNIT/1 ML VIAL SC ONE (21:00)
[2019-09-01] MEDS: ATORVASTATIN 20 MG TAB PO SCH (21:41)
[2019-09-01 22:00] VITALS: BP 121/52
[2019-09-01] MEDS ORDERED: HYDROcodone-ACET 10/325MG TAB PO PRN (22:30)
[2019-09-02 05:00] VITALS: BP 111/47
[2019-09-02] MEDS: IPRATROPIUM BROM 0.5 MG/2.5ML INH SOL NEB SCH ×4 (06:00→19:27)
[2019-09-02] MEDS: LEVOTHYROXINE SODIUM 100 MCG TAB PO SCH (06:29)
[2019-09-02] MEDS: InsuLIN REG 1unit/0.01ml Soln (100units/ml) SC SCH ×4 (06:31→22:00)
[2019-09-02] MEDS: ACCU-CHEK COMFORT CURVE STRIP VI SCH ×4 (06:31→22:27)
[2019-09-02] MEDS: CALCIUM ACETATE 667 MG CAP PO SCH ×3 (08:00→17:54)
[2019-09-02 09:00] VITALS: BP 134/67
[2019-09-02] MEDS: DOCUSATE SOD 100 MG CAP PO SCH (10:00)
[2019-09-02] MEDS: CARVEDILOL 3.125 MG TAB PO SCH ×2 (10:25→22:20)
[2019-09-02] MEDS: ASPirin 81 mg TAB PO SCH (10:25)
[2019-09-02] MEDS: PANTOPRAZOLE 40 MG TAB PO SCH ×2 (10:25→22:17)
[2019-09-02] MEDS: PIPERACILLIN-TAZOB 2.25GM 50 ML IV SCH ×2 (10:26→22:17)
[2019-09-02 13:00] VITALS: BP 124/49
[2019-09-02 17:00] VITALS: BP 111/50
[2019-09-02 22:00] VITALS: BP 113/42
[2019-09-02] MEDS: ATORVASTATIN 20 MG TAB PO SCH (22:18)
[2019-09-03 05:00] VITALS: BP 135/94
[2019-09-03] MEDS: IPRATROPIUM BROM 0.5 MG/2.5ML INH SOL NEB SCH ×3 (06:32→18:17)
[2019-09-03] MEDS: LEVOTHYROXINE SODIUM 100 MCG TAB PO SCH (06:36)
[2019-09-03] MEDS: ACCU-CHEK COMFORT CURVE STRIP VI SCH ×4 (06:37→22:42)
[2019-09-03] MEDS: InsuLIN REG 1unit/0.01ml Soln (100units/ml) SC SCH ×4 (06:37→22:00)
[2019-09-03 08:00] VITALS: BP 116/54
[2019-09-03] MEDS: CALCIUM ACETATE 667 MG CAP PO SCH ×3 (08:48→18:02)
[2019-09-03] MEDS: ASPirin 81 mg TAB PO SCH (10:09)
[2019-09-03] MEDS: DOCUSATE SOD 100 MG CAP PO SCH (10:09)
[2019-09-03] MEDS: PIPERACILLIN-TAZOB 2.25GM 50 ML IV SCH ×2 (10:09→21:55)
[2019-09-03] MEDS: CARVEDILOL 3.125 MG TAB PO SCH ×2 (10:09→22:42)
[2019-09-03] MEDS: PANTOPRAZOLE 40 MG TAB PO SCH ×2 (10:09→21:55)
[2019-09-03 12:00] VITALS: BP 122/54
[2019-09-03 17:00] VITALS: BP 120/64
[2019-09-03] MEDS: ATORVASTATIN 20 MG TAB PO SCH (21:55)
[2019-09-03 22:00] VITALS: BP 118/57
[2019-09-04 05:00] VITALS: BP 123/52
[2019-09-04] MEDS: IPRATROPIUM BROM 0.5 MG/2.5ML INH SOL NEB SCH ×3 (06:00→19:41)
[2019-09-04] MEDS: ACCU-CHEK COMFORT CURVE STRIP VI SCH ×3 (06:16→17:02)
[2019-09-04] MEDS: LEVOTHYROXINE SODIUM 100 MCG TAB PO SCH (06:16)
[2019-09-04] MEDS: InsuLIN REG 1unit/0.01ml Soln (100units/ml) SC SCH ×3 (06:17→17:08)
[2019-09-04] MEDS ORDERED: SODIUM CHL 0.9% 1000 ML BAG XX ONE (07:00)
[2019-09-04 08:00] VITALS: BP 127/69
[2019-09-04] MEDS: CALCIUM ACETATE 667 MG CAP PO SCH ×4 (08:00→17:03)
[2019-09-04] MEDS: PIPERACILLIN-TAZOB 2.25GM 50 ML IV SCH ×2 (08:04→11:33)
[2019-09-04] MEDS: ASPirin 81 mg TAB PO SCH ×2 (08:04→11:33)
[2019-09-04] MEDS: DOCUSATE SOD 100 MG CAP PO SCH ×2 (08:05→11:33)
[2019-09-04] MEDS: CARVEDILOL 3.125 MG TAB PO SCH (08:06)
[2019-09-04] MEDS: PANTOPRAZOLE 40 MG TAB PO SCH ×2 (08:07→11:33)
[2019-09-04 12:00] VITALS: BP 130/47
[2019-09-04 15:53] VITALS: BP 133/47
[2019-09-04 17:00] VITALS: BP 131/60
[2019-09-04] MEDS ORDERED: EPOETIN ALFA 10,000 UNIT/1 ML VIAL SC ONE (21:00)
== END 2019-09-04 20:40 | DRG 280 ==
LOC: ER 18:55 → TELE 18:56 → TELE-CENTR 08-20 17:20
PROVIDERS: ADMIT Hospitalist; ATTEND Internal Medicine Cardiovascular Disease
PROC: 5A1D70Z Performance of Urinary Filtration, Intermittent, Less than 6 Hours Per Day (ICD-10-PCS; 2019-08-21)
PROC: 5A1D70Z Performance of Urinary Filtration, Intermittent, Less than 6 Hours Per Day (ICD-10-PCS; 2019-08-23)
PROC: 30233N1 Transfusion of Nonautologous Red Blood Cells into Peripheral Vein, Percutaneous Approach (ICD-10-PCS; 2019-08-24)
PROC: 5A1D70Z Performance of Urinary Filtration, Intermittent, Less than 6 Hours Per Day (ICD-10-PCS; 2019-08-25)
PROC: 5A1D70Z Performance of Urinary Filtration, Intermittent, Less than 6 Hours Per Day (ICD-10-PCS; 2019-08-28)
PROC: 5A1D70Z Performance of Urinary Filtration, Intermittent, Less than 6 Hours Per Day (ICD-10-PCS; 2019-08-30)
PROC: 5A1D70Z Performance of Urinary Filtration, Intermittent, Less than 6 Hours Per Day (ICD-10-PCS; 2019-09-01)
PROC: 5A1D70Z Performance of Urinary Filtration, Intermittent, Less than 6 Hours Per Day (ICD-10-PCS; principal; 2019-09-04)
DX: I13.2 Hypertensive heart and chronic kidney disease with heart failure and with stage 5 chronic kidney disease, or end stage renal disease (principal); I21.A1 Myocardial infarction type 2; I50.33 Acute on chronic diastolic (congestive) heart failure; N18.6 End stage renal disease; E43 Unspecified severe protein-calorie malnutrition; J18.9 Pneumonia, unspecified organism; J81.0 Acute pulmonary edema; J96.90 Respiratory failure, unspecified, unspecified whether with hypoxia or hypercapnia; E87.1 Hypo-osmolality and hyponatremia; J44.1 Chronic obstructive pulmonary disease with (acute) exacerbation; J44.0 Chronic obstructive pulmonary disease with (acute) lower respiratory infection; I95.9 Hypotension, unspecified; Z99.2 Dependence on renal dialysis; D63.1 Anemia in chronic kidney disease; Y95 Nosocomial condition; D72.829 Elevated white blood cell count, unspecified; R79.89 Other specified abnormal findings of blood chemistry; I25.5 Ischemic cardiomyopathy; I27.20 Pulmonary hypertension, unspecified; J84.10 Pulmonary fibrosis, unspecified; E03.9 Hypothyroidism, unspecified; E11.65 Type 2 diabetes mellitus with hyperglycemia; E86.9 Volume depletion, unspecified; E11.22 Type 2 diabetes mellitus with diabetic chronic kidney disease; W18.39XA Other fall on same level, initial encounter; I70.0 Atherosclerosis of aorta; Z79.01 Long term (current) use of anticoagulants; Z79.4 Long term (current) use of insulin; Z80.41 Family history of malignant neoplasm of ovary; Z82.49 Family history of ischemic heart disease and other diseases of the circulatory system; Z87.11 Personal history of peptic ulcer disease; Y93.89 Activity, other specified; Y92.89 Other specified places as the place of occurrence of the external cause; Y99.8 Other external cause status; Z03.818 Encounter for observation for suspected exposure to other biological agents ruled out; Z68.30 Body mass index [BMI] 30.0-30.9, adult
CPT/HCPCS: 36415; 36600; 71045; 80048; 80053; 80061; 80074; 81001; 82306; 82805; 82962; 83036; 83735; 83880; 83970; 84100; 84484; 85025; 85610; 85730; 86850; 86900; 86901; 86920; 87040; 87081; 87086; 87088; 87186; 90935; 93005; 94640; G0378; J0885; J1642; J1815; J2001; J2405; J2543

== ENCOUNTER → 2020-04-16 | Outpatient (CLI) | payer MEDICARE, OTHER ==
[~2020-04-16] MED LIST changes: -ASPI-404 PO; +ASPI-543 PO; +CYANOCOBALAMIN (B-12) 1000 MCG/1 ML VIAL IM ONE; +CYANOCOBALAMIN (B-12) 1000 MCG/1 ML VIAL ONE
[2020-04-16 11:10] VITALS: BP 100/40
[2020-04-16 12:30] VITALS: BP 96/41
[2020-04-16 15:45] LABS: Basophils % (auto) 0.7 % (0.0-2.0); Eosinophils # (auto) 0.2 10 ^3/uL (0-0.8); Monocytes # (auto) 0.5 10 ^3/uL (0-1.3); Neutrophils # (auto) 5.5 10 ^3/uL (1.6-8.6); White Blood Cell 7.3 10^3/uL (4.4-10.8)
[2020-04-16 15:48] LABS: Basophils # (auto) 0 10 ^3/uL (0-0.2); Eosinophils % (auto) 2.1 % (0.0-7.0); Hematocrit 24.5 % (36.0-46.0); Hemoglobin 8.3 g/dL (12.2-16.2); Lymphocytes % (auto) 13.9 % (10.0-50.0); Mean Corpuscular Hemoglobin 31.2 pg (28.0-32.0); Mean Corpuscular Hgb Conc. 33.8 g/dL (32.0-36.0); Mean Corpuscular Volume 92.3 fL (80.0-100.0); Monocytes % (auto) 7.1 % (0.0-12.0); Neutrophils % (auto) 76.2 % (37.0-80.0); Platelet Count (auto) 213 10^3/uL (140-450); Red Blood Cells 2.66 10^6/uL (4.0-5.20); Red Cell Distribution Width 16.5 % (11.8-14.3)
[2020-04-16 15:54] LABS: Albumin 3.1 g/dL (3.4-5.0); Calcium 8.8 mg/dL (8.5-10.1); Potassium 4.1 mmol/L (3.5-5.1)
[2020-04-16 16:05] LABS: BUN/Creatinine Ratio 15.6; Bilirubin, Total 0.5 mg/dL (0.2-1.0); Total Protein 7.9 g/dL (6.4-8.2)
== END | disposition home or self-care (01) ==
LOC: CHF HDHVI 11:09
PROVIDERS: ATTEND Internal Medicine Cardiovascular Disease
DX: I27.0 Primary pulmonary hypertension (principal); I50.43 Acute on chronic combined systolic (congestive) and diastolic (congestive) heart failure; D64.9 Anemia, unspecified; E55.9 Vitamin D deficiency, unspecified; Z79.899 Other long term (current) drug therapy
CPT/HCPCS: 36415; 71046; 80053; 82306; 82607; 83036; 83735; 83880; 85025; 93005; 96372; G0463; J3420

== ENCOUNTER → 2020-04-23 | Outpatient (CLI) | payer MEDICARE, OTHER ==
[~2020-04-23] MED LIST changes: -CYANOCOBALAMIN (B-12) 1000 MCG/1 ML VIAL IM ONE; -CYANOCOBALAMIN (B-12) 1000 MCG/1 ML VIAL ONE
== END | disposition home or self-care (01) ==
LOC: Rad HDHVI 14:10
PROVIDERS: ATTEND Internal Medicine Cardiovascular Disease
DX: I08.1 Rheumatic disorders of both mitral and tricuspid valves (principal); I27.21 Secondary pulmonary arterial hypertension; I50.43 Acute on chronic combined systolic (congestive) and diastolic (congestive) heart failure; R07.89 Other chest pain
CPT/HCPCS: 93306

== ENCOUNTER → 2020-06-02 | Outpatient (CLI) | payer MEDICARE, OTHER ==
[~2020-06-02] MED LIST changes: +CYANOCOBALAMIN (B-12) 1000 MCG/1 ML VIAL IM ONE; +CYANOCOBALAMIN (B-12) 1000 MCG/1 ML VIAL ONE
[2020-06-02 10:47] VITALS: BP 111/47
[2020-06-02 12:50] VITALS: BP 108/45
[2020-06-02 16:08] LABS: Potassium 4.9 mmol/L (3.5-5.1)
[2020-06-02 16:13] LABS: Basophils # (auto) 0 10 ^3/uL (0-0.2); Basophils % (auto) 0.4 % (0.0-2.0); Eosinophils # (auto) 0.1 10 ^3/uL (0-0.8); Eosinophils % (auto) 2.1 % (0.0-7.0); Hematocrit 28.2 % (36.0-46.0); Hemoglobin 9.2 g/dL (12.2-16.2); Lymphocytes % (auto) 13.4 % (10.0-50.0); Mean Corpuscular Hemoglobin 30.1 pg (28.0-32.0); Mean Corpuscular Hgb Conc. 32.6 g/dL (32.0-36.0); Mean Corpuscular Volume 92.2 fL (80.0-100.0); Monocytes # (auto) 0.5 10 ^3/uL (0-1.3); Monocytes % (auto) 6.4 % (0.0-12.0); Neutrophils # (auto) 5.6 10 ^3/uL (1.6-8.6); Neutrophils % (auto) 77.7 % (37.0-80.0); Platelet Count (auto) 216 10^3/uL (140-450); Red Blood Cells 3.06 10^6/uL (4.0-5.20); Red Cell Distribution Width 16.4 % (11.8-14.3); White Blood Cell 7.3 10^3/uL (4.4-10.8)
[2020-06-02 16:14] LABS: BUN/Creatinine Ratio 10.5; Calcium 9.3 mg/dL (8.5-10.1); Magnesium 3.3 mg/dL (1.6-2.6)
== END | disposition home or self-care (01) ==
LOC: CHF HDHVI 10:44
PROVIDERS: ATTEND Internal Medicine Cardiovascular Disease
DX: I27.21 Secondary pulmonary arterial hypertension (principal); D64.9 Anemia, unspecified; I50.42 Chronic combined systolic (congestive) and diastolic (congestive) heart failure; I48.91 Unspecified atrial fibrillation; N18.6 End stage renal disease; M79.89 Other specified soft tissue disorders; Z79.899 Other long term (current) drug therapy
CPT/HCPCS: 36415; 71046; 73630; 80048; 83735; 83880; 85025; 96372; G0463; J3420

== ENCOUNTER → 2020-06-13 | Outpatient (CLI) | payer MEDICARE, OTHER ==
[~2020-06-13] MED LIST changes: -CYANOCOBALAMIN (B-12) 1000 MCG/1 ML VIAL IM ONE; -CYANOCOBALAMIN (B-12) 1000 MCG/1 ML VIAL ONE
== END | disposition home or self-care (01) ==
LOC: Rad HDHVI 13:55
PROVIDERS: ATTEND Internal Medicine Cardiovascular Disease
DX: R07.89 Other chest pain (principal); R06.02 Shortness of breath
CPT/HCPCS: 93306

== ENCOUNTER → 2020-09-05 | Outpatient (CLI) | payer MEDICARE, OTHER ==
[~2020-09-05] MED LIST changes: +APIX2.5T PO; +ATOR40TA52 PO; +GABA300C10 PO; +INSUINJ37 SC; +LEVO125T7 PO; +LIDO1KIT EX; +PANT40TA2 PO
[2020-09-05 12:00] VITALS: BP 93/40
[2020-09-05 13:05] VITALS: BP 97/47
== END | disposition home or self-care (01) ==
LOC: Rad HDHVI 11:12
PROVIDERS: ATTEND Internal Medicine Cardiovascular Disease
DX: Z01.818 Encounter for other preprocedural examination (principal); I11.9 Hypertensive heart disease without heart failure; J90 Pleural effusion, not elsewhere classified; J84.9 Interstitial pulmonary disease, unspecified; E78.00 Pure hypercholesterolemia, unspecified; I99.8 Other disorder of circulatory system; I70.229 Atherosclerosis of native arteries of extremities with rest pain, unspecified extremity; R06.02 Shortness of breath; R94.31 Abnormal electrocardiogram [ECG] [EKG]; I70.202 Unspecified atherosclerosis of native arteries of extremities, left leg
CPT/HCPCS: 71046; 93005; 93926; G0463

== ENCOUNTER → 2020-09-10 | Outpatient (CLI) | payer MEDICARE, OTHER ==
[2020-09-10 16:16] LABS: Calcium 8.5 mg/dL (8.5-10.1); Potassium 3.5 mmol/L (3.5-5.1)
[2020-09-10 16:21] LABS: Basophils # (auto) 0.1 10 ^3/uL (0-0.2); Basophils % (auto) 0.8 % (0.0-2.0); Eosinophils # (auto) 0.1 10 ^3/uL (0-0.8); Eosinophils % (auto) 1.3 % (0.0-7.0); Hematocrit 28.7 % (36.0-46.0); Hemoglobin 9.2 g/dL (12.2-16.2); Lymphocytes % (auto) 13.4 % (10.0-50.0); Mean Corpuscular Hemoglobin 30.4 pg (28.0-32.0); Mean Corpuscular Hgb Conc. 32.2 g/dL (32.0-36.0); Mean Corpuscular Volume 94.3 fL (80.0-100.0); Monocytes # (auto) 0.5 10 ^3/uL (0-1.3); Monocytes % (auto) 7.1 % (0.0-12.0); Neutrophils # (auto) 5.8 10 ^3/uL (1.6-8.6); Neutrophils % (auto) 77.4 % (37.0-80.0); Red Blood Cells 3.04 10^6/uL (4.0-5.20); Red Cell Distribution Width 17.2 % (11.8-14.3); White Blood Cell 7.5 10^3/uL (4.4-10.8)
[2020-09-10 16:41] LABS: INR 1.15 (0.9-1.15); Partial Thromboplastin Time 29.1 sec (23.0-31.2)
== END | disposition home or self-care (01) ==
LOC: Rad HDHVI 11:07
PROVIDERS: ATTEND Internal Medicine Cardiovascular Disease
DX: Z01.812 Encounter for preprocedural laboratory examination (principal); I50.42 Chronic combined systolic (congestive) and diastolic (congestive) heart failure
CPT/HCPCS: 36415; 80048; 85025; 85610; 85730

== ENCOUNTER 2020-09-17 11:29 | Inpatient (IN) | payer MEDICARE, OTHER ==
[~2020-09-17] VITALS: Ht 158.8 cm; Wt 71.1 kg
[2020-09-17] MEDS: FERROUS SULFATE 325mg EC TAB PO SCH (08:00)
[~2020-09-17 11:29] MED LIST changes: -ALB5IS NEB; -ALBUAER3 IN; -ASPI-543 PO; -ATOR20TA50 PO; -GABA400C11 PO; -INSLANTI SC; -LEVO100T8 PO; -MACI1TAB2 PO; -PANT40T PO; -RIVA2.5T PO; -SILD20TA PO
[2020-09-17] MEDS ORDERED: IODIXANOL 320MG/ML 100ML BTL IV ONE ×2 (14:14→14:50)
[2020-09-17] MEDS ORDERED: LIDOCAINE 2%HCL (LOCAL ANESTH.) INJ 20ML MDV ONE (14:14)
[2020-09-17] MEDS ORDERED: ANGIOMAX 250 MG VIAL IV ONE (14:17)
[2020-09-17] MEDS ORDERED: VERAPAMIL 2.5MG/ML INJ 2ML VIAL IV ONE (14:18)
[2020-09-17] MEDS ORDERED: MIDAZOLAM HCL 2MG/2ML 2ml VIAL (1mg/ml) ONE (14:18)
[2020-09-17] MEDS ORDERED: fentaNYL CITRATE 100 MCG/2 ML VL ONE (14:18)
[2020-09-17] MEDS ORDERED: SODIUM CHL 0.9% 50 ML ONE (14:18)
[2020-09-17] MEDS ORDERED: CLOPIDOGREL 300 MG TAB ONE (14:55)
[2020-09-17] MEDS ORDERED: MORPHINE SULFATE INJECTION 2 MG/ML SYRG IV PRN (15:45)
[2020-09-17] MEDS ORDERED: NITROGLYCERIN 0.4 MG SL TAB SL PRN (15:45)
[2020-09-17] MEDS ORDERED: LIDOCAINE PRILOCAINE TOP SCH (15:45)
[2020-09-17] MEDS ORDERED: ONDANSETRON HCL 4 MG/2 ML VIAL IV PRN (15:45)
[2020-09-17] MEDS ORDERED: DEXTROSE (50%) 50ML SYRG IV PRN (15:45)
[2020-09-17] MEDS: InsuLIN REG 1unit/0.01ml Soln (100units/ml) SC SCH ×2 (16:27→22:42)
[2020-09-17] MEDS: ACCU-CHEK COMFORT CURVE STRIP VI SCH ×2 (16:27→22:30)
[2020-09-17 17:30] VITALS: BP 98/55
[2020-09-17] MEDS: FUROSEMIDE 20 MG TAB PO SCH (18:00)
[2020-09-17] MEDS: CALCIUM ACETATE 667 MG CAP PO SCH (18:41)
[2020-09-17] MEDS: HYDROcodone-ACET 10/325MG TAB PO PRN (20:40)
[2020-09-17] MEDS ORDERED: IPRATROPIUM BROM 0.5 MG/2.5ML INH SOL NEB PRN (20:45)
[2020-09-17 22:00] VITALS: BP 106/50
[2020-09-17] MEDS: INSULIN LANTUS (GLARGINE) 1 /0.01ml (100units/ml) SC SCH (22:42)
[2020-09-17] MEDS: ATORVASTATIN 20 MG TAB PO SCH (22:42)
[2020-09-17] MEDS: APIXABAN 2.5 MG TAB PO SCH (22:42)
[2020-09-17 22:47] VITALS: BP 106/50
[2020-09-18 05:00] VITALS: BP 96/53
[2020-09-18] MEDS: ACCU-CHEK COMFORT CURVE STRIP VI SCH ×4 (06:15→21:16)
[2020-09-18] MEDS: FUROSEMIDE 20 MG TAB PO SCH ×2 (06:29→17:38)
[2020-09-18] MEDS: LEVOTHYROXINE SODIUM 50 MCG TAB PO SCH (06:29)
[2020-09-18] MEDS: InsuLIN REG 1unit/0.01ml Soln (100units/ml) SC SCH ×4 (06:30→21:27)
[2020-09-18 09:00] VITALS: BP 103/65
[2020-09-18] MEDS: INSULIN LANTUS (GLARGINE) 1 /0.01ml (100units/ml) SC SCH ×2 (10:30→21:26)
[2020-09-18] MEDS: GABAPENTIN 300 MG CAP PO SCH (10:46)
[2020-09-18] MEDS: CALCIUM ACETATE 667 MG CAP PO SCH ×3 (10:46→17:39)
[2020-09-18] MEDS: FERROUS SULFATE 325mg EC TAB PO SCH (10:46)
[2020-09-18] MEDS: PANTOPRAZOLE 40 MG TAB PO SCH (10:46)
[2020-09-18] MEDS: APIXABAN 2.5 MG TAB PO SCH ×2 (10:46→21:16)
[2020-09-18] MEDS: CLOPIDOGREL BISULFATE 75 MG TAB PO SCH (10:47)
[2020-09-18] MEDS: HYDROcodone-ACET 10/325MG TAB PO PRN (12:05)
[2020-09-18 13:00] VITALS: BP 99/52
[2020-09-18 17:00] VITALS: BP 110/59
[2020-09-18 20:00] VITALS: BP 100/52
[2020-09-18] MEDS: ATORVASTATIN 20 MG TAB PO SCH (21:16)
[2020-09-18 22:00] VITALS: BP 100/52
[2020-09-19 05:00] VITALS: BP 101/57
[2020-09-19] MEDS: ACCU-CHEK COMFORT CURVE STRIP VI SCH ×2 (05:50→11:30)
[2020-09-19] MEDS: InsuLIN REG 1unit/0.01ml Soln (100units/ml) SC SCH ×2 (05:50→11:30)
[2020-09-19] MEDS: FUROSEMIDE 20 MG TAB PO SCH (06:18)
[2020-09-19] MEDS: LEVOTHYROXINE SODIUM 50 MCG TAB PO SCH (06:19)
[2020-09-19 09:00] VITALS: BP 104/59
[2020-09-19] MEDS: HYDROcodone-ACET 10/325MG TAB PO PRN (09:19)
[2020-09-19] MEDS: FERROUS SULFATE 325mg EC TAB PO SCH (09:20)
[2020-09-19] MEDS: APIXABAN 2.5 MG TAB PO SCH (09:20)
[2020-09-19] MEDS: CLOPIDOGREL BISULFATE 75 MG TAB PO SCH (09:20)
[2020-09-19] MEDS: CALCIUM ACETATE 667 MG CAP PO SCH ×2 (09:20→11:58)
[2020-09-19] MEDS: GABAPENTIN 300 MG CAP PO SCH (09:20)
[2020-09-19] MEDS: PANTOPRAZOLE 40 MG TAB PO SCH (09:21)
[2020-09-19 09:27] LABS: Basophils # (auto) 0 10 ^3/uL (0-0.2); Basophils % (auto) 0.6 % (0.0-2.0); Eosinophils # (auto) 0.1 10 ^3/uL (0-0.8); Eosinophils % (auto) 2.1 % (0.0-7.0); Hematocrit 26.4 % (36.0-46.0); Hemoglobin 8.9 g/dL (12.2-16.2); Lymphocytes # (auto) 0.7 10 ^3/uL (0.4-5.4); Mean Corpuscular Hemoglobin 31.3 pg (28.0-32.0); Mean Corpuscular Hgb Conc. 33.9 g/dL (32.0-36.0); Mean Corpuscular Volume 92.6 fL (80.0-100.0); Monocytes # (auto) 0.4 10 ^3/uL (0-1.3); Monocytes % (auto) 6.8 % (0.0-12.0); Neutrophils # (auto) 4.9 10 ^3/uL (1.6-8.6); Neutrophils % (auto) 79.5 % (37.0-80.0); Red Blood Cells 2.85 10^6/uL (4.0-5.20); Red Cell Distribution Width 16.7 % (11.8-14.3); White Blood Cell 6.2 10^3/uL (4.4-10.8)
[2020-09-19 09:47] LABS: BUN/Creatinine Ratio 10.7; Calcium 8.2 mg/dL (8.5-10.1); Potassium 4.5 mmol/L (3.5-5.1)
[2020-09-19] MEDS: INSULIN LANTUS (GLARGINE) 1 /0.01ml (100units/ml) SC SCH (10:00)
[2020-09-19 13:00] VITALS: BP 92/55
[2020-10-22] MEDS ORDERED: CALC667C PO (11:25)
== END 2020-09-19 14:37 | disposition home or self-care (01) | DRG 270 ==
LOC: CATH 11:29 → TELE 15:37 → TELE-WESTW 16:56
PROVIDERS: ADMIT Internal Medicine Cardiovascular Disease; ATTEND Internal Medicine Cardiovascular Disease
PROC: B41G1ZZ Fluoroscopy of Left Lower Extremity Arteries using Low Osmolar Contrast (ICD-10-PCS; principal; 2020-09-17)
PROC: 04CQ3ZZ Extirpation of Matter from Left Anterior Tibial Artery, Percutaneous Approach (ICD-10-PCS; 2020-09-17)
PROC: 047L3Z1 Dilation of Left Femoral Artery using Drug-Coated Balloon, Percutaneous Approach (ICD-10-PCS; 2020-09-17)
PROC: 047Q3Z1 Dilation of Left Anterior Tibial Artery using Drug-Coated Balloon, Percutaneous Approach (ICD-10-PCS; 2020-09-17)
PROC: 04CL3ZZ Extirpation of Matter from Left Femoral Artery, Percutaneous Approach (ICD-10-PCS; 2020-09-17)
PROC: 047N3ZZ Dilation of Left Popliteal Artery, Percutaneous Approach (ICD-10-PCS; 2020-09-17)
PROC: B41F1ZZ Fluoroscopy of Right Lower Extremity Arteries using Low Osmolar Contrast (ICD-10-PCS; 2020-09-17)
DX: E11.51 Type 2 diabetes mellitus with diabetic peripheral angiopathy without gangrene (principal); N18.6 End stage renal disease; D68.59 Other primary thrombophilia; L97.929 Non-pressure chronic ulcer of unspecified part of left lower leg with unspecified severity; Z20.822 Contact with and (suspected) exposure to COVID-19; E11.40 Type 2 diabetes mellitus with diabetic neuropathy, unspecified; E11.21 Type 2 diabetes mellitus with diabetic nephropathy; I70.223 Atherosclerosis of native arteries of extremities with rest pain, bilateral legs; E11.319 Type 2 diabetes mellitus with unspecified diabetic retinopathy without macular edema; I25.10 Atherosclerotic heart disease of native coronary artery without angina pectoris; D64.9 Anemia, unspecified; E11.22 Type 2 diabetes mellitus with diabetic chronic kidney disease; I50.9 Heart failure, unspecified; J44.9 Chronic obstructive pulmonary disease, unspecified; Z79.01 Long term (current) use of anticoagulants; Z99.2 Dependence on renal dialysis; Z80.41 Family history of malignant neoplasm of ovary; Z82.49 Family history of ischemic heart disease and other diseases of the circulatory system; Z83.3 Family history of diabetes mellitus; Z95.1 Presence of aortocoronary bypass graft; Z88.8 Allergy status to other drugs, medicaments and biological substances; Z79.899 Other long term (current) drug therapy
CPT/HCPCS: 36415; 37186; 37224; 37228; 75710; 80048; 82962; 85025; 94640; 99152; 99153; G0378; J1815; J2250; Q9967

== ENCOUNTER 2020-10-24 10:33 | Day surgery (SDC) | payer MEDICARE, OTHER ==
[~2020-10-24] VITALS: Ht 157.5 cm; Wt 65.8 kg
[2020-10-24] MEDS ORDERED: IODIXANOL 320MG/ML 100ML BTL IV ONE (14:25)
[2020-10-24] MEDS ORDERED: HEPARIN IN NS 1000Units/500mL 1,500 ML ONE (14:25)
[2020-10-24] MEDS ORDERED: LIDOCAINE 2%HCL (LOCAL ANESTH.) INJ 20ML MDV ONE ×2 (14:25→14:44)
[2020-10-24] MEDS ORDERED: fentaNYL CITRATE 100 MCG/2 ML VL ONE (15:04)
[2020-10-24] MEDS ORDERED: ANGIOMAX 250 MG VIAL IV ONE (15:09)
[2020-10-24] MEDS ORDERED: SODIUM CHL 0.9% 50 ML ONE (15:10)
== END 2020-10-24 18:10 | disposition home or self-care (01) ==
LOC: CATH 10:33
PROVIDERS: ATTEND Internal Medicine Cardiovascular Disease
DX: I70.211 Atherosclerosis of native arteries of extremities with intermittent claudication, right leg (principal); E78.5 Hyperlipidemia, unspecified; E11.9 Type 2 diabetes mellitus without complications; J43.9 Emphysema, unspecified; I11.0 Hypertensive heart disease with heart failure; I25.709 Atherosclerosis of coronary artery bypass graft(s), unspecified, with unspecified angina pectoris; Z86.718 Personal history of other venous thrombosis and embolism; Z80.41 Family history of malignant neoplasm of ovary; Z20.822 Contact with and (suspected) exposure to COVID-19; Z87.891 Personal history of nicotine dependence; Z79.899 Other long term (current) drug therapy; Z88.8 Allergy status to other drugs, medicaments and biological substances; Z85.3 Personal history of malignant neoplasm of breast; Z85.42 Personal history of malignant neoplasm of other parts of uterus; Z90.710 Acquired absence of both cervix and uterus; Z99.2 Dependence on renal dialysis; Z90.10 Acquired absence of unspecified breast and nipple
CPT/HCPCS: 36415; 37224; 37228; 75716; 87426; C1725; C1760; C1769; C1887; C1894; J0583; J1644; J3010; J7030; Q9967; 99152; 99153

== ENCOUNTER → 2021-03-18 | Outpatient (CLI) | payer MEDICARE, OTHER ==
[2021-03-18 11:21] LABS: Basophils # (auto) 0 10 ^3/uL (0-0.2); Basophils % (auto) 0.3 % (0.0-2.0); Eosinophils # (auto) 0 10 ^3/uL (0-0.8); Eosinophils % (auto) 0.1 % (0.0-7.0); Hematocrit 35.7 % (36.0-46.0); Hemoglobin 10.9 g/dL (12.2-16.2); Lymphocytes # (auto) 0.5 10 ^3/uL (0.4-5.4); Lymphocytes % (auto) 6.5 % (10.0-50.0); Mean Corpuscular Hemoglobin 28.7 pg (28.0-32.0); Mean Corpuscular Hgb Conc. 30.6 g/dL (32.0-36.0); Mean Corpuscular Volume 93.9 fL (80.0-100.0); Monocytes # (auto) 0.4 10 ^3/uL (0-1.3); Monocytes % (auto) 5.2 % (0.0-12.0); Neutrophils # (auto) 7.3 10 ^3/uL (1.6-8.6); Neutrophils % (auto) 87.9 % (37.0-80.0); Red Blood Cells 3.81 10^6/uL (4.0-5.20); Red Cell Distribution Width 18.6 % (11.8-14.3); White Blood Cell 8.3 10^3/uL (4.4-10.8)
[2021-03-18 11:32] LABS: Potassium 4.6 mmol/L (3.5-5.1)
[2021-03-18 11:40] LABS: BUN/Creatinine Ratio 9.1; Bilirubin, Total 0.7 mg/dL (0.2-1.0); Calcium 8.8 mg/dL (8.5-10.1); Total Protein 7.7 g/dL (6.4-8.2)
[2021-03-18 11:55] LABS: Free T4 (Free Thyroxine) 0.97 ng/dL (0.89-1.76)
== END | disposition home or self-care (01) ==
LOC: LAB 10:13
PROVIDERS: ATTEND Internal Medicine Cardiovascular Disease
DX: E11.9 Type 2 diabetes mellitus without complications (principal); D51.3 Other dietary vitamin B12 deficiency anemia; D64.9 Anemia, unspecified; E55.9 Vitamin D deficiency, unspecified; I10 Essential (primary) hypertension; R00.2 Palpitations; R53.1 Weakness; R30.0 Dysuria
CPT/HCPCS: 36415; 80053; 80061; 82306; 82607; 83036; 84439; 84443; 85025

== ENCOUNTER 2021-04-04 15:24 | Inpatient (IN) | payer MEDICARE, OTHER ==
[~2021-04-04] VITALS: Ht 162.6 cm; Wt 74.0 kg
[2021-04-04 18:07] LABS: Basophils # (auto) 0.1 10 ^3/uL (0-0.2); Basophils % (auto) 1.3 % (0.0-2.0); Eosinophils # (auto) 0 10 ^3/uL (0-0.8); Eosinophils % (auto) 0.1 % (0.0-7.0); Hematocrit 35.4 % (36.0-46.0); Lymphocytes # (auto) 0.4 10 ^3/uL (0.4-5.4); Mean Corpuscular Volume 93.4 fL (80.0-100.0); Monocytes # (auto) 0.4 10 ^3/uL (0-1.3); Monocytes % (auto) 3.7 % (0.0-12.0); Neutrophils # (auto) 10.1 10 ^3/uL (1.6-8.6); Neutrophils % (auto) 90.9 % (37.0-80.0); Nucleated Red Blood Cells % 0.2 %; Red Cell Distribution Width 20.3 % (11.8-14.3); White Blood Cell 11.1 10^3/uL (4.4-10.8)
[2021-04-04 18:28] LABS: Albumin 2.6 g/dL (3.4-5.0); Calcium 7.7 mg/dL (8.5-10.1); Potassium 5.5 mmol/L (3.5-5.1)
[2021-04-04 18:37] LABS: Bilirubin, Total 1.4 mg/dL (0.2-1.0)
[2021-04-04 20:41] LABS: INR 1.61 (0.9-1.15)
[2021-04-04] MEDS ORDERED: cefTRIAXone 1GM/50ML D5W 50 ML IV ONE (23:45)
[2021-04-04] MEDS ORDERED: DOCUSATE SOD 100 MG CAP PO PRN (23:45)
[2021-04-04] MEDS ORDERED: HYDROcodone-ACET 5/325MG TAB PO PRN (23:45)
[2021-04-04] MEDS ORDERED: ONDANSETRON HCL 4 MG/2 ML VIAL IV PRN (23:45)
[2021-04-04] MEDS ORDERED: DEXTROSE (50%) 50ML SYRG IV PRN (23:45)
[2021-04-05] MEDS ORDERED: MORPHINE SULFATE INJECTION 2 MG/ML SYRG IV PRN
[2021-04-05] MEDS ORDERED: NITROGLYCERIN 0.4 MG SL TAB SL PRN
[2021-04-05 04:03] VITALS: BP 101/47
[2021-04-05] MEDS: ACCU-CHEK COMFORT CURVE STRIP VI SCH ×4 (06:12→22:12)
[2021-04-05] MEDS: SODIUM CHLOR 0.9% PF (SALINE LOCK) 10ML VIAL/SYR IV SCH ×3 (06:12→22:11)
[2021-04-05] MEDS: InsuLIN REG 1unit/0.01ml Soln (100units/ml) SC SCH ×4 (06:13→22:13)
[2021-04-05 08:05] LABS: Basophils # (auto) 0.1 10 ^3/uL (0-0.2); Basophils % (auto) 0.8 % (0.0-2.0); Eosinophils # (auto) 0.1 10 ^3/uL (0-0.8); Eosinophils % (auto) 0.7 % (0.0-7.0); Hematocrit 33.7 % (36.0-46.0); Hemoglobin 10.8 g/dL (12.2-16.2); Lymphocytes # (auto) 0.7 10 ^3/uL (0.4-5.4); Lymphocytes % (auto) 7.2 % (10.0-50.0); Mean Corpuscular Hemoglobin 29.3 pg (28.0-32.0); Mean Corpuscular Hgb Conc. 31.9 g/dL (32.0-36.0); Mean Corpuscular Volume 91.7 fL (80.0-100.0); Monocytes # (auto) 0.4 10 ^3/uL (0-1.3); Neutrophils % (auto) 87.3 % (37.0-80.0); Nucleated Red Blood Cells % 0.1 %; Red Blood Cells 3.68 10^6/uL (4.0-5.20); Red Cell Distribution Width 20.2 % (11.8-14.3); White Blood Cell 9.2 10^3/uL (4.4-10.8)
[2021-04-05 08:21] LABS: Albumin 2.7 g/dL (3.4-5.0); Potassium 4.6 mmol/L (3.5-5.1)
[2021-04-05 08:29] LABS: Total Protein 6.8 g/dL (6.4-8.2)
[2021-04-05 09:00] VITALS: BP 106/51
[2021-04-05] MEDS ORDERED: FAMOTIDINE (10MG/ML) 2ML VL IV SCH (10:00)
[2021-04-05] MEDS ORDERED: ASPirin 81 mg TAB PO SCH (10:00)
[2021-04-05] MEDS: ASCORBIC ACID 500 MG TAB PO SCH ×2 (11:03→22:12)
[2021-04-05] MEDS: APIXABAN 2.5 MG TAB PO SCH ×2 (11:14→22:11)
[2021-04-05] MEDS: ZINC SULFATE 220mg CAP or TAB PO SCH (11:14)
[2021-04-05] MEDS: SEVELAMER 800 MG TAB PO SCH ×3 (11:14→17:36)
[2021-04-05] MEDS: B-COMPLEX W/ C & FOLIC ACID(NEPHROVITE TAB) PO SCH (11:14)
[2021-04-05 13:00] VITALS: BP 101/50
[2021-04-05 16:34] VITALS: BP 104/57
[2021-04-05] MEDS: FUROSEMIDE 20 MG/2 ML VIAL IV SCH (17:37)
[2021-04-05 22:00] VITALS: BP 107/66
[2021-04-05] MEDS ORDERED: ATORVASTATIN 20 MG TAB PO SCH (22:00)
[2021-04-05] MEDS: cefTRIAXone 1GM/50ML D5W 50 ML IV SCH (22:10)
[2021-04-06 05:00] VITALS: BP 88/50
[2021-04-06] MEDS: ACCU-CHEK COMFORT CURVE STRIP VI SCH ×4 (06:30→22:17)
[2021-04-06] MEDS: SODIUM CHLOR 0.9% PF (SALINE LOCK) 10ML VIAL/SYR IV SCH ×3 (06:42→22:16)
[2021-04-06] MEDS: FUROSEMIDE 20 MG/2 ML VIAL IV SCH ×2 (06:42→17:16)
[2021-04-06] MEDS: InsuLIN REG 1unit/0.01ml Soln (100units/ml) SC SCH ×4 (06:48→22:17)
[2021-04-06 07:34] LABS: Albumin 2.7 g/dL (3.4-5.0); Bilirubin, Direct 0.5 mg/dL (0-0.2)
[2021-04-06 07:37] LABS: Bilirubin, Total 0.8 mg/dL (0.2-1.0); Total Protein 6.8 g/dL (6.4-8.2)
[2021-04-06] MEDS: SEVELAMER 800 MG TAB PO SCH ×3 (08:00→17:16)
[2021-04-06 09:00] VITALS: BP 103/54
[2021-04-06] MEDS: B-COMPLEX W/ C & FOLIC ACID(NEPHROVITE TAB) PO SCH (10:00)
[2021-04-06] MEDS: ZINC SULFATE 220mg CAP or TAB PO SCH (10:00)
[2021-04-06] MEDS: ASCORBIC ACID 500 MG TAB PO SCH ×2 (10:00→22:16)
[2021-04-06] MEDS: APIXABAN 2.5 MG TAB PO SCH ×2 (10:00→22:16)
[2021-04-06 13:00] VITALS: BP 111/60
[2021-04-06] MEDS ORDERED: FLUT1AER3 INH (16:18)
[2021-04-06] MEDS ORDERED: ALBU108A5 INH (16:18)
[2021-04-06] MEDS ORDERED: ALB2.5IS (16:18)
[2021-04-06 17:00] VITALS: BP 106/56
[2021-04-06] MEDS: DOBUTamine 1000MCG/ML 250 ML IV SCH (17:15)
[2021-04-06] MEDS ORDERED: CYANOCOBALAMIN (B-12) 1000 MCG/1 ML VIAL IM ONE (17:15)
[2021-04-06] MEDS: ALBUTEROL SULF 2.5 MG/0.5ML(0.5%) NEB SOLN NEB SCH (20:27)
[2021-04-06] MEDS: cefTRIAXone 1GM/50ML D5W 50 ML IV SCH (20:35)
[2021-04-06] MEDS: SILDENAFIL CITRATE 20 MG TAB PO SCH (20:35)
[2021-04-06] MEDS: FAMOTIDINE (10MG/ML) 2ML VL IV SCH (22:16)
[2021-04-06 22:18] VITALS: BP 109/47
[2021-04-07 05:25] VITALS: BP 96/63
[2021-04-07] MEDS: FUROSEMIDE 20 MG/2 ML VIAL IV SCH (06:00)
[2021-04-07] MEDS: ALBUTEROL SULF 2.5 MG/0.5ML(0.5%) NEB SOLN NEB SCH ×4 (06:05→18:38)
[2021-04-07] MEDS: SODIUM CHLOR 0.9% PF (SALINE LOCK) 10ML VIAL/SYR IV SCH ×3 (06:10→21:42)
[2021-04-07] MEDS: InsuLIN REG 1unit/0.01ml Soln (100units/ml) SC SCH ×4 (06:41→21:43)
[2021-04-07] MEDS: ACCU-CHEK COMFORT CURVE STRIP VI SCH ×4 (06:42→21:42)
[2021-04-07 06:46] LABS: Albumin 2.5 g/dL (3.4-5.0)
[2021-04-07 06:49] LABS: Bilirubin, Direct 0.4 mg/dL (0-0.2); Bilirubin, Total 0.8 mg/dL (0.2-1.0); Total Protein 6.4 g/dL (6.4-8.2)
[2021-04-07] MEDS: SEVELAMER 800 MG TAB PO SCH ×3 (08:00→18:19)
[2021-04-07] MEDS: SILDENAFIL CITRATE 20 MG TAB PO SCH ×3 (08:00→21:44)
[2021-04-07 08:41] VITALS: BP 97/44
[2021-04-07] MEDS ORDERED: SODIUM CHL 0.9% 1000 ML BAG XX ONE (09:15)
[2021-04-07] MEDS: ZINC SULFATE 220mg CAP or TAB PO SCH (10:23)
[2021-04-07] MEDS: APIXABAN 2.5 MG TAB PO SCH ×2 (10:23→21:42)
[2021-04-07] MEDS: ASCORBIC ACID 500 MG TAB PO SCH ×2 (10:23→21:42)
[2021-04-07] MEDS: B-COMPLEX W/ C & FOLIC ACID(NEPHROVITE TAB) PO SCH (10:23)
[2021-04-07 13:00] VITALS: BP 104/48
[2021-04-07] MEDS ORDERED: ALBUMIN 25% 100 ML IV PRN (14:00)
[2021-04-07] MEDS ORDERED: PANT40TA2 PO (14:50)
[2021-04-07] MEDS ORDERED: INSUINJ37 SC (14:50)
[2021-04-07] MEDS ORDERED: FLUT1AER3 INH (14:50)
[2021-04-07] MEDS ORDERED: ALBU108A5 INH (14:50)
[2021-04-07] MEDS ORDERED: ALB2.5IS INH (14:51)
[2021-04-07 17:00] VITALS: BP 98/50
[2021-04-07] MEDS ORDERED: FUROSEMIDE 20 MG/2 ML VIAL IV SCH (18:00)
[2021-04-07] MEDS: FUROSEMIDE 40 MG/4 ML VIAL IV SCH (18:19)
[2021-04-07] MEDS: DOBUTamine 1000MCG/ML 250 ML IV SCH (19:44)
[2021-04-07] MEDS ORDERED: EPOETIN ALFA-EPBX 4,000 UNIT/ML VIAL SC ONE (21:00)
[2021-04-07] MEDS: cefTRIAXone 1GM/50ML D5W 50 ML IV SCH (21:40)
[2021-04-08] VITALS (7 sets, daily range): BP systolic 98–132; BP diastolic 42–74
[2021-04-08] MEDS: FUROSEMIDE 40 MG/4 ML VIAL IV SCH ×2 (06:00→18:00)
[2021-04-08] MEDS: InsuLIN REG 1unit/0.01ml Soln (100units/ml) SC SCH ×4 (06:10→21:58)
[2021-04-08] MEDS: SODIUM CHLOR 0.9% PF (SALINE LOCK) 10ML VIAL/SYR IV SCH ×3 (06:10→21:54)
[2021-04-08] MEDS: ACCU-CHEK COMFORT CURVE STRIP VI SCH ×4 (06:11→21:54)
[2021-04-08 06:45] LABS: Albumin 3.2 g/dL (3.4-5.0); Bilirubin, Direct 0.6 mg/dL (0-0.2); Bilirubin, Total 1.2 mg/dL (0.2-1.0)
[2021-04-08] MEDS: SEVELAMER 800 MG TAB PO SCH ×3 (08:00→18:00)
[2021-04-08] MEDS: SILDENAFIL CITRATE 20 MG TAB PO SCH ×4 (08:00→21:53)
[2021-04-08] MEDS: ALBUTEROL SULF 2.5 MG/0.5ML(0.5%) NEB SOLN NEB SCH ×4 (08:11→19:08)
[2021-04-08] MEDS: APIXABAN 2.5 MG TAB PO SCH ×2 (09:39→21:53)
[2021-04-08] MEDS: ASCORBIC ACID 500 MG TAB PO SCH ×2 (09:39→21:53)
[2021-04-08] MEDS: ZINC SULFATE 220mg CAP or TAB PO SCH (09:39)
[2021-04-08] MEDS: B-COMPLEX W/ C & FOLIC ACID(NEPHROVITE TAB) PO SCH (09:39)
[2021-04-08] MEDS: DOBUTamine 1000MCG/ML 250 ML IV SCH (17:15)
[2021-04-08] MEDS: cefTRIAXone 1GM/50ML D5W 50 ML IV SCH (21:54)
[2021-04-08] MEDS ORDERED: ALBUTEROL SULF HFA 90MCG INH 200DOSE IN SCH (22:00)
[2021-04-08] MEDS: FAMOTIDINE (10MG/ML) 2ML VL IV SCH (22:15)
[2021-04-09] VITALS (7 sets, daily range): BP systolic 95–110; BP diastolic 35–59
[2021-04-09] MEDS: ALBUTEROL SULF 2.5 MG/0.5ML(0.5%) NEB SOLN NEB SCH ×4 (00:32→18:05)
[2021-04-09] MEDS: FUROSEMIDE 40 MG/4 ML VIAL IV SCH ×2 (06:00→17:39)
[2021-04-09] MEDS: InsuLIN REG 1unit/0.01ml Soln (100units/ml) SC SCH ×4 (06:13→22:04)
[2021-04-09] MEDS: ACCU-CHEK COMFORT CURVE STRIP VI SCH ×4 (06:14→21:45)
[2021-04-09 06:27] LABS: Albumin 2.6 g/dL (3.4-5.0); Bilirubin, Direct 0.5 mg/dL (0-0.2)
[2021-04-09 06:30] LABS: Total Protein 6.4 g/dL (6.4-8.2)
[2021-04-09 06:40] LABS: Hematocrit 29.8 % (36.0-46.0); Hemoglobin 9.4 g/dL (12.2-16.2)
[2021-04-09] MEDS ORDERED: SODIUM CHL 0.9% 1000 ML BAG XX ONE (07:00)
[2021-04-09] MEDS: SILDENAFIL CITRATE 20 MG TAB PO SCH ×3 (09:41→19:50)
[2021-04-09] MEDS: SEVELAMER 800 MG TAB PO SCH ×3 (09:41→17:39)
[2021-04-09] MEDS: APIXABAN 2.5 MG TAB PO SCH ×2 (09:42→21:44)
[2021-04-09] MEDS: ZINC SULFATE 220mg CAP or TAB PO SCH (09:42)
[2021-04-09] MEDS: B-COMPLEX W/ C & FOLIC ACID(NEPHROVITE TAB) PO SCH (09:43)
[2021-04-09] MEDS: ASCORBIC ACID 500 MG TAB PO SCH ×2 (09:43→21:45)
[2021-04-09] MEDS: SODIUM CHLOR 0.9% PF (SALINE LOCK) 10ML VIAL/SYR IV SCH ×2 (14:00→22:04)
[2021-04-09] MEDS ORDERED: CYANOCOBALAMIN (B-12) 1000 MCG/1 ML VIAL SUBCUT ONE (15:00)
[2021-04-09] MEDS: DOBUTamine 1000MCG/ML 250 ML IV SCH (17:37)
[2021-04-09] MEDS ORDERED: EPOETIN ALFA-EPBX 4,000 UNIT/ML VIAL SC ONE (21:00)
[2021-04-09] MEDS: MUPIROCIN 2% OINT 15gm or 22gm EACHNOSTRI SCH (21:45)
[2021-04-10] MEDS: ALBUTEROL SULF 2.5 MG/0.5ML(0.5%) NEB SOLN NEB SCH ×4 (00:24→18:53)
[2021-04-10 05:00] VITALS: BP 100/46
[2021-04-10] MEDS: SODIUM CHLOR 0.9% PF (SALINE LOCK) 10ML VIAL/SYR IV SCH ×3 (05:42→21:28)
[2021-04-10] MEDS: ACCU-CHEK COMFORT CURVE STRIP VI SCH ×4 (06:27→21:29)
[2021-04-10] MEDS: FUROSEMIDE 40 MG/4 ML VIAL IV SCH ×2 (06:27→18:57)
[2021-04-10] MEDS: InsuLIN REG 1unit/0.01ml Soln (100units/ml) SC SCH ×4 (06:48→22:00)
[2021-04-10 07:09] LABS: Albumin 3.1 g/dL (3.4-5.0); Bilirubin, Direct 0.6 mg/dL (0-0.2)
[2021-04-10 07:13] LABS: Bilirubin, Total 1.1 mg/dL (0.2-1.0); Total Protein 6.8 g/dL (6.4-8.2)
[2021-04-10] MEDS: SEVELAMER 800 MG TAB PO SCH ×3 (08:59→18:56)
[2021-04-10] MEDS: SILDENAFIL CITRATE 20 MG TAB PO SCH ×3 (08:59→21:28)
[2021-04-10] MEDS: ZINC SULFATE 220mg CAP or TAB PO SCH (08:59)
[2021-04-10] MEDS: ASCORBIC ACID 500 MG TAB PO SCH ×2 (08:59→21:29)
[2021-04-10] MEDS: APIXABAN 2.5 MG TAB PO SCH ×2 (08:59→21:28)
[2021-04-10 09:00] VITALS: BP 113/48
[2021-04-10] MEDS: MUPIROCIN 2% OINT 15gm or 22gm EACHNOSTRI SCH ×2 (09:01→21:28)
[2021-04-10 13:00] VITALS: BP 101/41
[2021-04-10] MEDS: B-COMPLEX W/ C & FOLIC ACID(NEPHROVITE TAB) PO SCH (14:15)
[2021-04-10 17:00] VITALS: BP 104/44
[2021-04-10] MEDS: DOBUTamine 1000MCG/ML 250 ML IV SCH (17:30)
[2021-04-10] MEDS: FAMOTIDINE (10MG/ML) 2ML VL IV SCH (21:28)
[2021-04-10 22:00] VITALS: BP 107/47
[2021-04-11] VITALS (7 sets, daily range): BP systolic 94–115; BP diastolic 42–50
[2021-04-11] MEDS: ALBUTEROL SULF 2.5 MG/0.5ML(0.5%) NEB SOLN NEB SCH ×4 (00:12→18:57)
[2021-04-11] MEDS: SODIUM CHLOR 0.9% PF (SALINE LOCK) 10ML VIAL/SYR IV SCH ×3 (06:28→22:11)
[2021-04-11] MEDS: ACCU-CHEK COMFORT CURVE STRIP VI SCH ×4 (06:28→22:12)
[2021-04-11] MEDS: InsuLIN REG 1unit/0.01ml Soln (100units/ml) SC SCH ×4 (06:28→22:00)
[2021-04-11] MEDS: FUROSEMIDE 40 MG/4 ML VIAL IV SCH ×2 (06:46→18:00)
[2021-04-11] MEDS ORDERED: SODIUM CHL 0.9% 1000 ML BAG XX ONE (07:00)
[2021-04-11] MEDS: SILDENAFIL CITRATE 20 MG TAB PO SCH ×3 (08:00→20:00)
[2021-04-11 08:22] LABS: Basophils # (auto) 0 10 ^3/uL (0-0.2); Basophils % (auto) 0.3 % (0.0-2.0); Eosinophils # (auto) 0.1 10 ^3/uL (0-0.8); Hemoglobin 7.6 g/dL (12.2-16.2); Lymphocytes # (auto) 0.5 10 ^3/uL (0.4-5.4); Mean Corpuscular Volume 91.7 fL (80.0-100.0); Monocytes # (auto) 0.4 10 ^3/uL (0-1.3); Nucleated Red Blood Cells % 0.1 %
[2021-04-11 08:26] LABS: Eosinophils % (auto) 1.3 % (0.0-7.0); Hematocrit 22.9 % (36.0-46.0); Lymphocytes % (auto) 7.2 % (10.0-50.0); Mean Corpuscular Hemoglobin 30.6 pg (28.0-32.0); Mean Corpuscular Hgb Conc. 33.4 g/dL (32.0-36.0); Monocytes % (auto) 6.3 % (0.0-12.0); Neutrophils # (auto) 5.8 10 ^3/uL (1.6-8.6); Neutrophils % (auto) 84.9 % (37.0-80.0); Red Blood Cells 2.49 10^6/uL (4.0-5.20); Red Cell Distribution Width 19.8 % (11.8-14.3); White Blood Cell 6.8 10^3/uL (4.4-10.8)
[2021-04-11 08:35] LABS: Albumin 2.9 g/dL (3.4-5.0)
[2021-04-11 08:40] LABS: Bilirubin, Direct 0.5 mg/dL (0-0.2); Bilirubin, Total 0.9 mg/dL (0.2-1.0); Total Protein 6.2 g/dL (6.4-8.2)
[2021-04-11] MEDS: APIXABAN 2.5 MG TAB PO SCH ×2 (09:00→10:30)
[2021-04-11] MEDS: ASCORBIC ACID 500 MG TAB PO SCH ×2 (10:30→22:12)
[2021-04-11] MEDS: SEVELAMER 800 MG TAB PO SCH ×3 (10:30→18:01)
[2021-04-11] MEDS: MUPIROCIN 2% OINT 15gm or 22gm EACHNOSTRI SCH ×2 (10:30→22:11)
[2021-04-11] MEDS: B-COMPLEX W/ C & FOLIC ACID(NEPHROVITE TAB) PO SCH (10:30)
[2021-04-11] MEDS: ZINC SULFATE 220mg CAP or TAB PO SCH (10:30)
[2021-04-11] MEDS ORDERED: EPOETIN ALFA-EPBX 4,000 UNIT/ML VIAL SC ONE (21:00)
[2021-04-11] MEDS: DOBUTamine 1000MCG/ML 250 ML IV SCH (21:25)
[2021-04-11 21:54] LABS: Basophils # (auto) 0 10 ^3/uL (0-0.2); Basophils % (auto) 0.3 % (0.0-2.0); Eosinophils # (auto) 0.1 10 ^3/uL (0-0.8); Eosinophils % (auto) 0.8 % (0.0-7.0); Lymphocytes # (auto) 0.4 10 ^3/uL (0.4-5.4); Monocytes # (auto) 0.5 10 ^3/uL (0-1.3); Monocytes % (auto) 5.7 % (0.0-12.0); Neutrophils # (auto) 7.1 10 ^3/uL (1.6-8.6)
[2021-04-11 21:56] LABS: Hematocrit 21.7 % (36.0-46.0); Hemoglobin 7.4 g/dL (12.2-16.2); Lymphocytes % (auto) 4.7 % (10.0-50.0); Mean Corpuscular Hemoglobin 31.1 pg (28.0-32.0); Mean Corpuscular Volume 91.4 fL (80.0-100.0); Neutrophils % (auto) 88.5 % (37.0-80.0); Red Blood Cells 2.37 10^6/uL (4.0-5.20); Red Cell Distribution Width 19.6 % (11.8-14.3)
[2021-04-11 22:11] LABS: Albumin 2.8 g/dL (3.4-5.0); Calcium 8.1 mg/dL (8.5-10.1); Potassium 4.6 mmol/L (3.5-5.1)
[2021-04-11 22:15] LABS: BUN/Creatinine Ratio 9.7; Bilirubin, Total 0.9 mg/dL (0.2-1.0); Total Protein 6.2 g/dL (6.4-8.2)
[2021-04-12 05:26] VITALS: BP 111/47
[2021-04-12] MEDS: FUROSEMIDE 40 MG/4 ML VIAL IV SCH (06:00)
[2021-04-12] MEDS: SODIUM CHLOR 0.9% PF (SALINE LOCK) 10ML VIAL/SYR IV SCH ×3 (06:03→22:17)
[2021-04-12 06:22] LABS: Basophils # (auto) 0 10 ^3/uL (0-0.2); Basophils % (auto) 0.2 % (0.0-2.0); Hemoglobin 7.2 g/dL (12.2-16.2); Lymphocytes # (auto) 0.3 10 ^3/uL (0.4-5.4); Monocytes # (auto) 0.4 10 ^3/uL (0-1.3)
[2021-04-12 06:25] LABS: Eosinophils # (auto) 0 10 ^3/uL (0-0.8); Eosinophils % (auto) 0.7 % (0.0-7.0); Hematocrit 21.9 % (36.0-46.0); Lymphocytes % (auto) 4.7 % (10.0-50.0); Mean Corpuscular Hemoglobin 30.6 pg (28.0-32.0); Mean Corpuscular Hgb Conc. 32.8 g/dL (32.0-36.0); Mean Corpuscular Volume 93.3 fL (80.0-100.0); Monocytes % (auto) 5.6 % (0.0-12.0); Neutrophils # (auto) 5.9 10 ^3/uL (1.6-8.6); Neutrophils % (auto) 88.8 % (37.0-80.0); Red Blood Cells 2.34 10^6/uL (4.0-5.20); Red Cell Distribution Width 20.1 % (11.8-14.3); White Blood Cell 6.6 10^3/uL (4.4-10.8)
[2021-04-12 06:33] LABS: Albumin 2.9 g/dL (3.4-5.0); Bilirubin, Direct 0.6 mg/dL (0-0.2)
[2021-04-12 06:36] LABS: Bilirubin, Total 1.1 mg/dL (0.2-1.0); Total Protein 6.2 g/dL (6.4-8.2)
[2021-04-12] MEDS: ALBUTEROL SULF 2.5 MG/0.5ML(0.5%) NEB SOLN NEB SCH ×4 (06:43→19:02)
[2021-04-12] MEDS: InsuLIN REG 1unit/0.01ml Soln (100units/ml) SC SCH ×4 (06:51→22:21)
[2021-04-12] MEDS: ACCU-CHEK COMFORT CURVE STRIP VI SCH ×4 (06:51→22:19)
[2021-04-12] MEDS: SEVELAMER 800 MG TAB PO SCH ×3 (08:39→18:00)
[2021-04-12] MEDS: ZINC SULFATE 220mg CAP or TAB PO SCH (08:39)
[2021-04-12] MEDS: APIXABAN 2.5 MG TAB PO SCH ×2 (08:40→22:00)
[2021-04-12] MEDS: B-COMPLEX W/ C & FOLIC ACID(NEPHROVITE TAB) PO SCH (08:40)
[2021-04-12] MEDS: ASCORBIC ACID 500 MG TAB PO SCH ×2 (08:40→22:18)
[2021-04-12] MEDS: MUPIROCIN 2% OINT 15gm or 22gm EACHNOSTRI SCH ×2 (08:45→22:17)
[2021-04-12] MEDS: SILDENAFIL CITRATE 20 MG TAB PO SCH ×3 (08:50→20:08)
[2021-04-12 09:01] VITALS: BP 103/54
[2021-04-12 12:42] VITALS: BP 94/51
[2021-04-12 17:00] VITALS: BP 101/69
[2021-04-12] MEDS: DOBUTamine 1000MCG/ML 250 ML IV SCH (17:25)
[2021-04-12 20:00] VITALS: BP 109/50
[2021-04-12 21:45] VITALS: BP 109/50
[2021-04-12] MEDS: FAMOTIDINE (10MG/ML) 2ML VL IV SCH (22:17)
[2021-04-13 04:43] VITALS: BP 102/51
[2021-04-13] MEDS: SODIUM CHLOR 0.9% PF (SALINE LOCK) 10ML VIAL/SYR IV SCH ×3 (06:25→22:00)
[2021-04-13] MEDS: ACCU-CHEK COMFORT CURVE STRIP VI SCH ×4 (06:35→22:00)
[2021-04-13] MEDS: InsuLIN REG 1unit/0.01ml Soln (100units/ml) SC SCH ×4 (06:35→21:51)
[2021-04-13 07:32] LABS: Albumin 2.7 g/dL (3.4-5.0)
[2021-04-13 07:36] LABS: Bilirubin, Direct 0.5 mg/dL (0-0.2); Bilirubin, Total 0.9 mg/dL (0.2-1.0); Total Protein 6.2 g/dL (6.4-8.2)
[2021-04-13 09:00] VITALS: BP 93/44
[2021-04-13] MEDS: ALBUTEROL SULF 2.5 MG/0.5ML(0.5%) NEB SOLN NEB SCH ×4 (09:26→21:04)
[2021-04-13] MEDS: FUROSEMIDE 40 MG/4 ML VIAL IV SCH (10:00)
[2021-04-13] MEDS: APIXABAN 2.5 MG TAB PO SCH ×2 (10:00→22:00)
[2021-04-13] MEDS: B-COMPLEX W/ C & FOLIC ACID(NEPHROVITE TAB) PO SCH (12:35)
[2021-04-13] MEDS: SEVELAMER 800 MG TAB PO SCH ×3 (12:35→18:55)
[2021-04-13] MEDS: ASCORBIC ACID 500 MG TAB PO SCH ×2 (12:35→22:00)
[2021-04-13] MEDS: SILDENAFIL CITRATE 20 MG TAB PO SCH ×3 (12:36→20:00)
[2021-04-13] MEDS: ZINC SULFATE 220mg CAP or TAB PO SCH (12:37)
[2021-04-13] MEDS: MUPIROCIN 2% OINT 15gm or 22gm EACHNOSTRI SCH ×2 (12:44→22:00)
[2021-04-13 13:00] VITALS: BP 106/52
[2021-04-13 17:00] VITALS: BP 102/41
[2021-04-13] MEDS: DOBUTamine 1000MCG/ML 250 ML IV SCH (19:58)
[2021-04-13 20:00] VITALS: BP 102/50
[2021-04-13] MEDS: ACETAMINOPHEN 325 MG TAB PO PRN ×2 (21:37→23:28)
[2021-04-14] MEDS: ALBUTEROL SULF 2.5 MG/0.5ML(0.5%) NEB SOLN NEB SCH ×5 (01:20→23:22)
[2021-04-14 05:00] VITALS: BP 128/79
[2021-04-14] MEDS: SODIUM CHLOR 0.9% PF (SALINE LOCK) 10ML VIAL/SYR IV SCH ×3 (06:00→21:42)
[2021-04-14] MEDS: ACCU-CHEK COMFORT CURVE STRIP VI SCH ×3 (07:00→17:30)
[2021-04-14] MEDS ORDERED: SODIUM CHL 0.9% 1000 ML BAG XX ONE (07:00)
[2021-04-14] MEDS: InsuLIN REG 1unit/0.01ml Soln (100units/ml) SC SCH ×4 (07:00→22:00)
[2021-04-14 07:23] LABS: Hematocrit 20.7 % (36.0-46.0)
[2021-04-14 07:34] LABS: Albumin 2.9 g/dL (3.4-5.0); Bilirubin, Direct 0.5 mg/dL (0-0.2)
[2021-04-14 07:37] LABS: Bilirubin, Total 0.9 mg/dL (0.2-1.0); Total Protein 6.5 g/dL (6.4-8.2)
[2021-04-14 07:50] LABS: Hemoglobin 6.8 g/dL (12.2-16.2)
[2021-04-14 09:00] VITALS: BP 142/102
[2021-04-14] MEDS: APIXABAN 2.5 MG TAB PO SCH ×2 (10:00→21:43)
[2021-04-14] MEDS: FUROSEMIDE 40 MG/4 ML VIAL IV SCH (11:40)
[2021-04-14] MEDS: MUPIROCIN 2% OINT 15gm or 22gm EACHNOSTRI SCH (11:40)
[2021-04-14] MEDS: SILDENAFIL CITRATE 20 MG TAB PO SCH ×3 (11:40→20:00)
[2021-04-14] MEDS: ZINC SULFATE 220mg CAP or TAB PO SCH (11:40)
[2021-04-14] MEDS: ASCORBIC ACID 500 MG TAB PO SCH ×2 (11:40→21:43)
[2021-04-14] MEDS: SEVELAMER 800 MG TAB PO SCH ×3 (11:40→20:00)
[2021-04-14] MEDS: B-COMPLEX W/ C & FOLIC ACID(NEPHROVITE TAB) PO SCH (11:40)
[2021-04-14] MEDS ORDERED: ALBUMIN 25% 50 ML IV SCH (16:45)
[2021-04-14] MEDS ORDERED: LIDOCAINE 1% (LOCAL ANESTH.) PF 5ml SDV ID ONE (18:45)
[2021-04-14] MEDS: DOBUTamine 1000MCG/ML 250 ML IV SCH (20:20)
[2021-04-14] MEDS: ALBUMIN 25% 50 ML IV SCH (21:00)
[2021-04-14] MEDS ORDERED: EPOETIN ALFA-EPBX 4,000 UNIT/ML VIAL SC ONE (21:00)
[2021-04-14] MEDS: FAMOTIDINE (10MG/ML) 2ML VL IV SCH (21:42)
[2021-04-14 22:00] VITALS: BP 105/49
[2021-04-14] MEDS ORDERED: SODIUM CHLOR 0.9% PF (SALINE LOCK) 10ML VIAL/SYR IV SCH (22:00)
[2021-04-15] VITALS (17 sets, daily range): BP systolic 95–113; BP diastolic 41–61
[2021-04-15] MEDS: ACCU-CHEK COMFORT CURVE STRIP VI SCH ×5 (01:32→21:31)
[2021-04-15] MEDS: InsuLIN REG 1unit/0.01ml Soln (100units/ml) SC SCH ×4 (06:21→21:31)
[2021-04-15] MEDS: SODIUM CHLOR 0.9% PF (SALINE LOCK) 10ML VIAL/SYR IV SCH ×3 (06:21→22:11)
[2021-04-15] MEDS: ALBUMIN 25% 50 ML IV SCH ×2 (06:31→15:00)
[2021-04-15] MEDS: ALBUTEROL SULF 2.5 MG/0.5ML(0.5%) NEB SOLN NEB SCH ×3 (06:43→18:41)
[2021-04-15] MEDS: ACETAMINOPHEN 325 MG TAB PO PRN (06:45)
[2021-04-15] MEDS: SEVELAMER 800 MG TAB PO SCH ×3 (08:00→18:00)
[2021-04-15] MEDS: B-COMPLEX W/ C & FOLIC ACID(NEPHROVITE TAB) PO SCH (09:02)
[2021-04-15] MEDS: ASCORBIC ACID 500 MG TAB PO SCH ×2 (09:02→21:34)
[2021-04-15] MEDS: ZINC SULFATE 220mg CAP or TAB PO SCH (09:02)
[2021-04-15] MEDS: SILDENAFIL CITRATE 20 MG TAB PO SCH ×3 (09:16→21:34)
[2021-04-15] MEDS: APIXABAN 2.5 MG TAB PO SCH ×2 (09:17→22:00)
[2021-04-15] MEDS: FUROSEMIDE 40 MG/4 ML VIAL IV SCH (10:00)
[2021-04-15] MEDS: DOBUTamine 1000MCG/ML 250 ML IV SCH ×2 (17:15→23:18)
[2021-04-15 23:19] LABS: Basophils # (auto) 0 10 ^3/uL (0-0.2); Basophils % (auto) 0.8 % (0.0-2.0); Eosinophils # (auto) 0.3 10 ^3/uL (0-0.8); Eosinophils % (auto) 5.5 % (0.0-7.0); Hematocrit 28.7 % (36.0-46.0); Hemoglobin 9.5 g/dL (12.2-16.2); Lymphocytes # (auto) 0.3 10 ^3/uL (0.4-5.4); Lymphocytes % (auto) 4.8 % (10.0-50.0); Mean Corpuscular Hemoglobin 30.6 pg (28.0-32.0); Mean Corpuscular Hgb Conc. 33.1 g/dL (32.0-36.0); Mean Corpuscular Volume 92.2 fL (80.0-100.0); Monocytes # (auto) 0.4 10 ^3/uL (0-1.3); Monocytes % (auto) 6.5 % (0.0-12.0); Neutrophils # (auto) 4.9 10 ^3/uL (1.6-8.6); Neutrophils % (auto) 82.4 % (37.0-80.0); Nucleated Red Blood Cells % 0.1 %; Red Blood Cells 3.12 10^6/uL (4.0-5.20); Red Cell Distribution Width 18.1 % (11.8-14.3); White Blood Cell 5.9 10^3/uL (4.4-10.8)
[2021-04-15 23:24] LABS: Albumin 3.1 g/dL (3.4-5.0); Bilirubin, Direct 0.6 mg/dL (0-0.2)
[2021-04-15 23:27] LABS: Bilirubin, Total 1.2 mg/dL (0.2-1.0); Total Protein 6.7 g/dL (6.4-8.2)
[2021-04-16] MEDS: ALBUTEROL SULF 2.5 MG/0.5ML(0.5%) NEB SOLN NEB SCH ×5 (00:32→18:16)
[2021-04-16 05:09] VITALS: BP 111/58
[2021-04-16] MEDS: InsuLIN REG 1unit/0.01ml Soln (100units/ml) SC SCH ×4 (06:36→22:00)
[2021-04-16] MEDS: ACCU-CHEK COMFORT CURVE STRIP VI SCH ×4 (06:37→22:08)
[2021-04-16] MEDS: SODIUM CHLOR 0.9% PF (SALINE LOCK) 10ML VIAL/SYR IV SCH ×3 (06:38→21:33)
[2021-04-16] MEDS: ACETAMINOPHEN 325 MG TAB PO PRN (06:56)
[2021-04-16] MEDS ORDERED: SODIUM CHL 0.9% 1000 ML BAG XX ONE (07:00)
[2021-04-16] MEDS: SILDENAFIL CITRATE 20 MG TAB PO SCH ×3 (08:00→21:27)
[2021-04-16] MEDS: B-COMPLEX W/ C & FOLIC ACID(NEPHROVITE TAB) PO SCH (08:38)
[2021-04-16] MEDS: ZINC SULFATE 220mg CAP or TAB PO SCH (08:38)
[2021-04-16] MEDS: ASCORBIC ACID 500 MG TAB PO SCH ×2 (08:38→21:32)
[2021-04-16] MEDS: APIXABAN 2.5 MG TAB PO SCH ×2 (08:38→21:32)
[2021-04-16] MEDS: SEVELAMER 800 MG TAB PO SCH ×3 (08:38→18:55)
[2021-04-16 09:00] VITALS: BP 98/25
[2021-04-16] MEDS ORDERED: ALBUMIN 25% 100 ML IV ONE (09:45)
[2021-04-16] MEDS: FUROSEMIDE 40 MG/4 ML VIAL IV SCH (10:00)
[2021-04-16] MEDS ORDERED: CYANOCOBALAMIN (B-12) 1000 MCG/1 ML VIAL IM ONE (10:45)
[2021-04-16] MEDS: Ensure Enlive Chocolate 8oz Bottle PO SCH ×2 (12:00→18:00)
[2021-04-16 13:00] VITALS: BP 105/60
[2021-04-16 17:00] VITALS: BP 89/19
[2021-04-16] MEDS ORDERED: EPOETIN ALFA-EPBX 4,000 UNIT/ML VIAL SC ONE (21:00)
[2021-04-16] MEDS: FAMOTIDINE (10MG/ML) 2ML VL IV SCH (21:32)
[2021-04-16] MEDS: DOBUTamine 1000MCG/ML 250 ML IV SCH (21:47)
[2021-04-16 22:00] VITALS: BP 111/36
[2021-04-17] MEDS: ALBUTEROL SULF 2.5 MG/0.5ML(0.5%) NEB SOLN NEB SCH ×4 (00:10→19:08)
[2021-04-17 05:00] VITALS: BP 99/48
[2021-04-17] MEDS ORDERED: ALBUTEROL SULF 2.5 MG/0.5ML(0.5%) NEB SOLN ONE (05:42)
[2021-04-17] MEDS: SODIUM CHLOR 0.9% PF (SALINE LOCK) 10ML VIAL/SYR IV SCH ×3 (06:06→22:05)
[2021-04-17] MEDS: InsuLIN REG 1unit/0.01ml Soln (100units/ml) SC SCH ×4 (06:35→22:00)
[2021-04-17] MEDS: ACCU-CHEK COMFORT CURVE STRIP VI SCH ×4 (06:36→22:06)
[2021-04-17 06:37] LABS: Basophils # (auto) 0 10 ^3/uL (0-0.2); Basophils % (auto) 0.1 % (0.0-2.0); Eosinophils # (auto) 0 10 ^3/uL (0-0.8); Eosinophils % (auto) 0.2 % (0.0-7.0); Hematocrit 27.9 % (36.0-46.0); Hemoglobin 9.1 g/dL (12.2-16.2); Lymphocytes # (auto) 0.3 10 ^3/uL (0.4-5.4); Lymphocytes % (auto) 4.8 % (10.0-50.0); Mean Corpuscular Hemoglobin 30.1 pg (28.0-32.0); Mean Corpuscular Hgb Conc. 32.5 g/dL (32.0-36.0); Mean Corpuscular Volume 92.4 fL (80.0-100.0); Monocytes # (auto) 0.4 10 ^3/uL (0-1.3); Monocytes % (auto) 6.6 % (0.0-12.0); Neutrophils # (auto) 5.7 10 ^3/uL (1.6-8.6); Neutrophils % (auto) 88.3 % (37.0-80.0); Red Blood Cells 3.01 10^6/uL (4.0-5.20); Red Cell Distribution Width 17.2 % (11.8-14.3); White Blood Cell 6.4 10^3/uL (4.4-10.8)
[2021-04-17 07:15] LABS: % Iron Saturation 27.3 % (15-50)
[2021-04-17 08:00] VITALS: BP 95/48
[2021-04-17] MEDS: Ensure Enlive Chocolate 8oz Bottle PO SCH ×3 (08:00→18:00)
[2021-04-17] MEDS: SILDENAFIL CITRATE 20 MG TAB PO SCH ×3 (09:16→21:42)
[2021-04-17] MEDS: SEVELAMER 800 MG TAB PO SCH ×3 (09:16→16:50)
[2021-04-17] MEDS: ZINC SULFATE 220mg CAP or TAB PO SCH (09:17)
[2021-04-17] MEDS: ASCORBIC ACID 500 MG TAB PO SCH ×2 (09:17→21:43)
[2021-04-17] MEDS: APIXABAN 2.5 MG TAB PO SCH ×2 (09:17→21:42)
[2021-04-17] MEDS: FUROSEMIDE 40 MG/4 ML VIAL IV SCH (09:23)
[2021-04-17] MEDS: B-COMPLEX W/ C & FOLIC ACID(NEPHROVITE TAB) PO SCH (09:24)
[2021-04-17 12:00] VITALS: BP 118/56
[2021-04-17 16:00] VITALS: BP 102/48
[2021-04-17] MEDS: ACETAMINOPHEN 325 MG TAB PO PRN (18:57)
[2021-04-17] MEDS: DOBUTamine 1000MCG/ML 250 ML IV SCH (21:44)
[2021-04-17 22:44] VITALS: BP 95/40
[2021-04-18] MEDS: ALBUTEROL SULF 2.5 MG/0.5ML(0.5%) NEB SOLN NEB SCH ×4 (00:12→18:58)
[2021-04-18 01:15] LABS: INR 1.42 (0.9-1.15); Partial Thromboplastin Time 28.8 sec (23.6-33.0)
[2021-04-18 02:06] VITALS: BP 95/40
[2021-04-18 05:13] VITALS: BP 99/42
[2021-04-18] MEDS: SODIUM CHLOR 0.9% PF (SALINE LOCK) 10ML VIAL/SYR IV SCH ×3 (06:28→22:17)
[2021-04-18] MEDS: InsuLIN REG 1unit/0.01ml Soln (100units/ml) SC SCH ×4 (06:28→22:00)
[2021-04-18] MEDS: ACCU-CHEK COMFORT CURVE STRIP VI SCH ×4 (06:29→22:17)
[2021-04-18] MEDS ORDERED: SODIUM CHL 0.9% 1000 ML BAG XX ONE (07:00)
[2021-04-18 08:00] VITALS: BP 95/45
[2021-04-18] MEDS: SEVELAMER 800 MG TAB PO SCH ×3 (08:00→18:00)
[2021-04-18] MEDS: Ensure Enlive Chocolate 8oz Bottle PO SCH ×3 (08:00→18:00)
[2021-04-18] MEDS: SILDENAFIL CITRATE 20 MG TAB PO SCH ×3 (08:00→20:00)
[2021-04-18 09:02] LABS: Basophils # (auto) 0.2 10 ^3/uL (0-0.2); Basophils % (auto) 3.1 % (0.0-2.0); Eosinophils # (auto) 0 10 ^3/uL (0-0.8); Eosinophils % (auto) 0.5 % (0.0-7.0); Hematocrit 27.5 % (36.0-46.0); Hemoglobin 9.1 g/dL (12.2-16.2); Lymphocytes # (auto) 0.2 10 ^3/uL (0.4-5.4); Lymphocytes % (auto) 3.6 % (10.0-50.0); Mean Corpuscular Hgb Conc. 33.1 g/dL (32.0-36.0); Mean Corpuscular Volume 93.8 fL (80.0-100.0); Monocytes # (auto) 0.5 10 ^3/uL (0-1.3); Monocytes % (auto) 8.3 % (0.0-12.0); Neutrophils # (auto) 4.8 10 ^3/uL (1.6-8.6); Neutrophils % (auto) 84.5 % (37.0-80.0); Red Blood Cells 2.93 10^6/uL (4.0-5.20); Red Cell Distribution Width 17.7 % (11.8-14.3); White Blood Cell 5.7 10^3/uL (4.4-10.8)
[2021-04-18 09:17] LABS: Calcium 8.3 mg/dL (8.5-10.1); Potassium 4.4 mmol/L (3.5-5.1)
[2021-04-18 09:19] LABS: BUN/Creatinine Ratio 6.5
[2021-04-18] MEDS ORDERED: ALBUTEROL SULF 2.5 MG/0.5ML(0.5%) NEB SOLN ONE (11:18)
[2021-04-18 12:00] VITALS: BP 108/48
[2021-04-18] MEDS: ASCORBIC ACID 500 MG TAB PO SCH ×2 (12:08→22:17)
[2021-04-18] MEDS: B-COMPLEX W/ C & FOLIC ACID(NEPHROVITE TAB) PO SCH (12:08)
[2021-04-18] MEDS: APIXABAN 2.5 MG TAB PO SCH ×2 (12:08→22:00)
[2021-04-18] MEDS: ZINC SULFATE 220mg CAP or TAB PO SCH (12:09)
[2021-04-18] MEDS: FUROSEMIDE 40 MG/4 ML VIAL IV SCH (12:17)
[2021-04-18 16:00] VITALS: BP 102/47
[2021-04-18] MEDS ORDERED: EPOETIN ALFA-EPBX 4,000 UNIT/ML VIAL SC ONE (21:00)
[2021-04-18 21:53] VITALS: BP 74/38
[2021-04-18] MEDS: FAMOTIDINE (10MG/ML) 2ML VL IV SCH (22:15)
[2021-04-19] VITALS (7 sets, daily range): BP systolic 88–107; BP diastolic 47–57
[2021-04-19] MEDS: ALBUTEROL SULF 2.5 MG/0.5ML(0.5%) NEB SOLN NEB SCH ×4 (04:10→18:00)
[2021-04-19] MEDS: ACCU-CHEK COMFORT CURVE STRIP VI SCH ×4 (06:17→22:46)
[2021-04-19] MEDS: SODIUM CHLOR 0.9% PF (SALINE LOCK) 10ML VIAL/SYR IV SCH ×3 (06:17→22:45)
[2021-04-19] MEDS: InsuLIN REG 1unit/0.01ml Soln (100units/ml) SC SCH ×4 (06:20→22:00)
[2021-04-19] MEDS: Ensure Enlive Chocolate 8oz Bottle PO SCH ×3 (08:00→18:00)
[2021-04-19] MEDS: SILDENAFIL CITRATE 20 MG TAB PO SCH ×3 (08:35→18:58)
[2021-04-19] MEDS: SEVELAMER 800 MG TAB PO SCH ×3 (08:35→18:58)
[2021-04-19] MEDS: FUROSEMIDE 40 MG/4 ML VIAL IV SCH (10:00)
[2021-04-19] MEDS: APIXABAN 2.5 MG TAB PO SCH ×2 (11:43→22:45)
[2021-04-19] MEDS: ASCORBIC ACID 500 MG TAB PO SCH ×2 (11:43→22:46)
[2021-04-19] MEDS: ZINC SULFATE 220mg CAP or TAB PO SCH (11:43)
[2021-04-19] MEDS: B-COMPLEX W/ C & FOLIC ACID(NEPHROVITE TAB) PO SCH (11:43)
[2021-04-19] MEDS: SODIUM FERR GLUC 62.5MG/5ML 125 MG in SODIUM CHL 0.9% 100 ML IV SCH (20:01)
[2021-04-20] VITALS (9 sets, daily range): BP systolic 95–111; BP diastolic 52–61
[2021-04-20] MEDS: ALBUTEROL SULF 2.5 MG/0.5ML(0.5%) NEB SOLN NEB SCH ×5 (00:36→22:55)
[2021-04-20 05:26] LABS: Chloride 102 mmol/L (98-107); Potassium 5.3 mmol/L (3.5-5.1); Sodium 138 mmol/L (136-145)
[2021-04-20] MEDS: SODIUM CHLOR 0.9% PF (SALINE LOCK) 10ML VIAL/SYR IV SCH ×3 (05:29→21:35)
[2021-04-20 05:32] LABS: Basophils # (auto) 0 10 ^3/uL (0-0.2); Basophils % (auto) 0.6 % (0.0-2.0); Eosinophils # (auto) 0.1 10 ^3/uL (0-0.8); Hematocrit 29.1 % (36.0-46.0); Hemoglobin 9.4 g/dL (12.2-16.2); Lymphocytes # (auto) 0.6 10 ^3/uL (0.4-5.4); Lymphocytes % (auto) 9.1 % (10.0-50.0); Mean Corpuscular Hemoglobin 30.2 pg (28.0-32.0); Mean Corpuscular Hgb Conc. 32.5 g/dL (32.0-36.0); Monocytes # (auto) 0.5 10 ^3/uL (0-1.3); Monocytes % (auto) 8.2 % (0.0-12.0); Neutrophils # (auto) 5.1 10 ^3/uL (1.6-8.6); Neutrophils % (auto) 81.1 % (37.0-80.0); Red Blood Cells 3.13 10^6/uL (4.0-5.20); Red Cell Distribution Width 17.8 % (11.8-14.3); White Blood Cell 6.3 10^3/uL (4.4-10.8)
[2021-04-20 05:34] LABS: Anion Gap 13 (5-15); BUN/Creatinine Ratio 7.7; Blood Urea Nitrogen 53 mg/dL (7-18); Calcium 7.6 mg/dL (8.5-10.1); Carbon Dioxide 23 mmol/L (21-32); GFR African American 7 mL/min; GFR Non-African American 6 mL/min; Glucose 89 mg/dL (74-106)
[2021-04-20 05:37] LABS: Alanine Aminotransferase 68 U/L (13-56); Albumin 2.7 g/dL (3.4-5.0); Alkaline Phosphatase 50 U/L (45-117); Aspartate Aminotransferase 27 U/L (15-37); Bilirubin, Total 0.9 mg/dL (0.2-1.0)
[2021-04-20] MEDS ORDERED: SODIUM CHL 0.9% 1000 ML BAG XX ONE (07:00)
[2021-04-20] MEDS: InsuLIN REG 1unit/0.01ml Soln (100units/ml) SC SCH ×4 (07:00→21:36)
[2021-04-20] MEDS: ACCU-CHEK COMFORT CURVE STRIP VI SCH ×4 (07:11→21:36)
[2021-04-20] MEDS: SEVELAMER 800 MG TAB PO SCH ×3 (08:00→18:00)
[2021-04-20] MEDS: Ensure Enlive Chocolate 8oz Bottle PO SCH ×3 (08:00→18:00)
[2021-04-20] MEDS: SILDENAFIL CITRATE 20 MG TAB PO SCH ×3 (08:00→21:10)
[2021-04-20] MEDS: B-COMPLEX W/ C & FOLIC ACID(NEPHROVITE TAB) PO SCH (10:00)
[2021-04-20] MEDS: ZINC SULFATE 220mg CAP or TAB PO SCH (10:00)
[2021-04-20] MEDS: ASCORBIC ACID 500 MG TAB PO SCH ×2 (10:00→21:35)
[2021-04-20] MEDS: APIXABAN 2.5 MG TAB PO SCH ×2 (10:00→21:34)
[2021-04-20] MEDS: FUROSEMIDE 40 MG/4 ML VIAL IV SCH (10:00)
[2021-04-20] MEDS: SODIUM FERR GLUC 62.5MG/5ML 125 MG in SODIUM CHL 0.9% 100 ML IV SCH (15:11)
[2021-04-20] MEDS ORDERED: EPOETIN ALFA-EPBX 4,000 UNIT/ML VIAL SC ONE (21:00)
[2021-04-20] MEDS: FAMOTIDINE (10MG/ML) 2ML VL IV SCH (21:35)
[2021-04-20] MEDS: ACETAMINOPHEN 325 MG TAB PO PRN (21:35)
[2021-04-21 05:08] VITALS: BP 95/47
[2021-04-21] MEDS: ALBUTEROL SULF 2.5 MG/0.5ML(0.5%) NEB SOLN NEB SCH ×2 (06:17→12:44)
[2021-04-21] MEDS: SODIUM CHLOR 0.9% PF (SALINE LOCK) 10ML VIAL/SYR IV SCH ×2 (06:44→14:01)
[2021-04-21] MEDS: InsuLIN REG 1unit/0.01ml Soln (100units/ml) SC SCH ×2 (06:44→11:30)
[2021-04-21] MEDS: ACCU-CHEK COMFORT CURVE STRIP VI SCH ×2 (06:45→11:30)
[2021-04-21 08:00] VITALS: BP 95/53
[2021-04-21] MEDS: SILDENAFIL CITRATE 20 MG TAB PO SCH ×2 (08:00→14:00)
[2021-04-21] MEDS: SEVELAMER 800 MG TAB PO SCH ×2 (08:00→12:00)
[2021-04-21] MEDS: Ensure Enlive Chocolate 8oz Bottle PO SCH ×2 (08:00→12:00)
[2021-04-21] MEDS: ASCORBIC ACID 500 MG TAB PO SCH (10:00)
[2021-04-21] MEDS: ZINC SULFATE 220mg CAP or TAB PO SCH (10:00)
[2021-04-21] MEDS: FUROSEMIDE 40 MG/4 ML VIAL IV SCH (10:00)
[2021-04-21] MEDS: APIXABAN 2.5 MG TAB PO SCH (10:00)
[2021-04-21] MEDS: B-COMPLEX W/ C & FOLIC ACID(NEPHROVITE TAB) PO SCH (10:00)
[2021-04-21] MEDS: SODIUM FERR GLUC 62.5MG/5ML 125 MG in SODIUM CHL 0.9% 100 ML IV SCH (12:00)
== END 2021-04-21 17:40 | DRG 291 ==
LOC: ER 15:24 → EDBD 15:24 → TELE-WESTW 23:50
PROVIDERS: ADMIT Nurse Practitioner Family; ATTEND Internal Medicine Cardiovascular Disease
PROC: 5A1D70Z Performance of Urinary Filtration, Intermittent, Less than 6 Hours Per Day (ICD-10-PCS; 2021-04-07)
PROC: 5A1D70Z Performance of Urinary Filtration, Intermittent, Less than 6 Hours Per Day (ICD-10-PCS; 2021-04-09)
PROC: 5A1D70Z Performance of Urinary Filtration, Intermittent, Less than 6 Hours Per Day (ICD-10-PCS; 2021-04-11)
PROC: 5A1D70Z Performance of Urinary Filtration, Intermittent, Less than 6 Hours Per Day (ICD-10-PCS; 2021-04-14)
PROC: 30233N1 Transfusion of Nonautologous Red Blood Cells into Peripheral Vein, Percutaneous Approach (ICD-10-PCS; principal; 2021-04-15)
PROC: 5A1D70Z Performance of Urinary Filtration, Intermittent, Less than 6 Hours Per Day (ICD-10-PCS; 2021-04-16)
PROC: 5A1D70Z Performance of Urinary Filtration, Intermittent, Less than 6 Hours Per Day (ICD-10-PCS; 2021-04-17)
PROC: 5A1D70Z Performance of Urinary Filtration, Intermittent, Less than 6 Hours Per Day (ICD-10-PCS; 2021-04-20)
DX: I13.2 Hypertensive heart and chronic kidney disease with heart failure and with stage 5 chronic kidney disease, or end stage renal disease (principal); N18.6 End stage renal disease; G93.41 Metabolic encephalopathy; J96.90 Respiratory failure, unspecified, unspecified whether with hypoxia or hypercapnia; E87.1 Hypo-osmolality and hyponatremia; E44.0 Moderate protein-calorie malnutrition; I48.91 Unspecified atrial fibrillation; D72.829 Elevated white blood cell count, unspecified; D69.6 Thrombocytopenia, unspecified; R04.0 Epistaxis; K72.90 Hepatic failure, unspecified without coma; K76.1 Chronic passive congestion of liver; D63.1 Anemia in chronic kidney disease; E03.9 Hypothyroidism, unspecified; E11.22 Type 2 diabetes mellitus with diabetic chronic kidney disease; E61.1 Iron deficiency; E78.5 Hyperlipidemia, unspecified; I07.1 Rheumatic tricuspid insufficiency; I25.10 Atherosclerotic heart disease of native coronary artery without angina pectoris; Z20.822 Contact with and (suspected) exposure to COVID-19; E11.40 Type 2 diabetes mellitus with diabetic neuropathy, unspecified; E11.21 Type 2 diabetes mellitus with diabetic nephropathy; M10.9 Gout, unspecified; I95.9 Hypotension, unspecified; R79.89 Other specified abnormal findings of blood chemistry; E11.51 Type 2 diabetes mellitus with diabetic peripheral angiopathy without gangrene; A49.02 Methicillin resistant Staphylococcus aureus infection, unspecified site; I27.21 Secondary pulmonary arterial hypertension; J44.9 Chronic obstructive pulmonary disease, unspecified; Z80.41 Family history of malignant neoplasm of ovary; Z82.49 Family history of ischemic heart disease and other diseases of the circulatory system; Z86.711 Personal history of pulmonary embolism; Z87.11 Personal history of peptic ulcer disease; Z99.2 Dependence on renal dialysis; Z90.49 Acquired absence of other specified parts of digestive tract; Z68.23 Body mass index [BMI] 23.0-23.9, adult; Z79.84 Long term (current) use of oral hypoglycemic drugs; I25.5 Ischemic cardiomyopathy
CPT/HCPCS: 36415; 71045; 76700; 80048; 80053; 80076; 82962; 83540; 83550; 83880; 84484; 85014; 85018; 85025; 85045; 85610; 85730; 86850; 86900; 86901; 86920; 87081; 87426; 90935; 93005; 93306; 94640; 96365; G0378; J0696; J1815; J3490; P9047